=== PATIENT | male | born 1950 | race Caucasian/White ===

== ENCOUNTER 2024-10-03 10:52 | Outpatient (CLI) | payer MEDICARE, SELFPAY ==
[2024-10-03 12:24] LABS: D Dimer Quantitative* 2.74 ug/ml (0.00-0.50)
[2024-10-03 12:35] LABS: Troponin I* 0.03 ng/mL (0.01-0.04)
== END 2024-10-03 10:53 | disposition home or self-care (01) ==
PROVIDERS: Visit Provider Physician Assistant
DX: R06.02 Shortness of breath (principal); R53.83 Other fatigue; R05.9 Cough, unspecified
CPT/HCPCS: 84484; 85379

== ENCOUNTER 2024-10-03 11:47 | Emergency (ER) | payer MEDICARE, SELFPAY ==
--- OUTSIDE RECORDS SUMMARY | 2024-10-03 11:51 | XMS_ITS | Encounter Summary ---
Author Organization [facility] Address [address] [place] [address] Care Team Providers Care Web Site Designer Name Role Phone Dahlia Clif Epstein Primary Care Provider Unavailabl Michael Cid MD Unavailable [phone] Michael Ba APRN LOCOMOTIVE CRANE OPERATOR Unavailable [phone] Michael Negrete MD Unavailable [phone] Kailyn Wang DAIRY LABORATORY TECHNICIAN LOCOMOTIVE CRANE OPERATOR Unavailable Cristine Torres Finn MD Primary Care Provider + [phone] Nirav Cuba MD Unavailable Torres Mooney MD Primary Care Provider + [phone] Ayla Flores APRN LOCOMOTIVE CRANE OPERATOR Unavailable + [phone] Sophy Wong MD Unavailable [phone] Reason for Visit * Reason Onset Date Comments Symptoms 03/27/2022 AFIB Encounter Details Date Type Department Care Team (Late st Contact Info) Description 03/27/2022 Telephone [facility] [address] [facility] [place] [address] Michael Negrete MD [address] [facility] [address] [place] [address] Symptoms (AFIB) Social History Tobacco Use Types Packs/Day Years Used Date Smoking Tobacco: Never Smokeless Tobacco: Never Alcohol Use Standard Drinks/Week Comments No 0 (1 standard drink = 0.6 oz pur e alcohol) Sex and Gender Information Value Date Recorded Sex Assigned at Not on file 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 No / Unsure 03/29/2022 10:59 AM CDT documented as of this encounter Miscellaneous Notes * Telephone Encounter - Minnie Vickers - 03/27/2022 10:19 AM CDT [facility] Call Center Phone Message May a detailed message be left on voicemail: yes Reason for Call: Symptoms or Concerns If patient has red-flag symptoms, warm transfer to triage line Current symptom or concern: afib Symptoms have been present for: 1 week(s) Has patient previously been seen for this? Yes Patient is back in afib after dccv last week Action Taken: Other: routed to cardiology Travel Screening: Not Applicable documented in this encounter Plan of Treatment Not on file documented as of this encounter Visit Diagnoses Not on filedocumented in this encounter Care Teams Web Site Designer Relationship Specialty Start Date End Date Clif Villagomez PCP - General Family Medicine 09/20/20 03/13/23 Torres Mooney MD [address] [place] [address] PCP - General Family Medicine 03/14/23 11/12/23 Torres Mooney MD [address] [place] [address] PCP - General Family Medicine 11/13/23 Michael Negrete MD Cardiovascular Disease 11/08/21 Michael Ba, DAIRY LABORATORY TECHNICIAN LOCOMOTIVE CRANE OPERATOR [address] [place] [address] Assigned Sleep Provider 12/10/21 08/30/23 Michael Negrete MD [address] [facility] [address] [place] [address] Assigned Heart and Vascular Provider 12/31/21 04/20/22 Kailyn Wang APRN LOCOMOTIVE CRANE OPERATOR [address] [facility] [address] [place] [address] Assigned Heart and Vascular Provider 04/21/22 03/08/23 Nirav Cuba MD [address] [facility] [address] [place] [address] Assigned Heart and Vascular Provider 03/09/23 02/22/24 Ayla Flores APRN LOCOMOTIVE CRANE OPERATOR HEART & VASCULAR [address] [place] [address] Assigned Heart and Vascular Provider 02/23/24 08/23/24 Sophy Wong MD [address] [facility] [address] [place] [address] Assigned Heart and Vascular Provider 08/24/24 documented as of this encounter
--- OUTSIDE RECORDS SUMMARY | 2024-10-03 11:51 | XMS_ITS | Encounter Summary ---
Author Organization [place] Address [address] [place] [address] Care Team Providers Care Mail Truck Driver Name Role Phone Michael Negrete MD Unavailable [phone] Nirav Cuba MD Unavailable Torres Mooney MD Primary Care Provider + [phone] Ayla Flores APRN SIDEWALK INSPECTOR Unavailable + [phone] Sophy Wong MD Unavailable [phone] Encounter Details Date Type Department Care Team (Late st Contact Info) Description 11/26/2023 [facility] Medical Advice [facility] Heart [address] [place] [phone] Carol Ramos, JEM Social History Tobacco Use Types Packs/Day Years Used Date Smoking Tobacco: Never Smokeless Tobacco: Never Alcohol Use Standard Drinks/Week Comments Yes 0 (1 standard drink = 0.6 oz pur e alcohol) 2 drinks per month Adolescent Education Answer Date Record ed Getting School Help Needed Not on file 05/25 Sex and Gender Information Value Date Recorded Sex Assigned at Not on file 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 Gender Identity Not on file Sexual Orientation Not on file documented as of this encounter Plan of Treatment Not on file documented as of this encounter Visit Diagnoses Not on filedocumented in this encounter Care Teams Mail Truck Driver Relationship Specialty Start Date End Date Torres Mooney MD [address] [place] [address] PCP - General Family Medicine 11/13/23 Michael Negrete MD Cardiovascular Disease 11/08/21 Nirav Cuba MD [address] [facility] [address] [place], [place] [id number] Assigned Heart and Vascular Provider 03/09/23 02/22/24 Ayla Flores APRN [facility] [address] [place] [phone] Assigned Heart and Vascular Provider 02/23/24 08/23/24 Sophy Wong MD [address] [facility] [address] [place] [address] Assigned Heart and Vascular Provider 08/24/24 documented as of this encounter
--- OUTSIDE RECORDS SUMMARY | 2024-10-03 11:51 | XMS_ITS | Referral Summary ---
Author Organization [facility] [place] Address [address] [place] [address] Care Team Providers Care Animal Shelter Supervisor Name Role Phone Michael Negrete MD Unavailable [phone] Torres Mooney MD Primary Care Provider [phone] Nadine Wong MD Unavailable [phone] Encounters Date Type Department Care Team Description 09/01/2024 Travel 09/01/2024 3:20 PM EXCHANGE OPERATOR Office Visit [address] [place] [address] Nadine Wong MD Longstanding persistent atrial fibrillation (H) (Primary Dx); Atypical atrial flutter (H); Atrial tachycardia 08/27/2024 Travel 07/24/2024 Travel 07/24/2024 10:30 AM EXCHANGE OPERATOR - 07/24/2024 11:59 PM EXCHANGE OPERATOR Hospital Encounter [facility] [address] [place] [address] Nadine Wong MD Atypical atrial flutter (H); Longstanding persistent atrial fibrillation (H) Discharge Disposition: Home or Self Care 07/10/2024 Orders Only [facility] [address] [facility] [address] [place] [address] Carol Allen RN Atypical atrial flutter (H) (Primary Dx); Longstanding persistent atrial fibrillation (H) from Last 3 Months Allergies No known active allergies Medications apixaban ANTICOAGULANT (ELIQUIS ANTICOAGULANT) 5 MG tabletIndications: Persistent atrial fibrillation (H) TAKE 1 TABLET (5 MG) BY MOUTH EVERY 12 HOURS 180 tablet 3 4 Active Active Problems Problem Noted Date Diagnosed Date Atrial tachycardia 11/19/2023 Atypical atrial flutter 11/19/2023 Malignant neoplasm of skin 04/23/2023 Overview (05/20/2023): 04/19/23: left chest, BCC nodular and infiltrative: Needs excision 04/19/23: right forehead, nBCC: Needs Mohs AVRIL (obstructive sleep apnea) 04/16/2022 Overview (04/16/2022): January 2022 sleep study shows moderate AVRIL especially when supine or in rem sleep. CPAP advised. History of complications due to general anesthes ia-nausea 04/16/2022 Primary osteoarthritis of right knee 07/31/2021 Longstanding persistent atrial fibrillation 09/02 Overview (07/11/2023): [id number] score = 3 (age, CAD, CM) 2018 PVI with isolation of pulmonary veins 04/30/2022 redo wide area PVI + PWI + BRENTON + RA CTI line Repeat ablation 05/22/2023 four discrete EAT sites mapped, 3 ablated (1 deep and AMINA not ablated) Aftercare following surgery of the musculoskelet al system 07/11/2020 Diffuse myofascial pain syndrome 07/09/2018 Status post catheter ablation of atrial fibrilla tion 03/11/2018 Overview (04/30/2022): PVI Mar 10, 2018 (cryo-PVI + RA-CTI line + RA AT) Redo April 30, 2022 (RF- post LA wall isolation + BRENTON line + LA posteroseptal substrate mod). Cardiomyopathy of undetermined type 12/26/2017 GERD (gastroesophageal reflux disease) 4 Helicobacter pylori infection 11/21/2012 Overview (05/20/2023): EGD 10/2012 H. Pylori gastritis Sensorineural hearing loss, bilateral 10/04/2011 Immunizations Name Administration Dates Next Due COVID-19 MONOVALENT 12+ (Pfizer) 06/01/2021,10/03,09/22/2020 COVID-19 Monovalent 18+ (Moderna) 12/19/2021 TDAP (Adacel,Boostrix) 02/20/2010 Social History Tobacco Use Types Packs/Day Years Used Date Smoking Tobacco: Never Smokeless Tobacco: Never Tobacco Cessation:Counseling Given: Not Answered Alcohol Use Standard Drinks/Week Comments Yes 0 (1 standard drink = 0.6 oz pur e alcohol) 2 drinks per month Adolescent Education Answer Date Record ed Getting School Help Needed Not on file 05/25 Interpersonal Safety Answer Date Record ed Do you feel physically and e motionally safe where you currently live? No 04/24/2024 Within the past 12 months, h ave you been hit, slapped, kicked or otherwise physically hurt by someone? No 04/24/2024 Within the past 12 months, h ave you been humiliated or emotionally abused in other ways by your partner or ex-partner? No 04/24/2024 Sex and Gender Information Value Date Recorded Sex Assigned at Not on file Legal Sex Male 3:29 PM EXCHANGE OPERATOR Gender Identity Not on file Sexual Orientation Not on file Last Filed Vital Signs Vital Sign Reading Time Taken Comments Blood Pressure 102/70 09/01/2024 3:11 PM EXCHANGE OPERATOR Pulse 84 09/01/2024 3:11 PM EXCHANGE OPERATOR Temperature 36.7 C (98 F) 04/24/2024 7:15 PM CDT Respiratory Rate 16 09/01/2024 3:11 PM EXCHANGE OPERATOR Oxygen Saturation 99% 09/01/2024 3:11 PM EXCHANGE OPERATOR Inhaled Oxygen Concentration - - Weight 106.1 kg (234 lb) 09/01/2024 3:11 PM EXCHANGE OPERATOR shoes on Height 188 cm (6' 2) 09/01/2024 3:11 PM EXCHANGE OPERATOR per patient Body Mass Index 30.04 09/01/2024 3:11 PM EXCHANGE OPERATOR Plan of Treatment Not on file Procedures Procedure Name Priority Date/Time Associated Diagnosis Comments ECHO COMPLETE Routine 07/24/2024 11:20 AM EXCHANGE OPERATOR Atypical atrial flutter (H) Longstanding persistent atrial fibrillation (H) ZIO PATCH MAIL OUT Routine 07/03/2024 4: 04 PM CDT Longstanding persistent atrial fibrillation (H) Atrial tachycardia Atypical atrial flutter (H) BASIC METABOLIC PANEL STAT 04/24/2024 10:32 AM CDT LIPID PROFILE STAT 12/27/2017 12:42 PM CDT from Last 3 Months or Most Recently Relevant to Health Maintenance Results * ECHO COMPLETE (07/24/2024 11:20 AM EXCHANGE OPERATOR) LVEF 55-60% CARDIOLOGY RESULTS Anatomical Region Laterality Modality Ultrasound, Ultr asound 07/24/2024 10:4 5 AM EXCHANGE OPERATOR Narrative 07/24/2024 12:26 PM EXCHANGE OPERATOR [id number]^TRANG^NADINE^[place] [address] Name: JOSE PADRON : 1950 Study Date: 07/24/2024 10:45 AM Age: 73 yrs Gender: Male Patient Location: [facility] Reason For Study: Atypical atrial flutter (H), Longstanding persistent atrial fibr Ordering Physician: NADINE WONG Referring Physician: NADINE WONG Performed By: SALOMON BSA: 2.3 m2 Height: 74 in Weight: 235 lb Procedure Complete Echo Adult. Interpretation Summary Left ventricular function is normal.The ejection fraction is 55-60%. There is mild concentric left ventricular hypertrophy. There is borderline global hypokinesia of the left ventricle. Normal right ventricle size and systolic function. No hemodynamically significant valvular abnormalities on 2D or color flow imaging. Left Ventricle The left ventricle is normal in size. Left ventricular function is normal.The ejection fraction is 55-60%. There is mild concentric left ventricular hypertrophy. Diastolic function not assessed due to atrial fibrillation. There is borderline global hypokinesia of the left ventricle. Right Ventricle Normal right ventricle size and systolic function. TAPSE is normal, which is consistent with normal right ventricular systolic function. Atria The left atrium is moderate to severely dilated. The right atrium is moderately dilated. Mitral Valve Mitral valve leaflets appear normal. There is no evidence of mitral stenosis or clinically significant mitral regurgitation. There is trace to mild mitral regurgitation. Tricuspid Valve Tricuspid valve leaflets appear normal. There is no evidence of tricuspid stenosis or clinically significant tricuspid regurgitation. There is trace to mild tricuspid regurgitation. The right ventricular systolic pressure is approximated at 27.7 mmHg plus the right atrial pressure. Right ventricle systolic pressure estimate normal. Aortic Valve Aortic valve leaflets appear normal. There is no evidence of aortic stenosis or clinically significant aortic regurgitation. Pulmonic Valve The pulmonic valve is not well seen, but is grossly normal. Vessels The aorta root is normal. Normal size ascending aorta. IVC diameter <2.1 cm collapsing >50% with sniff suggests a normal RA pressure of 3 mmHg. Pericardium There is no pericardial effusion. Rhythm The rhythm was atrial fibrillation. MMode/2D Measurements & Calculations IVSd: 1.3 cm LVIDd: 5.4 cm LVIDs: 4.1 cm LVPWd: 1.4 cm FS: 25.1 % LV mass(C)d: 320.2 grams LV mass(C)dI: 137.6 grams/m2 Ao root diam: 3.2 cm LA dimension: 3.4 cm LA/Ao: 1.1 LVOT diam: 2.0 cm LVOT area: 3.1 cm2 Ao root diam index Ht(cm/m): 1.7 Ao root diam index BSA (cm/m2): 1.4 EF Biplane: 60.2 % LA Volume Indexed (AL/bp): 29.7 ml/m2 RV Base: 3.0 cm RWT: 0.53 TAPSE: 2.1 cm Time Measurements MM HR: 74.0 BPM Doppler Measurements & Calculations MV E max maris: 55.5 cm/sec MV dec slope: 139.0 cm/sec2 MV dec time: 0.40 sec LV V1 max P.6 mmHg LV V1 max: 63.1 cm/sec LV V1 VTI: 13.2 cm SV(LVOT): 41.5 ml SI(LVOT): 17.8 ml/m2 PA acc time: 0.12 sec PI end-d maris: 109.0 cm/sec TR max maris: 263.0 cm/sec TR max P.7 mmHg E/E' av.1 Lateral E/e': 6.1 Medial E/e': 8.1 Report approved by: Brandy Johnson 07/24/2024 12:26 PM Procedure Note Jeremías Weaver MD - 07/24/2024 [id number]^TRANG^NADINE^[place] [address] Name: JOSE PADRON : 1950 Study Date: 07/24/2024 10:45 AM Age: 73 yrs Gender: Male Patient Location: [facility] Reason For Study: Atypical atrial flutter (H), Longstanding persistentatrial fibr Ordering Physician: NADINE WONG Referring Physician: NADINE WONG Performed By: SALOMON BSA: 2.3 m2 Height: 74 in Weight: 235 lb Procedure Complete Echo Adult. Interpretation Summary Left ventricular function is normal.The ejection fraction is 55-60%. There is mild concentric left ventricular hypertrophy. There is borderline global hypokinesia of the left ventricle. Normal right ventricle size and systolic function. No hemodynamically significant valvular abnormalities on 2D or colorflow imaging. Left Ventricle The left ventricle is normal in size. Left ventricular function isnormal.The ejection fraction is 55-60%. There is mild concentric left ventricular hypertrophy. Diastolic function not assessed due to atrial fibrillation.There is borderline global hypokinesia of the left ventricle. Right Ventricle Normal right ventricle size and systolic function. TAPSE is normal, whichis consistent with normal right ventricular systolic function. Atria The left atrium is moderate to severely dilated. The right atrium is moderately dilated. Mitral Valve Mitral valve leaflets appear normal. There is no evidence of mitralstenosis or clinically significant mitral regurgitation. There is trace to mildmitral regurgitation. Tricuspid Valve Tricuspid valve leaflets appear normal. There is no evidence oftricuspid stenosis or clinically significant tricuspid regurgitation. There is traceto mild tricuspid regurgitation. The right ventricular systolic pressure is approximated at 27.7 mmHg plus the right atrial pressure. Rightventricle systolic pressure estimate normal. Aortic Valve Aortic valve leaflets appear normal. There is no evidence of aorticstenosis or clinically significant aortic regurgitation. Pulmonic Valve The pulmonic valve is not well seen, but is grossly normal. Vessels The aorta root is normal. Normal size ascending aorta. IVC diameter <2.1cm collapsing >50% with sniff suggests a normal RA pressure of 3 mmHg. Pericardium There is no pericardial effusion. Rhythm The rhythm was atrial fibrillation. MMode/2D Measurements & Calculations IVSd: 1.3 cm LVIDd: 5.4 cm LVIDs: 4.1 cm LVPWd: 1.4 cm FS: 25.1 % LV mass(C)d: 320.2 grams LV mass(C)dI: 137.6 grams/m2 Ao root diam: 3.2 cm LA dimension: 3.4 cm LA/Ao: 1.1 LVOT diam: 2.0 cm LVOT area: 3.1 cm2 Ao root diam index Ht(cm/m): 1.7 Ao root diam index BSA (cm/m2): 1.4 EF Biplane: 60.2 % LA Volume Indexed (AL/bp): 29.7 ml/m2 RV Base: 3.0 cm RWT: 0.53 TAPSE: 2.1 cm Time Measurements MM HR: 74.0 BPM Doppler Measurements & Calculations MV E max maris: 55.5 cm/sec MV dec slope: 139.0 cm/sec2 MV dec time: 0.40 sec LV V1 max P.6 mmHg LV V1 max: 63.1 cm/sec LV V1 VTI: 13.2 cm SV(LVOT): 41.5 ml SI(LVOT): 17.8 ml/m2 PA acc time: 0.12 sec PI end-d maris: 109.0 cm/sec TR max maris: 263.0 cm/sec TR max P.7 mmHg E/E' av.1 Lateral E/e': 6.1 Medial E/e': 8.1 Report approved by: Brandy Johnson 07/24/2024 12:26 PM us Nadine Wong MD CV ECHO ORDERABLES Edit ed Result - Final * ZIO PATCH MAIL OUT (07/03/2024 4:04 PM CDT) Anatomical Region Laterality Modality Other Narrative 07/03/2024 4:04 PM CDT Images from the original result were not included. [facility] Cardiac Electrophysiology Zio Patch Monitor Report Results: Indication for study: Longstanding persistent atrial fibrillation Time monitored: 13 days 18 hours. Predominant rhythm: Normal sinus rhythm. Conduction intervals are abnormal with first-degree AV block demonstrated through virtually all of the recordings. No high degree AV block and normal QRS duration.. Patient recordings: Diary: None. Triggered (no symptoms): 2, and recordings demonstrated normal sinus rhythm with heart rates in the 70s. First-degree AV block is observed. Auto triggered recordings: recordings demonstrated normal sinus rhythm with first-degree AV block manifest on virtually all recordings. Rare atrial and ventricular ectopy. Impression: Abnormal multiday cardiac patch monitor by virtue of the presence of conduction system disease manifest as first-degree AV block. There was no evidence of high degree AV block. QRS duration is normal. No evidence of atrial fibrillation or flutter. No sustained atrial or ventricular tachyarrhythmia. No profound bradycardia or significant/symptomatic pauses Nadine Wong MD CV CARDIAC SERVICES ORD ERABLES Final Result * (ABNORMAL) Basic metabolic panel (04/24/2024 10:32 AM CDT) Sodium 141 135 - 145 mmol/L 04/24/2024 10:58 AM CDT N LABORATORY Potassium 4.2 3.4 - 5.3 mmol/L 04/24/2024 10:58 AM CDT N LABORATORY Chloride 107 98 - 107 mmol/L 04/24/2024 10:58 AM [facility] Carbon Dioxide (CO2) 23 22 - 29 mmol/L 04/24/2024 10:58 AM [facility] Anion Gap 11 7 - 15 mmol/L 04/24/2024 10:58 AM [facility] Urea Nitrogen 16.6 8.0 - 23.0 mg/dL 04/24/2024 10:58 AM T [facility] Creatinine 1.23(H) 0.67 - 1.17 mg/dL 04/24/2024 10:58 AM [facility] GFR Estimate 63 >60 mL/min/1.7 3m2 04/24/2024 10:58 AM [facility] Comment:eGFR calculated usin 2020 CKD-EPI equation. Calcium 8.7(L) 8.8 - 10.4 mg/dL 04/24/2024 10:58 AM [facility] Comment:Reference intervals for this test were updated on 03/17/2024 to reflect our healthy population more accurately. There may be differences in the flagging of prior results with similar values performed with this method. Those prior results can be interpreted in the context of the updated reference intervals. Glucose 105(H) 70 - 99 mg/dL 04/24/2024 10:58 AM [facility] Blood BLOOD SPECIMEN / Unknown Venipuncture / Unknown 04/24/2024 10:32 AM CDT 04/24/2024 10:39 AM CDT Nadine Wong MD LAB - BLOOD ORDERABLES Final Result Performing Organization Address [facility] Co de Phone Number [facility] [address] [place] [address], [facility] * (ABNORMAL) Lipid Profile (12/27/2017 12:42 PM CDT) Triglycerides 160(H) <=149 mg/dL 12/27/2017 1:13 PM CDT [facility] Cholesterol 212(H) <=199 mg/dL 12/27/2017 1:13 PM CDT [facility] LDL Cholesterol Calculated 146(H) <=129 mg/dL 12/27/2017 1:13 PM CDT [facility] Direct Measure HDL 34(L) >=40 mg/dL 12/27/2017 1:13 PM CDT [facility] Patient Fasting > 8hrs? Yes 12/27/2017 1:13 PM CDT [facility] Blood specimen (specimen) STRUCTURE OF RIGHT UPPER LIMB / Unknown VAD(CVC, PICC) / Unknown 12/27/2017 12:42 PM CDT 12/27/2017 12:46 PM CDT Michael Negrete MD LAB - BLOOD ORDERABLES Final Result Performing Organization Address [facility] Co de Phone Number [facility] [address] [address], [facility] [address] [address] from Last 3 Months or Most Recently Relevant to Health Maintenance Insurance [employer] Advance Directives For more information, please contact: [phone] * Full Code (Latest Code Status on File) Date Activated Date Inactivated Comments 05/22/2023 7:02 PM 05/23/2023 1:10 AM All basic an d advanced life-sustaining interventions are performed as appropriate Question Answer Comments Code status determined by: Discussion with patie nt/ legal decision maker * Full Code Date Activated Date Inactivated Comments 11/26/2022 10:36 AM 11/26/2022 1:08 PM All basic a nd advanced life-sustaining interventions are performed as appropriate. Post-procedure. Question Answer Comments Code status determined by: Other (please antonio t) * Full Code Date Activated Date Inactivated Comments 06/20/2022 10:51 AM 06/20/2022 6:36 PM All basic and advanced life-sustaining interventions are performed as appropriate. Continue status Question Answer Comments Code status determined by: Other (please antonio t) * Full Code Date Activated Date Inactivated Comments 03/19/2022 10:08 AM 03/19/2022 1:20 PM All basic a nd advanced life-sustaining interventions are performed as appropriate. Post procedure. Question Answer Comments Code status determined by: Other (please antonio t) Care Teams Animal Shelter Supervisor Relationship Specialty Start Date End Date Torres Mooney [facility] [address] [facility] [address] PCP - General Family Medicine 11/13/23 Michael Negrete MD Cardiovascular Disease 11/08/21 Nadine Wong MD [address] [facility] [address] [place] [address] Assigned Heart and Vascular Provider 08/24/24
--- OUTSIDE RECORDS SUMMARY | 2024-10-03 11:51 | XMS_ITS | Clinical Summary ---
Author Organization [facility] Address [address] [facility] , [address] [place] [address] Phone Care Team Providers Care Proposal Consultant Name Role Phone [facility] Unavailable Unava ilable Conditions or Problems Problem Name Problem Code Onset Date Status Entry Date Provider Comment Standard Description Annotate Neck pain 42972192 (SNOMED CT) Active Adalid Chino MD Neck pain Left median neuropathy 084236676 (SNOMED CT) Active Adalid Chino MD Median neuropathy Left median neuropathy 316534752 (SNOMED CT) Inactive Amrita Joe Median neuropathy Median neuropathy, bilateral 508538330 (SNOMED CT) Active Amrita Diaz Lesion of median nerve Left ulnar neuropathy 511065177 (SNOMED CT) Active Adalid Chino MD Ulnar neuropathy Median neuropathy, right 304382315 (SNOMED CT) Inactive Adalid Chino MD Median neuropathy Left median neuropathy 028073053 (SNOMED CT) Removed Adalid Chino MD Median neuropathy Medications No information available. Medications Administered No information available. Allergies, Adverse Reactions, Alerts No information available. Results Date Name Value Unit Range Flag Description Internal Other: Authorizatio n - OBS AUTHBENEFIT Yes Authoriza tion: Assignment of Benefits and Payment Agreement [email or web address] Yes Authorizat ion: Authorization for [facility]I to leave messages, voicemail, send text messages, send emails AUTHRELHCARE Yes Authoriz ation: Release/Retrieval of Information to/from Healthcare Facilities, Pharmacy Benefit Payers and Providers ROIAUTHOTHER Yes Authoriz ation: Release of Information - Authorize Others/Insurance - Payment and Healthcare Operations [email or web address] Yes Authoriza tion: Release of Information - Authorize [facility]/MDC - Payment and Healthcare Operations AUTHPRIVPRAC Yes Authoriz ation: Notice of privacy practices HIECONSENT Yes Consent To Release information to the Health Information Exchange (HIE) Internal Other: Verbal Autho rization/Emergency Contact - OBS VERBAL_EMER Done Verbal au thorization and emergency contact Plan of Care No information available. Procedures Code Procedure Name Date Entry Date CPT-12174 Nerve Conduction 11-12 studies CPT-93950 EMG with NCS (5+ muscles) - 1 limb 10/21 CPT-81343 Nerve Conduction 13 or more studies 04/14 CPT-06095 EMG with NCS (5+ muscles) - 2 limbs 04/14 Vital Signs No information available. Immunizations No information available. Advance Directives No information available.
--- OUTSIDE RECORDS SUMMARY | 2024-10-03 11:51 | XMS_ITS | Encounter Summary ---
Author Organization [facility] Address [address] [place] [address] Care Team Providers Care Technician Support Engineer Name Role Phone DahliaClif Primary Care Provider Unavailabl Michael Cid MD Unavailable [phone] Michael Ba APRN TOLL LINE INSPECTOR Unavailable [phone] Kailyn Wang APRN TOLL LINE INSPECTOR Unavailable Cristine Torres Finn MD Primary Care Provider + [phone] Nirav Cuba MD Unavailable Torres Mooney MD Primary Care Provider + [phone] Ayla Flores APRN TOLL LINE INSPECTOR Unavailable + [phone] Sophy Wong MD Unavailable [phone] Reason for Visit * Reason Comments Medication Refill Encounter Details Date Type Department Care Team (Late st Contact Info) Description 07/07/2022 Refill [facility] [address] 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 No / Unsure 06/13/2022 1:11 PM CDT documented as of this encounter Plan of Treatment Not on file documented as of this encounter Visit Diagnoses Diagnosis Longstanding persistent atrial fibrillation (H) documented in this encounter Care Teams Technician Support Engineer Relationship Specialty Start Date End Date Clif Villagomez PCP - General [facility] Medicine 09/20/20 03/13/23 Torres Mooney MD [address] [place] [address] PCP - General [facility] Medicine 03/14/23 11/12/23 Torres Mooney MD [address] [place] [address] PCP - General [facility] Medicine 11/13/23 Michael Negrete MD Cardiovascular Disease 11/08/21 Michael Ba APRN TOLL LINE INSPECTOR [address] [place] [address] Assigned Sleep Provider 12/10/21 08/30/23 Kailyn Wang APRN TOLL LINE INSPECTOR [address] [place] [address] Assigned Heart and Vascular Provider 04/21/22 03/08/23 Nirav Cuba MD [address] [facility] [address] [place] [address] Assigned Heart and Vascular Provider 03/09/23 02/22/24 Ayla Flores APRN TOLL LINE INSPECTOR HEART & VASCULAR [address] [place] [address] Assigned Heart and Vascular Provider 02/23/24 08/23/24 Sophy Wong MD [address] [facility] [address] [place] [address] Assigned Heart and Vascular Provider 08/24/24 documented as of this encounter
--- OUTSIDE RECORDS SUMMARY | 2024-10-03 11:51 | XMS_ITS | Encounter Summary ---
Author Organization [facility] Address [address] [place] [address] Care Team Providers Care Vacuum Cleaner Repairer Name Role Phone Clif Villagomez Primary Care Provider Unavailabl e Kailyn Wang SANITATION INSPECTOR CABLE TOWER OPERATOR Unavailable Cristine vailable Michael Negrete MD Unavailable [phone] Michael Ba APRN CABLE TOWER OPERATOR Unavailable [phone] Michael Negrete MD Unavailable [phone] Kailyn Wang APRN CABLE TOWER OPERATOR Unavailable Cristine vailable Torres Mooney MD Primary Care Provider + [phone] Nirav Cuba MD Unavailable Torres Mooney MD Primary Care Provider + [phone] Ayla Flores SANITATION INSPECTOR CABLE TOWER OPERATOR Unavailable + [phone] Sophy Wong MD Unavailable [phone] Encounter Details Date Type Department Care Team (Late st Contact Info) Description 11/24/2021 MyC Medical Advice [facility] [address] [address] Auera Lucas, TIRE RECAPPER Social History Tobacco Use Types Packs/Day Years Used Date Smoking Tobacco: Never Smokeless Tobacco: Never Alcohol Use Standard Drinks/Week Comments No 0 (1 standard drink = 0.6 oz pur e alcohol) Sex and Gender Information Value Date Recorded Sex Assigned at Not on file 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 Unable to assess 11/08/2021 7:53 AM SUPERVISOR ELECTRON TUBE PROCESSING documented as of this encounter Plan of Treatment Not on file documented as of this encounter Visit Diagnoses Not on filedocumented in this encounter Care Teams Vacuum Cleaner Repairer Relationship Specialty Start Date End Date Clif Villagomez PCP - General Family Medicine 09/20/20 03/13/23 Torres Mooney MD [address] [place] [address] PCP - General Family Medicine 03/14/23 11/12/23 Torres Mooney MD [address] [place] [address] PCP - General Family Medicine 11/13/23 Kailyn Wang APRN CABLE TOWER OPERATOR Assigned Heart and Vascular Provider 03/17/21 12/30/21 Michael Negrete MD Cardiovascular Disease 11/08/21 Michael Ba APRN CABLE TOWER OPERATOR [address] [place] [address] Assigned Sleep Provider 12/10/21 08/30/23 Michael Negrete MD [address] [facility] [address] [place], [place] [id number] Assigned Heart and Vascular Provider 12/31/21 04/20/22 Kailyn Wang APRN CABLE TOWER OPERATOR [address] [facility] [address] [place] [address] Assigned Heart and Vascular Provider 04/21/22 03/08/23 Nirav Cuba MD [address] [facility] [address] [place] [address] Assigned Heart and Vascular Provider 03/09/23 02/22/24 Ayla Flores APRN [facility] HEART [facility]ULAR [address] [place] [phone] Assigned Heart and Vascular Provider 02/23/24 08/23/24 Sophy Wong MD [address] [facility] [address] [place], [place] [id number] Assigned Heart and Vascular Provider 08/24/24 documented as of this encounter
--- OUTSIDE RECORDS SUMMARY | 2024-10-03 11:51 | XMS_ITS | Encounter Summary ---
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 Gender Identity Not on file Sexual Orientation Not on file documented as of this encounter Plan of Treatment Not on file documented as of this encounter Visit Diagnoses Not on filedocumented in this encounter Care Teams Director Of Payroll Relationship Specialty Start Date End Date Torres Mooney MD [address] [facility] [place] [address] PCP - General Family Medicine 11/13/23 Michael Negrete MD Cardiovascular Disease 11/08/21 Sophy Wong MD [address] [facility] [address] [place] [address] Assigned Heart and Vascular Provider 08/24/24 documented as of this encounter
--- OUTSIDE RECORDS SUMMARY | 2024-10-03 11:51 | XMS_ITS ---
Author Organization [facility] Address [address] [facility] , [address] [place] [address] Phone Care Team Providers Care Flight Security Specialist Name Role Phone Adalid Chino MD Conditions or Problems Problem Name Problem Code Onset Date Status Entry Date Provider Comment Standard Description Annotate Neck pain 15402396 (SNOMED CT) Active Adalid Chino MD Neck pain Left median neuropathy 435212798 (SNOMED CT) Active Adalid Chino MD Median neuropathy Medications No information available. Medications Administered No information available. Allergies, Adverse Reactions, Alerts No information available. Results No information available. Plan of Care No information available. Procedures Code Procedure Name Date Entry Date CPT-47445 Nerve Conduction 11-12 studies CPT-59415 EMG with NCS (5+ muscles) - 1 limb 10/21 Vital Signs No information available. Immunizations No information available. Advance Directives No information available.
--- OUTSIDE RECORDS SUMMARY | 2024-10-03 11:51 | XMS_ITS | Encounter Summary ---
Author Organization [facility] Address [address] [place] [address] Care Team Providers Care Police Crime Scene Technician Name Role Phone Michael Negrete MD Unavailable [phone] Torres Mooney MD Primary Care Provider + [phone] Nirav Cuba MD Unavailable Torres Mooney MD Primary Care Provider + [phone] Ayla Flores APRN, CNP Unavailable + [phone] Sophy Wong MD Unavailable [phone] Encounter Details Date Type Department Care Team (Late st Contact Info) Description 10/14/2023 MyC Medical Advice [facility] [address] [facility] [address] [place] [address] Ayla Flores APRN BRANCH MANAGER HEART & VASCULAR [address] [place] [address] Social History Tobacco Use Types Packs/Day Years [...] on file Legal Sex Male 3:29 PM 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 Can we please coordinate outpatient DCCV if complaint with OAC? 2 days prior start sotalol 60mg BID, discontinue metoprolol. Please reschedule follow-up withMable Cuba. Thank you USION PRESS OPERATOR * Telephone Encounter - Tess Sosa RN - 10/21/2023 11:46 AM CST Attempted to contact pt to discuss, LM for return call. Tess USION PRESS OPERATOR documented in this encounter Plan of Treatment Not on file documented as of this encounter Visit Diagnoses Not on filedocumented in this encounter Care Teams Police Crime Scene Technician Relationship Specialty Start Date End Date Torres Mooney MD [address] [place] [address] PCP - General Family Medicine 03/14/23 11/12/23 Torres Mooney MD [address] [place] [address] PCP - General Family Medicine 11/13/23 Michael Negrete MD Cardiovascular Disease 11/08/21 Nirav Cuba MD [address] [facility] [address] [place], [place] [id number] Assigned Heart and Vascular Provider 03/09/23 02/22/24 Ayla Flores APRN BRANCH MANAGER HEART & VASCULAR [address] [place] [address] Assigned Heart and Vascular Provider 02/23/24 08/23/24 Sophy Wong MD [address] [facility] [address] [place] [address] Assigned Heart and Vascular Provider 08/24/24 documented as of this encounter
--- OUTSIDE RECORDS SUMMARY | 2024-10-03 11:51 | XMS_ITS | Clinical Summary ---
Author Organization [facility] Address [address] [place] [address] Care Team Providers Care Radio Equipment Installer Name Role Phone Michael Negrete MD Unavailable [phone] Torres Mooney MD Primary Care Provider [phone] Nadine Wong MD Unavailable [phone] Allergies No known active allergies Medications apixaban [...] Longstanding persistent atrial fibrillation 09/02 Overview (07/11/2023): [id number] score = 3 (age, CAD, CM) 2018 [...] Pylori gastritis Sensorineural hearing loss, bilateral 10/04/2011 Encounters Date Type Department Care Team Description 09/01/2024 3:20 PM HEALTH SAFETY AND ENVIRONMENT MANAGER Office Visit [address] [place] [address] Nadine Wong MD Longstanding persistent atrial fibrillation (H) (Primary Dx); Atypical atrial flutter (H); Atrial tachycardia 09/01/2024 Travel 08/27/2024 Travel 07/24/2024 10:30 AM HEALTH SAFETY AND ENVIRONMENT MANAGER - 07/24/2024 11:59 PM HEALTH SAFETY AND ENVIRONMENT MANAGER Hospital Encounter [facility] [address] [place] [phone] Nadine Wong MD Atypical atrial flutter (H); Longstanding persistent atrial fibrillation (H) Discharge Disposition: Home or Self Care 07/24/2024 Travel 07/10/2024 Orders Only [address] [place] [phone] Carol Allen, JEM Atypical atrial flutter (H) (Primary Dx); Longstanding persistent atrial fibrillation (H) from Last 3 Months Immunizations Name Administration Dates Next Due COVID-19 MONOVALENT 12+ (Pfizer) 06/01/2021,10/03,09/22/2020 COVID-19 Monovalent 18+ (Moderna) 12/19/2021 TDAP (Adacel,Boostrix) 02/20/2010 Family History Medical History Relation Comments Alcoholism Brother 1 Diabetes Brother 1 No Known Problems Brother 2 Throat cancer Father Arrhythmia Mother Atrial fibrillation Mother Coronary Artery Disease Mother Relation Status Comments Brother 1 Brother 2 Alive Father Mother Social History Tobacco Use Types Packs/Day Years [...] on file Legal Sex Male 3:29 PM HEALTH SAFETY AND ENVIRONMENT MANAGER Gender Identity Not on file Sexual Orientation Not on file Last Filed Vital Signs Vital Sign Reading Time Taken Comments Blood Pressure 102/70 09/01/2024 3:11 PM HEALTH SAFETY AND ENVIRONMENT MANAGER Pulse 84 09/01/2024 3:11 PM HEALTH SAFETY AND ENVIRONMENT MANAGER Temperature 36.7 C (98 F) 04/24/2024 7:15 PM CDT Respiratory Rate 16 09/01/2024 3:11 PM HEALTH SAFETY AND ENVIRONMENT MANAGER Oxygen Saturation 99% 09/01/2024 3:11 PM HEALTH SAFETY AND ENVIRONMENT MANAGER Inhaled Oxygen Concentration - - Weight 106.1 kg (234 lb) 09/01/2024 3:11 PM HEALTH SAFETY AND ENVIRONMENT MANAGER shoes on Height 188 cm (6' 2) 09/01/2024 3:11 PM HEALTH SAFETY AND ENVIRONMENT MANAGER per patient Body Mass Index 30.04 09/01/2024 3:11 PM HEALTH SAFETY AND ENVIRONMENT MANAGER Plan of Treatment Health Maintenance Due Date Last Done Comments ADVANCE CARE PLANNING 1950 ANNUAL REVIEW OF HM ORDERS 1950 CT COLONOGRAPHY 1950 FIT 1950 FLEX SIG 1950 COLONOSCOPY 1962 HEPATITIS C SCREENING 1970 Pneumococcal Vaccine: 50+ Years (1 of 2 - PCV) 1971 ZOSTER IMMUNIZATION (1 of 2) 1971 RSV VACCINE (1 - Risk 60-74 years 1-dose series) 2012 FALL RISK ASSESSMENT 2017 LIPID 12/27/2022 12/27/2017 INFLUENZA VACCINE (#1) 2024 PHQ-2 (once per calendar year) 2024 COVID-19 Vaccine (9 - Pfizer risk 2023- season) 2024 06/01/2024, 10/10/2023, 04/15/2023, Additional history exists MEDICARE ANNUAL WELLNESS VISIT 04/22/2025 04/22/2024, 03/15/2023 COLORECTAL CANCER SCREENING 03/25/2027 sDNA (Cologuard) 03/25/2027 03/25/2024, 03/25/2024 GLUCOSE 04/24/2027 04/24/2024, 04/02, 05/21/2023, Additional history exists DTAP/TDAP/TD IMMUNIZATION (3 - Td or Tdap) 04/15/2033 04/15/2023, 02/20/2010 HPV IMMUNIZATION Aged Out No longer e ligible based on patient's age to complete this topic MENINGITIS IMMUNIZATION Aged Out No l onger eligible based on patient's age to complete this topic RSV MONOCLONAL ANTIBODY Aged Out No l onger eligible based on patient's age to complete this topic Procedures Procedure Name Priority Date/Time Associated Diagnosis Comments ECHO COMPLETE Routine 07/24/2024 11:20 AM HEALTH SAFETY AND ENVIRONMENT MANAGER Atypical atrial flutter (H) Longstanding persistent atrial fibrillation (H) ZIO PATCH MAIL OUT Routine 07/03/2024 4: 04 PM CDT Longstanding persistent atrial fibrillation (H) Atrial tachycardia Atypical atrial flutter (H) BASIC METABOLIC PANEL STAT 04/24/2024 10:32 AM CDT LIPID PROFILE STAT 12/27/2017 12:42 PM CDT from Last 3 Months or Most Recently Relevant to Health Maintenance Results * ECHO COMPLETE (07/24/2024 11:20 AM HEALTH SAFETY AND ENVIRONMENT MANAGER) LVEF 55-60% CARDIOLOGY RESULTS Anatomical Region Laterality Modality Ultrasound, Ultr asound 07/24/2024 10:4 5 AM HEALTH SAFETY AND ENVIRONMENT MANAGER Narrative 07/24/2024 12:26 PM HEALTH SAFETY AND ENVIRONMENT MANAGER [id number]^TRANG^NADINE^[place] [address] Name: JOSE PADRON : 1950 Study Date: 07/24/2024 10:45 AM Age: 73 yrs Gender: Male Patient Location: [facility] Reason For Study: Atypical atrial flutter [...] Procedure Note Jeremías Weaver MD - 07/24/2024 [id number]^TRANG^NADINE^[place] [address] Name: JOSE PADRON : 1950 Study Date: 07/24/2024 10:45 AM Age: 73 yrs Gender: Male Patient Location: [facility] Reason For Study: Atypical atrial flutter [...] approved by: Brandy Johnson 07/24/2024 12:26 PM Nadine Wong MD ECHO ORDERABLES Edit ed Result - Final * ZIO PATCH MAIL OUT (07/03/2024 4:04 PM CDT) Anatomical Region Laterality Modality Other Narrative 07/03/2024 4:04 PM CDT Images from the original result were not included. [facility] Cardiac Electrophysiology Zio Patch Monitor Report Results: [...] bradycardia or significant/symptomatic pauses Nadine Wong MD CARDIAC SERVICES ORD ERABLES Final Result * (ABNORMAL) Basic metabolic panel (04/24/2024 10:32 AM CDT) Sodium 141 135 - 145 mmol/L 04/24/2024 10:58 AM CDT [facility] Potassium 4.2 3.4 - 5.3 mmol/L 04/24/2024 10:58 AM CDT [facility] Chloride 107 98 - 107 mmol/L 04/24/2024 10:58 AM CDT [facility] Carbon Dioxide (CO2) 23 22 - 29 mmol/L 04/24/2024 10:58 AM CDT [facility] Anion Gap 11 7 - 15 mmol/L 04/24/2024 10:58 AM CDT [facility] Urea Nitrogen 16.6 8.0 - 23.0 mg/dL 04/24/2024 10:58 AM CDT [facility] Creatinine 1.23(H) 0.67 - 1.17 mg/dL 04/24/2024 10:58 AM [facility] GFR Estimate 63 >60 mL/min/1.7 3m2 04/24/2024 10:58 AM [facility] Comment:eGFR calculated usin g 2020 CKD-EPI equation. Calcium 8.7(L) 8.8 - 10.4 mg/dL 04/24/2024 10:58 AM [facility] Comment:Reference intervals for this test were updated on 03/17/2024 to reflect our healthy population more accurately. There may be differences in the flagging of prior results with similar values performed with this method. Those prior results can be interpreted in the context of the updated reference intervals. Glucose 105(H) 70 - 99 mg/dL 04/24/2024 10:58 AM [facility] Blood BLOOD SPECIMEN / Unknown Venipuncture / Unknown 04/24/2024 10:32 AM CDT 04/24/2024 10:39 AM CDT us Nadine Wong MD LAB - BLOOD ORDERABLES Final Result [facility] [address] [place] [address], [facility] * (ABNORMAL) Lipid Profile (12/27/2017 12:42 PM CDT) Triglycerides 160(H) <=149 mg/dL 12/27/2017 1:13 PM CDT [facility] Cholesterol 212(H) <=199 mg/dL 12/27/2017 1:13 PM CDT [facility] LDL Cholesterol Calculated 146(H) <=129 mg/dL 12/27/2017 1:13 PM CDT [facility] Direct Measure HDL 34(L) >=40 mg/dL 12/27/2017 1:13 PM CDT [facility] Patient Fasting > 8hrs? Yes 12/27/2017 1:13 PM CDT [facility] Blood specimen (specimen) STRUCTURE OF RIGHT UPPER LIMB / Unknown VAD(CVC, PICC) / Unknown 12/27/2017 12:42 PM CDT 12/27/2017 12:46 PM CDT Michael Negrete MD LAB - BLOOD ORDERABLES Final Result [facility] [address] [place] [address], [facility] [address] [place] [address] from Last 3 Months or Most Recently Relevant to Health Maintenance Insurance [facility] MEDICARE ADVANTAGE [facility] MEDICARE ADVANTAGE Advance Directives For more information, please contact: [phone] * Full Code (Latest Code Status on [...] Comments Code status determined by: Other (please docjvn t) * Full Code Date Activated Date Inactivated Comments 03/19/2022 10:08 AM 03/19/2022 1:20 PM All basic a nd advanced life-sustaining interventions are performed as appropriate. Post procedure. Question Answer Comments Code status determined by: Other (please docnida t) Care Teams Radio Equipment Installer Relationship Specialty Start Date End Date Torres Mooney MD Gisella [place] [address] PCP - General Family Medicine 11/13/23 Michael Negrete MD Cardiovascular Disease 11/08/21 Nadine Wong MD [address] [facility] [address] [place] [address] Assigned Heart and Vascular Provider 08/24/24
--- OUTSIDE RECORDS SUMMARY | 2024-10-03 11:51 | XMS_ITS | Encounter Summary ---
Author Organization [place] Address [address] [place] [id number] Care Team Providers Care Hand Sign Writer Name Role Phone Michael Negrete MD Unavailable [phone] Torres Mooney MD Primary Care Provider + [phone] Nirav Cuba MD Unavailable Torres Mooney MD Primary Care Provider + [phone] Ayla Flores APRN, CNP Unavailable + [phone] Sophy Wong MD Unavailable +[phone] Encounter Details Date Type Department Care Team (Late st Contact Info) Description 11/06/2023 MyC Medical Advice [facility] [address] [place] [address] Ayla Flores APRN REQUIREMENTS ANALYST HEART & VASCULAR [facility] [address] [place] [address] Social History Tobacco Use Types [...] on file Legal Sex Male 3:29 PM [employer] Gender Identity Not on file Sexual Orientation Not on file documented as of this encounter Plan of Treatment Not on file documented as of this encounter Visit Diagnoses Not on filedocumented in this encounter Care Teams Hand Sign Writer Relationship Specialty Start Date End Date Torres Mooney MD [address] [facility] [address] PCP - General Family Medicine 03/14/23 11/12/23 Torres Mooney MD [address] [place] [address] PCP - General Family Medicine 11/13/23 Michael Negrete MD Cardiovascular Disease 11/08/21 Nirav Cuba MD [address] [facility] [address] [place] [address] Assigned Heart and Vascular Provider 03/09/23 02/22/24 yAla Flores APRN REQUIREMENTS ANALYST HE[facility] VASCULAR [facility] [address] [place] [id number] Assigned Heart and Vascular Provider 02/23/24 08/23/24 Sophy Wong MD [address] [facility] [address] [place], [place] [id number] Assigned Heart and Vascular Provider 08/24/24 documented as of this encounter
--- OUTSIDE RECORDS SUMMARY | 2024-10-03 11:51 | XMS_ITS | Clinical Summary ---
Author Organization [facility] Address [place], [place] [address] Care Team Providers Care Care Worker Name Role Phone Torres Mooney MD Primary Care Provider [phone] Allergies No known active allergies Medications predniSONE (DELTASONE) 20 mg tabletIndicatio ns:Influenza-li ke illness Take 2 Tablets (40 mg) by mouth once daily with a meal for 5 days. 10 Tablet 5 10/04/19 25 Active Eliquis 5 mg tablet TAKE ONE TABLET BY MOUTH 2 TIMES DAILY 2 09/29/19 25 Discontinu ed(*Med complete/R egimen complete/L evel of care change) Active Problems Problem Noted Date Diagnosed Date Skin cancer 04/23/2023 Overview (10/17/2023): 04/19/23: left chest, BCC nodular and infiltrative: excised 09/23/2023 04/19/23: right forehead, nBCC: Mohs done 07/23/[address] 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 CPAP advised. Primary osteoarthritis of right knee 07/31/2021 s/p left total knee arthroplasty 06/28/202019 Diffuse myofascial pain syndrome 07/09/2018 11/19/2022 Status post catheter ablation of atrial fibrilla tion 03/11/2018 11/19/2022 Overview (11/19/2022): PVI Mar 10, 2018 (cryo-PVI + RA-CTI line + RA AT) PVI Mar 10, 2018 (cryo-PVI + RA-CTI line + RA AT) Redo April 30, 2022 (RF- post LA wall isolation + BRENTON line + LA posteroseptal substrate mod). Cardiomyopathy of undetermined type 12/26/2017 11/19/2022 Longstanding persistent atrial fibrillation 11/01 Overview (11/19/2022): Dx 2018 (uncertain onset) [id number] score = 3 (age/ CAD/ CM) Rx apixaban Rx sotalol CV symptoms improved: Early reversion to AF PVI March 10, 2018 [id number] score = 1 (age) 2018 PVI with isolation of pulmonary veins 04/30/2022 repeat PVI with pulmonary veins noted to be isolated but abnormal voltage along posterior rogers along inferior pulmonary veins. Wide area pulmonary vein isolation with RF done. BRENTON and roofline done. Right CTI flutter ablation as well. GERD (gastroesophageal reflux disease) 4 Helicobacter pylori (H. pylori) 11/21/2012 Overview (11/21/2012): EGD 10/2012 H. Pylori gastritis Sensorineural hearing loss, bilateral 10/04/2011 Screen for colon cancer 07/06/2011 Overview (07/06/2011): Colonoscopy 07/2011 normal repeat in 10 years Resolved Problems Problem Noted Date Diagnosed Date Resolved Date Primary osteoarthritis of left knee 04/07/2020 07/11/2020 Encounters Date Type Department Care Team Description 09/29/2024 11:30 AM TEXTBOOK ASSOCIATE Ancillary Procedure [facility] [address] [place] [address] 09/29/2024 11:00 AM TEXTBOOK ASSOCIATE Office Visit [facility] [address] [place] [address] Janiya Fox MD Cough (Cough, fever, chest congestion, shortness of breath x 4 days ) 09/29/2024 Travel 09/26/2024 Nurse Triage [facility] [address] [place] [address] Torres Mooney MD Cough 09/03/2024 2:40 PM TEXTBOOK ASSOCIATE Office Visit [facility] [address] [place] [address] Colton Haider MD Consult (Cervical ) 09/03/2024 Travel 08/29/2024 Travel 08/24/2024 Orders Only [facility] at [facility] [address] [place] [address] Colton Haider MD 1 scan: (1-Ord) [facility] 08/21/2024 Orders Only [facility] Scanner 1 scan: (1-Ord) [facility], MRI CERVICAL SPINE WO CON, 08/21/2024 08/13/2024 Telephone [facility] at [facility] [address] [place] [address] Colton Haider MD 07/24/2024 9:15 AM TEXTBOOK ASSOCIATE Orders Only [facility] [address] [facility] [place] [address] Lab, [place] [facility] 07/24/2024 Travel 07/20/2024 Orders Only [facility] [address] [facility] [address] Torres Mooney MD Lab (ORder Update) 07/20/2024 Travel from Last 3 Months Immunizations Name Administration Dates Next Due Tdap 04/15/2023,02/20/2010 Family History Medical History Relation Name Comments Heart attack Brother 2 Deejay of a heart attack at 76 Hypertension Mother Che Cancer Paternal Uncle 2 Pat Uncles w Esophageal Ca Relation Name Status Comments Brother 1 Blade Brother 2 Deejay Father Jaquan Mother Che Paternal Uncle Social History Tobacco Use Types Packs/Day Years Used Date Smoking Tobacco: Former Cigarettes 0.5 15 0 04/02/1993 - 04/02/2008 Smokeless Tobacco: Never Tobacco Cessation:Counseling Given: Yes Comments:smoked weekends for 15yrs. only, didn't smoke everyday Alcohol Use Standard Drinks/Week Comments Yes 0 (1 standard drink = 0.6 oz pur e alcohol) every 2 weeks PHQ-2 Answer Date Recorded PHQ-2 TOTAL SCORE 0 04/22/2024 Social Connections Answer Date Recorded Do you often feel lonely or isolated from those around you? 0 02/17/2024 Alcohol Use Answer Date Recorded How often do you have a drink containing alcohol ? 2 06/17/2024 How many drinks containing a lcohol do you have on a typical day when you are drinking? 0 06/17/2024 How often do you have five or more drinks on one occasion? 0 06/17/2024 Financial Resource Strain Answer Date R ecorded Difficulty of Paying Living Expenses 3 02/17/2024 Difficulty of Paying Living Expenses Not on file 02/17/2024 Food Insecurity Answer Date Recorded Do you worry your food will run out before you are able to buy more? 1 02/17/2024 Transportation Needs Answer Date Record ed Does lack of transportation keep you from medica l appointments? 1 02/17/2024 Does lack of transportation keep you from work, meetings or getting things that you need? 1 02/17/2024 Housing Stability Answer Date Recorded What is your housing situation today? 1 02/17/2024 Utilities Answer Date Recorded Do you have trouble paying f or utilities (for example, heat, electricity, water, phone)? 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 Not on file Not on file Obstetrics History Last Filed Vital Signs Vital Sign Reading Time Taken Comments Blood Pressure 110/64 09/29/2024 11:00 AM TEXTBOOK ASSOCIATE Pulse 68 09/29/2024 11:00 AM TEXTBOOK ASSOCIATE Temperature 36.6 C (97.8 F) 09/29/2024 11:00 AM TEXTBOOK ASSOCIATE Respiratory Rate 16 06/29/2020 7:37 AM CDT Oxygen Saturation 96% 09/29/2024 11:00 AM TEXTBOOK ASSOCIATE Inhaled Oxygen Concentration - - Weight 97.8 kg (215 lb 8 oz) 09/29/2024 11:00 AM TEXTBOOK ASSOCIATE Height 188 cm (6' 2) 09/03/2024 3:14 PM TEXTBOOK ASSOCIATE Body Mass Index 27.67 09/03/2024 3:14 PM TEXTBOOK ASSOCIATE Plan of Treatment Upcoming Encounters Date Type Department Care Team (Late st Contact Info) Description 10/06/2024 3:10 PM TEXTBOOK ASSOCIATE Office Visit [facility] [address] [place] [address] Torres Mooney MD [address] [place] [address] Health Maintenance Due Date Last Done Comments Pneumococcal series for age 50+ (1 of 2 - PCV) 1971 Zoster (shingles) series for age 50+ (1 of 2) 2002 RSV vaccine for adults or (1 - Risk 60-74 years 1-dose series) 2012 Influenza for age 65+ 05/03/2024 Depression screening for age 12+ 04/22/2025 04/22/2024, 03/15/2023, 06/23/2020, Additional history exists Medicare Wellness for age 65+ 04/23/2025 04/22/2024, 03/15/2023 BMI (ht and wt on same day) for age 18+ 09/03/2025 09/03/2024, 06/17/2024, 04/22/2024, Additional history exists Fecal testing sDNA-FIT ([place]ie guard) for age 45-75 03/25/2027 03/25/2024 Lipids for age 45-75 04/20/2029 04/20/2024, 02/12/2024, 07/12/2023, Additional history exists Tetanus booster 04/15/2033 04/15/2023, 02/20/2010 Tdap Completed 04/15/2023, 02/20/2010 AAA screening age 65-74 Completed 03/17/2024 Hepatitis C screening for ag e 18-79 Completed 04/20/2024 COVID-19 vaccine series Completed 06/01/20, 10/10/2023, 04/15/2023, Additional history exists Medical Devices Implanted Type Area Recycler Device Identifier Shelf Expiration Date Model / Serial / Lot Patella Sz35 Grecia Ii Rnd Penon Pors - [id number] Implanted:Qty: 1 on 06/28/2020 by Torres Hernandez MD at [facility] Total Joint Left: Knee [employer] 03/30/2030 [id number] / / [id number] Baseplate Tib Lt Sz7 Grecia Ii Titnm Non Pors - [id number] Implanted:Qty: 1 on 06/28/2020 by Torres Hernandez MD at [facility] Total Joint Left: Knee [employer] 02/04/2028 [id number] / / [id number] Cmnt Bone 40gm Rally Hv - [id number] Implanted:Qty: 2 on 06/28/2020 by Torres Hernandez MD at [facility] Left: Knee [employer] 11/30/2024 [id number] / / [id number] Fem Lt Sz8 Legion Cruc Ret Oxin - [id number] Implanted:Qty: 1 on 06/28/2020 by Torres Hernandez MD at [facility] Left: Knee [employer] 04/07/2027 [id number] / / [id number] Insert Knee Sz7-9 13mm Legioncruc Ret High Flex Xlpe - [id number] Implanted:Qty: 1 on 06/28/2020 by Torres Hernandez MD at [facility] Left: Knee [employer] 03/23/2029 [id number] / / [id number] Explanted Type Area Recycler Device Identifier Shelf Expiration Date Model / Serial / Lot Vis Adpt Guide Lgnp Kit Lt Sz F8/T7 Explanted:Qty: 1 on 06/28/2020 by Torres Hernandez MD at [facility] Left: Knee [employer] 10/17/2020 [id number] / / [id number] Procedures Procedure Name Priority Date/Time Associated Diagnosis Comments XR CHEST 2 VIEWS PA AND LATERAL Routine 09/29/2024 11:38 AM TEXTBOOK ASSOCIATE Influenza-like illness COVID/FLU/RSV PANEL Routine 09/29/2024 1 1:16 AM TEXTBOOK ASSOCIATE Influenza-like illness SCAN-MRI INTERPRETATION 08/21/2024 12:00 AM TEXTBOOK ASSOCIATE EMG Routine 08/20/2024 12:00 AM TEXTBOOK ASSOCIATE Cervical radiculopathy PSA (TOTAL) ([facility]) Routine 07/24/2024 9 :18 AM TEXTBOOK ASSOCIATE Elevated PSA ANTI HCV Routine 04/20/2024 9:02 AM CDT Need for hepatitis C screening test LIPID PANEL W REFLEX MEASURED LDL Routine 04/20/2024 9:02 AM CDT Lipid screening SDNA-FIT EXTERNAL (COLOGUARD) Routine 03/25/2024 12:15 PM CDT Screening for colon cancer US ABD AORTA SCREENING Routine 7:35 AM CDT Screening for AAA (aortic abdominal aneurysm) from Last 3 Months or Most Recently Relevant to Health Maintenance Results * XR CHEST 2 VIEWS PA AND LATERAL (09/29/2024 11:38 AM TEXTBOOK ASSOCIATE) Anatomical Region Laterality Modality CHEST, THORAX, Lung, HEART Compu linda Radiography 09/29/2024 1:27 PM TEXTBOOK ASSOCIATE Impressions 09/29/2024 1:27 PM TEXTBOOK ASSOCIATE No acute findings. Dictated by Blade Chavez MD @ 09/29/2024 1:27:50 PM (Electronically Signed) Narrative 09/29/2024 1:27 PM TEXTBOOK ASSOCIATE For Patients: As a result of the Century Cures Act, medical imaging exams and procedure reports are released immediately into your electronic medical record. You may view this report before your referring provider. If you have questions, please contact your health care provider. INDICATION: Influenza-like illness TECHNIQUE: Chest 2 views COMPARISON: 02/12/2024 FINDINGS: Patchy areas of scarring noted. Cardiac silhouette is similar. Degenerative changes. Procedure Note Blade Chavez MD - 09/29/2024 For Patients: As a result of the Cures Act, medical imagingexams and procedure reports are released immediately into your electronicmedical record. You may view this report before your referring provider.If you have questions, please contact your health care provider. INDICATION: Influenza-like illness TECHNIQUE: Chest 2 views COMPARISON: 02/12/2024 FINDINGS: Patchy areas of scarring noted. Cardiac silhouette is similar.Degenerative changes. IMPRESSION: No acute findings. Dictated by Blade Chavez MD @ 09/29/2024 1:27:50 PM (Electronically Signed) us Janiya Fox MD GENERAL IMAGING Final R esult * (ABNORMAL) COVID/FLU/RSV PANEL (09/29/2024 11:16 AM TEXTBOOK ASSOCIATE) COVID 19 [facility] MOLECULAR Negative Negative 09/29/2024 7:28 PM TEXTBOOK ASSOCIATE [facility] INFLUENZA A PCR Positive(A) 09/29/19 25 7:28 PM TEXTBOOK ASSOCIATE [facility] INFLUENZA B PCR Negative 5 7:28 PM TEXTBOOK ASSOCIATE [facility] Respiratory Syncytial Virus Negative 09/29/2024 7:28 PM TEXTBOOK ASSOCIATE [facility] Swab (Nasal Swab) Non-Blood / Unknown 09/29/2024 11:16 AM TEXTBOOK ASSOCIATE 09/29/2024 11:16 AM TEXTBOOK ASSOCIATE us Janiya Fox MD MICROBIOLOGY Final R esult [facility] [address] [place] [address], [place] * SCAN-MRI INTERPRETATION (08/21/2024 12:00 AM TEXTBOOK ASSOCIATE) Anatomical Region Laterality Modality Other us Scanner OTHER Final Result * EMG (08/20/2024 12:00 AM TEXTBOOK ASSOCIATE) Colton Haider MD NEUROLOGY ORD Final Res ult * PSA (TOTAL) ([facility]) (07/24/2024 9:18 AM TEXTBOOK ASSOCIATE) PSA, TOTAL 3.29 < OR = 4.00 ng/mL [facility] Comment: The total PSA value from this assay system is standardized against the WHO standard. The test result will be approximately 20% lower when compared to the equimolar-standardized total PSA (Anita Redfield). Comparison of serial PSA results should be interpreted with this fact in mind. This test was performed using the Siemens chemiluminescent method. Values obtained from different assay methods cannot be used interchangeably. PSA levels, regardless of value, should not be interpreted as absolute evidence of the presence or absence of disease. Blood BLOOD SPECIMEN / Unknown 07/24/2024 9:18 AM TEXTBOOK ASSOCIATE 07/24/2024 9:19 AM TEXTBOOK ASSOCIATE Torres Mooney MD SEND OUTS Final Resu lt [facility] [address] [place] [address], [employer] [facility] [address] [place] [address] * (ABNORMAL) LIPID PANEL W REFLEX MEASURED LDL (04/20/2024 9:02 AM CDT) CHOLESTEROL,TOTAL 228(H) 100 - 199 mg/dL 04/20/2024 4:20 PM CDT [facility] Comment: Cholesterol, Total Reference Ranges Desirable <200 mg/dL Borderline 200-239 mg/dL High >=240 mg/dL TRIGLYCERIDES 164(H) <150 mg/dL 04/20/2024 4:20 PM CDT [facility] HDL CHOLESTEROL 42 >40 mg/dL 4:20 PM CDT [facility] NON-HDL CHOLESTEROL 186(H) <145 mg/dl 04/20/2024 4:20 PM CDT [facility] CHOL/HDL RATIO 5.43(H) <4.50 04/20/2024 4:20 PM CDT [facility] LDL CHOLESTEROL 153(H) <=130 mg/dL 04/20/2024 4:20 PM CDT [facility] VLDL CHOLESTEROL 33(H) <=30 mg/dL 04/20/2024 4:20 PM CDT [facility] PROVIDER ORDERED STATUS RANDOM 04/20/2024 4:20 PM CDT [facility] Blood BLOOD SPECIMEN / Unknown Venipuncture / Unknown 04/20/2024 9:02 AM CDT 04/20/2024 9:02 AM CDT Torres Mooney MD CHEMISTRY Final Resu lt Performing Organization Address [facility] Co de Phone Number [facility] [address] [place] [address], [place] * ANTI HCV (04/20/2024 9:02 AM CDT) HEPATITIS C ANTIBODY Non-Reacti ve Non-React liset 04/20/2024 4:58 PM CDT [facility] Comment:Please note, per www .CDC.gov: If a patient is known to be at high risk of HCV infection, or is symptomatic, and the physician's suspicion of HCV infection is high, HCV RNA testing is often employed and is of diagnostic value, even after an initial negative anti-HCV test result. Blood BLOOD SPECIMEN / Unknown Venipuncture / Unknown 04/20/2024 9:02 AM CDT 04/20/2024 9:02 AM CDT us Torres Mooney MD SEND OUTS Final Resu lt Performing Organization Address City/[facility]/ZIP Co de Phone Number [facility] [address] [place] [address], [place] * SDNA-FIT EXTERNAL (COLOGUARD) (03/25/2024 12:15 PM CDT) NONINV COLON CA DNA+OCC BLD SCRN STL-IMP Negative Negative 04/01/2024 7:42 PM CDT [facility] (CLIA #:[id number]) Comment: NEGATIVE TEST RESULT. A negative Cologuard result indicates a low likelihood that a colorectal cancer (CRC) or advanced adenoma (adenomatous polyps with more advanced pre-malignant features) is present. The chance that a person with a negative Cologuard test has a colorectal cancer is less than 1 in 1500 (negative predictive value >99.9%) or has an advanced adenoma is less than 5.3% (negative predictive value 94.7%). These data are based on a prospective cross-sectional study of 10,000 individuals at average risk for colorectal cancer who were screened with both Cologuard and colonoscopy. (Bailee Josue al, N Engl J Med 2014;370(14):1786-3211) The normal value (reference range) for this assay is negative. COLOGUARD RE-SCREENING RECOMMENDATION: Periodic colorectal cancer screening is an important part of preventive healthcare for asymptomatic individuals at average risk for colorectal cancer. Following a negative Cologuard result, the [place] Cancer Society and U.S. Multi-Society Task Force screening guidelines recommend a Cologuard re-screening interval of 3 years. References: [place] [employer] Society Guideline for Colorectal Cancer Screening: https://www.cancer.org/cancer/dsfte-yqgwsb-mhpxch/ccykoncps-cjgonjlbl-zfqynfb/ac s-rec ommendations.html.; Adrián DK, Kaushal CR, Corrie AbreuK, Colorectal Cancer Screening: Recommendations for Physicians and Patients from the U.S. Multi-Society Task Force on Colorectal Cancer Screening , Am J Gastroenterology 2017; 112:6246-6181. TEST DESCRIPTION: Composite algorithmic analysis of stool DNA-biomarkers with hemoglobin immunoassay. Quantitative values of individual biomarkers are not reportable and are not associated with individual biomarker result reference ranges. Cologuard is intended for colorectal cancer screening of adults of either sex, 45 years or older, who are at average-risk for colorectal cancer (CRC). Cologuard has been approved for use by the U.S. FDA. The performance of Cologuard was established in a cross sectional study of average-risk adults aged 50-84. Cologuard performance in patients ages 45 to 49 years was estimated by sub-group analysis of near-age groups. Colonoscopies performed for a positive result may find as the most clinically significant lesion: colorectal cancer [4.0%], advanced adenoma (including sessile serrated polyps greater than or equal to 1cm diameter) [20%] or non- advanced adenoma [31%]; or no colorectal neoplasia [45%]. These estimates are derived from a prospective cross-sectional screening study of 10,000 individuals at average risk for colorectal cancer who were screened with both Cologuard and colonoscopy. (Bailee Josue al, N Engl J Med 2014;370(14):6954-0021.) Cologuard may produce a false negative or false positive result (no colorectal cancer or precancerous polyp present at colonoscopy follow up). A negative Cologuard test result does not guarantee the absence of CRC or advanced adenoma (pre-cancer). The current Cologuard screening interval is every 3 years. ([place] Cancer Society and U.S. Multi-Society Task Force). Cologuard performance data in a 10,000 patient pivotal study using colonoscopy as the reference method can be accessed at the following location: www.[employer].Optimal Blue/results. Additional description of the Cologuard test process, warnings and precautions can be found at www.cologuard.com. Stool specimen (specimen) (Rectum) 03/25/2024 12:15 PM CDT 03/27/2024 10:00 AM CDT us Torres Mooney MD URINE Final Resu lt [facility] (CLIA #:[id number]) [place] [address], [place] [phone] * US ABD AORTA SCREENING [[id number]] (03/17/2024 7:35 AM CDT) Anatomical Region Laterality Modality Abdomen, AORTA Ultrasound Impressions 03/19/2024 11:42 AM CDT The proximal abdominal aortic ectasia measuring up to 2.8 cm. Toño Bueno M.D. Vascular and Interventional Radiology [email or web address] / Narrative 03/19/2024 11:42 AM CDT Table formatting from the original result was not included. For Patients: As a result of the Cures Act, medical imaging exams and procedure reports are released immediately into your electronic medical record. You may view this report before your referring provider. If you have questions, please contact your health care provider. ULTRASOUND ABDOMINAL AORTA SCREENING 03/17/2024 INDICATION: Abdominal aortic aneurysm screening. COMPARISON: None. TECHNIQUE: The abdominal aorta and iliac arteries were examined with willoughby-scale ultrasound, color flow and Doppler spectral analysis. Bypass grafts and stents may be evaluated per exam specific protocol. Vessel size, peak systolic velocity (PSV) and velocity ratios if applicable, were obtained and documented at sites per exam specific protocol. FINDINGS: The proximal abdominal aorta is mildly ectatic measuring up to 2.8 cm. Location AP (cm) Width (cm) Proximal aorta 2.7 2.8 Mid aorta 2.6 2.4 Distal aorta 2.7 2.7 Right iliac artery 1.5 1.6 Left iliac artery 1.6 1.3 us Torres Mooney MD Final Resu lt from Last 3 Months or Most Recently Relevant to Health Maintenance Additional Health Concerns Infection Onset Date Last Indicated Rule-Out COVID-19 09/29/2024 09/29/2024 INFLUENZA 09/29/2024 09/29/2024 Insurance BLUE CROSS MEDICARE ADVANTAGE MR Advance Directives Documents on File Type Date Recorded Patient Senior Technologist Expl anation Healthcare Directive 06/28/2020 6:39 AM * Full Code (Latest Code Status on File) Date Activated Date Inactivated Comments 06/28/2020 6:43 AM 06/29/2020 12:27 PM Question Answer Comments Code Status Discussion: Discussed Care Teams Care Worker Relationship Specialty Start Date End Date Torres Mooney MD [address] [place] [address] PCP - General Family Practice 02/15/23
--- OUTSIDE RECORDS SUMMARY | 2024-10-03 11:51 | XMS_ITS | Encounter Summary ---
Author Organization [facility] Address [address] [place] [address] Care Team Providers Care Magnet Valve Assembler Name Role Phone Michael Negrete MD Unavailable [phone] Torres Mooney MD Primary Care Provider [phone] Sophy Wong MD Unavailable [phone] Encounter Details Date Type Department Care Team (Latest Contact Info) Description 08/27/2024 Travel Social History Tobacco Use Types Packs/Day [...] on file Legal Sex Male 3:29 PM MANAGER LABORATORY Gender Identity Not on file Sexual Orientation Not on file documented as of this encounter Plan of Treatment Not on file documented as of this encounter Visit Diagnoses Not on filedocumented in this encounter Care Teams Magnet Valve Assembler Relationship Specialty Start Date End Date Torres Mooney MD [address] [facility] [place] [address] PCP - General Family Medicine 11/13/23 Michael Negrete MD Cardiovascular Disease 11/08/21 Sophy Wong MD [address] [facility] [address] [place] [address] Assigned Heart and Vascular Provider 08/24/24 documented as of this encounter
--- OUTSIDE RECORDS SUMMARY | 2024-10-03 11:51 | XMS_ITS | Encounter Summary ---
Author Organization [place] Address [address] [place] [address] Care Team Providers Care State Fire Marshal Name Role Phone Michael Negrete MD Unavailable [phone] Torres Mooney MD Primary Care Provider + [phone] Nirav Cuba MD Unavailable Torres Mooney MD Primary Care Provider + [phone] Ayla Flores APRN TIE LAYER Unavailable + [phone] Sophy Wong MD Unavailable [phone] Reason for Visit * Reason Comments Medication Refill Encounter Details Date Type Department Care Team (Late st Contact Info) Description 09/05/2023 Refill [place] [id number] [facility] [address] [place] [phone] Nirav Cuba MD [address] [facility] [address] [place], [place] [id number] Medication Refill Social History Tobacco Use Types [...] on file Legal Sex Male 3:29 PM BLUE LINE HANGER Gender Identity Not on file Sexual Orientation Not on file documented as of this encounter Plan of Treatment Not on file documented as of this encounter Visit Diagnoses Diagnosis Longstanding persistent atrial fibrillation (H) documented in this encounter Care Teams State Fire Marshal Relationship Specialty Start Date End Date Torres Mooney MD [address] [place] [address] PCP - General Family Medicine 03/14/23 11/12/23 Torres Mooney MD [address] [place] [address] PCP - General Family Medicine 11/13/23 Michael Negrete MD Cardiovascular Disease 11/08/21 Nirav Cuba MD [address] [facility] [address] [place] [address] Assigned Heart and Vascular Provider 03/09/23 02/22/24 Ayla Flores APRN [facility] [address] [place] [phone] Assigned Heart and Vascular Provider 02/23/24 08/23/24 Sophy Wong MD [address] [facility] [address] [place] [address] Assigned Heart and Vascular Provider 08/24/24 documented as of this encounter
--- OUTSIDE RECORDS SUMMARY | 2024-10-03 11:51 | XMS_ITS | Encounter Summary ---
Author Organization [place] Address [address] [place] [address] Care Team Providers Care Separator Operator Shellfish Meats Name Role Phone Michael Negrete MD Unavailable [phone] Torres Mooney MD Primary Care Provider [phone] Sophy Wong MD Unavailable [phone] Reason for Referral * Consultation (Routine) - Pending Review Specialty Diagnoses / Procedures Referred By Magdalena t Referred To Contact Cardiovascular Disease Diagnoses Longstanding persistent atrial fibrillation (H) Atypical atrial flutter (H) Sophy Wong MD [address] [place] [address] Phone: tel: fax: Referral ID Status Reason Start Date Expiration Date V isits Requested Visits Authorized [id number] Pending Review 09/01/2024 09/01/2025 1 1 Question Answer Follow-up with: Self - Dr. Michael Negrete, 1 year around 08/2025 Patient Scheduling Instructions: [facility] will call you to coordinate your care as prescribed by your provider. If you have concerns about scheduling, please call [phone]. Comments [facility] will call you to coordinate your care as prescribed by your provider. If you have concerns about scheduling, please call [phone]. LRY MOLD MAKER Reason for Visit * Reason Comments Follow Up * Consultation (Routine) - Pending Review Specialty Diagnoses / Procedures Referred By Contatiya t Referred To Contact Cardiovascular Disease Diagnoses Atypical atrial flutter (H) Longstanding persistent atrial fibrillation (H) Sophy Wong MD [address] [facility] [address] [place] [address] Phone: tel: fax: Referral ID Status Reason Start Date Expiration Date V isits Requested Visits Authorized [id number] Pending Review 07/10/2024 07/10/2025 1 1 Encounter Details Date Type Department Care Team (Late st Contact Info) Description 09/01/2024 3:20 PM JEWELRY MOLD MAKER Office Visit [facility] [place] [address] [facility] [address] [place] [address] Sophy Wogn MD [address] [facility] [address] [place] [address] Longstanding persistent atrial fibrillation (H) (Primary Dx); Atypical atrial flutter (H); Atrial tachycardia Social History Tobacco Use Types Packs/Day Years [...] on file Legal Sex Male 3:29 PM JEWELRY MOLD MAKER Gender Identity Not on file Sexual Orientation Not on file documented as of this encounter Last Filed Vital Signs Vital Sign Reading Time Taken Comments Blood Pressure 102/70 09/01/2024 3:11 PM JEWELRY MOLD MAKER Pulse 84 09/01/2024 3:11 PM JEWELRY MOLD MAKER Temperature - - Respiratory Rate 16 09/01/2024 3:11 PM JEWELRY MOLD MAKER Oxygen Saturation 99% 09/01/2024 3:11 PM JEWELRY MOLD MAKER Inhaled Oxygen Concentration - - Weight 106.1 kg (234 lb) 09/01/2024 3:11 PM JEWELRY MOLD MAKER shoes on Height 188 cm (6' 2) 09/01/2024 3:11 PM JEWELRY MOLD MAKER per patient Body Mass Index 30.04 09/01/2024 3:11 PM JEWELRY MOLD MAKER documented in this encounter Patient Instructions * Patient Instructions* Sophy Wong MD - 09/01/2024 3:20 PM JEWELRY MOLD MAKER Images from the original note were not included. [facility] Cardiac Electrophysiology [address] [facility] [address] [place] [address] Office: [phone] Thank you for seeing us in clinic today - it is a pleasure to be a part of your care team. Below maurizio summary of our plan from today's visit. You have atrial fibrillation, atrial flutters, and atrial tachycardias (AF/AFL/AT) and have undergone 3 prior ablations (03/10/2018, 04/30/2022, 05/22/2023, 04/24/2024). You have maintained normal rhythm since your last ablation, and have had normalization of your heart function. We will plan for the following: - continue apixaban 5mg twice daily - let us know if you decide to continue this assisted, or should you decide to discontinue - continue intermittent monitoring via Kardia - we discussed the option for implantable loop recorder (ILR) for longer term monitoring for recurrent atrial fibrillation and/or atrial flutter Please do not hesitate to be in touch with our office at [phone] with any questions that may arise. Thank you for trusting us with your care, Sophy Wong MD Clinical Cardiac Electrophysiology [facility] [address] [facility] [address] [place] [address] Office: [phone] LRY MOLD MAKER LRY MOLD MAKER LRY MOLD MAKER LRY MOLD MAKER LRY MOLD MAKER documented in this encounter Progress Notes * Sophy Wong MD - 09/01/2024 3:20 PM CST Images from the original note were not included. [facility] Cardiac Electrophysiology [address] [facility] [address] [place] [address] Office: [phone] Patient: Jose Padron : 1950 CHIEF COMPLAINT/REASON FOR VISIT Longstanding persistent atrial fibrillation with prior ablations Assessment/Recommendations Stage 3C/Longstanding persistent atrial fibrillation, atrial flutters, atrial tachycardias - symptomatic with exertional dyspnea. Associated with resolved tachycardia-mediated cardiomyopathy. [id number] 1 Prior ablations: 04/24/2024 - AMINA AT/AFL, lateral RA/CT AFL, SVC-RA AT/AFL, lateral mitral isthmus AT (myself) 05/22/2023 - EAT anterior LA-AMINA base AT, left anterior jarrett/ligament of Sawyer AT, superior anterior RA-SVC AT, 4th AT mapped deep AMINA (pace terminated, not ablated). Prior PVI, PWI, LSPV-MVA, CTI ablations intact (Dr. Nirav Cuba) 04/30/2022 - PWI, LSPV-anterior mitral isthmus, LA septal substrate modification (Dr. Nirav Cuba) 03/10/2018 - cryoablation PVI, ablation of superior anterior RA-SVC AT, CTI ablation (Dr. Nirav Cuba) - continue apixaban 5mg twice daily. 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 We also discussed the option for implantable loop recorder (ILR) for longer term monitoring for recurrent atrial fibrillation and/or atrial flutter - continue intermittent monitoring via [employer] Systolic heart failure - LVEF 55-60% by 07/24/2024 TTE, LVEF previously 40-45% by 02/21/2023 TTE. 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 Negrete in cardiology in 1 year. EP follow-up as needed for now. History of Present Illness Jose Padron is a 74 year old male with longstanding persistent atrial fibrillation, atrial flutters, atrial tachycardias with prior ablations (03/10/2018, 04/30/2022, 05/22/2023, 04/24/2024), resolved systolic heart failure (LVEF 55-60% by 07/24/2024 TTE, LVEF 40-45% by 02/21/2023 TTE), AVRIL, historyof Lyme disease presenting for consultation regarding atrial fibrillation, atrial flutter, atrial tachycardia. Mr. Padron's atrial fibrillation history is as summarized below: Symptoms: dyspnea Symptom onset date: 2016 Diagnosis date: possibly Prior medical therapies: amiodarone previously. Sotalol intermittently, restarted 10/2022-01/2024, amiodarone 01/2024-07/10/2024 Prior DCCVs: multiple Prior ablations: 05/22/2023 - EAT anterior LA-AMINA base AT, left anterior jarrett/ligament of Sawyer AT, superior anterior RA-SVC AT, 4th AT mapped deep AMINA (pace terminated, not ablated). Prior PVI, PWI, LSPV-MVA, CTI ablations intact (Dr. Nirav Cuba) 04/30/2022 - PWI, LSPV-anterior mitral isthmus, LA septal substrate modification (Dr. Nirav Cuba) 03/10/2018 - cryoablation PVI, ablation of superior anterior RA-SVC AT, CTI ablation (Dr. Nirav Cuba) 04/24/2024 - AMINA AT/AFL, lateral RA/CT AFL, SVC-RA AT/AFL, lateral mitral isthmus AT (myself) Percutaneous left atrial appendage occlusion: none He noted recurrent symptoms within a few weeks of ablation 05/2023. DCCV was planned 11/05/2022 - he presented in SR. He was back in atypical appearing AFL by ECG 11/18/2023. He underwent a 4th AT/AFL ablation 04/24/2024 as noted above - he notes feeling well. Zio monitoring 06/2024 without AT/AFL/AF - amiodarone was discontinued 07/10/2024. He denies chest pain, syncope. He has a history of Lyme disease. His mother had atrial fibrillation. He is seen today with his , who is a retired POND SAWYER. Physical Examination Review of Systems VITALS: BP 102/70 (BP Location: Right arm, Patient Position: Sitting, Cuff Size: Adult Large) Pulse 84 Resp 16 Ht 1.88 m (6' 2) Wt 106.1 kg (234 lb) SpO2 99% BMI 30.04 kg/m?? Wt Readings from Last 3 Encounters: 06/08/24 106.6 kg (235 lb) 04/24/24 107 kg (236 lb) 04/16/24 107 kg (236 lb) CONSTITUTIONAL: well nourished, comfortable, no distress EYES: Conjunctivae pink, sclerae clear. E/N/T: Oral mucosa pink RESPIRATORY: Respiratory effort is normal CARDIOVASCULAR: regular, normal S1 and S2 GASTROINTESTINAL: Abdomen without masses or tenderness EXTREMITIES: No clubbing or cyanosis. MUSCULOSKELETAL: Overall grossly normal muscle strength SKIN: Overall, skin warm and dry, no lesions. NEURO/PSYCH: Oriented x 3 with normal affect. Constitutional: No weight loss or loss of appetite Eyes: No difficulty with vision, no double vision, no dry eyes ENT: No sore throat, difficulty swallowing; changes in hearing or tinnitus Cardiovascular: As detailed above Respiratory: No cough Musculoskeletal No joint pain, muscle aches Neurologic: No syncope, lightheadedness, fainting spells Hematologic: No easy bruising, excessive bleeding tendency Gastrointestinal: No jaundice, abdominal pain or abdominal bloating Genitourinary: No changes in urinary habits, no trouble urinating Psychiatric: No anxiety or depression Medical History Surgical History Past Medical History: Diagnosis Date Persistent atrial fibrillation (H) 10/2017 Snoring 07/14/2020 Past Surgical History: Procedure Laterality Date ANKLE FRACTURE SURGERY Left ARTHROSCOPY SHOULDER ROTATOR CUFF REPAIR Right 09/02/2015 CARDIOVERSION 12/27/17, 02/13/18 EP ABLATION AFLUTTER 03/10/2018 Procedure: EP Ablation Atrial Flutter; Surgeon: Nirav Cuba MD; Location: [facility] It Web Development Consultant;Service: EP ABLATION ATRIAL FLUTTER N/A 04/30/2022 Procedure: Ablation Atrial Flutter; Surgeon: Nirav Cuba MD; Location: [facility] CV EP ABLATION FOCAL AFIB N/A 04/30/2022 Procedure: Ablation Atrial Fibrilation; Surgeon: Nirav Cuba MD; Location: [facility] CV EP ABLATION PULMONARY VEIN ISOLATION N/A 04/24/2024 Procedure: Ablation Atrial Fibrillation; Surgeon: Sophy Wong MD; Location: [facility] CV EP ABLATION PVI Left 03/10/2018 Procedure: EP Ablation PVI; Surgeon: Nirav Cuba MD; Location: [facility] It Web Development Consultant; Service: EP ABLATION SVT N/A 05/22/2023 Procedure: Ablation Supraventricular Tachycardia; Surgeon: Nirav Cuba MD; Location: [facility] CV KNEE SURGERY Left 09/02/1972 REPLACEMENT TOTAL KNEE Left SPINE SURGERY Family History Social History Family History Problem Relation Age of Onset Coronary Artery Disease Mother Atrial fibrillation Mother Arrhythmia Mother Throat cancer Father Diabetes Brother Alcoholism Brother No Known Problems Brother Social History Tobacco Use Smoking status: Never Smokeless tobacco: Never Vaping Use Vaping status: Never Used Substance Use Topics Alcohol use: Yes Comment: 2 drinks per month Drug use: No Lab Results Chemistry CBC Cardiac Enzymes/BNP/TSH/INR Recent Labs Lab Test 04/24/24 1032 NA 141 POTASSIUM 4.2 CHLORIDE 107 CO2 23 GLC 105* BUN 16.6 CR 1.23* GFRESTIMATED 63 YOUSIF 8.7* Recent Labs Lab Test 04/24/24 1032 04/16/24 0948 05/21/23 1242 CR 1.23* 1.11 1.17 Recent Labs Lab Test 04/24/24 1032 WBC 6.3 HGB 15.5 HCT 45.8 MCV 99 PLT 173 Recent Labs Lab Test 04/24/24 1032 04/16/24 0948 05/21/23 1242 HGB 15.5 15.9 16.3 No results for input(s): TROPONINI in the last 14946 hours. No results for input(s): BNP, NTBNPI, NTBNP in the last 61512 hours. Recent Labs Lab Test 12/20/22 1614 TSH 6.15* No results for input(s): INR in the last 69852 hours. Data Review ECGs (tracings independently reviewed) 06/08/2024 - SR 78bpm, MO 300ms, QT/QTC 432/492ms 11/18/2023 - atypical appearing AFL, ventricular rate 93bpm 11/06/2023 - SR 64bpm, QTC 499ms Zio monitoring from 06/12/2024 to 06/26/2024 (duration 13d 18h) Predominant rhythm was sinus rhythm, 61 to 113bpm, average 80bpm. No nonsustained or sustained tachyarrhythmias. No atrial fibrillation. There were no pauses of greater than 3 seconds. Rare supraventricular ectopic beats (isolated <1%). Rare premature ventricular contractions (isolated <1%). Symptom triggers and diary entries (2) correlated to sinus rhythm 77-85bpm. Zio monitoring from 12/30/2023 to 01/10/2024 (duration 10d 9h). Continuous atrial flutter (vs atrial tachycardia, cannot exclude intervals of atrial fibrillation),ventricular rates 67 to 145bpm, average 105bpm. It appears that organized atrial arrhythmias (AT vs AFL) at two discrete cycle lengths exist (eg. 12/31/2023 0342, 440ms vs 01/04/2024 0207, 260ms). There were no pauses of greater than 3 seconds. Rare premature ventricular contractions (isolated <1%). Symptom triggers (2) correlated to atrial flutter, ventricular rates 91-141bpm. 09/11/2023 24hr Holter monitoring (independently reviewed) Continuous AFL vs AF, ventricular rates 72-134bpm, average 96bpm. No pauses of over 3.0s. 4% PVCs. 02/21/2023 TTE The left ventricle is normal in size. There is normal left ventricular wall thickness. The visual ejection fraction is 40-45%. There is mild global hypokinesia of the left ventricle. The right ventricle is normal size. Mildly decreased right ventricular systolic function The left atrium is mildly dilated. The right atrium is mildly dilated. There is mild (1+) mitral regurgitation. When compared to previous study on 02-26-2022, there is no significant interval change. Cc: Nirav Wong MD 09/01/2024 3:38 PM LRY MOLD MAKER documented in this encounter Plan of Treatment Scheduled Referrals Name Type Priority Associated Diagnoses Orde r Schedule Follow-Up with Cardiology Referral Routine: Next available opening Longstanding persistent atrial fibrillation (H) Atypical atrial flutter (H) Expected: 09/01/2025 (Approximate), Expires: 09/01/2025 documented as of this encounter Visit Diagnoses Diagnosis Longstanding persistent atrial fibrillation (H)- Primary Atypical atrial flutter (H) Atrial flutter Atrial tachycardia Other specified cardiac dysrhythmias documented in this encounter Care Teams Separator Operator Shellfish Meats Relationship Specialty Start Date End Date Torres Mooney MD [address] [place] [address] PCP - General Family Medicine 11/13/23 Michael Negrete MD Cardiovascular Disease 11/08/21 Sophy Wong MD [address] [facility] [address] [place] [address] Assigned Heart and Vascular Provider 08/24/24 documented as of this encounter
--- OUTSIDE RECORDS SUMMARY | 2024-10-03 11:51 | XMS_ITS | Encounter Summary ---
Author Organization [place] Address [address] [place] [address] Care Team Providers Care Refinery Operator Crude Unit Name Role Phone Clif Villagomez Primary Care Provider Unavailabl e Kailyn Wang EXECUTIVE CASINO HOST CONDUIT CLEANER Unavailable Cristine vailable Michael Negrete MD Unavailable [phone] Michael Ba EXECUTIVE CASINO HOST CONDUIT CLEANER Unavailable [phone] Michael Negrete MD Unavailable [phone] Kailyn Wang EXECUTIVE CASINO HOST CONDUIT CLEANER Unavailable Cristine vailable Torres Mooney MD Primary Care Provider + [phone] Nirav Cuba MD Unavailable Torres Mooney MD Primary Care Provider + [phone] Ayla Flores EXECUTIVE CASINO HOST CONDUIT CLEANER Unavailable [phone] Spohy Wong MD Unavailable [phone] Encounter Details Date Type Department Care Team (Late st Contact Info) Description 03/10/2018 Records - [facility] HE CONVERSION Scan, Non-Provider Social History Tobacco Use Types Packs/Day Years Used Date Smoking Tobacco: Never Assessed Sex and Gender Information Value Date Recorded Sex Assigned at Not on file Legal Sex Male 3:29 PM WASHCOAT WIPER Gender Identity Not on file Sexual Orientation Not on file documented as of this encounter Plan of Treatment Not on file documented as of this encounter Visit Diagnoses Not on filedocumented in this encounter Care Teams Refinery Operator Crude Unit Relationship Specialty Start Date End Date Clif Villagomez PCP - General Family Medicine 09/20/20 03/13/23 Torres Mooney MD [address] [place] [address] PCP - General Family Medicine 03/14/23 11/12/23 Torres Mooney MD [address] [place] [address] PCP - General Family Medicine 11/13/23 Kailyn Wang APRN CONDUIT CLEANER Assigned Heart and Vascular Provider 03/17/21 12/30/21 Michael Negrete MD Cardiovascular Disease 11/08/21 Michael Ba APRN CONDUIT CLEANER [address] [place] [address] Assigned Sleep Provider 12/10/21 08/30/23 Michael Negrete MD [address] [facility] [address] [place] [address] Assigned Heart and Vascular Provider 12/31/21 04/20/22 Kailyn Wang APRN CONDUIT CLEANER [address] [facility] [address] [place] [address] Assigned Heart and Vascular Provider 04/21/22 03/08/23 Nirav Cuba MD [address] [facility] [address] [place], [place] [id number] Assigned Heart and Vascular Provider 03/09/23 02/22/24 Ayla Flores APRN CONDUIT CLEANER HEART [facility] VASCULAR [address] [place] [address] Assigned Heart and Vascular Provider 02/23/24 08/23/24 Sophy Wong MD [address] [facility] [address] [place] [address] Assigned Heart and Vascular Provider 08/24/24 documented as of this encounter
--- OUTSIDE RECORDS SUMMARY | 2024-10-03 11:51 | XMS_ITS | Encounter Summary ---
Author Organization [place] Address [address] [place] [address] Care Team Providers Care Box Gluer Name Role Phone DahliaClif Primary Care Provider Unavailabl Michael Cid MD Unavailable [phone] Michael Ba DIVORCE ATTORNEY STILL OPERATOR BRANDY Unavailable [phone] Kailyn Wang DIVORCE ATTORNEY STILL OPERATOR BRANDY Unavailable Cristine Torres Finn MD Primary Care Provider + [phone] Nirav Cuba MD Unavailable Torres Mooney MD Primary Care Provider + [phone] Ayla Flores DIVORCE ATTORNEY STILL OPERATOR BRANDY Unavailable [phone] Sophy Wong MD Unavailable [phone] Encounter Details Date Type Department Care Team (Late st Contact Info) Description 05/08/2022 [facility] [address] [address] Jake Zhang Social History Tobacco Use Types Packs/Day Years Used Date Smoking Tobacco: Never Smokeless Tobacco: Never Alcohol Use Standard Drinks/Week Comments Yes 0 (1 standard drink = 0.6 oz pur e alcohol) 2 drinks per month Sex and Gender Information Value Date Recorded Sex Assigned at Not on file Legal Sex Male 3:29 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 No / Unsure 05/01/2022 9:51 AM CDT documented as of this encounter Plan of Treatment Not on file documented as of this encounter Visit Diagnoses Not on filedocumented in this encounter Care Teams Box Gluer Relationship Specialty Start Date End Date Clif Villagomez PCP - General Family Medicine 09/20/20 03/13/23 Torres Mooney MD [address] [place] [address] PCP - General Family Medicine 03/14/23 11/12/23 Torres Mooney MD [address] [place] [address] PCP - General Family Medicine 11/13/23 Michael Negrete MD Cardiovascular Disease 11/08/21 Michael Ba APRN STILL OPERATOR BRANDY [address], [place] [address] Assigned Sleep Provider 12/10/21 08/30/23 Kailyn Wang APRN STILL OPERATOR BRANDY [address] [place] [address] Assigned Heart and Vascular Provider 04/21/22 03/08/23 Nirav Cuba MD [address] [facility] [address] [place] [address] Assigned Heart and Vascular Provider 03/09/23 02/22/24 Ayla Flores APRN STILL OPERATOR BRANDY [facility] [address] [place] [address] Assigned Heart and Vascular Provider 02/23/24 08/23/24 Sophy Wong MD [address] [facility] [address] [place] [address] Assigned Heart and Vascular Provider 08/24/24 documented as of this encounter
--- OUTSIDE RECORDS SUMMARY | 2024-10-03 11:51 | XMS_ITS | Encounter Summary ---
Author Organization [facility] Address [address] [place] [address] Care Team Providers Care Aerodynamics Teacher Name Role Phone DahliaClif Primary Care Provider Unavailabl Michael Cid MD Unavailable [phone] Michael Ba APRN VENEER SLICING MACHINE OPERATOR Unavailable [phone] Kailyn Wang APRN VENEER SLICING MACHINE OPERATOR Unavailable Cristine Torres Finn MD Primary Care Provider + [phone] Nirav Cuba MD Unavailable Torres Mooney MD Primary Care Provider + [phone] Ayla Flores APRN VENEER SLICING MACHINE OPERATOR Unavailable + [phone] Sophy Wong MD Unavailable [phone] Encounter Details Date Type Department Care Team (Late st Contact Info) Description 01/31/2023 [facility] [address] [facility] [address] [place] [phone] Kailyn Wang APRN VENEER SLICING MACHINE OPERATOR Social History Tobacco Use Types Packs/Day Years Used Date Smoking Tobacco: Never Smokeless Tobacco: Never Alcohol Use Standard Drinks/Week Comments Yes 0 (1 standard drink = 0.6 oz pur e alcohol) 2 drinks per month Sex and Gender Information Value Date Recorded Sex Assigned at Not on file Legal Sex Male 3:29 PM MEDICAL FRONT 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 COORDINATOR Gender Identity Not on file Sexual Orientation Not on file documented as of this encounter Plan of Treatment Not on file documented as of this encounter Visit Diagnoses Not on filedocumented in this encounter Care Teams Aerodynamics Teacher Relationship Specialty Start Date End Date Clif Villagomez PCP - General Family Medicine 09/20/20 03/13/23 Torres Mooney MD [address] [place] [address] PCP - General Family Medicine 03/14/23 11/12/23 Torres Mooney MD [address] [place] [address] PCP - General Family Medicine 11/13/23 Michael Negrete MD Cardiovascular Disease 11/08/21 Michael Ba APRN VENEER SLICING MACHINE OPERATOR [address] [place], [place] [address] Assigned Sleep Provider 12/10/21 08/30/23 Kailyn Wang APRN VENEER SLICING MACHINE OPERATOR [address] [place] [address] Assigned Heart and Vascular Provider 04/21/22 03/08/23 Nirav Cuba MD [address] [facility] [address] [place], [place] [id number] Assigned Heart and Vascular Provider 03/09/23 02/22/24 Ayla Flores APRN VENEER SLICING MACHINE OPERATOR HEART & VASCULAR [address] [place] [phone] Assigned Heart and Vascular Provider 02/23/24 08/23/24 Sophy Wong MD [address] [facility] [address] [place], [place] [address] Assigned Heart and Vascular Provider 08/24/24 documented as of this encounter
--- OUTSIDE RECORDS SUMMARY | 2024-10-03 11:51 | XMS_ITS | Encounter Summary ---
Author Organization [facility] Address [address] [place] [address] Care Team Providers Care Cellophaner Name Role Phone DahliaClif Primary Care Provider Unavailabl Michael Cid MD Unavailable [phone] Michael Ba APRN PREMIX OPERATOR CONCENTRATE Unavailable [phone] Kailyn Wang STEREO EQUIPMENT INSTALLER PREMIX OPERATOR CONCENTRATE Unavailable Cristine Torres Finn MD Primary Care Provider + [phone] Nirav Cuba MD Unavailable Torres Mooney MD Primary Care Provider + [phone] Ayla Flores APRN PREMIX OPERATOR CONCENTRATE Unavailable + [phone] Sophy Wong MD Unavailable [phone] Reason for Visit * Reason Onset Date Comments CPAP Follow Up 05/04/2022 Encounter Details Date Type Department Care Team (Late st Contact Info) Description 05/04/2022 Telephone [facility] [address] [address] Michael Ba APRN PREMIX OPERATOR CONCENTRATE [address] [place] [address] CPAP Follow Up Social History Tobacco Use Types Packs/Day Years Used Date Smoking Tobacco: Never Smokeless Tobacco: Never Alcohol Use Standard Drinks/Week Comments Yes 0 (1 standard drink = 0.6 oz pur e alcohol) 2 drinks per month Sex and Gender Information Value Date Recorded Sex Assigned at Not on file 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 No / Unsure 05/01/2022 9:51 AM CDT documented as of this encounter Miscellaneous Notes * Telephone Encounter - Jake Zhang - 05/04/2022 10:28 AM CDT Called pt due to appt notes for 05/10 he wants to start cpap. Told him cpap set up isnt with providerand provider can put in orders but [facility] would contact him once orders are place. Jake Zhang, Visit certified master safe technician documented in this encounter Plan of Treatment Not on file documented as of this encounter Visit Diagnoses Not on filedocumented in this encounter Care Teams Cellophaner Relationship Specialty Start Date End Date Clif Villagomez PCP - General Family Medicine 09/20/20 03/13/23 Torres Mooney MD [address] [place] [address] PCP - General Family Medicine 03/14/23 11/12/23 Torres Mooney MD [address] [place] [address] PCP - General Family Medicine 11/13/23 Michael Negrete MD Cardiovascular Disease 11/08/21 Michael Ba APRN PREMIX OPERATOR CONCENTRATE [address] [address] Assigned Sleep Provider 12/10/21 08/30/23 Kailyn Wang APRN PREMIX OPERATOR CONCENTRATE [address] [place] [address] Assigned Heart and Vascular Provider 04/21/22 03/08/23 Nirav Cuba MD [address] [facility] [address] [place] [address] Assigned Heart and Vascular Provider 03/09/23 02/22/24 Ayla Flores APRN PREMIX OPERATOR CONCENTRATE HEART & VASCULAR [address] [place] [address] Assigned Heart and Vascular Provider 02/23/24 08/23/24 Sophy Wong MD [address] [facility] [address] [place], [place] [address] Assigned Heart and Vascular Provider 08/24/24 documented as of this encounter
[2024-10-03 12:02] VITALS: BP 132/82; PULSE 77; RESP 20; TEMP 36.3; O2SAT 92; BMI 27.2
--- OUTSIDE RECORDS SUMMARY | 2024-10-03 12:42 | XMS_ITS | Encounter Summary ---
Author Organization [facility] Address [address] [place] [address] Care Team Providers Care Budget Accountant Name Role Phone DahliaClif Primary Care Provider Unavailabl Michael Cid MD Unavailable [phone] Michael Ba APRN HOLISTIC PULSER Unavailable [phone] Kailyn Wang APRN HOLISTIC PULSER Unavailable Cristine Torres Finn MD Primary Care Provider + [phone] Nirav Cuba MD Unavailable Torres Mooney MD Primary Care Provider + [phone] Ayla Flores APRN HOLISTIC PULSER Unavailable + [phone] Sophy Wong MD Unavailable [phone] Encounter Details Date Type Department Care Team (Late st Contact Info) Description 01/31/2023 [facility] [address] [facility] [address] [place] [phone] Kailyn Wang APRN HOLISTIC PULSER Social History Tobacco Use Types Packs/Day Years Used Date Smoking Tobacco: Never Smokeless Tobacco: Never Alcohol Use Standard Drinks/Week Comments Yes 0 (1 standard drink = 0.6 oz pur e alcohol) 2 drinks per month Sex and Gender Information Value Date Recorded Sex Assigned at Not on file 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 Gender Identity Not on file Sexual Orientation Not on file documented as of this encounter Plan of Treatment Not on file documented as of this encounter Visit Diagnoses Not on filedocumented in this encounter Care Teams Budget Accountant Relationship Specialty Start Date End Date Clif Villagomez PCP - General Family Medicine 09/20/20 03/13/23 Torres Mooney MD 1400 [place] [address] PCP - General Family Medicine 03/14/23 11/12/23 Torres Mooney MD [address] [place] [address] PCP - General Family Medicine 11/13/23 Michael Negrete MD Cardiovascular Disease 11/08/21 Michael Ba APRN HOLISTIC PULSER [address] [place], [place] [address] Assigned Sleep Provider 12/10/21 08/30/23 Kailyn Wang APRN HOLISTIC PULSER [address] [place] [address] Assigned Heart and Vascular Provider 04/21/22 03/08/23 Nirav Cuba MD [address] [facility] [address] [place], [place] [address] Assigned Heart and Vascular Provider 03/09/23 02/22/24 Ayla Flores APRN HOLISTIC PULSER HEART [facility] VASCULAR [address] [place] [phone] Assigned Heart and Vascular Provider 02/23/24 08/23/24 Sophy Wong MD [address] [facility] [address] [place], [place] [address] Assigned Heart and Vascular Provider 08/24/24 documented as of this encounter
--- OUTSIDE RECORDS SUMMARY | 2024-10-03 12:42 | XMS_ITS | Encounter Summary ---
Author Organization [facility] Address [address] [place] [address] Care Team Providers Care Leg Assembler Name Role Phone Michael Negrete MD Unavailable [phone] Torres Mooney MD Primary Care Provider + [phone] Nirav Cuba MD Unavailable Torres Mooeny MD Primary Care Provider + [phone] Ayla Flores APRN, CNP Unavailable + [phone] Sophy Wong MD Unavailable [phone] Encounter Details Date Type Department Care Team (Late st Contact Info) Description 10/14/2023 [facility] Medical Advice [facility] [address] [facility] [address] [place] [address] Ayla Flores APRN INSTRUMENT STERILIZER HEART & VASCULAR [address] [place] [address] Social History Tobacco Use Types [...] on file 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 Can we please coordinate outpatient DCCV if complaint with OAC? 2 days prior start sotalol 60mg BID, discontinue metoprolol. Please reschedule follow-up withMable Cuba. Thank you MACHINE OPERATOR * Telephone Encounter - Tess Sosa RN - 10/21/2023 11:46 AM CST Attempted to contact pt to discuss, LM for return call. Tess MACHINE OPERATOR documented in this encounter Plan of Treatment Not on file documented as of this encounter Visit Diagnoses Not on filedocumented in this encounter Care Teams Leg Assembler Relationship Specialty Start Date End Date Torres Mooney MD [address] [place] [address] PCP - General Family Medicine 03/14/23 11/12/23 Torres Mooney MD [address] [place] [address] PCP - General Family Medicine 11/13/23 Michael Negrete MD Cardiovascular Disease 11/08/21 Nirav Cuba MD [address] [facility] [address] [place], [place] [address] Assigned Heart and Vascular Provider 03/09/23 02/22/24 Ayla Flores APRN INSTRUMENT STERILIZER HEART & VASCULAR [address] [place] [address] Assigned Heart and Vascular Provider 02/23/24 08/23/24 Sophy Wong MD [address] [facility] [address] [place] [address] Assigned Heart and Vascular Provider 08/24/24 documented as of this encounter
--- OUTSIDE RECORDS SUMMARY | 2024-10-03 12:42 | XMS_ITS | Clinical Summary ---
Author Organization [facility] Address [address] [facility] , [address] [place] [address] Phone Care Team Providers Care Lapel Padder Name Role Phone [facility] Unavailable Unava ilable Conditions or Problems Problem Name Problem Code Onset Date Status Entry Date Provider Comment Standard Description Annotate Neck pain 61917118 (SNOMED CT) Active Adalid Chino MD Neck pain Left median neuropathy 287572159 (SNOMED CT) Active Adalid Chino MD Median neuropathy Left median neuropathy 967196189 (SNOMED CT) Inactive Amrita Joe Median neuropathy Median neuropathy, bilateral 492028395 (SNOMED CT) Active Amrita Diaz Lesion of median nerve Left ulnar neuropathy 317689466 (SNOMED CT) Active Adalid Chino MD Ulnar neuropathy Median neuropathy, right 251449739 (SNOMED CT) Inactive Adalid Chino MD Median neuropathy Left median neuropathy 020170595 (SNOMED CT) Removed Adalid Chino MD Median [...] Procedures Code Procedure Name Date Entry Date CPT-96823 Nerve Conduction 11-12 studies CPT-69304 EMG with NCS (5+ muscles) - 1 limb 10/21 CPT-88336 Nerve Conduction 13 or more studies 04/14 CPT-07682 EMG with NCS (5+ muscles) - 2 limbs 04/14 Vital Signs No information available. Immunizations No information available. Advance Directives No information available.
--- OUTSIDE RECORDS SUMMARY | 2024-10-03 12:42 | XMS_ITS | Encounter Summary ---
Author Organization [facility] Address [address] [place] [address] Care Team Providers Care Manager Pacu Name Role Phone DahliaClif Primary Care Provider Unavailabl Michael Cid MD Unavailable [phone] Michael Ba APRN MOCK UP ASSEMBLER Unavailable [phone] Kailyn Wang ENGINEERING SCIENTIST MOCK UP ASSEMBLER Unavailable Cristine Torres Finn MD Primary Care Provider + [phone] Nirav Cuba MD Unavailable Torres Mooney MD Primary Care Provider + [phone] Ayla Flores APRN MOCK UP ASSEMBLER Unavailable + [phone] Sophy Wong MD Unavailable [phone] Reason for Visit * Reason Onset Date Comments CPAP Follow Up 05/04/2022 Encounter Details Date Type Department Care Team (Late st Contact Info) Description 05/04/2022 Telephone [facility] [address] [address] Michael Ba APRN MOCK UP ASSEMBLER [address] [place] [address] CPAP Follow Up Social History Tobacco Use Types Packs/Day Years Used Date Smoking Tobacco: Never Smokeless Tobacco: Never Alcohol Use Standard Drinks/Week Comments Yes 0 (1 standard drink = 0.6 oz pur e alcohol) 2 drinks per month Sex and Gender Information Value Date Recorded Sex Assigned at Not on file 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 Jake Zhang, Visit learning technologies specialist documented in this encounter Plan of Treatment Not on file documented as of this encounter Visit Diagnoses Not on filedocumented in this encounter Care Teams Manager Pacu Relationship Specialty Start Date End Date Clif Villagomez PCP - General Family Medicine 09/20/20 03/13/23 Torres Mooney MD [address] [place] [address] PCP - General Family Medicine 03/14/23 11/12/23 Torres Mooney MD [address] [place] [address] PCP - General Family Medicine 11/13/23 Michael Negrete MD Cardiovascular Disease 11/08/21 Michael Ba APRN MOCK UP ASSEMBLER [address] [address] Assigned Sleep Provider 12/10/21 08/30/23 Kailyn Wang APRN MOCK UP ASSEMBLER [address] [place] [address] Assigned Heart and Vascular Provider 04/21/22 03/08/23 Nirav Cuba MD [address] [facility] [address] [place] [address] Assigned Heart and Vascular Provider 03/09/23 02/22/24 Ayla Flores APRN MOCK UP ASSEMBLER HEART & VASCULAR [address] [place] [address] Assigned Heart and Vascular Provider 02/23/24 08/23/24 Sophy Wong MD [address] [facility] [address] [place], [place] [address] Assigned Heart and Vascular Provider 08/24/24 documented as of this encounter
--- OUTSIDE RECORDS SUMMARY | 2024-10-03 12:42 | XMS_ITS | Encounter Summary ---
Author Organization [facility] Address [address] [place] [address] Care Team Providers Care Agility Instructor Name Role Phone DahliaClif Primary Care Provider Unavailabl Michael Cid MD Unavailable [phone] Michael Ba REAL ESTATE CLOSER DEGREE CLERK Unavailable [phone] Kailyn Wang REAL ESTATE CLOSER DEGREE CLERK Unavailable Cristine Torres Finn MD Primary Care Provider + [phone] Nirav Cuba MD Unavailable Torres Mooney MD Primary Care Provider + [phone] Ayla Flores REAL ESTATE CLOSER DEGREE CLERK Unavailable + [phone] Sophy Wong MD Unavailable [phone] Encounter Details Date Type Department Care Team (Late st Contact Info) Description 05/08/2022 [facility] [address] [address] Jake Zhang Social History Tobacco Use Types Packs/Day Years Used Date Smoking Tobacco: Never Smokeless Tobacco: Never Alcohol Use Standard Drinks/Week Comments Yes 0 (1 standard drink = 0.6 oz pur e alcohol) 2 drinks per month Sex and Gender Information Value Date Recorded Sex Assigned at Not on file 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 Gender Identity Not on file Sexual Orientation [...] on filedocumented in this encounter Care Teams Agility Instructor Relationship Specialty Start Date End Date Clif Villagomez PCP - General Family Medicine 09/20/20 03/13/23 Torres Mooney MD [address] [place] [address] PCP - General Family Medicine 03/14/23 11/12/23 Torres Mooney MD 1400 [place] [address] PCP - General Family Medicine 11/13/23 Michael Negrete MD Cardiovascular Disease 11/08/21 Michael Ba APRN DEGREE CLERK [address] [place], [place] [address] Assigned Sleep Provider 12/10/21 08/30/23 Kailyn Wang APRN DEGREE CLERK [address] [place] [address] Assigned Heart and Vascular Provider 04/21/22 03/08/23 Nirav Cuba MD [address] [facility] [address] [place] [address] Assigned Heart and Vascular Provider 03/09/23 02/22/24 Ayla Flores APRN DEGREE CLERK HEART & VASCULAR [address] [place] [address] Assigned Heart and Vascular Provider 02/23/24 08/23/24 Sophy Wong MD [address] [facility] [address] [place] [address] Assigned Heart and Vascular Provider 08/24/24 documented as of this encounter
--- OUTSIDE RECORDS SUMMARY | 2024-10-03 12:42 | XMS_ITS | Clinical Summary ---
Author Organization [facility] Address [address] [place] [address] Care Team Providers Care Security Lead Name Role Phone Michael Negrete MD Unavailable [phone] Torres Mooney MD Primary Care Provider [phone] Nadine Wong MD Unavailable [phone] Allergies No known active allergies Medications apixaban [...] Longstanding persistent atrial fibrillation 09/02 Overview (07/11/2023): [id number] score = 3 (age, CAD, CM) 2018 [...] Department Care Team Description 09/01/2024 3:20 PM PROCUREMENT SERVICES MANAGER Office Visit [address] [place] [address] Nadine Wong MD Longstanding persistent atrial fibrillation (H) (Primary Dx); Atypical atrial flutter (H); Atrial tachycardia 09/01/2024 Travel 08/27/2024 Travel 07/24/2024 10:30 AM PROCUREMENT SERVICES MANAGER - 07/24/2024 11:59 PM PROCUREMENT SERVICES MANAGER Hospital Encounter [facility] [address] [place] [phone] Nadine Wong MD Atypical atrial flutter (H); Longstanding persistent atrial fibrillation (H) Discharge Disposition: Home or Self Care 07/24/2024 Travel 07/10/2024 Orders Only [address] [place] [address] Carol Allen, JEM Atypical atrial flutter (H) [...] on file Legal Sex Male 3:29 PM PROCUREMENT SERVICES MANAGER Gender Identity Not on file Sexual Orientation Not on file Last Filed Vital Signs Vital Sign Reading Time Taken Comments Blood Pressure 102/70 09/01/2024 3:11 PM PROCUREMENT SERVICES MANAGER Pulse 84 09/01/2024 3:11 PM PROCUREMENT SERVICES MANAGER Temperature 36.7 C (98 F) 04/24/2024 7:15 PM CDT Respiratory Rate 16 09/01/2024 3:11 PM PROCUREMENT SERVICES MANAGER Oxygen Saturation 99% 09/01/2024 3:11 PM PROCUREMENT SERVICES MANAGER Inhaled Oxygen Concentration - - Weight 106.1 kg (234 lb) 09/01/2024 3:11 PM PROCUREMENT SERVICES MANAGER shoes on Height 188 cm (6' 2) 09/01/2024 3:11 PM PROCUREMENT SERVICES MANAGER per patient Body Mass Index 30.04 09/01/2024 3:11 PM PROCUREMENT SERVICES MANAGER Plan of Treatment Health Maintenance Due Date Last Done Comments ADVANCE CARE PLANNING 1950 ANNUAL REVIEW OF HM ORDERS 1950 CT COLONOGRAPHY 1950 FIT 1950 FLEX SIG 1950 COLONOSCOPY 1962 HEPATITIS C SCREENING 1970 Pneumococcal Vaccine: 50+ Years (1 of 2 - PCV) 1971 ZOSTER IMMUNIZATION (1 of 2) 2002 RSV VACCINE (1 - Risk 60-74 years 1-dose series) 2012 FALL RISK ASSESSMENT 2017 LIPID 12/27/2022 12/27/2017 INFLUENZA VACCINE (#1) 2024 PHQ-2 (once per calendar year) 2024 COVID-19 Vaccine ( season) 2024 06/01/2024, 10/10/2023, 04/15/2023, Additional history [...] Comments ECHO COMPLETE Routine 07/24/2024 11:20 AM PROCUREMENT SERVICES MANAGER Atypical atrial flutter (H) Longstanding persistent [...] Results * ECHO COMPLETE (07/24/2024 11:20 AM PROCUREMENT SERVICES MANAGER) LVEF 55-60% CARDIOLOGY RESULTS Anatomical Region Laterality Modality Ultrasound, Ultr asound 07/24/2024 10:4 5 AM PROCUREMENT SERVICES MANAGER Narrative 07/24/2024 12:26 PM PROCUREMENT SERVICES MANAGER [id number]^TRANG^NADINE^[place] [address] Name: JOSE PADRON : 1950 Study Date: 07/24/2024 10:45 AM Age: 73 yrs Gender: Male Patient Location: [facility] Reason For Study: Atypical atrial [...] Procedure Note Jeremías Weaver MD - 07/24/2024 [id number]^TRANG^NADINE^[place] [address] Name: JOSE PADRON : 1950 Study Date: 07/24/2024 10:45 AM Age: 73 yrs Gender: Male Patient Location: [facility] Reason For Study: Atypical atrial [...] from the original result were not included. [facility] Cardiac Electrophysiology Zio Patch Monitor Report Results: [...] - 23.0 mg/dL 04/24/2024 10:58 AM [facility] Creatinine 1.23(H) 0.67 - 1.17 mg/dL 04/24/2024 10:58 AM [facility] GFR Estimate 63 >60 mL/min/1.7 3m2 04/24/2024 10:58 AM [facility] Comment:eGFR calculated usin g 2020 CKD-EPI equation. Calcium 8.7(L) 8.8 - 10.4 mg/dL 04/24/2024 10:58 AM [facility] Comment:Reference intervals for this test were updated on 03/17/2024 to reflect our healthy population more accurately. There may be differences in the flagging of prior results with similar values performed with this method. Those prior results can be interpreted in the context of the updated reference intervals. Glucose 105(H) 70 - 99 mg/dL 04/24/2024 10:58 AM [facility] Blood BLOOD SPECIMEN / Unknown Venipuncture / Unknown 04/24/2024 10:32 AM CDT 04/24/2024 10:39 AM CDT us Nadine Wong MD LAB - BLOOD ORDERABLES Final Result [facility] [address] [place] [address], [facility] * (ABNORMAL) Lipid Profile (12/27/2017 12:42 PM CDT) Triglycerides 160(H) <=149 mg/dL 12/27/2017 1:13 PM CDT [facility] Cholesterol 212(H) <=199 mg/dL 12/27/2017 1:13 PM CDT [facility] LDL Cholesterol Calculated 146(H) <=129 mg/dL 12/27/2017 1:13 PM CDT [facility] Direct Measure HDL 34(L) >=40 mg/dL 12/27/2017 1:13 PM CDT [facility] Patient Fasting > 8hrs? Yes 12/27/2017 1:13 PM CDT [facility] Blood specimen (specimen) STRUCTURE OF RIGHT UPPER LIMB / Unknown VAD(CVC, PICC) / Unknown 12/27/2017 12:42 PM CDT 12/27/2017 12:46 PM CDT Michael Negrete MD LAB - BLOOD ORDERABLES Final Result [facility] [address] [place] [address], [facility] [address] [place] [address] from Last 3 Months or Most Recently Relevant to Health Maintenance Insurance [facility] MEDICARE ADVANTAGE [facility] MEDICARE ADVANTAGE Advance Directives For more information, please contact: [phone] * Full Code (Latest Code Status on [...] by: Other (please docnida t) Care Teams Security Lead Relationship Specialty Start Date End Date Torres Mooney MD [address] [facility] [place] [address] PCP - General Family Medicine 11/13/23 Michael Negrete MD Cardiovascular Disease 11/08/21 Nadine Wong MD [address] [facility] [address] [place] [address] Assigned Heart and Vascular Provider 08/24/24
--- OUTSIDE RECORDS SUMMARY | 2024-10-03 12:42 | XMS_ITS | Encounter Summary ---
Author Organization [facility] Address [address] [place] [address] Care Team Providers Care Buccaro Name Role Phone Michael Negrete MD Unavailable [phone] Torres Mooney MD Primary Care Provider [phone] Sophy Wong MD Unavailable Reason for Referral * Consultation (Routine) - Pending Review Specialty Diagnoses / Procedures Referred By Magdalena t Referred To Contact Cardiovascular Disease Diagnoses Longstanding persistent atrial fibrillation (H) Atypical atrial flutter (H) Sophy Wong MD [address] [place] [address] Phone: tel: fax: Referral ID Status Reason Start Date Expiration Date V isits Requested Visits Authorized [id number] Pending Review 09/01/2024 09/01/2025 1 1 Question Answer Follow-up with: Self - Dr. Michael Negrete, 1 year around 08/2025 Patient Scheduling Instructions: [facility] will call you to coordinate your care as prescribed by your provider. If you have concerns about scheduling, please call [phone]. Comments [facility] will call you to coordinate your care as prescribed by your provider. If you have concerns about scheduling, please call [phone]. KING MECHANIC Reason for Visit * Reason Comments Follow Up * Consultation (Routine) - Pending Review Specialty Diagnoses / Procedures Referred By Contatiya t Referred To Contact Cardiovascular Disease Diagnoses Atypical atrial flutter (H) Longstanding persistent atrial fibrillation (H) Sophy Wong MD [address] [facility] [address] [place] [address] Phone: tel: fax: Referral ID Status Reason Start Date Expiration Date V isits Requested Visits Authorized [id number] Pending Review 07/10/2024 07/10/2025 1 1 Encounter Details Date Type Department Care Team (Late st Contact Info) Description 09/01/2024 3:20 PM WRECKING MECHANIC Office Visit [facility] [place] [address] [facility] [address] [place] [address] Sophy Wong MD [address] [facility] [address] [place] [address] Longstanding persistent atrial fibrillation (H) [...] on file Legal Sex Male 3:29 PM WRECKING MECHANIC Gender Identity Not on file Sexual Orientation Not on file documented as of this encounter Last Filed Vital Signs Vital Sign Reading Time Taken Comments Blood Pressure 102/70 09/01/2024 3:11 PM WRECKING MECHANIC Pulse 84 09/01/2024 3:11 PM WRECKING MECHANIC Temperature - - Respiratory Rate 16 09/01/2024 3:11 PM WRECKING MECHANIC Oxygen Saturation 99% 09/01/2024 3:11 PM WRECKING MECHANIC Inhaled Oxygen Concentration - - Weight 106.1 kg (234 lb) 09/01/2024 3:11 PM WRECKING MECHANIC shoes on Height 188 cm (6' 2) 09/01/2024 3:11 PM WRECKING MECHANIC per patient Body Mass Index 30.04 09/01/2024 3:11 PM WRECKING MECHANIC documented in this encounter Patient Instructions * Patient Instructions* Sophy Wong MD - 09/01/2024 3:20 PM WRECKING MECHANIC Images from the original note were not included. [facility] Cardiac Electrophysiology [address] [facility] [address] [place] [address] Office: [phone] Thank you for seeing us in clinic [...] know if you decide to continue this mcfp, or should you decide to discontinue - continue intermittent monitoring via Kardia - we discussed the option for implantable loop recorder (ILR) for longer term monitoring for recurrent atrial fibrillation and/or atrial flutter Please do not hesitate to be in touch with our office at [phone] with any questions that may arise. Thank you for trusting us with your care, Sophy Wong MD Clinical Cardiac Electrophysiology [facility] [address] [facility] [address] [place] [address] Office: [phone] KING MECHANIC KING MECHANIC KING MECHANIC KING MECHANIC KING MECHANIC documented in this encounter Progress Notes * Sophy Wong MD - 09/01/2024 3:20 PM CST Images from the original note were not included. [facility] Cardiac Electrophysiology [address] [facility] [address] [place] [address] Office: [phone] Patient: Jose Padron : 1950 CHIEF COMPLAINT/REASON FOR VISIT Longstanding persistent atrial fibrillation with prior ablations Assessment/Recommendations Stage 3C/Longstanding persistent atrial fibrillation, atrial flutters, atrial tachycardias - symptomatic with exertional dyspnea. Associated with resolved tachycardia-mediated cardiomyopathy. [id number] 1 Prior ablations: 04/24/2024 - AMINA AT/AFL, [...] continue apixaban 5mg twice daily. 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 We also discussed the option for implantable loop recorder (ILR) for longer term monitoring for recurrent atrial fibrillation and/or atrial flutter - continue intermittent monitoring via [facility] [employer] Systolic heart failure - LVEF 55-60% by [...] isthmus, LA septal substrate modification (Dr. 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 Physical Examination Review of Systems VITALS: BP [...] Atrial Flutter; Surgeon: Nirav Cuba MD; Location: [facility];Service: EP ABLATION ATRIAL FLUTTER N/A 04/30/2022 Procedure: Ablation Atrial Flutter; Surgeon: Nirav Cuba MD; Location: [facility] CV EP ABLATION FOCAL AFIB N/A 04/30/2022 Procedure: Ablation Atrial Fibrilation; Surgeon: Nirav Cuba MD; Location: [facility] CV EP ABLATION PULMONARY VEIN ISOLATION N/A 04/24/2024 Procedure: Ablation Atrial Fibrillation; Surgeon: Sophy Wong MD; Location: [facility] CV EP ABLATION PVI Left 03/10/2018 Procedure: EP Ablation PVI; Surgeon: Nirav Cuba MD; Location: [facility]; Service: EP ABLATION SVT N/A 05/22/2023 Procedure: Ablation Supraventricular Tachycardia; Surgeon: Nirav Cuba MD; Location: [facility] CV KNEE SURGERY Left 09/02/1972 REPLACEMENT TOTAL [...] results for input(s): TROPONINI in the last 75306 hours. No results for input(s): BNP, NTBNPI, NTBNP in the last 12442 hours. Recent Labs Lab Test 12/20/22 1614 TSH 6.15* No results for input(s): INR in the last 88808 hours. Data Review ECGs (tracings independently reviewed) 06/08/2024 - SR 78bpm, UT 300ms, QT/QTC 432/492ms 11/18/2023 - atypical appearing [...] Cc: Nirav Wong MD 09/01/2024 3:38 PM KING MECHANIC documented in this encounter Plan of Treatment [...] dysrhythmias documented in this encounter Care Teams Buccaro Relationship Specialty Start Date End Date Torres Mooney MD [address] [place] [address] PCP - General Family Medicine 11/13/23 Michael Negrete MD Cardiovascular Disease 11/08/21 Sophy Wong MD [address] [facility] [address] [place] [address] Assigned Heart and Vascular Provider 08/24/24 documented as of this encounter
--- OUTSIDE RECORDS SUMMARY | 2024-10-03 12:42 | XMS_ITS | Encounter Summary ---
Author Organization [facility] Address [address] [place] [address] Care Team Providers Care Record Filing Clerk Name Role Phone Michael Negrete MD Unavailable [phone] Nirav Cuba MD Unavailable Torres Mooney MD Primary Care Provider + [phone] Ayla Flores APRN STRING LASTER Unavailable + [phone] Sophy Wong MD Unavailable [phone] Encounter Details Date Type Department Care Team (Late st Contact Info) Description 11/26/2023 [facility] Medical Advice [facility] Heart [address] [place] [phone] Carol Ramos, JEM Social History Tobacco Use [...] on file 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 Gender Identity Not on file Sexual Orientation Not on file documented as of this encounter Plan of Treatment Not on file documented as of this encounter Visit Diagnoses Not on filedocumented in this encounter Care Teams Record Filing Clerk Relationship Specialty Start Date End Date Torres Mooney MD [address] [place] [address] PCP - General Family Medicine 11/13/23 Michael Negrete MD Cardiovascular Disease 11/08/21 Nirav Cuba MD [address] [facility] [address] [place], [place] [address] Assigned Heart and Vascular Provider 03/09/23 02/22/24 Ayla Flores APRN [facility] HEART & VASCULAR [address] [place] [phone] Assigned Heart and Vascular Provider 02/23/24 08/23/24 Sophy Wong MD [address] [facility] [address] [place] [address] Assigned Heart and Vascular Provider 08/24/24 documented as of this encounter
--- OUTSIDE RECORDS SUMMARY | 2024-10-03 12:42 | XMS_ITS | Encounter Summary ---
Author Organization [facility] Address [address] [place] [address] Care Team Providers Care Night Custodian Name Role Phone Michael Negrete MD Unavailable [phone] Torres Mooney MD Primary Care Provider [phone] Sophy Wong MD Unavailable [phone] Encounter Details Date Type Department Care Team [...] on file Legal Sex Male 3:29 PM LEARNING AND DEVELOPMENT CONSULTANT Gender Identity Not on file Sexual Orientation Not on file documented as of this encounter Plan of Treatment Not on file documented as of this encounter Visit Diagnoses Not on filedocumented in this encounter Care Teams Night Custodian Relationship Specialty Start Date End Date Torres Mooney MD [address] [place] [address] PCP - General Family Medicine 11/13/23 Michael Negrete MD Cardiovascular Disease 11/08/21 Sophy Wong MD [address] [facility] [address] [place] [address] Assigned Heart and Vascular Provider 08/24/24 documented as of this encounter
--- OUTSIDE RECORDS SUMMARY | 2024-10-03 12:42 | XMS_ITS | Referral Summary ---
Author Organization [facility] Address [address] [place] [address] Care Team Providers Care Coil Winding Machines Set Up Mechanic Name Role Phone Michael Negrete MD Unavailable [phone] Torres Mooney MD Primary Care Provider [phone] Nadine Wong MD Unavailable [phone] Encounters Date Type Department Care Team Description 09/01/2024 Travel 09/01/2024 3:20 PM HYPERION ADMINISTRATOR Office Visit [address] [place] [address] Nadine Wong MD Longstanding persistent atrial fibrillation (H) (Primary Dx); Atypical atrial flutter (H); Atrial tachycardia 08/27/2024 Travel 07/24/2024 Travel 07/24/2024 10:30 AM HYPERION ADMINISTRATOR - 07/24/2024 11:59 PM HYPERION ADMINISTRATOR Hospital Encounter [facility] Heart Care [address] [place] [address] Nadine Wong MD Atypical atrial flutter (H); Longstanding persistent atrial fibrillation (H) Discharge Disposition: Home or Self Care 07/10/[address] [facility] [address] [facility] [address] [place] [address] Carol Allen RN Atypical atrial [...] Longstanding persistent atrial fibrillation 09/02 Overview (07/11/2023): [id number] score = 3 (age, CAD, CM) 2018 [...] on file Legal Sex Male 3:29 PM HYPERION ADMINISTRATOR Gender Identity Not on file Sexual Orientation Not on file Last Filed Vital Signs Vital Sign Reading Time Taken Comments Blood Pressure 102/70 09/01/2024 3:11 PM HYPERION ADMINISTRATOR Pulse 84 09/01/2024 3:11 PM HYPERION ADMINISTRATOR Temperature 36.7 C (98 F) 04/24/2024 7:15 PM CDT Respiratory Rate 16 09/01/2024 3:11 PM HYPERION ADMINISTRATOR Oxygen Saturation 99% 09/01/2024 3:11 PM HYPERION ADMINISTRATOR Inhaled Oxygen Concentration - - Weight 106.1 kg (234 lb) 09/01/2024 3:11 PM HYPERION ADMINISTRATOR shoes on Height 188 cm (6' 2) 09/01/2024 3:11 PM HYPERION ADMINISTRATOR per patient Body Mass Index 30.04 09/01/2024 3:11 PM HYPERION ADMINISTRATOR Plan of Treatment Not on file Procedures Procedure Name Priority Date/Time Associated Diagnosis Comments ECHO COMPLETE Routine 07/24/2024 11:20 AM HYPERION ADMINISTRATOR Atypical atrial flutter (H) Longstanding persistent atrial fibrillation (H) ZIO PATCH MAIL OUT Routine 07/03/2024 4: 04 PM CDT Longstanding persistent atrial fibrillation (H) Atrial tachycardia Atypical atrial flutter (H) BASIC METABOLIC PANEL STAT 04/24/2024 10:32 AM CDT LIPID PROFILE STAT 12/27/2017 12:42 PM CDT from Last 3 Months or Most Recently Relevant to Health Maintenance Results * ECHO COMPLETE (07/24/2024 11:20 AM HYPERION ADMINISTRATOR) LVEF 55-60% CARDIOLOGY RESULTS Anatomical Region Laterality Modality Ultrasound, Ultr asound 07/24/2024 10:4 5 AM HYPERION ADMINISTRATOR Narrative 07/24/2024 12:26 PM HYPERION ADMINISTRATOR [id number]^TRANG^NADINE^[place] [address] Name: JOSE PADRON : 1950 Study Date: 07/24/2024 10:45 AM Age: 73 yrs Gender: Male Patient Location: [facility] Reason For Study: Atypical atrial flutter (H), [...] Procedure Note Jeremías Weaver MD - 07/24/2024 [id number]^TRANG^NADINE^[place] [address] Name: JOSE PADRON : 1950 Study Date: 07/24/2024 10:45 AM Age: 73 yrs Gender: Male Patient Location: [facility] Reason For Study: Atypical atrial flutter (H), [...] from the original result were not included. [facility] Cardiac Electrophysiology Zio Patch Monitor [...] 98 - 107 mmol/L 04/24/2024 10:58 AM [facility] Carbon Dioxide (CO2) 23 22 - 29 mmol/L 04/24/2024 10:58 AM [facility] Anion Gap 11 7 - 15 mmol/L 04/24/2024 10:58 AM T [facility] Urea Nitrogen 16.6 8.0 - 23.0 mg/dL 04/24/2024 10:58 AM T [facility] Creatinine 1.23(H) 0.67 - 1.17 mg/dL 04/24/2024 10:58 AM [facility] GFR Estimate 63 >60 mL/min/1.7 3m2 04/24/2024 10:58 AM [facility] Comment:eGFR calculated usin 2020 CKD-EPI equation. Calcium 8.7(L) 8.8 - 10.4 mg/dL 04/24/2024 10:58 AM [facility] Comment:Reference intervals for this test were updated on 03/17/2024 to reflect our healthy population more accurately. There may be differences in the flagging of prior results with similar values performed with this method. Those prior results can be interpreted in the context of the updated reference intervals. Glucose 105(H) 70 - 99 mg/dL 04/24/2024 10:58 AM [facility] Blood BLOOD SPECIMEN / Unknown Venipuncture / Unknown 04/24/2024 10:32 AM CDT 04/24/2024 10:39 AM CDT Nadine Wong MD LAB - BLOOD ORDERABLES Final Result Performing Organization Address [facility] Co de Phone Number [facility] [address] [place] [address], [facility] * (ABNORMAL) Lipid Profile (12/27/2017 12:42 PM CDT) Triglycerides 160(H) <=149 mg/dL 12/27/2017 1:13 PM CDT [facility] Cholesterol 212(H) <=199 mg/dL 12/27/2017 1:13 PM CDT [facility] LDL Cholesterol Calculated 146(H) <=129 mg/dL 12/27/2017 1:13 PM CDT [facility] Direct Measure HDL 34(L) >=40 mg/dL 12/27/2017 1:13 PM CDT [facility] Patient Fasting > 8hrs? Yes 12/27/2017 1:13 PM CDT [facility] Blood specimen (specimen) STRUCTURE OF RIGHT UPPER LIMB / Unknown VAD(CVC, PICC) / Unknown 12/27/2017 12:42 PM CDT 12/27/2017 12:46 PM CDT Michael Negrete MD LAB - BLOOD ORDERABLES Final Result Performing Organization Address [facility] Co de Phone Number [facility] [address] [address], [facility] [address] [address] from Last 3 Months or Most Recently Relevant to Health Maintenance Insurance [facility] MEDICARE ADVANTAGE [facility] MEDICARE ADVANTAGE Advance Directives For more information, please contact: [phone] * Full Code (Latest Code Status on [...] by: Other (please antonio t) Care Teams Coil Winding Machines Set Up Mechanic Relationship Specialty Start Date End Date Torres Mooney MD [address] [facility] [address] PCP - General Family Medicine 11/13/23 Michael Negrete MD Cardiovascular Disease 11/08/21 Nadine Wong MD [address] [facility] [address] [place] [address] Assigned Heart and Vascular Provider 08/24/24
--- OUTSIDE RECORDS SUMMARY | 2024-10-03 12:42 | XMS_ITS | Encounter Summary ---
Author Organization [facility] Address [address] [place] [address] Care Team Providers Care Hard Candy Batch Mixer Name Role Phone DahliaClif Primary Care Provider Unavailabl Michael Cid MD Unavailable [phone] Michael Ba APRN DIAL EQUIPMENT ENGINEER Unavailable [phone] Kailyn Wang APRN DIAL EQUIPMENT ENGINEER Unavailable Cristine Torres Finn MD Primary Care Provider + [phone] Nirav Cuba MD Unavailable Torres Mooney MD Primary Care Provider + [phone] Ayla Flores APRN DIAL EQUIPMENT ENGINEER Unavailable + [phone] Sophy Wong MD Unavailable [phone] Reason for Visit * Reason Comments Medication Refill Encounter Details Date Type Department Care Team (Late st Contact Info) Description 07/07/2022 Refill [facility] [address] 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 Gender Identity Not on file Sexual Orientation [...] (H) documented in this encounter Care Teams Hard Candy Batch Mixer Relationship Specialty Start Date End Date Clif Villagomez PCP - General [facility] Medicine 09/20/20 03/13/23 Torres Mooney MD [address] [place] [address] PCP - General [facility] Medicine 03/14/23 11/12/23 Torres Mooney MD [address] [place] [address] PCP - General [facility] Medicine 11/13/23 Michael Negrete MD Cardiovascular Disease 11/08/21 Michael Ba APRN DIAL EQUIPMENT ENGINEER [address] [place] [address] Assigned Sleep Provider 12/10/21 08/30/23 Kailyn Wang APRN DIAL EQUIPMENT ENGINEER [address] [place] [address] Assigned Heart and Vascular Provider 04/21/22 03/08/23 Nirav Cuba MD [address] [facility] [address] [place] [address] Assigned Heart and Vascular Provider 03/09/23 02/22/24 Ayla Flores APRN DIAL EQUIPMENT ENGINEER HEART & VASCULAR [address] [place] [address] Assigned Heart and Vascular Provider 02/23/24 08/23/24 Sophy Wong MD [address] [facility] [address] [place] [address] Assigned Heart and Vascular Provider 08/24/24 documented as of this encounter
--- OUTSIDE RECORDS SUMMARY | 2024-10-03 12:42 | XMS_ITS | Encounter Summary ---
Author Organization [facility] [place] [facility] Address [address] [place] [address] Care Team Providers Care Automobile Accessories Salesperson Name Role Phone Michael Negrete MD Unavailable [phone] Torres Mooney MD Primary Care Provider + [phone] Nirav Cuba MD Unavailable Torres Mooney MD Primary Care Provider + [phone] Ayla Flores APRN, CNP Unavailable + [phone] Sophy Wong MD Unavailable [phone] Encounter Details Date Type Department Care Team (Late st Contact Info) Description 11/06/2023 [facility] Medical Advice [facility] [address] [facility] [address] [place] [address] Ayla Flores APRN MONUMENT INSTALLER HEART & VASCULAR [address] [place] [address] Social History Tobacco Use Types [...] on file 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 Gender Identity Not on file Sexual Orientation Not on file documented as of this encounter Plan of Treatment Not on file documented as of this encounter Visit Diagnoses Not on filedocumented in this encounter Care Teams Automobile Accessories Salesperson Relationship Specialty Start Date End Date Torres Mooney MD [address] [place] [address] PCP - General Family Medicine 03/14/23 11/12/23 Torres Mooney MD [address] [place] [address] PCP - General Family Medicine 11/13/23 Michael Negrete MD Cardiovascular Disease 11/08/21 Nirav Cuba MD [address] [facility] [address] [place] [address] Assigned Heart and Vascular Provider 03/09/23 02/22/24 Ayla Flores APRN MONUMENT INSTALLER HEART & VASCULAR [address] [place] [address] Assigned Heart and Vascular Provider 02/23/24 08/23/24 Sophy Wong MD [address] [facility] [address] [place], [place] [address] Assigned Heart and Vascular Provider 08/24/24 documented as of this encounter
--- OUTSIDE RECORDS SUMMARY | 2024-10-03 12:43 | XMS_ITS ---
Author Organization [facility] Address [address] [facility] , [address] [place] [address] Phone Care Team Providers Care Atomic Spectroscopist Name Role Phone Adalid Chino MD Conditions or Problems Problem Name Problem Code Onset Date Status Entry Date Provider Comment Standard Description Annotate Neck pain 10270316 (SNOMED CT) Active Adalid Chino MD Neck pain Left median neuropathy 440761329 (SNOMED CT) Active Adalid Chino MD Median neuropathy Medications No information available. Medications Administered No information available. Allergies, Adverse Reactions, Alerts No information available. Results No information available. Plan of Care No information available. Procedures Code Procedure Name Date Entry Date CPT-49956 Nerve Conduction 11-12 studies CPT-30838 EMG with NCS (5+ muscles) - 1 limb 10/21 Vital Signs No information available. Immunizations No information available. Advance Directives No information available.
--- OUTSIDE RECORDS SUMMARY | 2024-10-03 12:43 | XMS_ITS | Encounter Summary ---
Author Organization [facility] Address [address] [place] [address] Care Team Providers Care Prize Fighter Name Role Phone Clif Villagomez Primary Care Provider Unavailabl e Kailyn Wang RN BARIATRIC HEALTH AND SAFETY INSPECTOR Unavailable Cristine vailable Michael Negrete MD Unavailable [phone] Michael Ba RN BARIATRIC HEALTH AND SAFETY INSPECTOR Unavailable [phone] Michael Negrete MD Unavailable +[phone] Kailyn Wang RN BARIATRIC HEALTH AND SAFETY INSPECTOR Unavailable Cristine vailable Torres Mooney MD Primary Care Provider + [phone] Nirav Cuba MD Unavailable Torres Mooney MD Primary Care Provider + [phone] Ayla Florse RN BARIATRIC HEALTH AND SAFETY INSPECTOR Unavailable + [phone] Sophy Wong MD Unavailable +[phone] Encounter Details Date Type Department Care Team (Late st Contact Info) Description 03/10/2018 Records - [facility] CONVERSION Scan, Non-Provider Social History Tobacco Use Types Packs/Day Years Used Date Smoking Tobacco: Never Assessed Sex and Gender Information Value Date Recorded Sex Assigned at Not on file Legal Sex Male 3:29 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 SPECIALIST Gender Identity Not on file Sexual Orientation Not on file documented as of this encounter Plan of Treatment Not on file documented as of this encounter Visit Diagnoses Not on filedocumented in this encounter Care Teams Prize Fighter Relationship Specialty Start Date End Date Clif Villagomez PCP - General Family Medicine 09/20/20 03/13/23 Torres Mooney MD [address] [place] [address] PCP - General Family Medicine 03/14/23 11/12/23 Torres Mooney MD [address] [place] [id number] PCP - General Family Medicine 11/13/23 Kailyn Wang APRN HEALTH AND SAFETY INSPECTOR Assigned Heart and Vascular Provider 03/17/21 12/30/21 Michael Negrete MD Cardiovascular Disease 11/08/21 Michael Ba APRN HEALTH AND SAFETY INSPECTOR [address] [place] [address] Assigned Sleep Provider 12/10/21 08/30/23 Michael Negrete MD [address] [facility] [address] [place] [address] Assigned Heart and Vascular Provider 12/31/21 04/20/22 Kailyn Wang APRN HEALTH AND SAFETY INSPECTOR [address] [facility] [address] [place] [address] Assigned Heart and Vascular Provider 04/21/22 03/08/23 Nirav Cuba MD [address] [facility] [address] [place], [place] [id number] Assigned Heart and Vascular Provider 03/09/23 02/22/24 Ayla Flores APRN HEALTH AND SAFETY INSPECTOR HEART & VASCULAR [address] [place] [address] Assigned Heart and Vascular Provider 02/23/24 08/23/24 Sophy Wong MD [address] [facility] [address] [place] [address] Assigned Heart and Vascular Provider 08/24/24 documented as of this encounter
--- OUTSIDE RECORDS SUMMARY | 2024-10-03 12:43 | XMS_ITS | Encounter Summary ---
Author Organization [facility] Address [address] [place] [address] Care Team Providers Care Guest Experience Specialist Name Role Phone Michael Negrete MD Unavailable [phone] Torres Mooney MD Primary Care Provider + [phone] Nirav Cuba MD Unavailable Torres Mooney MD Primary Care Provider + [phone] Ayla Flores APRN CERTIFIED PHYSICIAN ASSISTANT Unavailable + [phone] Sophy Wong MD Unavailable [phone] Reason for Visit * Reason Comments Medication Refill Encounter Details Date Type Department Care Team (Late st Contact Info) Description 09/05/2023 Refill [place] [id number] [facility] [address] [place] [phone] Nirav Cuba MD [address] 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 [address] [place] [address] Assigned Heart and Vascular Provider 03/09/23 02/22/24 Ayla Flores APRN [facility] HEART & VASCULAR [address] [place] [phone] Assigned Heart and Vascular Provider 02/23/24 08/23/24 Sophy Wong MD [address] [facility] [address] [place] [address] Assigned Heart and Vascular Provider 08/24/24 documented as of this encounter
--- OUTSIDE RECORDS SUMMARY | 2024-10-03 12:43 | XMS_ITS | Clinical Summary ---
Author Organization [facility] Address [place], [place] [address] Care Team Providers Care Aids Social Worker Name Role Phone Torres Mooney MD Primary Care Provider [phone] Allergies No known active allergies Medications predniSONE [...] 11/01 Overview (11/19/2022): Dx 2018 (uncertain onset) [id number] score = 3 (age/ CAD/ CM) Rx apixaban Rx sotalol CV symptoms improved: Early reversion to AF PVI March 10, 2018 [id number]-[id number] score = 1 (age) 2018 PVI with [...] Department Care Team Description 09/29/2024 11:30 AM HAMMERSMITH HELPER Ancillary Procedure [facility] [address] [place] [address] 09/29/2024 11:00 AM HAMMERSMITH HELPER [place] [facility] [address] [place] [address] Janiya Fox MD Cough (Cough, fever, chest congestion, shortness of breath x 4 days ) 09/29/2024 Travel 09/26/2024 Nurse Triage [facility] [address] [place] [address] Torrse Mooney MD Cough 09/03/2024 2:40 PM HAMMERSMITH HELPER Office Visit [facility] [address] [place] [address] Colton Haider MD Consult (Cervical ) 09/03/2024 Travel 08/29/2024 Travel 08/24/2024 Orders Only [facility] at [facility] [address] [place] [address] Colton Haider MD 1 scan: (1-Ord) [facility] 08/21/2024 Orders Only [facility] Scanner 1 scan: (1-Ord) [facility], MRI CERVICAL SPINE WO CON, 08/21/2024 08/13/2024 Telephone [facility] at [facility] [address] [place] [address] Colton Haider MD 07/24/2024 9:15 AM HAMMERSMITH HELPER Orders Only [facility] [address] [place] [facility] [address] Lab, [place] Lab 07/24/2024 Travel 07/20/2024 Orders Only [facility] [address] [place] [place] [address] Torres Mooney MD Lab (ORder Update) 07/20/2024 [...] on file Legal Sex Male 5:25 AM HAMMERSMITH HELPER Gender Identity Not on file Sexual Orientation Not on file 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 Not on file Not on file Obstetrics History Last Filed Vital Signs Vital Sign Reading Time Taken Comments Blood Pressure 110/64 09/29/2024 11:00 AM HAMMERSMITH HELPER Pulse 68 09/29/2024 11:00 AM HAMMERSMITH HELPER Temperature 36.6 C (97.8 F) 09/29/2024 11:00 AM HAMMERSMITH HELPER Respiratory Rate 16 06/29/2020 7:37 AM CDT Oxygen Saturation 96% 09/29/2024 11:00 AM HAMMERSMITH HELPER Inhaled Oxygen Concentration - - Weight 97.8 kg (215 lb 8 oz) 09/29/2024 11:00 AM HAMMERSMITH HELPER Height 188 cm (6' 2) 09/03/2024 3:14 PM HAMMERSMITH HELPER Body Mass Index 27.67 09/03/2024 3:14 PM HAMMERSMITH HELPER Plan of Treatment Upcoming Encounters Date Type Department Care Team (Late st Contact Info) Description 10/06/2024 3:10 PM HAMMERSMITH HELPER Office Visit [facility] [address] [place] [address] Torres Mooney MD [address] [place] [address] Health Maintenance Due Date Last Done Comments [...] 04/22/2024, Additional history exists Fecal testing sDNA-FIT (Jackson guard) for age 45-75 03/25/2027 03/25/2024 Lipids for age 45-75 04/20/2029 04/20/2024, 02/12/2024, 07/12/2023, Additional history exists Tetanus booster 04/15/2033 04/15/2023, 02/20/2010 Tdap Completed 04/15/2023, 02/20/2010 AAA screening age 65-74 Completed 03/17/2024 Hepatitis C screening for ag e 18-79 Completed 04/20/2024 COVID-19 vaccine series Completed 06/01/20, 10/10/2023, 04/15/2023, Additional history exists Medical Devices Implanted Type Area Overhead Crane Inspector Device Identifier Shelf Expiration Date Model / Serial / Lot Patella Sz35 Grecia Ii Rnd Penon Pors - [id number] Implanted:Qty: 1 on 06/28/2020 by Torres Hernandez MD at [facility] Ortho Total Joint Left: Knee [employer] 03/30/2030 [id number] / / [id number] Baseplate Tib Lt Sz7 Grecia Ii Titnm Non Pors - [id number] Implanted:Qty: 1 on 06/28/2020 by Torres Hernandez MD at [facility] Ortho Total Joint Left: Knee [employer] 02/04/2028 [id number] / / [id number] Cmnt Bone 40gm Rally Hv - [id number] Implanted:Qty: 2 on 06/28/2020 by Torres Hernandez MD at [facility] Left: Knee [employer] 11/30/2024 [id number]# / / [id number] Fem Lt Sz8 Legion Cruc Ret Oxin - [id number] Implanted:Qty: 1 on 06/28/2020 by Torres Hernandez MD at [facility] Left: Knee [employer] 04/07/2027 [id number] / / [id number] Insert Knee Sz7-9 13mm Legioncruc Ret High Flex Xlpe - [id number] Implanted:Qty: 1 on 06/28/2020 by Torres Hernandez MD at [facility] Left: Knee [employer] 03/23/2029 [id number]# / / [id number] Explanted Type Area Overhead Crane Inspector Device Identifier Shelf Expiration Date Model / Serial / Lot Vis Adpt Guide Lgnp Kit Lt Sz F8/[id number] Explanted:Qty: 1 on 06/28/2020 by Torres Hernandez MD at [facility] Left: Knee [employer] 10/17/2020 [id number] / / [id number] Procedures Procedure Name Priority Date/Time Associated Diagnosis Comments XR CHEST 2 VIEWS PA AND LATERAL Routine 09/29/2024 11:38 AM HAMMERSMITH HELPER Influenza-like illness COVID/FLU/RSV PANEL Routine 09/29/2024 1 1:16 AM HAMMERSMITH HELPER Influenza-like illness SCAN-MRI INTERPRETATION 08/21/2024 12:00 AM HAMMERSMITH HELPER EMG Routine 08/20/2024 12:00 AM HAMMERSMITH HELPER Cervical radiculopathy PSA (TOTAL) ([facility]) Routine 07/24/2024 9 :18 AM HAMMERSMITH HELPER Elevated PSA ANTI HCV Routine 04/20/2024 9:02 [...] VIEWS PA AND LATERAL (09/29/2024 11:38 AM HAMMERSMITH HELPER) Anatomical Region Laterality Modality CHEST, THORAX, Lung, HEART Compu linda Radiography 09/29/2024 1:27 PM HAMMERSMITH HELPER Impressions 09/29/2024 1:27 PM HAMMERSMITH HELPER No acute findings. Dictated by Blade Chavez MD @ 09/29/2024 1:27:50 PM (Electronically Signed) Narrative 09/29/2024 1:27 PM HAMMERSMITH HELPER For Patients: As a result of the [...] * (ABNORMAL) COVID/FLU/RSV PANEL (09/29/2024 11:16 AM HAMMERSMITH HELPER) COVID 19 [facility] Negative Negative 09/29/2024 7:28 PM HAMMERSMITH HELPER [facility] INFLUENZA A PCR Positive(A) 09/29/19 25 7:28 PM HAMMERSMITH HELPER [facility] INFLUENZA B PCR Negative 5 7:28 PM HAMMERSMITH HELPER [facility] Respiratory Syncytial Virus Negative 09/29/2024 7:28 PM HAMMERSMITH HELPER [facility] Swab (Nasal Swab) Non-Blood / Unknown 09/29/2024 11:16 AM HAMMERSMITH HELPER 09/29/2024 11:16 AM HAMMERSMITH HELPER us Janiya Fox MD MICROBIOLOGY Final R esult [facility] [address] [place] [address], [place] * SCAN-MRI INTERPRETATION (08/21/2024 12:00 AM HAMMERSMITH HELPER) Anatomical Region Laterality Modality Other us Scanner OTHER Final Result * EMG (08/20/2024 12:00 AM HAMMERSMITH HELPER) Colton Haider MD NEUROLOGY ORD Final Res ult * PSA (TOTAL) ([facility]) (07/24/2024 9:18 AM HAMMERSMITH HELPER) PSA, TOTAL 3.29 < OR = 4.00 ng/mL [facility] Comment: The total PSA value from this assay system is standardized against the WHO standard. The test result will be approximately 20% lower when compared to the equimolar-standardized total PSA ([place]). Comparison of serial PSA results should be interpreted with this fact in mind. This test was performed using the Siemens chemiluminescent method. Values obtained from different assay methods cannot be used interchangeably. PSA levels, regardless of value, should not be interpreted as absolute evidence of the presence or absence of disease. Blood BLOOD SPECIMEN / Unknown 07/24/2024 9:18 AM HAMMERSMITH HELPER 07/24/2024 9:19 AM HAMMERSMITH HELPER Torres Mooney MD SEND OUTS Final Resu lt [facility] [address] [place] [address], [employer] [facility] [address] [place] [address] * (ABNORMAL) LIPID PANEL W REFLEX MEASURED LDL (04/20/2024 9:02 AM CDT) CHOLESTEROL,TOTAL 228(H) 100 - 199 mg/dL 04/20/2024 4:20 PM CDT [facility] Comment: Cholesterol, Total Reference Ranges Desirable <200 mg/dL Borderline 200-239 mg/dL High >=240 mg/dL TRIGLYCERIDES 164(H) <150 mg/dL 04/20/2024 4:20 PM CDT [facility] HDL CHOLESTEROL 42 >40 mg/dL 4:20 PM CDT [facility] NON-HDL CHOLESTEROL 186(H) <145 mg/dl 04/20/2024 4:20 PM CDT [facility] CHOL/HDL RATIO 5.43(H) <4.50 04/20/2024 4:20 PM CDT [facility] LDL CHOLESTEROL 153(H) <=130 mg/dL 04/20/2024 4:20 PM CDT [facility] VLDL CHOLESTEROL 33(H) <=30 mg/dL 04/20/2024 4:20 PM CDT [facility] PROVIDER ORDERED STATUS RANDOM 04/20/2024 4:20 PM CDT [facility] TRA [facility] Blood BLOOD SPECIMEN / Unknown Venipuncture / Unknown 04/20/2024 9:02 AM CDT 04/20/2024 9:02 AM CDT Torres Mooney MD CHEMISTRY Final Resu lt Performing Organization Address [facility] Co de Phone Number [facility] [address] [place] [address], [place] * ANTI HCV (04/20/2024 9:02 AM CDT) HEPATITIS C ANTIBODY Non-Reacti ve Non-React liset 04/20/2024 4:58 PM CDT [facility] Comment:Please note, per www .CDC.gov: [...] OUTS Final Resu lt Performing Organization Address City/[facility]/ZIP Co de Phone Number [facility] [address] [place] [address], [place] * SDNA-FIT EXTERNAL (COLOGUARD) (03/25/2024 12:15 PM CDT) NONINV COLON CA DNA+OCC BLD SCRN STL-IMP Negative Negative 04/01/2024 7:42 PM CDT [facility] (CLIA #:[id number]) Comment: NEGATIVE TEST RESULT. A negative Cologuard [...] (Bailee Josue al, N Engl J Med 2014;370(14):1179-4803) The normal value (reference range) for this assay is negative. COLOGUARD RE-SCREENING RECOMMENDATION: Periodic colorectal cancer screening is an important part of preventive healthcare for asymptomatic individuals at average risk for colorectal cancer. Following a negative Cologuard result, the [place] [employer] Society and U.S. Multi-Society Task Force screening guidelines recommend a Cologuard re-screening interval of 3 years. References: [place] [employer] Guideline for Colorectal Cancer Screening: https://www.cancer.org/cancer/opwso-zdvfnw-xquroh/kckktxqcc-hkgwtirht-vdzimyt/ac s-rec ommendations.html.; Adrián DK, Kaushal CR, Corrie AbreuK, Colorectal Cancer Screening: Recommendations for Physicians and Patients from the U.S. Multi-Society Task Force on Colorectal Cancer Screening , Am J Gastroenterology 2017; 112:6786-0847. TEST DESCRIPTION: Composite algorithmic analysis of stool [...] (Bailee Josue al, N Engl J Med 2014;370(14):1695-3475.) Cologuard may produce a false negative or false positive result (no colorectal cancer or precancerous polyp present at colonoscopy follow up). A negative Cologuard test result does not guarantee the absence of CRC or advanced adenoma (pre-cancer). The current Cologuard screening interval is every 3 years. ([place] [employer] Society and U.S. Multi-Society Task Force). Cologuard performance data in a 10,000 patient pivotal study using colonoscopy as the reference method can be accessed at the following location: www.Agilyx.GenOil/results. Additional description of the Cologuard test process, warnings and precautions can be found at www.cologuard.com. Stool specimen (specimen) (Rectum) 03/25/2024 12:15 PM CDT 03/27/2024 10:00 AM CDT us Torres Mooney MD URINE Final Resu lt [facility] (CLIA #:[id number]) [place] [address], [place] [phone] * [place] ABD AORTA SCREENING [[id number]] (03/17/2024 7:35 AM CDT) Anatomical Region Laterality [...] Documents on File Type Date Recorded Patient Cooker Chip Expl anation Healthcare Directive 06/28/2020 6:39 AM * Full Code (Latest Code Status on File) Date Activated Date Inactivated Comments 06/28/2020 6:43 AM 06/29/2020 12:27 PM Question Answer Comments Code Status Discussion: Discussed Care Teams Aids Social Worker Relationship Specialty Start Date End Date Torres Mooney MD [address] [place] [address] PCP - General Family Practice 02/15/23
--- OUTSIDE RECORDS SUMMARY | 2024-10-03 12:43 | XMS_ITS | Encounter Summary ---
Author Organization [facility] Address [address] [place] [address] Care Team Providers Care Brush Painter Name Role Phone Dahlia Clif Epstein Primary Care Provider Unavailabl Michael Cid MD Unavailable [phone] Michael Ba APRN CARGO WORKER Unavailable [phone] Michael Negrete MD Unavailable [phone] Kailyn Wang CONFIDENTIAL INVESTIGATOR CARGO WORKER Unavailable Cristine Torres Finn MD Primary Care Provider + [phone] Nirav Cuba MD Unavailable Torres Mooney MD Primary Care Provider + [phone] Ayla Flores APRN CARGO WORKER Unavailable + [phone] Sophy Wong MD Unavailable [phone] Reason for Visit * Reason Onset Date Comments Symptoms 03/27/2022 AFIB Encounter Details Date Type Department Care Team (Late st Contact Info) Description 03/27/2022 Telephone [facility] [address] [facility] [place] [address] Michael Negrete MD [address] [facility] [address] [place] [address] Symptoms (AFIB) Social History Tobacco Use Types Packs/Day Years Used Date Smoking Tobacco: Never Smokeless Tobacco: Never Alcohol Use Standard Drinks/Week Comments No 0 (1 standard drink = 0.6 oz pur e alcohol) Sex and Gender Information Value Date Recorded Sex Assigned at Not on file 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 No / Unsure 03/29/2022 10:59 AM CDT documented as of this encounter Miscellaneous Notes * Telephone Encounter - Minnie Vickers - 03/27/2022 10:19 AM CDT [facility] Call Center Phone Message May a detailed [...] on filedocumented in this encounter Care Teams Brush Painter Relationship Specialty Start Date End Date Clif Villagomez PCP - General Family Medicine 09/20/20 03/13/23 Torres Mooney MD [address] [place] [address] PCP - General Family Medicine 03/14/23 11/12/23 Torres Mooney MD [address] [place] [address] PCP - General Family Medicine 11/13/23 Michael Negrete MD Cardiovascular Disease 11/08/21 Michael Ba, CONFIDENTIAL INVESTIGATOR CARGO WORKER [address] [place] [address] Assigned Sleep Provider 12/10/21 08/30/23 Michael Negrete MD [address] [facility] [address] [place] [address] Assigned Heart and Vascular Provider 12/31/21 04/20/22 Kailyn Wang APRN CARGO WORKER [address] [facility] [address] [place] [address] Assigned Heart and Vascular Provider 04/21/22 03/08/23 Nirav Cuba MD [address] [facility] [address] [place] [address] Assigned Heart and Vascular Provider 03/09/23 02/22/24 Ayla Flores APRN CARGO WORKER HEART & VASCULAR [address] [place] [address] Assigned Heart and Vascular Provider 02/23/24 08/23/24 Sophy Wong MD [address] [facility] [address] [place] [address] Assigned Heart and Vascular Provider 08/24/24 documented as of this encounter
--- OUTSIDE RECORDS SUMMARY | 2024-10-03 12:43 | XMS_ITS | Encounter Summary ---
Author Organization [facility] Address [address] [place] [address] Care Team Providers Care Stock Grader Name Role Phone Clif Villagomez Primary Care Provider Unavailabl e Kailyn Wang PRODUCT DESIGN ENGINEER RECORDS MANAGER Unavailable Cristine vailable Michael Negrete MD Unavailable [phone] Michael Ba APRN RECORDS MANAGER Unavailable [phone] Michael Negrete MD Unavailable [phone] Kailyn Wang APRN RECORDS MANAGER Unavailable Cristine vailable Torres Mooney MD Primary Care Provider + [phone] Nirav Cuba MD Unavailable Torres Mooney MD Primary Care Provider + [phone] Ayla Flores PRODUCT DESIGN ENGINEER RECORDS MANAGER Unavailable + [phone] Sophy Wong MD Unavailable [phone] Encounter Details Date Type Department Care Team (Late st Contact Info) Description 11/24/2021 MyC Medical Advice [facility] [address] [address] Aurea Lucas, NEW GRAD RN Social History Tobacco Use Types Packs/Day Years Used Date Smoking Tobacco: Never Smokeless Tobacco: Never Alcohol Use Standard Drinks/Week Comments No 0 (1 standard drink = 0.6 oz pur e alcohol) Sex and Gender Information Value Date Recorded Sex Assigned at Not on file Legal Sex Male 3:29 PM ENLISTED ADVISOR Gender Identity Not on file Sexual Orientation Not on file COVID-19 Exposure Response Date Recorded In the last month, have you been in contact with someone who was confirmed or suspected to have Coronavirus / COVID-19? Unable to assess 11/08/2021 7:53 AM ENLISTED ADVISOR documented as of this encounter Plan of Treatment Not on file documented as of this encounter Visit Diagnoses Not on filedocumented in this encounter Care Teams Stock Grader Relationship Specialty Start Date End Date Clif Villagomez PCP - General Family Medicine 09/20/20 03/13/23 Torres Mooney MD [address] [place] [address] PCP - General Family Medicine 03/14/23 11/12/23 Torres Mooney MD [address] [place] [address] PCP - General Family Medicine 11/13/23 Kailyn Wang APRN RECORDS MANAGER Assigned Heart and Vascular Provider 03/17/21 12/30/21 Michael Negrete MD Cardiovascular Disease 11/08/21 Michael Ba APRN RECORDS MANAGER [address] [place] [address] Assigned Sleep Provider 12/10/21 08/30/23 Michael Negrete MD [address] [facility] [address] [place], [place] [id number] Assigned Heart and Vascular Provider 12/31/21 04/20/22 Kailyn Wang APRN RECORDS MANAGER [address] [facility] [address] [place] [address] Assigned Heart and Vascular Provider 04/21/22 03/08/23 Nirav Cuba MD [address] [facility] [address] [place] [address] Assigned Heart and Vascular Provider 03/09/23 02/22/24 Ayla Flores APRN [facility] HEART & VASCULAR [address] [place] [phone] Assigned Heart and Vascular Provider 02/23/24 08/23/24 Sophy Wong MD [address] [facility] [address] [place], [place] [address] Assigned Heart and Vascular Provider 08/24/24 documented as of this encounter
--- OUTSIDE RECORDS SUMMARY | 2024-10-03 12:43 | XMS_ITS | Encounter Summary ---
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
--- NOTE | 2024-10-03 12:47 | CRLHL7_ITS ---
For Patients: As a result of the Century Cures Act, medical imaging exams and procedure reports are released immediately into your electronic medical record. You may view this report before your referring provider. If you have questions, please contact your health care provider. INDICATION: Elevated D-dimer shortness of breath TECHNIQUE: CT chest with 95 mL Isovue 370 contrast. COMPARISON: None. FINDINGS: Lungs and pleura: Bilateral patchy ground-glass opacities there is basilar bronchial wall thickening and bronchiectasis. No effusion is seen. Heart and vasculature: Heart size is normal. Thoracic aorta and pulmonary artery are normal in caliber. No pulmonary emboli. Lymph nodes/mediastinum: No mediastinal, hilar, or axillary adenopathy. Chest wall: No masses. Upper abdomen: Nonobstructing left renal calculus Bones: Unremarkable for age. IMPRESSION: 1. No pulmonary emboli. Bilateral patchy ground-glass opacities likely infectious/inflammatory bronchial wall thickening in the lower lobes and bronchiectasis. Please note that all CT scans at this facility use dose modulation, iterative reconstruction, and/or weight-based dosing when appropriate to reduce radiation dose to as low as reasonably achievable. Dictated by Jessica Sheehan MD @ 10/03/2024 1:55:02 PM (Electronically Signed)
--- NOTE | 2024-10-03 12:59 | ED_ITS ---
HPI - General Adult General Chief complaint: Shortness of Breath/Dyspnea Stated complaint: SHORTNESS OF BREATH, FLU LAST WEEK, S[place] [facility] [place] Time Seen by Provider: 10/03/24 11:50 Source: patient Mode of arrival: ambulatory Limitations: no limitations History of Present Illness HPI narrative: 74-year-old male presenting to the ER today with shortness of breath. Patient was diagnosed with influenza a approximately 10 days ago. His was diagnosed at the same time - and while she has been improving he has been getting worse. He endorses increasing shortness of breath, cough. He is fatigued. He gets winded easily with minimal physical activity. Decreased appetite. Has been sleeping more than usual. He was recently seen given prednisone, he is on day 3 of that and has not felt any relief. Patient was seen in the urgent care and sent over to the ER for further management. Related Data Previous Rx's ?Medication ?Instructions ?Recorded azithromycin 250 mg tablet 500 mg PO DIRECTED #6 tabs 10/03/24 Allergies Allergy/AdvReac Type Severity Reaction Status Date / Time No Known Drug Allergies Allergy Verified 10/03/24 12:01 Review of Systems Status of ROS: Reports: 10 or more systems reviewed and unremarkable except as noted in History and below [facility] Social History Smoking Status: Never smoker Do you use any of these nicotine containing products: None Second hand tobacco smoke exposure: No How often do you have a drink containing alcohol: 2-4 times a month How many standard drinks containing alcohol do you have on a typical day: 3 or 4 How often do you have six or more drinks on one occasion: Never AUDIT-C Alcohol total score: 3 Non-prescribed substance use: denies use service: No Exam Narrative: Exam Narrative: Well-nourished well-developed patient in no acute distress. Alert and oriented. Answers questions appropriately. Mood and affect are appropriate. Thoughts are goal oriented and rational. No tangential or magical thinking noted. Patient speaks in full sentences without needing to catch his breath. HEENT: Normocephalic atraumatic. Pupils are equally round reactive to light. Extraocular muscles are intact. Conjunctivae are moist without any icterus noted. Moist mucous membranes. Posterior pharynx is normal. Neck is soft without any lymphadenopathy or thyromegaly. No masses are appreciated. Cardiovascular: Heart is regular rate and rhythm S1 and S2 are present without any murmurs. Lungs: Clear to auscultation on the right, rales and crackles on the left. Coughs with deep inspiration. Abdomen: Soft and nontender nondistended with normal bowel sounds. Extremities: Bilateral lower extremities are without edema. Skin: Well perfused without any obvious rashes. Const: Vital Signs, click to edit/add: Vital Signs - 24 hr 10/03/24 12:02 Temperature 97.4 F L Pulse Rate [Pulse Oximeter] 77 Respiratory Rate 20 Blood Pressure [Ri ght Upper Arm] 132/82 Pulse Oximetry 92 Oxygen Delivery Me thod Room Air Course Course ED Course: Looking through was done in the urgent care: CBC shows a white cell count of 11.4, 92.1% neutrophils. D-dimer elevated at 2.74. Troponin is normal at 0.03. Chemistries were unremarkable. Chest x-ray was unremarkable. Oxygen saturation fluctuated between 90-93% on room air. Did not worsen with ambulation. Will proceed with a triple swab to see if the patient has developed COVID or RSV contributing to his symptoms. Will also proceed with a chest CT PE protocol. This did not show any evidence of PE. Bilateral ground-glass opacities are present. Vital Signs Vital signs: Initial Vital Signs Temperature 97.4 F L 10/03/24 12:02 Temperature Source Temporal Artery Scan 10/03/24 12:02 Pulse Rate 77 10/03/24 12:02 Pulse Rhythm Regular 10/03/24 12:02 Respiratory Rate 20 10/03/24 12:02 Blood Pressure 132/82 10/03/24 12:02 Blood Pressure Mean 98 10/03/24 12:02 Blood Pressure Position Semi-Fowlers 10/03/24 12:02 Pulse Oximetry 92 10/03/24 12:02 Oxygen Delivery Method Room Air 10/03/24 12:02 Vital Signs Temperature 97.4 F L 10/03/24 12:02 Pulse Rate 77 10/03/24 12:02 Respiratory Rate 20 10/03/24 12:02 Blood Pressure 132/82 10/03/24 12:02 Pulse Oximetry 92 10/03/24 12:02 Oxygen Delivery Method Room Air 10/03/24 12:02 Temperature 97.4 F L 10/03/24 12:02 Pulse Rate 77 10/03/24 12:02 Respiratory Rate 20 10/03/24 12:02 Blood Pressure 132/82 10/03/24 12:02 Pulse Oximetry 92 10/03/24 12:02 Oxygen Delivery Method Room Air 10/03/24 12:02 Medical Decision Making MDM Narrative Medical decision making narrative: 74-year-old male with continued cough, shortness of breath after influenza diagnosis. Because patient's symptoms have been slowly getting worse instead of better despite, I do not think that it would be unreasonable to treat him with azithromycin at this time. Lab Data Lab results reviewed: Yes I reviewed the patient's lab results Labs: Lab Results 10/03/24 Range/Units 12:32 SARS-CoV-2 (PCR) Negative SARS-CoV-2 (Negative) Influenza Type A (PCR) POSITIVE PCR FLU A A (Negative) Influenza Type B (PCR) Negative PCR FLU B (Negative) RSV (PCR) Negative PCR RSV (Negative) Imaging Data CT scan - chest: Attestation: I have reviewed the pertinent imaging results. Radiologist's impression: TECHNIQUE: CT chest with 95 mL Isovue 370 contrast. COMPARISON: None. FINDINGS: Lungs and pleura: Bilateral patchy ground-glass opacities there is basilar bronchial wall thickening and bronchiectasis. No effusion is seen. Heart and vasculature: Heart size is normal. Thoracic aorta and pulmonary artery are normal in caliber. No pulmonary emboli. Lymph nodes/mediastinum: No mediastinal, hilar, or axillary adenopathy. Chest wall: No masses. Upper abdomen: Nonobstructing left renal calculus Bones: Unremarkable for age. IMPRESSION: 1. No pulmonary emboli. Bilateral patchy ground-glass opacities likely infectious/inflammatory bronchial wall thickening in the lower lobes and bronchiectasis. Discharge Plan Discharge Clinical Impression: Influenza A, Increasing shortness of breath Patient Disposition: Home, Self-Care Condition: Stable Instructions: Influenza (DC) Additional Instructions: Take all antibiotics as prescribed. Follow-up with primary care provider if you are not improving over the next week. Return to the emergency department if you feel like you are getting worse. Prescriptions: New azithromycin 250 mg tablet 500 mg PO DIRECTED Qty: 6 0RF Taper: Z-EDITA 500 mg Q24H for 1 Day and 0 Hour 250 mg Q24H for 4 Days and 0 Hour Rx Instructions: For 250 mg dose pack: take 500 mg today (day 1), then 250 mg for 4 days (days 2-5) Follow Up/Referrals: Torres Mooney MD [Primary Care Provider] - Stand Alone Forms: [employer] Info Instructions
[2024-10-03 13:16] LABS: PCR FLU A POSITIVE PCR FLU A (Negative); PCR FLU B Negative PCR FLU B (Negative); PCR RSV Negative PCR RSV (Negative); SARS PCR* Negative SARS-CoV-2 (Negative)
== END 2024-10-03 14:12 | disposition home or self-care (01) ==
PROVIDERS: Emergency Provider Family Medicine; PCP Family Medicine
DX: J10.1 Influenza due to other identified influenza virus with other respiratory manifestations (principal); J96.10 Chronic respiratory failure, unspecified whether with hypoxia or hypercapnia
CPT/HCPCS: 71275; 82565; 87637; 99284; Q9967

== ENCOUNTER 2024-10-06 16:15 | Outpatient (CLI) | payer MEDICARE, SELFPAY | END 2024-10-06 16:16 | disposition home or self-care (01) | LOC: AMB 10-13 08:29 | PROVIDERS: PCP Family Medicine; Visit Provider Family Medicine | DX: R06.03 Acute respiratory distress (principal) | CPT/HCPCS: A0425; A0427 ==

== ENCOUNTER 2024-10-06 16:42 | Inpatient (IN) | payer MEDICARE, SELFPAY ==
[2024-10-06] VITALS (10 sets, daily range): BP systolic 104–136; BP diastolic 67–91; PULSE 74–83; RESP 20–24; TEMP 36.2–37.1; O2SAT 90–92; BMI 26.8; BMI 27.1
--- OUTSIDE RECORDS SUMMARY | 2024-10-06 16:43 | XMS_ITS | Encounter Summary ---
Author Organization [facility] Address [address] [place] [address] Care Team Providers Care Product Design Specialist Name Role Phone Michael Negrete MD Unavailable [phone] Nirav Cuba MD Unavailable Torres Mooney MD Primary Care Provider + [phone] Ayla Flores APRN ECONOMETRICS PROFESSOR Unavailable + [phone] Sophy Wong MD Unavailable [phone] Encounter Details Date Type Department Care Team (Late st Contact Info) Description 11/26/2023 [facility] [place] Medical Advice [facility] [address] [place] [phone] Carol Ramos, JEM Social History Tobacco Use [...] on file 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 [address] [place], [place] [address] Assigned Heart and Vascular Provider 03/09/23 02/22/24 Ayla Flores APRN [facility] HEART & VASCULAR [address] [place] [phone] Assigned Heart and Vascular Provider 02/23/24 08/23/24 Sophy Wong MD [address] [facility] [address] [place] [address] Assigned Heart and Vascular Provider 08/24/24 documented as of this encounter
--- OUTSIDE RECORDS SUMMARY | 2024-10-06 16:43 | XMS_ITS | Encounter Summary ---
Author Organization [facility] Address [address] [place] [address] Care Team Providers Care Medical Appliance Maker Name Role Phone Michael Negrete MD Unavailable [phone] Torres Mooney MD Primary Care Provider + [phone] Nirav Cuba MD Unavailable Torres Mooney MD Primary Care Provider + [phone] Ayla Flores APRN, CNP Unavailable + [phone] Sophy Wong MD Unavailable [phone] Encounter Details Date Type Department Care Team (Late st Contact Info) Description 10/14/2023 MyC Medical Advice [facility] [address] [place] [address] Ayla Flores APRN [employer] HEART & VASCULAR [address] [place] [address] Social History Tobacco Use Types [...] on file 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 Can we please coordinate outpatient DCCV if complaint with OAC? 2 days prior start sotalol 60mg BID, discontinue metoprolol. Please reschedule follow-up withMable Cuba. Thank you MER * Telephone Encounter - Tess Sosa RN - 10/21/2023 11:46 AM CST Attempted to contact pt to discuss, LM for return call. Tess MER documented in this encounter Plan of Treatment Not on file documented as of this encounter Visit Diagnoses Not on filedocumented in this encounter Care Teams Medical Appliance Maker Relationship Specialty Start Date End Date Torres Mooney MD [address] [place] [address] PCP - General Family Medicine 03/14/23 11/12/23 Torres Mooney MD [address] [place] [address] PCP - General Family Medicine 11/13/23 Michael Negrete MD Cardiovascular Disease 11/08/21 Nirav Cuba MD [address] [facility] [address] [place], [place] [address] Assigned Heart and Vascular Provider 03/09/23 02/22/24 Ayla Flores APRN [facility] [address] [place] [address] Assigned Heart and Vascular Provider 02/23/24 08/23/24 Sophy Wong MD [address] [facility] [address] [place] [address] Assigned Heart and Vascular Provider 08/24/24 documented as of this encounter
--- OUTSIDE RECORDS SUMMARY | 2024-10-06 16:43 | XMS_ITS | Encounter Summary ---
Author Organization [facility] Address [address] [place] [address] Care Team Providers Care Electric Track Switch Maintainer Name Role Phone DahliaClif Primary Care Provider Unavailabl Michael Cid MD Unavailable [phone] Michael Ba FOOD CHEMIST RUG REPAIRER Unavailable [phone] Kailyn Wang FOOD CHEMIST RUG REPAIRER Unavailable Cristine Torres Finn MD Primary Care Provider + [phone] Nirav Cuba MD Unavailable Torres Mooney MD Primary Care Provider + [phone] Ayla Flores FOOD CHEMIST RUG REPAIRER Unavailable + [phone] Sophy Wong MD Unavailable [phone] Encounter Details Date Type Department Care Team (Late st Contact Info) Description 05/08/2022 [facility] [address] [address] Jake Zhang Social History Tobacco Use Types Packs/Day Years Used Date Smoking Tobacco: Never Smokeless Tobacco: Never Alcohol Use Standard Drinks/Week Comments Yes 0 (1 standard drink = 0.6 oz pur e alcohol) 2 drinks per month Sex and Gender Information Value Date Recorded Sex Assigned at Not on file 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 Gender Identity Not on file Sexual Orientation [...] on filedocumented in this encounter Care Teams Electric Track Switch Maintainer Relationship Specialty Start Date End Date Clif Villagomez PCP - General Family Medicine 09/20/20 03/13/23 Torres Mooney MD [address] [place] [address] PCP - General Family Medicine 03/14/23 11/12/23 Torres Mooney MD [address] [place] [address] PCP - General Family Medicine 11/13/23 Michael Negrete MD Cardiovascular Disease 11/08/21 Michael Ba APRN RUG REPAIRER [address] [place], [place] [address] Assigned Sleep Provider 12/10/21 08/30/23 Kailyn Wang APRN RUG REPAIRER [address] [place] [address] Assigned Heart and Vascular Provider 04/21/22 03/08/23 Nirav Cuba MD [address] [facility] [address] [place] [address] Assigned Heart and Vascular Provider 03/09/23 02/22/24 Ayla Flores APRN RUG REPAIRER HEART & VASCULAR [address] [place] [address] Assigned Heart and Vascular Provider 02/23/24 08/23/24 Sophy Wong MD [address] [facility] [address] [place] [address] Assigned Heart and Vascular Provider 08/24/24 documented as of this encounter
--- OUTSIDE RECORDS SUMMARY | 2024-10-06 16:43 | XMS_ITS | Encounter Summary ---
Author Organization [facility] Address [address] [place] [address] Care Team Providers Care Ups Driver Name Role Phone DahliaClif Primary Care Provider Unavailabl Michael Cid MD Unavailable [phone] Michael Ba APRN SIGNAL APPRENTICE Unavailable [phone] Kailyn Wang CANDY MAKER SIGNAL APPRENTICE Unavailable Cristine Torres Finn MD Primary Care Provider + [phone] Nirav Cuba MD Unavailable Torres Mooney MD Primary Care Provider + [phone] Ayla Flores APRN SIGNAL APPRENTICE Unavailable + [phone] Sophy Wong MD Unavailable [phone] Reason for Visit * Reason Onset Date Comments CPAP Follow Up 05/04/2022 Encounter Details Date Type Department Care Team (Late st Contact Info) Description 05/04/2022 Telephone [facility] [address] [address] Michael Ba APRN SIGNAL APPRENTICE [address] [place] [address] CPAP Follow Up Social History Tobacco Use Types Packs/Day Years Used Date Smoking Tobacco: Never Smokeless Tobacco: Never Alcohol Use Standard Drinks/Week Comments Yes 0 (1 standard drink = 0.6 oz pur e alcohol) 2 drinks per month Sex and Gender Information Value Date Recorded Sex Assigned at Not on file 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 Jake Zhang, Visit trade facilitator documented in this encounter Plan of Treatment Not on file documented as of this encounter Visit Diagnoses Not on filedocumented in this encounter Care Teams Ups Driver Relationship Specialty Start Date End Date Clif Villagomez PCP - General Family Medicine 09/20/20 03/13/23 Torres Mooeny MD [address] [place] [address] PCP - General Family Medicine 03/14/23 11/12/23 Torres Mooney MD [address] [place] [address] PCP - General Family Medicine 11/13/23 Michael Negrete MD Cardiovascular Disease 11/08/21 Michael Ba APRN SIGNAL APPRENTICE [address] [address] Assigned Sleep Provider 12/10/21 08/30/23 Kailyn Wang APRN SIGNAL APPRENTICE [address] [place] [address] Assigned Heart and Vascular Provider 04/21/22 03/08/23 Nirav Cuba MD [address] [facility] [address] [place] [address] Assigned Heart and Vascular Provider 03/09/23 02/22/24 Ayla Flores APRN SIGNAL APPRENTICE HEART & VASCULAR [address] [place] [address] Assigned Heart and Vascular Provider 02/23/24 08/23/24 Sophy Wong MD [address] [facility] [address] [place], [place] [address] Assigned Heart and Vascular Provider 08/24/24 documented as of this encounter
--- OUTSIDE RECORDS SUMMARY | 2024-10-06 16:43 | XMS_ITS | Clinical Summary ---
Author Organization [facility] Address [address] [facility] , [address] [place] [address] Phone Care Team Providers Care Assistant Manager Pt Name Role Phone [facility] Unavailable Unava ilable Conditions or Problems Problem Name Problem Code Onset Date Status Entry Date Provider Comment Standard Description Annotate Neck pain 75022566 (SNOMED CT) Active Adalid Chino MD Neck pain Left median neuropathy 473177283 (SNOMED CT) Active Adalid Chino MD Median neuropathy Left median neuropathy 486134467 (SNOMED CT) Inactive Amrita Joe Median neuropathy Median neuropathy, bilateral 810376826 (SNOMED CT) Active Amrita Diaz Lesion of median nerve Left ulnar neuropathy 782992333 (SNOMED CT) Active Adalid Chino MD Ulnar neuropathy Median neuropathy, right 917925627 (SNOMED CT) Inactive Adalid Chino MD Median neuropathy Left median neuropathy 025847306 (SNOMED CT) Removed Adalid Chino MD Median [...] Procedures Code Procedure Name Date Entry Date CPT-82623 Nerve Conduction 11-12 studies CPT-02617 EMG with NCS (5+ muscles) - 1 limb 10/21 CPT-02244 Nerve Conduction 13 or more studies 04/14 CPT-27953 EMG with NCS (5+ muscles) - 2 limbs 04/14 Vital Signs No information available. Immunizations No information available. Advance Directives No information available.
--- OUTSIDE RECORDS SUMMARY | 2024-10-06 16:44 | XMS_ITS | Encounter Summary ---
Author Organization [place] Address [address] [place] [address] Care Team Providers Care Manager Account Management Name Role Phone DahliaClif Primary Care Provider Unavailabl Michael Cid MD Unavailable [phone] Michael Ba APRN ICE HOUSE SUPERVISOR Unavailable [phone] Kailyn Wang APRN ICE HOUSE SUPERVISOR Unavailable Cristine Torres Finn MD Primary Care Provider + [phone] Nirav Cuba MD Unavailable Torres Mooney MD Primary Care Provider + [phone] Ayla Flores APRN ICE HOUSE SUPERVISOR Unavailable + [phone] Sophy Wong MD Unavailable [phone] Encounter Details Date Type Department Care Team (Late st Contact Info) Description 01/31/2023 [facility] [address] [facility] [address] [place] [id number] Kailyn Wang APRN ICE HOUSE SUPERVISOR Social History Tobacco Use Types Packs/Day Years Used Date Smoking Tobacco: Never Smokeless Tobacco: Never Alcohol Use Standard Drinks/Week Comments Yes 0 (1 standard drink = 0.6 oz pur e alcohol) 2 drinks per month Sex and Gender Information Value Date Recorded Sex Assigned at Not on file 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 Gender Identity Not on file Sexual Orientation Not on file documented as of this encounter Plan of Treatment Not on file documented as of this encounter Visit Diagnoses Not on filedocumented in this encounter Care Teams Manager Account Management Relationship Specialty Start Date End Date Clif Villagomez PCP - General Family Medicine 09/20/20 03/13/23 Torres Mooney MD [address] [place] [address] PCP - General Family Medicine 03/14/23 11/12/23 Torres Mooney MD [address] [place] [address] PCP - General Family Medicine 11/13/23 Michael Negrete MD Cardiovascular Disease 11/08/21 Michael Ba APRN ICE HOUSE SUPERVISOR [address] [place], [place] [address] Assigned Sleep Provider 12/10/21 08/30/23 Kailyn Wang APRN ICE HOUSE SUPERVISOR [address] [place] [address] Assigned Heart and Vascular Provider 04/21/22 03/08/23 Nirav Cuba MD [address] [facility] [address] [place], [place] [id number] Assigned Heart and Vascular Provider 03/09/23 02/22/24 Ayla Flores APRN ICE HOUSE SUPERVISOR HEART & VASCULAR [address] [place] [phone] Assigned Heart and Vascular Provider 02/23/24 08/23/24 Sophy Wong MD [address] [facility] [address] [place], [place] [id number] Assigned Heart and Vascular Provider 08/24/24 documented as of this encounter
--- OUTSIDE RECORDS SUMMARY | 2024-10-06 16:44 | XMS_ITS | Encounter Summary ---
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
--- OUTSIDE RECORDS SUMMARY | 2024-10-06 16:44 | XMS_ITS | Encounter Summary ---
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 [address] [place] [address] Assigned Heart and Vascular Provider 08/24/24 documented as of this encounter
--- OUTSIDE RECORDS SUMMARY | 2024-10-06 16:44 | XMS_ITS | Encounter Summary ---
Author Organization [place] Address [address] [place] [address] Care Team Providers Care Principal Software Architect Name Role Phone Michael Negrete MD Unavailable [phone] Torres Mooney MD Primary Care Provider + [phone] Nirav Cuba MD Unavailable Torres Mooney MD Primary Care Provider + [phone] Ayla Flores APRN, CNP Unavailable + [phone] Sophy Wong MD Unavailable [phone] Encounter Details Date Type Department Care Team (Late st Contact Info) Description 11/06/2023 [facility] Medical Advice [facility] [address] [facility] [address] [place] [address] Ayla Flores APRN [employer] HEART & VASCULAR [address] [place] [address] Social History Tobacco Use Types [...] on file 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 Gender Identity Not on file Sexual Orientation Not on file documented as of this encounter Plan of Treatment Not on file documented as of this encounter Visit Diagnoses Not on filedocumented in this encounter Care Teams Principal Software Architect Relationship Specialty Start Date End Date Torres Mooney MD [address] [facility] [place] [address] PCP - General Family Medicine 03/14/23 11/12/23 Torres Mooney MD [address] [place] [address] PCP - General Family Medicine 11/13/23 Michael Negrete MD Cardiovascular Disease 11/08/21 Nirav Cuba MD [address] [facility] [address] [place] [address] Assigned Heart and Vascular Provider 03/09/23 02/22/24 Ayla Flores APRN [employer] [facility]ART [facility]ULAR [address] [place] [phone] Assigned Heart and Vascular Provider 02/23/24 08/23/24 Sophy Wong MD [address] [facility] [address] [place], [place] [address] Assigned Heart and Vascular Provider 08/24/24 documented as of this encounter
--- OUTSIDE RECORDS SUMMARY | 2024-10-06 16:44 | XMS_ITS | Referral Summary ---
Author Organization [place] Address [address] [place] [address] Care Team Providers Care Communications Marketing Intern Name Role Phone Michael Negrete MD Unavailable [phone] Torres Mooney MD Primary Care Provider [phone] Nadine Wong MD Unavailable [phone] Encounters Date Type Department Care Team Description 09/01/2024 Travel 09/01/2024 3:20 PM INTAKE MANAGER Office Visit [address] [place] [address] Nadine Wong MD Longstanding persistent atrial fibrillation (H) (Primary Dx); Atypical atrial flutter (H); Atrial tachycardia 08/27/2024 Travel 07/24/2024 Travel 07/24/2024 10:30 AM INTAKE MANAGER - 07/24/2024 11:59 PM INTAKE MANAGER Hospital Encounter [facility] [address] [place] [address] Nadine Wong MD Atypical atrial flutter (H); Longstanding persistent atrial fibrillation (H) Discharge Disposition: Home or Self Care 07/10/2024 Orders Only [facility] [address] [facility] [address] [place] [address] Carol Allen RN Atypical atrial [...] Longstanding persistent atrial fibrillation 09/02 Overview (07/11/2023): [id number] score = 3 (age, CAD, CM) 2018 [...] on file Legal Sex Male 3:29 PM INTAKE MANAGER Gender Identity Not on file Sexual Orientation Not on file Last Filed Vital Signs Vital Sign Reading Time Taken Comments Blood Pressure 102/70 09/01/2024 3:11 PM INTAKE MANAGER Pulse 84 09/01/2024 3:11 PM INTAKE MANAGER Temperature 36.7 C (98 F) 04/24/2024 7:15 PM CDT Respiratory Rate 16 09/01/2024 3:11 PM INTAKE MANAGER Oxygen Saturation 99% 09/01/2024 3:11 PM INTAKE MANAGER Inhaled Oxygen Concentration - - Weight 106.1 kg (234 lb) 09/01/2024 3:11 PM INTAKE MANAGER shoes on Height 188 cm (6' 2) 09/01/2024 3:11 PM INTAKE MANAGER per patient Body Mass Index 30.04 09/01/2024 3:11 PM INTAKE MANAGER Plan of Treatment Not on file Procedures Procedure Name Priority Date/Time Associated Diagnosis Comments ECHO COMPLETE Routine 07/24/2024 11:20 AM INTAKE MANAGER Atypical atrial flutter (H) Longstanding persistent atrial fibrillation (H) BASIC METABOLIC PANEL STAT 04/24/2024 10:32 AM CDT LIPID PROFILE STAT 12/27/2017 12:42 PM CDT from Last 3 Months or Most Recently Relevant to Health Maintenance Results * ECHO COMPLETE (07/24/2024 11:20 AM INTAKE MANAGER) LVEF 55-60% CARDIOLOGY RESULTS Anatomical Region Laterality Modality Ultrasound, Ultr asound 07/24/2024 10:4 5 AM INTAKE MANAGER Narrative 07/24/2024 12:26 PM INTAKE MANAGER [id number]^TRANG^NADINE^[place] [address] Name: JOSE PADRON : 1950 Study Date: [...] Procedure Note Jeremías Weaver MD - 07/24/2024 [id number]^TRANG^NADINE^[facility] [place] [address] Name: JOSE PADRON : 1950 Study Date: [...] Johnson 07/24/2024 12:26 PM Nadine Wong MD CV ECHO ORDERABLES Edit ed Result - Final * (ABNORMAL) Basic metabolic panel (04/24/2024 10:32 AM [facility]) Pathologist [facility] Sodium 141 135 - 145 mmol/L 04/24/2024 10:58 AM [facility] Potassium 4.2 3.4 - 5.3 mmol/L 04/24/2024 10:58 AM [facility] Chloride 107 98 - 107 mmol/L 04/24/2024 10:58 AM [facility] Carbon Dioxide (CO2) 23 22 - 29 mmol/L 04/24/2024 10:58 AM [facility] Anion Gap 11 7 - 15 mmol/L 04/24/2024 10:58 AM [facility] Urea Nitrogen 16.6 8.0 - 23.0 mg/dL 04/24/2024 10:58 AM [facility] Creatinine 1.23(H) 0.67 - 1.17 mg/dL 04/24/2024 10:58 AM [facility] GFR Estimate 63 >60 mL/min/1.7 3m2 04/24/2024 10:58 AM [facility] Comment:eGFR calculated us2020 CKD-EPI equation. Calcium 8.7(L) 8.8 - 10.4 mg/dL 04/24/2024 10:58 AM CDT [facility] Comment:Reference intervals for this test were updated on 03/17/2024 to reflect our healthy population more accurately. There may be differences in the flagging of prior results with similar values performed with this method. Those prior results can be interpreted in the context of the updated reference intervals. Glucose 105(H) 70 - 99 mg/dL 04/24/2024 10:58 AM CDT [facility] Blood BLOOD SPECIMEN / Unknown Venipuncture / Unknown 04/24/2024 10:32 AM CDT 04/24/2024 10:39 AM CDT us Nadine Wong MD LAB - BLOOD ORDERABLES Final Result Performing Organization Address City/[facility]/ZIP Co de Phone Number [facility] [address] * (ABNORMAL) Lipid Profile (12/27/2017 12:42 PM CDT) Triglycerides 160(H) <=149 mg/dL 12/27/2017 1:[address] [facility] Cholesterol 212(H) <=199 mg/dL 12/27/2017 1:[address] [facility] LDL Cholesterol Calculated 146(H) <=129 mg/dL 12/27/2017 1:[address] [facility] Direct Measure HDL 34(L) >=40 mg/dL 12/27/2017 1:[address] [facility] Patient Fasting > 8hrs? Yes 12/27/2017 1:[address] [facility] Blood specimen (specimen) STRUCTURE OF RIGHT UPPER LIMB / Unknown VAD(CVC, PICC) / Unknown 12/27/2017 12:42 PM CDT 12/27/2017 12:46 PM CDT us Michael Negrete MD LAB - BLOOD ORDERABLES Final Result O [facility] [address] [place] [address], [facility] [address] [address] from Last 3 Months or Most Recently Relevant to Health Maintenance [place] [address] [place] [address] MEDICARE ADVANTAGE BCBS MEDICARE ADVANTAGE Advance Directives For more information, please contact: [phone] * Full Code (Latest Code Status on [...] Comments Code status determined by: Other (please documen t) * Full Code Date Activated Date Inactivated Comments 06/20/2022 10:51 AM 06/20/2022 6:36 PM All basic and advanced life-sustaining interventions are performed as appropriate. Continue status Question Answer Comments Code status determined by: Other (please documen t) * Full Code Date Activated Date Inactivated Comments 03/19/2022 10:08 AM 03/19/2022 1:20 PM All basic a nd advanced life-sustaining interventions are performed as appropriate. Post procedure. Question Answer Comments Code status determined by: Other (please documen t) Care Teams Communications Marketing Intern Relationship Specialty Start Date End Date Torres Mooney MD 1400 [place] [address] PCP - General Family Medicine 11/13/23 Michael Negrete MD Cardiovascular Disease 11/08/21 Nadine Wong MD [address] [facility] [address] [place] [address] Assigned Heart and Vascular Provider 08/24/24
--- OUTSIDE RECORDS SUMMARY | 2024-10-06 16:44 | XMS_ITS | Encounter Summary ---
Author Organization [place] Address [address] [place] [address] Care Team Providers Care Cabbage Salter Name Role Phone Michael Negrete MD Unavailable [phone] Torres Mooney MD Primary Care Provider [phone] Sophy Wong MD Unavailable [phone] Reason for Referral * Consultation (Routine) - Pending Review Specialty Diagnoses / Procedures Referred By Magdalena t Referred To Contact Cardiovascular Disease Diagnoses Longstanding persistent atrial fibrillation (H) Atypical atrial flutter (H) Sophy Wong MD [address] [place] [address] Phone: tel: fax: Referral ID Status Reason Start Date Expiration Date V isits Requested Visits Authorized [id number] Pending Review 09/01/2024 09/01/2025 1 1 Question Answer Follow-up with: Self - Dr. Michael Negrete, 1 year around 08/2025 Patient Scheduling Instructions: [facility] will call you to coordinate your care as prescribed by your provider. If you have concerns about scheduling, please call [phone]. Comments [facility] will call you to coordinate your care as prescribed by your provider. If you have concerns about scheduling, please call [phone]. DE [employer]B SALES Reason for Visit * Reason Comments Follow Up * Consultation (Routine) - Pending Review Specialty Diagnoses / Procedures Referred By Contatiya t Referred To Contact Cardiovascular Disease Diagnoses Atypical atrial flutter (H) Longstanding persistent atrial fibrillation (H) Sophy Wong MD [address] [facility] [address] [place] [address] Phone: tel: fax: Referral ID Status Reason Start Date Expiration Date V isits Requested Visits Authorized [id number] Pending Review 07/10/2024 07/10/2025 1 1 Encounter Details Date Type Department Care Team (Late st Contact Info) Description 09/01/2024 3:20 PM INSIDE B2B SALES Office Visit [facility] [place] [address] [facility] [address] [place] [address] Sophy Wong MD [address] [facility] [address] [place] [address] Longstanding persistent atrial fibrillation (H) [...] on file Legal Sex Male 3:29 PM INSIDE B2B SALES Gender Identity Not on file Sexual Orientation Not on file documented as of this encounter Last Filed Vital Signs Vital Sign Reading Time Taken Comments Blood Pressure 102/70 09/01/2024 3:11 PM INSIDE B2B SALES Pulse 84 09/01/2024 3:11 PM INSIDE B2B SALES Temperature - - Respiratory Rate 16 09/01/2024 3:11 PM INSIDE B2B SALES Oxygen Saturation 99% 09/01/2024 3:11 PM INSIDE B2B SALES Inhaled Oxygen Concentration - - Weight 106.1 kg (234 lb) 09/01/2024 3:11 PM INSIDE B2B SALES shoes on Height 188 cm (6' 2) 09/01/2024 3:11 PM INSIDE B2B SALES per patient Body Mass Index 30.04 09/01/2024 3:11 PM INSIDE B2B SALES documented in this encounter Patient Instructions * Patient Instructions* Sophy Wong MD - 09/01/2024 3:20 PM INSIDE B2B SALES Images from the original note were not included. [facility] Cardiac Electrophysiology [address] [facility] [address] [place] [address] Office: [phone] Thank you for seeing us in clinic [...] know if you decide to continue this halfway, or should you decide to discontinue - continue intermittent monitoring via Kardia - we discussed the option for implantable loop recorder (ILR) for longer term monitoring for recurrent atrial fibrillation and/or atrial flutter Please do not hesitate to be in touch with our office at [phone] with any questions that may arise. Thank you for trusting us with your care, Sophy Wong MD Clinical Cardiac Electrophysiology [facility] [address] [facility] [address] [place] [address] Office: [phone] DE B2B SALES DE B2B SALES DE B2B SALES DE B2B SALES DE B2B SALES documented in this encounter Progress Notes * Sophy Wong MD - 09/01/2024 3:20 PM CST Images from the original note were not included. [facility] Cardiac Electrophysiology [address] [facility] [address] [place] [address] Office: [phone] Patient: Jose Padron : 1950 CHIEF COMPLAINT/REASON FOR VISIT Longstanding persistent atrial fibrillation with prior ablations Assessment/Recommendations Stage 3C/Longstanding persistent atrial fibrillation, atrial flutters, atrial tachycardias - symptomatic with exertional dyspnea. Associated with resolved tachycardia-mediated cardiomyopathy. [id number] 1 Prior ablations: 04/24/2024 - AMINA AT/AFL, [...] continue apixaban 5mg twice daily. Given his [id number] 1, the long term care phlebotomist risk-benefit balance oftherapeutic anticoagulation is indeterminate - he will consider whether or not he will continue or stop apixaban. 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 Physical Examination Review of Systems VITALS: BP [...] Atrial Flutter; Surgeon: Nirav Cuba MD; Location: [facility] Physician Intensivist;Service: EP ABLATION ATRIAL FLUTTER N/A 04/30/2022 Procedure: Ablation Atrial Flutter; Surgeon: Nirav Cuba MD; Location: [facility] CV EP ABLATION FOCAL AFIB N/A 04/30/2022 Procedure: Ablation Atrial Fibrilation; Surgeon: Nirav Cuba MD; Location: [facility] CV EP ABLATION PULMONARY VEIN ISOLATION N/A 04/24/2024 Procedure: Ablation Atrial Fibrillation; Surgeon: Sophy Wong MD; Location: [facility] CV EP ABLATION PVI Left 03/10/2018 Procedure: EP Ablation PVI; Surgeon: Nirav Cuba MD; Location: [facility] Physician Intensivist; Service: EP ABLATION SVT N/A 05/22/2023 Procedure: Ablation Supraventricular Tachycardia; Surgeon: Nirav Cuba MD; Location: [facility] CV KNEE SURGERY Left 09/02/1972 REPLACEMENT [...] results for input(s): TROPONINI in the last 15971 hours. No results for input(s): BNP, NTBNPI, NTBNP in the last 31656 hours. Recent Labs Lab Test 12/20/22 1614 TSH 6.15* No results for input(s): INR in the last 24121 hours. Data Review ECGs (tracings independently reviewed) 06/08/2024 - SR 78bpm, KS 300ms, QT/QTC 432/492ms 11/18/2023 - atypical appearing [...] Cc: Nirav Wong MD 09/01/2024 3:38 PM DE [employer]2B SALES documented in this encounter Plan of Treatment [...] dysrhythmias documented in this encounter Care Teams Cabbage Salter Relationship Specialty Start Date End Date Torres Mooney MD [address] [place] [address] PCP - General Family Medicine 11/13/23 Michael Negrete MD Cardiovascular Disease 11/08/21 Sophy Wong MD 1600 [facility] 200 [place] [address] Assigned Heart and Vascular Provider 08/24/24 documented as of this encounter
--- OUTSIDE RECORDS SUMMARY | 2024-10-06 16:44 | XMS_ITS | Clinical Summary ---
Author Organization [place] Address [address] [place] [address] Care Team Providers Care Content Strategist Name Role Phone Michael Negrete MD Unavailable [phone] Torres Mooney MD Primary Care Provider [phone] Nadine Wong MD Unavailable [phone] Allergies No known active allergies Medications apixaban ANTICOAGULANT (ELIQUIS ANTICOAGULANT) 5 MG tabletIndications: Persistent atrial fibrillation (H) TAKE 1 TABLET (5 MG) BY MOUTH EVERY 12 HOURS 180 tablet 3 Active Active Problems Problem Noted Date Diagnosed [...] Longstanding persistent atrial fibrillation 09/02 Overview (07/11/2023): [id number] score = 3 (age, CAD, CM) 2018 [...] Department Care Team Description 09/01/2024 3:20 PM CITRIX ARCHITECT Office Visit [address] [place] [address] Nadine Wong MD Longstanding persistent atrial fibrillation (H) (Primary Dx); Atypical atrial flutter (H); Atrial tachycardia 09/01/2024 Travel 08/27/2024 Travel 07/24/2024 10:30 AM CITRIX ARCHITECT - 07/24/2024 11:59 PM CITRIX ARCHITECT Hospital Encounter [facility] [address] [place] [phone] Nadine Wong MD Atypical atrial flutter (H); Longstanding persistent atrial fibrillation (H) Discharge Disposition: Home or Self Care 07/24/2024 Travel 07/10/2024 Orders Only [address] [place] [phone] Carol Allen, JEM Atypical atrial flutter (H) [...] on file Legal Sex Male 3:29 PM CITRIX ARCHITECT Gender Identity Not on file Sexual Orientation Not on file Last Filed Vital Signs Vital Sign Reading Time Taken Comments Blood Pressure 102/70 09/01/2024 3:11 PM CITRIX ARCHITECT Pulse 84 09/01/2024 3:11 PM CITRIX ARCHITECT Temperature 36.7 C (98 F) 04/24/2024 7:15 PM CDT Respiratory Rate 16 09/01/2024 3:11 PM CITRIX ARCHITECT Oxygen Saturation 99% 09/01/2024 3:11 PM CITRIX ARCHITECT Inhaled Oxygen Concentration - - Weight 106.1 kg (234 lb) 09/01/2024 3:11 PM CITRIX ARCHITECT shoes on Height 188 cm (6' 2) 09/01/2024 3:11 PM CITRIX ARCHITECT per patient Body Mass Index 30.04 09/01/2024 3:11 PM CITRIX ARCHITECT Plan of Treatment Health Maintenance Due Date [...] Comments ECHO COMPLETE Routine 07/24/2024 11:20 AM CITRIX ARCHITECT Atypical atrial flutter (H) Longstanding persistent atrial fibrillation (H) BASIC METABOLIC PANEL STAT 04/24/2024 10:32 AM CDT LIPID PROFILE STAT 12/27/2017 12:42 PM CDT from Last 3 Months or Most Recently Relevant to Health Maintenance Results * ECHO COMPLETE (07/24/2024 11:20 AM CITRIX ARCHITECT) LVEF 55-60% CARDIOLOGY RESULTS Anatomical Region Laterality Modality Ultrasound, Ultr asound 07/24/2024 10:4 5 AM CITRIX ARCHITECT Narrative 07/24/2024 12:26 PM CITRIX ARCHITECT [id number]^TRANG^NADINE^[place] [address] Name: JOSE PADRON : 1950 Study Date: 07/24/2024 10:45 AM Age: 73 yrs Gender: Male Patient Location: [facility] Reason For Study: Atypical atrial flutter (H), [...] Procedure Note Jeremías Weaver MD - 07/24/2024 [id number]^TRANG^NADINE^[facility]HELGUADALU[facility] [place] [address] Name: JOSE PADRON : 1950 Study Date: 07/24/2024 10:45 AM Age: 73 yrs Gender: Male Patient Location: [facility] Reason For Study: Atypical atrial flutter (H), [...] 135 - 145 mmol/L [facility] Potassium 4.2 3.4 - 5.3 mmol/L 04/24/2024 10:58 AM [facility] Chloride 107 98 - 107 mmol/L 04/24/2024 10:58 AM [facility] Carbon Dioxide (CO2) 23 22 - 29 mmol/L 04/24/2024 10:58 AM [facility] Anion Gap 11 7 - 15 mmol/L 04/24/2024 10:58 AM [facility] Urea Nitrogen 16.6 8.0 - 23.0 mg/dL 04/24/2024 10:58 AM [facility] Creatinine 1.23(H) 0.67 - 1.17 mg/dL 04/24/2024 10:58 AM [facility] GFR Estimate 63 >60 mL/min/1.7 3m2 04/24/2024 10:58 AM [facility] Comment:eGFR calculated usin 2020 CKD-EPI equation. Calcium 8.7(L) 8.8 - 10.4 mg/dL 04/24/2024 10:58 AM [facility] Comment:Reference intervals for this test were updated on 03/17/2024 to reflect our healthy population more accurately. There may be differences in the flagging of prior results with similar values performed with this method. Those prior results can be interpreted in the context of the updated reference intervals. Glucose 105(H) 70 - 99 mg/dL 04/24/2024 10:58 AM CDT [facility] Blood BLOOD SPECIMEN / Unknown Venipuncture / Unknown 04/24/2024 10:32 AM CDT 04/24/2024 10:39 AM CDT us Nadine Wong MD LAB - BLOOD ORDERABLES Final Result N [facility] [address] [place] [address], [facility] * (ABNORMAL) Lipid Profile (12/27/2017 12:42 PM CDT) Triglycerides 160(H) <=149 mg/dL 12/27/2017 1:13 PM CDT [facility] Cholesterol 212(H) <=199 mg/dL 12/27/2017 1:13 PM CDT [facility] LDL Cholesterol Calculated 146(H) <=129 mg/dL 12/27/2017 1:13 PM CDT [facility] Direct Measure HDL 34(L) >=40 mg/dL 12/27/2017 1:13 PM CDT [facility] Patient Fasting > 8hrs? Yes 12/27/2017 1:13 PM CDT [facility] Blood specimen (specimen) STRUCTURE OF RIGHT UPPER LIMB / Unknown VAD(CVC, PICC) / Unknown 12/27/2017 12:42 PM CDT 12/27/2017 12:46 PM CDT us Michael Negrete MD LAB - BLOOD ORDERABLES Final Result [facility] [address] [place] [address], [facility] [address] [place] [address] from Last 3 Months or Most Recently Relevant to Health Maintenance Insurance [facility] MEDICARE ADVANTAGE BCBS MEDICARE ADVANTAGE Advance Directives For more information, please contact: [phone] * Full Code (Latest Code Status on [...] Code status determined by: Other (please antonio mills) * Full Code Date Activated Date Inactivated Comments 03/19/2022 10:08 AM 03/19/2022 1:20 PM All basic a nd advanced life-sustaining interventions are performed as appropriate. Post procedure. Question Answer Comments Code status determined by: Other (please docnida t) Care Teams Content Strategist Relationship Specialty Start Date End Date Torres Mooney MD [address] [place] [address] PCP - General Family Medicine 11/13/23 Michael Negrete MD Cardiovascular Disease 11/08/21 Nadine Wong MD [address] [facility] [address] [place] [address] Assigned Heart and Vascular Provider 08/24/24
--- OUTSIDE RECORDS SUMMARY | 2024-10-06 16:44 | XMS_ITS | Encounter Summary ---
Author Organization [facility] Address [address] [place] [address] Care Team Providers Care Wastewater Manager Name Role Phone Dahlia Clif Epstein Primary Care Provider Unavailabl Michael Cid MD Unavailable [phone] Michael Ba APRN CROP SUPERVISOR Unavailable [phone] Michael Negrete MD Unavailable [phone] Kailyn Wang HELPDESK TECHNICIAN CROP SUPERVISOR Unavailable Cristine Torres Finn MD Primary Care Provider + [phone] Nirav Cuba MD Unavailable Torres Mooney MD Primary Care Provider + [phone] Ayla Flores APRN CROP SUPERVISOR Unavailable + [phone] Sophy Wong MD Unavailable [phone] Reason for Visit * Reason Onset Date Comments Symptoms 03/27/2022 AFIB Encounter Details Date Type Department Care Team (Late st Contact Info) Description 03/27/2022 Telephone [facility] [address] [facility] [place] [address] Michael Negrete MD [address] [facility] [address] [place] [address] Symptoms (AFIB) Social History Tobacco Use Types Packs/Day Years Used Date Smoking Tobacco: Never Smokeless Tobacco: Never Alcohol Use Standard Drinks/Week Comments No 0 (1 standard drink = 0.6 oz pur e alcohol) Sex and Gender Information Value Date Recorded Sex Assigned at Not on file Legal Sex Male 3:29 PM 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 No / Unsure 03/29/2022 10:59 AM CDT documented as of this encounter Miscellaneous Notes * Telephone Encounter - Minnei Vickers - 03/27/2022 10:19 AM CDT [facility] Phone Message May a [...] on filedocumented in this encounter Care Teams Wastewater Manager Relationship Specialty Start Date End Date Clif Villagomez PCP - General Family Medicine 09/20/20 03/13/23 Torres Mooney MD [address] [place] [address] PCP - General Family Medicine 03/14/23 11/12/23 Torres Mooney MD [address] [place] [address] PCP - General Family Medicine 11/13/23 Michael Negrete MD Cardiovascular Disease 11/08/21 Michael Ba, HELPDESK TECHNICIAN CROP SUPERVISOR [address] [place] [address] Assigned Sleep Provider 12/10/21 08/30/23 Michael Negrete MD [address] [facility] [address] [place] [address] Assigned Heart and Vascular Provider 12/31/21 04/20/22 Kailyn Wang APRN CROP SUPERVISOR [address] [facility] [address] [place] [address] Assigned Heart and Vascular Provider 04/21/22 03/08/23 Nirav Cuba MD [address] [facility] [address] [place] [address] Assigned Heart and Vascular Provider 03/09/23 02/22/24 Ayla Flores APRN CROP SUPERVISOR [facility] [address] [place] [address] Assigned Heart and Vascular Provider 02/23/24 08/23/24 Sophy Wong MD [address] [facility] [address] [place] [address] Assigned Heart and Vascular Provider 08/24/24 documented as of this encounter
--- OUTSIDE RECORDS SUMMARY | 2024-10-06 16:44 | XMS_ITS | Encounter Summary ---
Author Organization [place] Address [address] [place] [address] Care Team Providers Care S Iron Worker Name Role Phone Clif Villagomez Primary Care Provider Unavailabl e Kailyn Wang MILLINERY SALESPERSON BRIM ROUNDER Unavailable Cristine vailable Michael Negrete MD Unavailable [phone] Michael Ba MILLINERY SALESPERSON BRIM ROUNDER Unavailable [phone] Michael Negrete MD Unavailable [phone] Kailyn Wang MILLINERY SALESPERSON BRIM ROUNDER Unavailable Cristine vailable Torres Mooney MD Primary Care Provider + [phone] Nirav Cuba MD Unavailable Torres Mooney MD Primary Care Provider + [phone] Ayla Flores MILLINERY SALESPERSON BRIM ROUNDER Unavailable + [phone] Sophy Wong MD Unavailable [phone] Encounter Details Date Type Department Care Team (Late st Contact Info) Description 03/10/2018 Records - [facility] CONVERSION Scan, Non-Provider Social History Tobacco Use Types Packs/Day Years Used Date Smoking Tobacco: Never Assessed Sex and Gender Information Value Date Recorded Sex Assigned at Not on file Legal Sex Male 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 Gender Identity Not on file Sexual Orientation Not on file documented as of this encounter Plan of Treatment Not on file documented as of this encounter Visit Diagnoses Not on filedocumented in this encounter Care Teams S Iron Worker Relationship Specialty Start Date End Date Clif Villagomez PCP - General Family Medicine 09/20/20 03/13/23 Torres Mooney MD [address] [place] [address] PCP - General Family Medicine 03/14/23 11/12/23 Torres Mooney MD [address] [place] [address] PCP - General Family Medicine 11/13/23 Kailyn Wang APRN BRIM ROUNDER Assigned Heart and Vascular Provider 03/17/21 12/30/21 Michael Negrete MD Cardiovascular Disease 11/08/21 Michael Ba APRN BRIM ROUNDER [address] [place] [address] Assigned Sleep Provider 12/10/21 08/30/23 Michael Negrete MD [address] [facility] [address] [place] [address] Assigned Heart and Vascular Provider 12/31/21 04/20/22 Kailyn Wang APRN BRIM ROUNDER [address] [facility] [address] [place] [address] Assigned Heart and Vascular Provider 04/21/22 03/08/23 Nirav Cuba MD [address] [facility] [address] [place], [place] [address] Assigned Heart and Vascular Provider 03/09/23 02/22/24 Ayla Flores APRN BRIM ROUNDER [facility] [address] [place] [address] Assigned Heart and Vascular Provider 02/23/24 08/23/24 Sophy Wong MD [address] [facility] [address] [place] [address] Assigned Heart and Vascular Provider 08/24/24 documented as of this encounter
--- OUTSIDE RECORDS SUMMARY | 2024-10-06 16:44 | XMS_ITS | Encounter Summary ---
Author Organization [place] Address [address] [place] [address] Care Team Providers Care Metal Flooring Installer Name Role Phone DahliaClif Primary Care Provider Unavailabl Michael Cid MD Unavailable [phone] Michael Ba APRN [employer] LAYUP LINE BACK FEEDER Unavailable [phone] Kailyn Wang APRN [employer] LAYUP LINE BACK FEEDER Unavailable Cristine Torres Finn MD Primary Care Provider + [phone] Nirav Cuba MD Unavailable Torres Mooney MD Primary Care Provider + [phone] Ayla Flores APRN [employer] LAYUP LINE BACK FEEDER Unavailable + [phone] Sophy Wong MD Unavailable [phone] Reason for Visit * Reason Comments Medication Refill Encounter Details Date Type Department Care Team (Late st Contact Info) Description 07/07/2022 Refill [facility] [address] [facility] [address] [place] [phone] Kailyn Wang APRN CNP Medication Refill Social History Tobacco Use Types Packs/Day Years Used Date Smoking Tobacco: Never Smokeless Tobacco: Never Alcohol Use Standard Drinks/Week Comments Yes 0 (1 standard drink = 0.6 oz pur e alcohol) 2 drinks per month Sex and Gender Information Value Date Recorded Sex Assigned at Not on file 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 Gender Identity Not on file Sexual Orientation [...] (H) documented in this encounter Care Teams Metal Flooring Installer Relationship Specialty Start Date End Date Clif Villagomez PCP - General [facility] Medicine 09/20/20 03/13/23 Torres Mooney MD [address] [place] [address] PCP - General [facility] Medicine 03/14/23 11/12/23 Torres Mooney MD [address] [place] [address] PCP - General [facility] Medicine 11/13/23 Michael Negrete MD Cardiovascular Disease 11/08/21 Michael Ba APRN [employer] LAYUP LINE BACK FEEDER [address] [place] [address] Assigned Sleep Provider 12/10/21 08/30/23 Kailyn Wang APRN [employer] LAYUP LINE BACK FEEDER [address] [place] [address] Assigned Heart and Vascular Provider 04/21/22 03/08/23 Nirav Cuba MD [address] [facility] [address] [place] [address] Assigned Heart and Vascular Provider 03/09/23 02/22/24 Ayla Flores APRN [employer] LAYUP LINE BACK FEEDER [facility] [address] [place] [address] Assigned Heart and Vascular Provider 02/23/24 08/23/24 Sophy Wong MD [address] [facility] [address] [place] [address] Assigned Heart and Vascular Provider 08/24/24 documented as of this encounter
--- OUTSIDE RECORDS SUMMARY | 2024-10-06 16:44 | XMS_ITS | Encounter Summary ---
Author Organization [place] Address [address] [place] [address] Care Team Providers Care Automotive Services Manager Name Role Phone Michael Negrete MD Unavailable [phone] Torres Mooney MD Primary Care Provider + [phone] Nirav Cuba MD Unavailable Torres Mooney MD Primary Care Provider + [phone] Ayla Flores APRN LAYOUT WORKER Unavailable + [phone] Sophy Wong MD Unavailable [phone] Reason for Visit * Reason Comments Medication Refill Encounter Details Date Type Department Care Team (Late st Contact Info) Description 09/05/2023 Refill [place] [address] [facility] [address] [place] [phone] Nirav Cuba MD [address] [facility] [address] [place], [place] [address] Medication Refill Social History Tobacco Use Types [...] on file 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 Gender Identity Not on file Sexual Orientation Not on file documented as of this encounter Plan of Treatment Not on file documented as of this encounter Visit Diagnoses Diagnosis Longstanding persistent atrial fibrillation (H) documented in this encounter Care Teams Automotive Services Manager Relationship Specialty Start Date End Date Torres Mooney MD [address] [place] [address] PCP - General Family Medicine 03/14/23 11/12/23 Torres Mooney MD [address] [place] [address] PCP - General Family Medicine 11/13/23 Michael Negrete MD Cardiovascular Disease 11/08/21 Nirav Cuba MD [address] [facility] [address] [place] [address] Assigned Heart and Vascular Provider 03/09/23 02/22/24 Ayla Flores APRN [facility] [address] [place] [address] Assigned Heart and Vascular Provider 02/23/24 08/23/24 Sophy Wong MD [address] [facility] [address] [place] [address] Assigned Heart and Vascular Provider 08/24/24 documented as of this encounter
--- OUTSIDE RECORDS SUMMARY | 2024-10-06 16:44 | XMS_ITS | Encounter Summary ---
Author Organization [place] Address [address] [place] [address] Care Team Providers Care Bakery And Deli Sales Manager Name Role Phone Clif Villagomez Primary Care Provider Unavailabl e Kailyn Wang SENIOR INTERNAL AUDITOR ORDER ENTRY REPRESENTATIVE Unavailable Cristine vailable Michael Negrete MD Unavailable [phone] Michael Ba APRN ORDER ENTRY REPRESENTATIVE Unavailable [phone] Michael Negrete MD Unavailable [phone] Kailyn Wang APRN ORDER ENTRY REPRESENTATIVE Unavailable Cristine vailable Torres Mooney MD Primary Care Provider + [phone] Nirav Cuba MD Unavailable Torres Mooney MD Primary Care Provider + [phone] Ayla Flores SENIOR INTERNAL AUDITOR ORDER ENTRY REPRESENTATIVE Unavailable + [phone] Sophy Wong MD Unavailable [phone] Encounter Details Date Type Department Care Team (Late st Contact Info) Description 11/24/2021 My[facility] Medical Advice [facility] [address] [address] Aurea Lucas, SAP BPC ARCHITECT Social History Tobacco Use Types Packs/Day Years Used Date Smoking Tobacco: Never Smokeless Tobacco: Never Alcohol Use Standard Drinks/Week Comments No 0 (1 standard drink = 0.6 oz pur e alcohol) Sex and Gender Information Value Date Recorded Sex Assigned at Not on file 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 Unable to assess 11/08/2021 7:53 AM CHANGE CONTROL ANALYST documented as of this encounter Plan of Treatment Not on file documented as of this encounter Visit Diagnoses Not on filedocumented in this encounter Care Teams Bakery And Deli Sales Manager Relationship Specialty Start Date End Date Clif Villagomez PCP - General Family Medicine 09/20/20 03/13/23 Torres Mooeny MD [address] [place] [address] PCP - General Family Medicine 03/14/23 11/12/23 Torres Mooney MD [address] [place] [address] PCP - General Family Medicine 11/13/23 Kailyn Wang APRN ORDER ENTRY REPRESENTATIVE Assigned Heart and Vascular Provider 03/17/21 12/30/21 Michael Negrete MD Cardiovascular Disease 11/08/21 Michael Ba APRN ORDER ENTRY REPRESENTATIVE [address] [place] [address] Assigned Sleep Provider 12/10/21 08/30/23 Michael Negrete MD [address] [facility] [address] [place], [place] [address] Assigned Heart and Vascular Provider 12/31/21 04/20/22 Kailyn Wang APRN ORDER ENTRY REPRESENTATIVE [address] [facility] [address] [place] [address] Assigned Heart and Vascular Provider 04/21/22 03/08/23 Nirav Cuba MD [address] [facility] [address] [place] [address] Assigned Heart and Vascular Provider 03/09/23 02/22/24 Ayla Flores APRN [facility] [address] [place] [phone] Assigned Heart and Vascular Provider 02/23/24 08/23/24 Sophy Wong MD [address] [facility] [address] [place], [place] [address] Assigned Heart and Vascular Provider 08/24/24 documented as of this encounter
--- OUTSIDE RECORDS SUMMARY | 2024-10-06 16:44 | XMS_ITS | Clinical Summary ---
Author Organization [facility] [employer] [facility] Address [place], [place] [address] Care Team Providers Care Peg Driver Name Role Phone Torres Mooney MD Primary Care Provider [phone] Allergies No known active allergies Medications azithromycin (Zithromax) 250 mg tablet Take 250 mg by mouth every 24 hours. Take 500 mg (2 tabs) by mouth on day 1, then 250 mg (1 tab) daily for days 2-5. 5 10/07/19 25 Active Eliquis 5 mg tablet TAKE ONE TABLET BY MOUTH 2 TIMES DAILY 2 09/29/19 25 Discontinue d(*Med complete/Re gimen complete/Le maris of care change) predniSONE (DELTASONE) 20 mg tabletIndicatio ns:Influenza-li ke illness Take 2 Tablets (40 mg) by mouth once daily with a meal for 5 days. 10 Tablet 5 10/04/19 25 Active Problems Problem Noted Date Diagnosed Date [...] 11/01 Overview (11/19/2022): Dx 2018 (uncertain onset) [id number] score = 3 (age/ CAD/ CM) Rx apixaban Rx sotalol CV symptoms improved: Early reversion to AF PVI March 10, 2018 [id number] score = 1 (age) 2018 PVI with [...] Encounters Date Type Department Care Team Description 10/06/2024 3:10 PM WARDSPERSON Office Visit [facility] [address] [place] [address] Torres Mooney MD Cough; Shortness Of Breath 10/05/2024 Telephone [facility] [address] [place] [address] Torres Mooney MD Appointment 10/05/2024 Travel 10/03/2024 Orders Only [facility] Scanner 1 scan: (1-Ord) [facility], CT ANGIO CHEST , 10/03/2024 09/29/2024 11:30 AM WARDSPERSON Ancillary Procedure [facility] [address] [place] [address] 09/29/2024 11:00 AM WARDSPERSON Office Visit [facility] [address] [place] [address] Janiya Fox MD Cough (Cough, fever, chest congestion, shortness of breath x 4 days ) 09/29/2024 Travel 09/26/2024 Nurse Triage [facility] [address] [place] [address] Torres Mooney MD Cough 09/03/2024 2:40 PM WARDSPERSON Office Visit [facility] [address] [place] [phone] oClton Haider MD Consult (Cervical ) 09/03/2024 Travel 08/29/2024 Travel 08/24/2024 Orders Only [facility] [address] [place] [address] Colton Haider MD 1 scan: (1-Ord) [facility] 08/21/2024 Orders Only [facility] Scanner 1 scan: (1-Ord) [facility], MRI CERVICAL SPINE WO CON, 08/21/2024 08/13/2024 Telephone [facility] [address] [place] [address] Colton Haider MD 07/24/2024 9:15 AM WARDSPERSON Orders Only [facility] [address] [place] [address] Lab, [facility] 07/24/2024 Travel 07/20/2024 Orders Only [facility] [address] [place] [address] Torres Mooney MD Lab (ORder Update) 07/20/2024 [...] on file Legal Sex Male 5:25 AM WARDSPERSON Gender Identity Not on file Sexual Orientation Not on file 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 Not on file Not on file Obstetrics History Last Filed Vital Signs Vital Sign Reading Time Taken Comments Blood Pressure 107/73 10/06/2024 3:24 PM WARDSPERSON Pulse 85 10/06/2024 3:03 PM WARDSPERSON Temperature 36.4 C (97.5 F) 10/06/2024 3:03 PM WARDSPERSON Respiratory Rate 16 06/29/2020 7:37 AM CDT Oxygen Saturation 89% 10/06/2024 3:03 PM WARDSPERSON Inhaled Oxygen Concentration - - Weight 96.4 kg (212 lb 9.6 oz) 10/06/2024 3:03 P M WARDSPERSON Height 188 cm (6' 2) 09/03/2024 3:14 PM WARDSPERSON Body Mass Index 27.3 09/03/2024 3:14 PM WARDSPERSON Plan of Treatment Health Maintenance Due Date [...] 04/22/2024, Additional history exists Fecal testing sDNA-FIT ([place] guard) for age 45-75 03/25/2027 03/25/2024 Lipids for age 45-75 04/20/2029 04/20/2024, 02/12/2024, 07/12/2023, Additional history exists Tetanus booster 04/15/2033 04/15/2023, 02/20/2010 Tdap Completed 04/15/2023, 02/20/2010 AAA screening age 65-74 Completed 03/17/2024 Hepatitis C screening for ag e 18-79 Completed 04/20/2024 COVID-19 vaccine series Completed 06/01/20, 10/10/2023, 04/15/2023, Additional history exists Medical Devices Implanted Type Area Roll Hand Device Identifier Shelf Expiration Date Model / Serial / Lot Patella Sz35 Grecia Ii Rnd Penon Pors - [id number] Implanted:Qty: 1 on 06/28/2020 by Torres Hernandez MD at [facility] Total Joint Left: Knee [employer] 03/30/2030# / / [id number] Baseplate Tib Lt Sz7 Grecia Ii Titnm Non Pors - [id number] Implanted:Qty: 1 on 06/28/2020 by Torres Hernandez MD at [facility] Total Joint Left: Knee [employer] 02/04/2028 [id number] / / [id number] Cmnt Bone 40gm Rally Hv - [id number] Implanted:Qty: 2 on 06/28/2020 by Torres Hernandez MD at [facility] Left: Knee [employer] 11/30/2024 [id number]# / / [id number] Fem Lt Sz8 Legion Cruc Ret Oxin - [id number] Implanted:Qty: 1 on 06/28/2020 by Torres Hernandez MD at [facility] Left: Knee [employer] 04/07/2027 [id number]# / / [id number] Insert Knee Sz7-9 13mm Legioncruc Ret High Flex Xlpe - [id number] Implanted:Qty: 1 on 06/28/2020 by Torres Hernandez MD at [facility] Left: Knee [employer] 03/23/2029 [id number]# / / [id number] Explanted Type Area Roll Hand Device Identifier Shelf Expiration Date Model / Serial / Lot Vis Adpt Guide Lgnp Kit Lt Sz F8/T7 Explanted:Qty: 1 on 06/28/2020 by Torres Hernandez MD at [facility] Left: Knee [employer] 10/17/2020 [id number] / / [id number] Procedures Procedure Name Priority Date/Time Associated Diagnosis Comments SCAN-CT INTERPRETATION 12:00 AM WARDSPERSON XR CHEST 2 VIEWS PA AND LATERAL Routine 09/29/2024 11:38 AM WARDSPERSON Influenza-like illness COVID/FLU/RSV PANEL Routine 09/29/2024 1 1:16 AM WARDSPERSON Influenza-like illness SCAN-MRI INTERPRETATION 08/21/2024 12:00 AM WARDSPERSON EMG Routine 08/20/2024 12:00 AM WARDSPERSON Cervical radiculopathy PSA (TOTAL) ([facility]) Routine 07/24/2024 9 :18 AM WARDSPERSON Elevated PSA ANTI HCV Routine 04/20/2024 9:02 [...] Recently Relevant to Health Maintenance Results * SCAN-CT INTERPRETATION (10/03/2024 12:00 AM WARDSPERSON) Anatomical Region Laterality Modality Other us Scanner OTHER Final Result * XR CHEST 2 VIEWS PA AND LATERAL (09/29/2024 11:38 AM WARDSPERSON) Anatomical Region Laterality Modality CHEST, THORAX, Lung, HEART Compu linda Radiography 09/29/2024 1:27 PM WARDSPERSON Impressions 09/29/2024 1:27 PM WARDSPERSON No acute findings. Dictated by Blade Chavez MD @ 09/29/2024 1:27:50 PM (Electronically Signed) Narrative 09/29/2024 1:27 PM WARDSPERSON For Patients: As a result of the [...] MD @ 09/29/2024 1:27:50 PM (Electronically Signed) Janiya Fox MD GENERAL IMAGING Final R esult * (ABNORMAL) COVID/FLU/RSV PANEL (09/29/2024 11:16 AM WARDSPERSON) COVID 19 [facility] Negative Negative 09/29/2024 7:28 PM WARDSPERSON [facility] INFLUENZA A PCR Positive(A) 09/29/19 25 7:28 PM WARDSPERSON [facility] INFLUENZA B PCR Negative 7:28 PM WARDSPERSON [facility] Respiratory Syncytial Virus Negative 09/29/2024 7:28 PM WARDSPERSON [facility] Swab (Nasal Swab) Non-Blood / Unknown 09/29/2024 11:16 AM WARDSPERSON 09/29/2024 11:16 AM WARDSPERSON us Janiya Fox MD MICROBIOLOGY Final R esult Performing Organization Address City/[facility]/ZIP Co de Phone Number [facility] [address] [place] [address], [place] * SCAN-MRI INTERPRETATION (08/21/2024 12:00 AM WARDSPERSON) Anatomical Region Laterality Modality Other Scanner OTHER Final Result * EMG (08/20/2024 12:00 AM WARDSPERSON) us Colton Haider MD NEUROLOGY ORD Final Res ult * PSA (TOTAL) ([facility]) (07/24/2024 9:18 AM WARDSPERSON) PSA, TOTAL 3.29 < OR = 4.00 ng/mL [facility] Comment: The total PSA value from this assay system is standardized against the WHO standard. The test result will be approximately 20% lower when compared to the equimolar-standardized total PSA ([place]). Comparison of serial PSA results should be interpreted with this fact in mind. This test was performed using the Siemens chemiluminescent method. Values obtained from different assay methods cannot be used interchangeably. PSA levels, regardless of value, should not be interpreted as absolute evidence of the presence or absence of disease. Blood BLOOD SPECIMEN / Unknown 07/24/2024 9:18 AM WARDSPERSON 07/24/2024 9:19 AM WARDSPERSON us Torres Mooney MD SEND OUTS Final Resu lt Performing Organization Address City/[facility]/ZIP Co de Phone Number [facility] [address] [place] [address], [place] [phone] [facility] [address] [place] [address] * (ABNORMAL) LIPID PANEL W REFLEX MEASURED LDL (04/20/2024 9:02 AM CDT) CHOLESTEROL,TOTAL 228(H) 100 - 199 mg/dL 04/20/2024 4:20 PM CDT [facility] Comment: Cholesterol, Total Reference Ranges Desirable <200 mg/dL Borderline 200-239 mg/dL High >=240 mg/dL TRIGLYCERIDES 164(H) <150 mg/dL 04/20/2024 4:20 PM CDT [facility] HDL CHOLESTEROL 42 >40 mg/dL 4:20 PM CDT [facility] NON-HDL CHOLESTEROL 186(H) <145 mg/dl 04/20/2024 4:20 PM CDT [facility] CHOL/HDL RATIO 5.43(H) <4.50 04/20/2024 4:20 PM CDT [facility] LDL CHOLESTEROL 153(H) <=130 mg/dL 04/20/2024 4:20 PM CDT [facility] VLDL CHOLESTEROL 33(H) <=30 mg/dL 04/20/2024 4:20 PM CDT [facility] [place] [facility] PROVIDER ORDERED STATUS RANDOM 04/20/2024 4:20 PM CDT [facility] [place] [facility] Blood BLOOD SPECIMEN / Unknown Venipuncture / Unknown 04/20/2024 9:02 AM CDT 04/20/2024 9:02 AM CDT us Torres Mooney MD CHEMISTRY Final Resu lt [facility] [address] [place] [address], [place] * ANTI HCV (04/20/2024 9:02 AM CDT) HEPATITIS C ANTIBODY Non-Reacti ve Non-React liset 04/20/2024 4:58 PM CDT [facility] Comment:Please note, per www .CDC.gov: [...] Mooney MD SEND OUTS Final Resu lt [facility] [address] [place] [address], [place] * SDNA-FIT EXTERNAL (COLOGUARD) (03/25/2024 12:15 PM CDT) NONINV COLON CA DNA+OCC BLD SCRN STL-IMP Negative Negative 04/01/2024 7:42 PM CDT [facility] (CLIA #:[id number]) Comment: NEGATIVE TEST RESULT. A negative Cologuard [...] screened with both Cologuard and colonoscopy. (Bailee Adair et al, N Engl J Med 2014;370(14):5608-4624) The normal value (reference range) for this assay is negative. COLOGUARD RE-SCREENING RECOMMENDATION: Periodic colorectal cancer screening is an important part of preventive healthcare for asymptomatic individuals at average risk for colorectal cancer. Following a negative Cologuard result, the [place] Cancer Society and U.S. Multi-Society Task Force screening guidelines recommend a Cologuard re-screening interval of 3 years. References: [place] Cancer Society Guideline for Colorectal Cancer Screening: https://www.cancer.org/cancer/haakg-izzsge-iqzppo/tmccfpurw-cvmnodwdd-lecnmhe/ac s-rec ommendations.html.; Adrián DK, Kaushal CR, Corrie AbreuK, Colorectal Cancer Screening: Recommendations for Physicians and Patients from the U.S. Multi-Society Task Force on Colorectal Cancer Screening , Am J Gastroenterology 2017; 112:9901-0279. TEST DESCRIPTION: Composite algorithmic analysis of stool [...] (Bailee Josue al, N Engl J Med 2014;370(14):1767-7385.) Cologuard may produce a false negative or false positive result (no colorectal cancer or precancerous polyp present at colonoscopy follow up). A negative Cologuard test result does not guarantee the absence of CRC or advanced adenoma (pre-cancer). The current Cologuard screening interval is every 3 years. ([place] Cancer Society and U.S. Multi-Society Task Force). Cologuard performance data in a 10,000 patient pivotal study using colonoscopy as the reference method can be accessed at the following location: www.[employer]BookitNow!/results. Additional description of the Cologuard test process, warnings and precautions can be found at www.[employer].BookitNow!. Stool specimen (specimen) ([place]) 03/25/2024 12:15 PM CDT 03/27/2024 10:00 AM CDT Torres Mooney MD URINE Final Resu lt [facility] (CLIA #:[id number]) [place] [address], [place] [phone] * US ABD AORTA SCREENING [[id number]] (03/17/2024 7:35 AM CDT) Anatomical Region Laterality [...] artery 1.6 1.3 us Torres Mooney MD [place] Final Resu lt from Last 3 Months or Most Recently Relevant to Health Maintenance Additional Health Concerns Infection Onset Date Last Indicated Rule-Out COVID-19 09/29/2024 09/29/2024 INFLUENZA 09/29/2024 09/29/2024 Insurance BLUE [employer]OSS MEDICARE ADVANTAGE MR Advance Directives Documents on File Type Date Recorded Patient Therapy Administrative Assistant Expl anation Healthcare Directive 06/28/2020 6:39 AM * Full Code (Latest Code Status on File) Date Activated Date Inactivated Comments 06/28/2020 6:43 AM 06/29/2020 12:27 PM Question Answer Comments Code Status Discussion: Discussed Care Teams Peg Driver Relationship Specialty Start Date End Date Torres Mooney MD [address] [place] [address] PCP - General Family Practice 02/15/23
--- NOTE | 2024-10-06 17:25 | ED_ITS ---
HPI - General Adult General Chief complaint: Shortness of Breath/Dyspnea Stated complaint: SOB Time Seen by Provider: 10/06/24 17:25 History of Present Illness HPI narrative: patient was in ED on Saturday and today went to [facility] was noted to be in the low 80% and applied 2 liters of O2 to increase 92% via NC. any movement patient is coughing and productive was green and know white. was +for Influenza A ( dx on 09/29/24) and given Zpack and steroids. BS 157 by EMS. hx of A fib with 3 ablat ions. 74-year-old man presenting to the emergency department with concern of shortness of breath. After being diagnosed with influenza A the week prior, now approximately 13 days ago, was seen in urgent care on the 03 of October with increasing difficulty breathing. Had already been given prednisone for 5 days at that point. Symptoms were unchanged. History of atrial fibrillation and on cardiology's recommendation had discontinued Eliquis following ablation about 2 months ago. On 10/03 Was with elevated D-dimer and sent to the emergency department where CT imaging was done. There was no pulmonary embolus however bilateral ground-glass opacities were evident. Was initiated on azithromycin on the . Continues to have significant shortness of breath. Spouse a nurse practitioner has been monitoring his saturations. She is concerned about ARDS or similar. Notes that regularly desatting to the upper 80s at rest. Has no exertional reserve for minor movements with plummeting O2 sat. Very afraid that he might decompensate rapidly. Related Data Previous Rx's ?Medication ?Instructions ?Recorded azithromycin 250 mg tablet 500 mg PO DIRECTED #6 tabs 10/03/24 Allergies Allergy/AdvReac Type Severity Reaction Status Date / Time No Known Drug Allergies Allergy Verified 10/06/24 17:05 Review of Systems Status of ROS: Reports: 6 or more systems reviewed and unremarkable except as noted in History and below [facility] PFS Social History Smoking Status: Never smoker Do you use any of these nicotine containing products: None Second hand tobacco smoke exposure: No How often do you have a drink containing alcohol: 2-4 times a month How many standard drinks containing alcohol do you have on a typical day: 3 or 4 How often do you have six or more drinks on one occasion: Never AUDIT-C Alcohol total score: 3 Non-prescribed substance use: denies use service: No Exam Narrative: Exam Narrative: Pleasant. NAD. Conversing easily but is on oxygen nasal cannula at the moment. Lungs with trace crepitus generally. Coughs with deep inspiratory effort. Heart in regular rate and rhythm. Extremities are well perfused. He is without edema. Moving all extremities without difficulty. Abdomen is soft nontender. Const: Vital Signs, click to edit/add: Vital Signs - 24 hr 10/06/24 16:58 10/06/24 17:16 10/06/24 17:30 Temperature 97.1 F L 97.1 F L Pulse Rate [Pulse Oximeter] 83 83 Respiratory Rate 21 24 24 Blood Pressure [Ri ght Upper Arm] 117/91 H 117/91 H Pulse Oximetry 90 90 90 Oxygen Delivery Me thod Room Air Room Air Room Air Oxygen Flow Rate 10/06/24 17:30 10/06/24 18:04 10/06/24 18:05 Temperature Pulse Rate [Pulse Oximeter] Respiratory Rate 22 Blood Pressure [Ri ght Upper Arm] Pulse Oximetry 90 90 90 Oxygen Delivery Me thod Nasal Cannula Oxygen Flow Rate 2 10/06/24 18:09 10/06/24 19:00 10/06/24 20:54 Temperature Pulse Rate [Pulse Oximeter] 76 74 76 Respiratory Rate 22 24 22 Blood Pressure [Ri ght Upper Arm] 106/79 110/67 104/76 Pulse Oximetry 91 90 92 Oxygen Delivery Me thod Nasal Cannula Nasal Cannula Nasal Cannula Oxygen Flow Rate 2 2 2 Documenting provider has reviewed patient's vital signs: yes Course Vital Signs Vital signs: Initial Vital Signs Temperature 97.1 F L 10/06/24 16:58 Temperature Source Temporal Artery Scan 10/06/24 16:58 Pulse Rate 83 10/06/24 16:58 Respiratory Rate 21 10/06/24 16:58 Blood Pressure 117/91 H 10/06/24 16:58 Blood Pressure Mean 99 10/06/24 16:58 Blood Pressure Position Sitting 10/06/24 16:58 Pulse Oximetry 90 10/06/24 16:58 Oxygen Delivery Method Room Air 10/06/24 16:58 Vital Signs Temperature 97.1 F L 10/06/24 16:58 Pulse Rate 83 10/06/24 16:58 Respiratory Rate 21 10/06/24 16:58 Blood Pressure 117/91 H 10/06/24 16:58 Pulse Oximetry 90 10/06/24 16:58 Oxygen Delivery Method Room Air 10/06/24 16:58 Temperature 97.1 F L 10/06/24 17:16 Pulse Rate 76 10/06/24 20:54 Respiratory Rate 22 10/06/24 20:54 Blood Pressure 104/76 10/06/24 20:54 Pulse Oximetry 92 10/06/24 20:54 Oxygen Delivery Method Nasal Cannula 10/06/24 20:54 Oxygen Flow Rate 2 10/06/24 20:54 Medical Decision Making MDM Narrative Medical decision making narrative: Will screen for further evolution of pneumonia, pleural effusion, pulmonary edema, cardiovascular compromise/heart failure, ischemic cardiovascular event. Is not having wheeze to suggest benefit of beta agonist/albuterol nebulization or this might be tried. Labs are overall reassuring though with CRP of 3.5. ProBNP of 480. White count is mildly elevated at 12,000 thousand. Chest x-ray independently reviewed by me with some perihilar fullness otherwise I do not appreciate infiltrative process. No effusion. Radiology over-read below INDICATION: Cough and hypoxia, influenza a. TECHNIQUE: Chest 2 views. COMPARISON: October 03, 2024. FINDINGS: Cardiovascular and mediastinum: Cardiomediastinal silhouette is within normal limits. Lungs and pleural spaces: Mild subtle perihilar interstitial opacities. No sign of pleural effusion. No pneumothorax. Bones and soft tissues: No significant findings. IMPRESSION: Mild subtle perihilar interstitial opacities may be related to viral infection, or other airways disease. During time in emergency department maintained easily on 2 L nasal cannula at 95 for %. Turning oxygen off drops very quickly to 85% with clear increase in shortness of breath and congestion. Appears to be experiencing clear respiratory failure. Will need to be admitted for further respiratory therapies and oxygen support Discussed with hospitalist his thankfully accepting admission. Medical Records Medical records reviewed: Yes I reviewed the patient's medical records Lab Data Lab results reviewed: Yes I reviewed the patient's lab results Labs: Lab Results 10/06/24 10/06/24 Range/Units Unknown Unknown WBC 12.00 H (4.50-11.00) K/uL RBC 4.98 (4.30-5.90) m/uL Hgb 16.0 (13.5-17.5) gm/dL Hct 48.6 (37.0-53.0) % MCV 98 (80-100) fL MCH 32 (26-34) pg MCHC 33 (32-36) gm/dL RDW Coeff of Wilber 12.8 (11.5-15.5) % Plt Count 181 (140-440) K/uL Neut % (Auto) 79.9 H (42.0-72.0) % Lymph % (Auto) 13.3 L (20-44) % [place] % (Auto) 6.2 (0.0-11.0) % Eos % (Auto) 0.2 (0.0-7.0) % Baso % (Auto) 0.0 (0.0-3.0) % Neut # (Auto) 9.60 H (1.7-7.0) K/uL Lymph # (Auto) 1.60 (0.90-2.90) K/uL [place] # (Auto) 0.70 (0.00-0.90) K/UL Eos # (Auto) 0.00 (0.00-0.50) K/uL Baso # (Auto) 0.00 (0.00-0.30) K/uL Abs Immat Gran (auto) 0.00 (0.00-0.30) K/uL Imm/Tot Granulo (auto) 0.4 % Sodium 138 (135-149) mmol/L Potassium 4.0 (3.6-5.1) mmol/L Chloride 103 (96-114) mmol/L Carbon Dioxide 28 (20-32) mmol/L Anion Gap 7 (7-15) mEq/L BUN 22 (7-30) mg/dL Creatinine 0.8 (0.5-1.5) mg/dL Estimated Creat Clear 77.63 Estimated GFR 94 ml/min Glucose 106 (60-115) mg/dL Calcium 9.0 (8.4-10.6) mg/dL C-Reactive Protein 3.5 H (0.5-1.0) mg/dL NT-Pro-B Natriuret Pep 480 Cancelled pg/mL ECG Data Attestation: I personally reviewed and interpreted this ECG as follows: (Sinus rhythm. PVC. Rate of 82) Discharge Plan Discharge Clinical Impression: Respiratory failure, Influenza A Patient Disposition: Admitted As Observation Condition: Stable
--- NOTE | 2024-10-06 17:42 | CRLHL7_ITS ---
For Patients: As a result of the Cures Act, medical imaging exams and procedure reports are released immediately into your electronic medical record. You may view this report before your referring provider. If you have questions, please contact your health care provider. INDICATION: Cough and hypoxia, influenza a. TECHNIQUE: Chest 2 views. COMPARISON: October 03, 2024. FINDINGS: Cardiovascular and mediastinum: Cardiomediastinal silhouette is within normal limits. Lungs and pleural spaces: Mild subtle perihilar interstitial opacities. No sign of pleural effusion. No pneumothorax. Bones and soft tissues: No significant findings. IMPRESSION: Mild subtle perihilar interstitial opacities may be related to viral infection, or other airways disease. Dictated by Melissa Bueno MD @ 10/06/2024 6:58:39 PM (Electronically Signed)
--- OUTSIDE RECORDS SUMMARY | 2024-10-06 17:51 | XMS_ITS | Encounter Summary ---
Author Organization [place] Address [address] [place] [address] Care Team Providers Care Ironer Machine Name Role Phone DahliaClif Primary Care Provider Unavailabl Michael Cid MD Unavailable [phone] Michael Ba APRN CLIENT SERVICES VICE PRESIDENT Unavailable [phone] Kailyn Wang CULINARY ARTS INSTRUCTOR CLIENT SERVICES VICE PRESIDENT Unavailable Cristine Torres Finn MD Primary Care Provider + [phone] Nirav Cuba MD Unavailable Torres Mooney MD Primary Care Provider + [phone] Ayla Flores APRN CLIENT SERVICES VICE PRESIDENT Unavailable + [phone] Sophy Wong MD Unavailable [phone] Reason for Visit * Reason Onset Date Comments CPAP Follow Up 05/04/2022 Encounter Details Date Type Department Care Team (Late st Contact Info) Description 05/04/2022 Telephone [facility] [address] [address] Michael Ba APRN CLIENT SERVICES VICE PRESIDENT [address] [place] [address] CPAP Follow Up Social History Tobacco Use Types Packs/Day Years Used Date Smoking Tobacco: Never Smokeless Tobacco: Never Alcohol Use Standard Drinks/Week Comments Yes 0 (1 standard drink = 0.6 oz pur e alcohol) 2 drinks per month Sex and Gender Information Value Date Recorded Sex Assigned at Not on file 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 Jake Zhang, Visit parking analyst documented in this encounter Plan of Treatment Not on file documented as of this encounter Visit Diagnoses Not on filedocumented in this encounter Care Teams Ironer Machine Relationship Specialty Start Date End Date Clif Villagomez PCP - General Family Medicine 09/20/20 03/13/23 Torres Mooney MD [address] [place] [address] PCP - General Family Medicine 03/14/23 11/12/23 Torres Mooney MD [address] [place] [address] PCP - General Family Medicine 11/13/23 Michael Negrete MD Cardiovascular Disease 11/08/21 Michael Ba APRN CLIENT SERVICES VICE PRESIDENT [address] [address] Assigned Sleep Provider 12/10/21 08/30/23 Kailyn Wang APRN CLIENT SERVICES VICE PRESIDENT [address] [place] [address] Assigned Heart and Vascular Provider 04/21/22 03/08/23 Nirav Cuba MD [address] [facility] [address] [place] [address] Assigned Heart and Vascular Provider 03/09/23 02/22/24 Ayla Flores APRN CLIENT SERVICES VICE PRESIDENT HEART & VASCULAR [address] [place] [address] Assigned Heart and Vascular Provider 02/23/24 08/23/24 Sophy Wong MD [address] [facility] [address] [place], [place] [address] Assigned Heart and Vascular Provider 08/24/24 documented as of this encounter
--- OUTSIDE RECORDS SUMMARY | 2024-10-06 17:51 | XMS_ITS | Encounter Summary ---
Author Organization [place] Address [address] [place] [address] Care Team Providers Care Video Editor Name Role Phone Michael Negrete MD Unavailable Torres Mooney MD Primary Care Provider [phone] Sophy Wong MD Unavailable [phone] Reason for Referral * Consultation (Routine) - Pending Review Specialty Diagnoses / Procedures Referred By Magdalena t Referred To Contact Cardiovascular Disease Diagnoses Longstanding persistent atrial fibrillation (H) Atypical atrial flutter (H) Sophy Wong MD [address] [place] [address] Phone: tel: fax: Referral ID Status Reason Start Date Expiration Date V isits Requested Visits Authorized [id number] Pending Review 09/01/2024 09/01/2025 1 1 Question Answer Follow-up with: Self - Dr. Michael Negrete, 1 year around 08/2025 Patient Scheduling Instructions: [facility] will call you to coordinate your care as prescribed by your provider. If you have concerns about scheduling, please call [phone]. Comments [facility] will call you to coordinate your care as prescribed by your provider. If you have concerns about scheduling, please call [phone]. E STAFF INDUSTRIAL Reason for Visit * Reason Comments Follow Up * Consultation (Routine) - Pending Review Specialty Diagnoses / Procedures Referred By Contatiya t Referred To Contact Cardiovascular Disease Diagnoses Atypical atrial flutter (H) Longstanding persistent atrial fibrillation (H) Sophy Wong MD [address] [facility] [address] [place] [address] Phone: tel: fax: Referral ID Status Reason Start Date Expiration Date V isits Requested Visits Authorized [id number] Pending Review 07/10/2024 07/10/2025 1 1 Encounter Details Date Type Department Care Team (Late st Contact Info) Description 09/01/2024 3:20 PM NURSE STAFF INDUSTRIAL Office Visit [facility] [place] [address] [facility] [address] [place] [address] Sophy Wong MD [address] [facility] [address] [place] [address] Longstanding persistent atrial fibrillation (H) [...] on file Legal Sex Male 3:29 PM NURSE STAFF INDUSTRIAL Gender Identity Not on file Sexual Orientation Not on file documented as of this encounter Last Filed Vital Signs Vital Sign Reading Time Taken Comments Blood Pressure 102/70 09/01/2024 3:11 PM NURSE STAFF INDUSTRIAL Pulse 84 09/01/2024 3:11 PM NURSE STAFF INDUSTRIAL Temperature - - Respiratory Rate 16 09/01/2024 3:11 PM NURSE STAFF INDUSTRIAL Oxygen Saturation 99% 09/01/2024 3:11 PM NURSE STAFF INDUSTRIAL Inhaled Oxygen Concentration - - Weight 106.1 kg (234 lb) 09/01/2024 3:11 PM NURSE STAFF INDUSTRIAL shoes on Height 188 cm (6' 2) 09/01/2024 3:11 PM NURSE STAFF INDUSTRIAL per patient Body Mass Index 30.04 09/01/2024 3:11 PM NURSE STAFF INDUSTRIAL documented in this encounter Patient Instructions * Patient Instructions* Sophy Wong MD - 09/01/2024 3:20 PM NURSE STAFF INDUSTRIAL Images from the original note were not included. [facility] Cardiac Electrophysiology [address] [facility] [address] [place] [address] Office: [phone] Thank you for seeing us in clinic [...] know if you decide to continue this retirement, or should you decide to discontinue - continue intermittent monitoring via [employer] - we discussed the option for implantable loop recorder (ILR) for longer term monitoring for recurrent atrial fibrillation and/or atrial flutter Please do not hesitate to be in touch with our office at [phone] with any questions that may arise. Thank you for trusting us with your care, Sophy Wong MD Clinical Cardiac Electrophysiology [facility] [address] [facility] [address] [place] [address] Office: [phone] E STAFF INDUSTRIAL E STAFF INDUSTRIAL E STAFF INDUSTRIAL E STAFF INDUSTRIAL E STAFF INDUSTRIAL documented in this encounter Progress Notes * Sophy Wong MD - 09/01/2024 3:20 PM CST Images from the original note were not included. [facility] Cardiac Electrophysiology [address] [facility] [address] [place] [address] Office: [phone] Patient: Jose Padron : 1950 CHIEF COMPLAINT/REASON FOR VISIT Longstanding persistent atrial fibrillation with prior ablations Assessment/Recommendations Stage 3C/Longstanding persistent atrial fibrillation, atrial flutters, atrial tachycardias - symptomatic with exertional dyspnea. Associated with resolved tachycardia-mediated cardiomyopathy. [id number] 1 Prior ablations: 04/24/2024 - AMINA AT/AFL, [...] continue apixaban 5mg twice daily. 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 Physical Examination Review of Systems VITALS: BP [...] Atrial Flutter; Surgeon: Nirav Cuba MD; Location: [facility] Commercial Driver;Service: EP ABLATION ATRIAL FLUTTER N/A 04/30/2022 Procedure: Ablation Atrial Flutter; Surgeon: Nirav Cuba MD; Location: [facility] CV EP ABLATION FOCAL AFIB N/A 04/30/2022 Procedure: Ablation Atrial Fibrilation; Surgeon: Nirav Cuba MD; Location: [facility] CV EP ABLATION PULMONARY VEIN ISOLATION N/A 04/24/2024 Procedure: Ablation Atrial Fibrillation; Surgeon: Sophy Wong MD; Location: [facility] CV EP ABLATION PVI Left 03/10/2018 Procedure: EP Ablation PVI; Surgeon: Nirav Cuba MD; Location: [facility] Commercial Driver; Service: EP ABLATION SVT N/A 05/22/2023 Procedure: Ablation Supraventricular Tachycardia; Surgeon: Nirav Cuba MD; Location: [facility] CV KNEE SURGERY Left 09/02/1972 REPLACEMENT [...] results for input(s): TROPONINI in the last 14063 hours. No results for input(s): BNP, NTBNPI, NTBNP in the last 21330 hours. Recent Labs Lab Test 12/20/22 1614 TSH 6.15* No results for input(s): INR in the last 18626 hours. Data Review ECGs (tracings independently reviewed) 06/08/2024 - SR 78bpm, ID 300ms, QT/QTC 432/492ms 11/18/2023 - atypical appearing [...] Cc: Nirav Wong MD 09/01/2024 3:38 PM E STAFF INDUSTRIAL documented in this encounter Plan of Treatment [...] dysrhythmias documented in this encounter Care Teams Video Editor Relationship Specialty Start Date End Date Torres Mooney MD [address] [place] [address] PCP - General Family Medicine 11/13/23 Michael Negrete MD Cardiovascular Disease 11/08/21 Sophy Wong MD 1600 [facility] [address] [place] [address] Assigned Heart and Vascular Provider 08/24/24 documented as of this encounter
--- OUTSIDE RECORDS SUMMARY | 2024-10-06 17:51 | XMS_ITS | Encounter Summary ---
Author Organization [place] Address [address] [place] [address] Care Team Providers Care Neuropsychiatrist Name Role Phone DahliaClif Primary Care Provider Unavailabl Michael Cid MD Unavailable [phone] Michael Ba CUSTOMER SERVICE ENGINEER PSYCHIATRIC SPECIALIST Unavailable [phone] Kailyn Wang CUSTOMER SERVICE ENGINEER PSYCHIATRIC SPECIALIST Unavailable Cristine Torres Finn MD Primary Care Provider + [phone] Nirav Cuba MD Unavailable Torres Mooney MD Primary Care Provider + [phone] Ayla Flores CUSTOMER SERVICE ENGINEER PSYCHIATRIC SPECIALIST Unavailable + [phone] Sophy Wong MD Unavailable [phone] Encounter Details Date Type Department Care Team (Late st Contact Info) Description 05/08/2022 [facility] [address] [address] Jake Zhang Social History Tobacco Use Types Packs/Day Years Used Date Smoking Tobacco: Never Smokeless Tobacco: Never Alcohol Use Standard Drinks/Week Comments Yes 0 (1 standard drink = 0.6 oz pur e alcohol) 2 drinks per month Sex and Gender Information Value Date Recorded Sex Assigned at Not on file 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 Gender Identity Not on file Sexual Orientation [...] on filedocumented in this encounter Care Teams Neuropsychiatrist Relationship Specialty Start Date End Date Clif Villagomez PCP - General Family Medicine 09/20/20 03/13/23 Torres Mooney MD [address] [place] [address] PCP - General Family Medicine 03/14/23 11/12/23 Torres Mooney MD [address] [place] [address] PCP - General Family Medicine 11/13/23 Michael Negrete MD Cardiovascular Disease 11/08/21 Michael Ba APRN PSYCHIATRIC SPECIALIST [address] [place], [place] [address] Assigned Sleep Provider 12/10/21 08/30/23 Kailyn Wang APRN PSYCHIATRIC SPECIALIST [address] [place] [address] Assigned Heart and Vascular Provider 04/21/22 03/08/23 Nirav Cuba MD [address] [facility] [address] [place] [address] Assigned Heart and Vascular Provider 03/09/23 02/22/24 Ayla Flores APRN PSYCHIATRIC SPECIALIST HEART & VASCULAR [address] [place] [address] Assigned Heart and Vascular Provider 02/23/24 08/23/24 Sophy Wong MD [address] [facility] [address] [place] [address] Assigned Heart and Vascular Provider 08/24/24 documented as of this encounter
--- OUTSIDE RECORDS SUMMARY | 2024-10-06 17:51 | XMS_ITS | Encounter Summary ---
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
--- OUTSIDE RECORDS SUMMARY | 2024-10-06 17:51 | XMS_ITS | Clinical Summary ---
Author Organization [place] Address [address] [place] [address] Care Team Providers Care Repeat Photocomposing Machine Operator Name Role Phone Michael Negrete MD Unavailable [phone] Torres Mooney MD Primary Care Provider [phone] Nadine Wong MD Unavailable [phone] Allergies No known active allergies Medications apixaban [...] Longstanding persistent atrial fibrillation 09/02 Overview (07/11/2023): [id number] score = 3 (age, CAD, CM) 2018 [...] Department Care Team Description 09/01/2024 3:20 PM HAZARDOUS MATERIALS WASTE TECHNICIAN Office Visit [address] [place] [address] Nadine Wong MD Longstanding persistent atrial fibrillation (H) (Primary Dx); Atypical atrial flutter (H); Atrial tachycardia 09/01/2024 Travel 08/27/2024 Travel 07/24/2024 10:30 AM HAZARDOUS MATERIALS WASTE TECHNICIAN - 07/24/2024 11:59 PM HAZARDOUS MATERIALS WASTE TECHNICIAN Hospital Encounter [facility] [address] [place] [phone] Nadine Wong MD Atypical atrial flutter (H); Longstanding persistent atrial fibrillation (H) Discharge Disposition: Home or Self Care 07/24/2024 Travel 07/10/2024 Orders Only [address] [place] [address] Carol Allen, JEM Atypical atrial flutter (H) [...] on file Legal Sex Male 3:29 PM HAZARDOUS MATERIALS WASTE TECHNICIAN Gender Identity Not on file Sexual Orientation Not on file Last Filed Vital Signs Vital Sign Reading Time Taken Comments Blood Pressure 102/70 09/01/2024 3:11 PM HAZARDOUS MATERIALS WASTE TECHNICIAN Pulse 84 09/01/2024 3:11 PM HAZARDOUS MATERIALS WASTE TECHNICIAN Temperature 36.7 C (98 F) 04/24/2024 7:15 PM CDT Respiratory Rate 16 09/01/2024 3:11 PM HAZARDOUS MATERIALS WASTE TECHNICIAN Oxygen Saturation 99% 09/01/2024 3:11 PM HAZARDOUS MATERIALS WASTE TECHNICIAN Inhaled Oxygen Concentration - - Weight 106.1 kg (234 lb) 09/01/2024 3:11 PM HAZARDOUS MATERIALS WASTE TECHNICIAN shoes on Height 188 cm (6' 2) 09/01/2024 3:11 PM HAZARDOUS MATERIALS WASTE TECHNICIAN per patient Body Mass Index 30.04 09/01/2024 3:11 PM HAZARDOUS MATERIALS WASTE TECHNICIAN Plan of Treatment Health Maintenance Due Date [...] Comments ECHO COMPLETE Routine 07/24/2024 11:20 AM HAZARDOUS MATERIALS WASTE TECHNICIAN Atypical atrial flutter (H) Longstanding persistent atrial fibrillation (H) BASIC METABOLIC PANEL STAT 04/24/2024 10:32 AM CDT LIPID PROFILE STAT 12/27/2017 12:42 PM CDT from Last 3 Months or Most Recently Relevant to Health Maintenance Results * ECHO COMPLETE (07/24/2024 11:20 AM HAZARDOUS MATERIALS WASTE TECHNICIAN) LVEF 55-60% CARDIOLOGY RESULTS Anatomical Region Laterality Modality Ultrasound, Ultr asound 07/24/2024 10:4 5 AM HAZARDOUS MATERIALS WASTE TECHNICIAN Narrative 07/24/2024 12:26 PM HAZARDOUS MATERIALS WASTE TECHNICIAN [id number]^TRANG^NADINE^[place] [address] Name: JOSE PADRON : 1950 Study Date: 07/24/2024 10:45 AM Age: 73 yrs Gender: Male Patient Location: [facility] Reason For Study: Atypical atrial flutter (H), [...] Procedure Note Jeremías Weaver MD - 07/24/2024 [id number]^TRANG^NADINE^[facility]GERAL[facility] [place] [address] Name: JOSE PADRON : 1950 Study Date: 07/24/2024 10:45 AM Age: 73 yrs Gender: Male Patient Location: [facility] Reason For Study: Atypical atrial flutter (H), [...] 135 - 145 mmol/L 04/24/2024 10:58 [facility] Potassium 4.2 3.4 - 5.3 mmol/L 04/24/2024 10:[address] [facility] Chloride 107 98 - 107 mmol/L 04/24/2024 10:[address] [facility] Carbon Dioxide (CO2) 23 22 - 29 mmol/L 04/24/2024 10:[address] [facility] Anion Gap 11 7 - 15 mmol/L 04/24/2024 10:[address] [facility] Urea Nitrogen 16.6 8.0 - 23.0 mg/dL 04/24/2024 10:[address] [facility] Creatinine 1.23(H) 0.67 - 1.17 mg/dL 04/24/2024 10:[address] [facility] GFR Estimate 63 >60 mL/min/1.7 3m2 04/24/2024 10:[address] [facility] Comment:eGFR calculated usin 2020 CKD-EPI equation. Calcium 8.7(L) 8.8 - 10.4 mg/dL 04/24/2024 10:[address] [facility] Comment:Reference intervals for this test were updated on 03/17/2024 to reflect our healthy population more accurately. There may be differences in the flagging of prior results with similar values performed with this method. Those prior results can be interpreted in the context of the updated reference intervals. Glucose 105(H) 70 - 99 mg/dL 04/24/2024 10:58 AM CDT [facility] Blood BLOOD SPECIMEN / Unknown Venipuncture / Unknown 04/24/2024 10:32 AM CDT 04/24/2024 10:39 AM CDT us Nadine Wong MD LAB - BLOOD ORDERABLES Final Result N LABORATORY [facility] [address] [place] [address], [facility] * (ABNORMAL) Lipid Profile (12/27/2017 12:42 PM CDT) Triglycerides 160(H) <=149 mg/dL 12/27/2017 1:13 PM CDT [facility] Cholesterol 212(H) <=199 mg/dL 12/27/2017 1:13 PM CDT [facility] LDL Cholesterol Calculated 146(H) <=129 mg/dL 12/27/2017 1:13 PM CDT [facility] Direct Measure HDL 34(L) >=40 mg/dL 12/27/2017 1:13 PM CDT [facility] Patient Fasting > 8hrs? Yes 12/27/2017 1:13 PM CDT [facility] Blood specimen (specimen) STRUCTURE OF RIGHT UPPER LIMB / Unknown VAD(CVC, PICC) / Unknown 12/27/2017 12:42 PM CDT 12/27/2017 12:46 PM CDT us Michael Negrete MD LAB - BLOOD ORDERABLES Final Result O LAB [address] [place] [address], [facility] [address] [place] [address] from Last 3 Months or Most Recently Relevant to Health Maintenance Insurance [facility] MEDICARE ADVANTAGE BCBS MEDICARE ADVANTAGE Advance Directives For more information, please contact: [phone] * Full Code (Latest Code Status on [...] by: Other (please docnida t) Care Teams Repeat Photocomposing Machine Operator Relationship Specialty Start Date End Date Torres Mooney MD [address] [place] [address] PCP - General Family Medicine 11/13/23 Michael Negrete MD Cardiovascular Disease 11/08/21 Nadine Wong MD [address] [facility] [address] [place] [address] Assigned Heart and Vascular Provider 08/24/24
--- OUTSIDE RECORDS SUMMARY | 2024-10-06 17:51 | XMS_ITS | Encounter Summary ---
Author Organization [place] Address [address] [place] [address] Care Team Providers Care Exchange Underwriting Consultant Name Role Phone DahliaClif Primary Care Provider Unavailabl Michael Cid MD Unavailable [phone] Michael Ba APRN FOOD SERVICE SPECIALIST Unavailable [phone] Kailyn Wang APRN FOOD SERVICE SPECIALIST Unavailable Cristine Torres Finn MD Primary Care Provider + [phone] Nirav Cuba MD Unavailable Torres Mooney MD Primary Care Provider + [phone] Ayla Flores APRN FOOD SERVICE SPECIALIST Unavailable [phone] Sophy Wong MD Unavailable [phone] Reason for Visit * Reason Comments Medication Refill Encounter Details Date Type Department Care Team (Late st Contact Info) Description 07/07/2022 Refill [facility] [address] [facility] [address] [place] [phone] Kailyn Wang APRN CNP Medication Refill Social History Tobacco Use Types Packs/Day Years Used Date Smoking Tobacco: Never Smokeless Tobacco: Never Alcohol Use Standard Drinks/Week Comments Yes 0 (1 standard drink = 0.6 oz pur e alcohol) 2 drinks per month Sex and Gender Information Value Date Recorded Sex Assigned at Not on file Legal Sex Male 3:29 PM CAN MARKER Gender Identity Not on file Sexual Orientation [...] (H) documented in this encounter Care Teams Exchange Underwriting Consultant Relationship Specialty Start Date End Date Clif Villagomez PCP - General [facility] Medicine 09/20/20 03/13/23 Torres Mooney MD [address] [place] [address] PCP - General [facility] Medicine 03/14/23 11/12/23 Torres Mooney MD [address] [place] [address] PCP - General [facility] Medicine 11/13/23 Michael Negrete MD Cardiovascular Disease 11/08/21 Michael Ba APRN FOOD SERVICE SPECIALIST [address] [place] [address] Assigned Sleep Provider 12/10/21 08/30/23 Kailyn Wang APRN FOOD SERVICE SPECIALIST [address] [place] [address] Assigned Heart and Vascular Provider 04/21/22 03/08/23 Nirav Cuba MD [address] [facility] [address] [place] [address] Assigned Heart and Vascular Provider 03/09/23 02/22/24 Ayla Flores APRN FOOD SERVICE SPECIALIST HEART & VASCULAR [address] [place] [address] Assigned Heart and Vascular Provider 02/23/24 08/23/24 Sophy Wong MD [address] [facility] [address] [place] [address] Assigned Heart and Vascular Provider 08/24/24 documented as of this encounter
--- OUTSIDE RECORDS SUMMARY | 2024-10-06 17:51 | XMS_ITS | Encounter Summary ---
Author Organization [place] Address [address] [place] [address] Care Team Providers Care Paper Plate Machine Tender Name Role Phone Michael Negrete MD Unavailable [phone] Torres Mooney MD Primary Care Provider + [phone] Nirav Cuba MD Unavailable Torres Mooney MD Primary Care Provider + [phone] Ayla Flores APRN, CNP Unavailable + [phone] Sophy Wong MD Unavailable [phone] Encounter Details Date Type Department Care Team (Late st Contact Info) Description 11/06/2023 MyC Medical Advice [facility] [address] [facility] [address] [place] [address] Ayla Flores APRN EM PHYSICIAN HEART & VASCULAR [address] [place] [address] Social History Tobacco Use Types [...] on file Legal Sex Male 3:29 PM MACHINE TANK OPERATOR Gender Identity Not on file Sexual Orientation Not on file documented as of this encounter Plan of Treatment Not on file documented as of this encounter Visit Diagnoses Not on filedocumented in this encounter Care Teams Paper Plate Machine Tender Relationship Specialty Start Date End Date Torres Mooney MD [address] [place] [address] PCP - General Family Medicine 03/14/23 11/12/23 Torres Mooney MD [address] [place] [address] PCP - General Family Medicine 11/13/23 Michael Negrtee MD Cardiovascular Disease 11/08/21 Nirav Cuba MD [address] [facility] [address] [place] [address] Assigned Heart and Vascular Provider 03/09/23 02/22/24 Ayla Flores APRN EM PHYSICIAN HEART & VASCULAR [address] [place] [address] Assigned Heart and Vascular Provider 02/23/24 08/23/24 Sophy Wong MD [address] [facility] [address] [place], [place] [address] Assigned Heart and Vascular Provider 08/24/24 documented as of this encounter
--- OUTSIDE RECORDS SUMMARY | 2024-10-06 17:51 | XMS_ITS | Encounter Summary ---
Author Organization [facility] Address [address] [place] [address] Care Team Providers Care Final Assembly Inspector Name Role Phone Dahlia Clif Epstein Primary Care Provider Unavailabl Michael Cid MD Unavailable [phone] Michael Ba APRN SUPERVISOR SHED WORKERS Unavailable [phone] Michael Negrete MD Unavailable [phone] Kailyn Wang CONCRETE BLOCK PLANT SUPERVISOR SUPERVISOR SHED WORKERS Unavailable Cristine Torres Finn MD Primary Care Provider + [phone] Nirav Cuba MD Unavailable Torres Mooney MD Primary Care Provider + [phone] Ayla Flores APRN SUPERVISOR SHED WORKERS Unavailable + [phone] Sophy Wong MD Unavailable [phone] Reason for Visit * Reason Onset Date Comments Symptoms 03/27/2022 AFIB Encounter Details Date Type Department Care Team (Late st Contact Info) Description 03/27/2022 Telephone [facility] [address] [facility] [place] [address] Michael Negrete MD [address] [employer] [address] [place] [address] Symptoms (AFIB) Social History Tobacco Use Types Packs/Day Years Used Date Smoking Tobacco: Never Smokeless Tobacco: Never Alcohol Use Standard Drinks/Week Comments No 0 (1 standard drink = 0.6 oz pur e alcohol) Sex and Gender Information Value Date Recorded Sex Assigned at Not on file Legal Sex Male 3:29 PM STRUCTURAL STEEL SHOP SUPERVISOR Gender Identity Not on file Sexual Orientation Not on file COVID-19 Exposure Response Date Recorded In the last 10 days, have yo u been in contact with someone who was confirmed or suspected to have Coronavirus/COVID-19? No / Unsure 03/29/2022 10:59 AM CDT documented as of this encounter Miscellaneous Notes * Telephone Encounter - Minnie Vickers - 03/27/2022 10:19 AM CDT [facility] Call Center Phone Message May a detailed [...] on filedocumented in this encounter Care Teams Final Assembly Inspector Relationship Specialty Start Date End Date Clif Villagomez PCP - General Family Medicine 09/20/20 03/13/23 Torres Mooney MD [address] [place] [address] PCP - General Family Medicine 03/14/23 11/12/23 Torres Mooney MD [address] [place] [address] PCP - General Family Medicine 11/13/23 Michael Negrete MD Cardiovascular Disease 11/08/21 Michael Ba, CONCRETE BLOCK PLANT SUPERVISOR SUPERVISOR SHED WORKERS [address] [place] [address] Assigned Sleep Provider 12/10/21 08/30/23 Michael Negrete MD [address] [place] [address] Assigned Heart and Vascular Provider 12/31/21 04/20/22 Kailyn Wang APRN SUPERVISOR SHED WORKERS [address] [place] [address] Assigned Heart and Vascular Provider 04/21/22 03/08/23 Nirav Cuba MD [address] [place] [address] Assigned Heart and Vascular Provider 03/09/23 02/22/24 Ayla Flores APRN SUPERVISOR SHED [employer]ERS [facility] [address] [place] [address] Assigned Heart and Vascular Provider 02/23/24 08/23/24 Sophy Wong MD [address] [place] [address] Assigned Heart and Vascular Provider 08/24/24 documented as of this encounter
--- OUTSIDE RECORDS SUMMARY | 2024-10-06 17:51 | XMS_ITS | Encounter Summary ---
Author Organization [facility] Address [address] [place] [address] Care Team Providers Care Stock Letterer Name Role Phone Clif Villagomez Primary Care Provider Unavailabl e Kailyn Wang PARTNER ALLIANCE MANAGER ADDICTIONS RECOVERY SPECIALIST Unavailable Cristine vailable Michael Negrete MD Unavailable [phone] Michael Ba APRN ADDICTIONS RECOVERY SPECIALIST Unavailable [phone] Michael Negrete MD Unavailable [phone] Kailyn Wang APRN ADDICTIONS RECOVERY SPECIALIST Unavailable Cristine vailable Torres Mooney MD Primary Care Provider + [phone] Nirav Cuba MD Unavailable Torres Mooney MD Primary Care Provider + [phone] Ayla Flores PARTNER ALLIANCE MANAGER ADDICTIONS RECOVERY SPECIALIST Unavailable + [phone] Sophy Wong MD Unavailable [phone] Encounter Details Date Type Department Care Team (Late st Contact Info) Description 11/24/2021 MyC Medical Advice [facility] [address] [address] Aurea Lucas, FRAMING MILL OPERATOR HELPER Social History Tobacco Use Types Packs/Day Years Used Date Smoking Tobacco: Never Smokeless Tobacco: Never Alcohol Use Standard Drinks/Week Comments No 0 (1 standard drink = 0.6 oz pur e alcohol) Sex and Gender Information Value Date Recorded Sex Assigned at Not on file Legal Sex Male 3:29 PM SOLID WASTE DIVISION SUPERVISOR Gender Identity Not on file Sexual Orientation Not on file COVID-19 Exposure Response Date Recorded In the last month, have you been in contact with someone who was confirmed or suspected to have Coronavirus / COVID-19? Unable to assess 11/08/2021 7:53 AM SOLID WASTE DIVISION SUPERVISOR documented as of this encounter Plan of Treatment Not on file documented as of this encounter Visit Diagnoses Not on filedocumented in this encounter Care Teams Stock Letterer Relationship Specialty Start Date End Date Clif Villagomez PCP - General Family Medicine 09/20/20 03/13/23 Torres Mooney MD [address] [place] [address] PCP - General Family Medicine 03/14/23 11/12/23 Torres Mooney MD [address] [place] [address] PCP - General Family Medicine 11/13/23 Kailyn Wang APRN ADDICTIONS RECOVERY SPECIALIST Assigned Heart and Vascular Provider 03/17/21 12/30/21 Michael Negrete MD Cardiovascular Disease 11/08/21 Michael Ba APRN ADDICTIONS RECOVERY SPECIALIST [address] [place] [address] Assigned Sleep Provider 12/10/21 08/30/23 Michael Negrete MD [address] [facility] [address] [place], [place] [id number] Assigned Heart and Vascular Provider 12/31/21 04/20/22 Kailyn Wang APRN ADDICTIONS RECOVERY SPECIALIST [address] [facility] [address] [place] [address] Assigned Heart and Vascular Provider 04/21/22 03/08/23 Nirav Cuba MD [address] [facility] [address] [place] [address] Assigned Heart and Vascular Provider 03/09/23 02/22/24 Ayla Flores APRN [facility] [address] [place] [phone] Assigned Heart and Vascular Provider 02/23/24 08/23/24 Sophy Wong MD [address] [facility] [address] [place], [place] [id number] Assigned Heart and Vascular Provider 08/24/24 documented as of this encounter
--- OUTSIDE RECORDS SUMMARY | 2024-10-06 17:51 | XMS_ITS | Encounter Summary ---
Author Organization [facility] Address [address] [place] [address] Care Team Providers Care Automatic Toe Laster Name Role Phone Clif Villagomez Primary Care Provider Unavailabl e Kailyn Wang DEVELOPMENTAL EDUCATION INSTRUCTOR SMALL PRODUCTS II ASSEMBLER Unavailable Cristine vailable Michael Negrete MD Unavailable [phone] Michael Ba DEVELOPMENTAL EDUCATION INSTRUCTOR SMALL PRODUCTS II ASSEMBLER Unavailable [phone] Michael Negrete MD Unavailable [phone] Kailyn Wang DEVELOPMENTAL EDUCATION INSTRUCTOR SMALL PRODUCTS II ASSEMBLER Unavailable Cristine vailable Torres Mooney MD Primary Care Provider + [phone] Nirav Cuba MD Unavailable Torres Mooney MD Primary Care Provider + [phone] Ayla Flores DEVELOPMENTAL EDUCATION INSTRUCTOR SMALL PRODUCTS II ASSEMBLER Unavailable + [phone] Sophy Wong MD Unavailable [phone] Encounter Details Date Type Department Care Team (Late st Contact Info) Description 03/10/2018 Records - [facility] HE CONVERSION Scan, Non-Provider Social History Tobacco Use Types Packs/Day Years Used Date Smoking Tobacco: Never Assessed Sex and Gender Information Value Date Recorded Sex Assigned at Not on file Legal Sex Male 3:29 PM STRIPPER PRELIMINARY Gender Identity Not on file Sexual Orientation Not on file documented as of this encounter Plan of Treatment Not on file documented as of this encounter Visit Diagnoses Not on filedocumented in this encounter Care Teams Automatic Toe Laster Relationship Specialty Start Date End Date Clif Villagomez PCP - General Family Medicine 09/20/20 03/13/23 Torres Mooney MD [address] [place] [address] PCP - General Family Medicine 03/14/23 11/12/23 Torres Mooney MD [address] [place] [address] PCP - General Family Medicine 11/13/23 Kailyn Wang APRN SMALL PRODUCTS II ASSEMBLER Assigned Heart and Vascular Provider 03/17/21 12/30/21 Michael Negrete MD Cardiovascular Disease 11/08/21 Michael Ba APRN SMALL PRODUCTS II ASSEMBLER [address] [place] [address] Assigned Sleep Provider 12/10/21 08/30/23 Michael Negrete MD [address] [facility] [address] [place] [address] Assigned Heart and Vascular Provider 12/31/21 04/20/22 Kailyn Wang APRN SMALL PRODUCTS II ASSEMBLER [address] [facility] [address] [place] [address] Assigned Heart and Vascular Provider 04/21/22 03/08/23 Nirav Cuba MD [address] [facility] [address] [place], [place] [address] Assigned Heart and Vascular Provider 03/09/23 02/22/24 Ayla Flores APRN SMALL PRODUCTS II ASSEMBLER [facility] [address] [place] [address] Assigned Heart and Vascular Provider 02/23/24 08/23/24 Sophy Wong MD [address] [facility] [address] [place] [address] Assigned Heart and Vascular Provider 08/24/24 documented as of this encounter
--- OUTSIDE RECORDS SUMMARY | 2024-10-06 17:51 | XMS_ITS | Encounter Summary ---
Author Organization [facility] Address [address] [place] [address] Care Team Providers Care Liquid Floor And Wall Applier Name Role Phone Michael Negrete MD Unavailable [phone] Torres Mooney MD Primary Care Provider + [phone] Nirav Cuba MD Unavailable Torres Mooney MD Primary Care Provider + [phone] Ayla Flores APRN EMERGENCY ROOM RN Unavailable + [phone] Sophy Wong MD Unavailable [phone] Reason for Visit * Reason Comments Medication Refill Encounter Details Date Type Department Care Team (Late st Contact Info) Description 09/05/2023 Refill [place] [id number] [facility] [address] [place] [phone] Nirav Cuba MD [address] [facility] [address] [place], [place] [id number] Medication Refill Social History Tobacco Use Types [...] on file Legal Sex Male 3:29 PM FUR 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 Gender Identity Not on file Sexual Orientation Not on file documented as of this encounter Plan of Treatment Not on file documented as of this encounter Visit Diagnoses Diagnosis Longstanding persistent atrial fibrillation (H) documented in this encounter Care Teams Liquid Floor And Wall Applier Relationship Specialty Start Date End Date Torres Mooney MD [address] [place] [address] PCP - General Family Medicine 03/14/23 11/12/23 Torres Mooney MD [address] [place] [address] PCP - General Family Medicine 11/13/23 Michael Negrete MD Cardiovascular Disease 11/08/21 Nirav Cuba MD [address] [facility] [address] [place] [address] Assigned Heart and Vascular Provider 03/09/23 02/22/24 Ayla Flores APRN [facility] [address] [place] [phone] Assigned Heart and Vascular Provider 02/23/24 08/23/24 Sophy Wong MD [address] [facility] [address] [place] [address] Assigned Heart and Vascular Provider 08/24/24 documented as of this encounter
--- OUTSIDE RECORDS SUMMARY | 2024-10-06 17:51 | XMS_ITS | Encounter Summary ---
Author Organization [facility] Address [address] [place] [address] Care Team Providers Care Biology Teacher Name Role Phone DahliaClif Primary Care Provider Unavailabl Michael Cid MD Unavailable [phone] Michael Ba APRN FRY COOK Unavailable [phone] Kailyn Wang APRN FRY COOK Unavailable Cristine Torres Finn MD Primary Care Provider + [phone] Nirav Cuba MD Unavailable Torres Mooney MD Primary Care Provider + [phone] Ayla Flores APRN FRY COOK Unavailable + [phone] Sophy Wong MD Unavailable [phone] Encounter Details Date Type Department Care Team (Late st Contact Info) Description 01/31/2023 [facility] Heart [facility] [address] [facility] [address] [place] [phone] Kailyn Wang APRN FRY COOK Social History Tobacco Use Types Packs/Day Years Used Date Smoking Tobacco: Never Smokeless Tobacco: Never Alcohol Use Standard Drinks/Week Comments Yes 0 (1 standard drink = 0.6 oz pur e alcohol) 2 drinks per month Sex and Gender Information Value Date Recorded Sex Assigned at Not on file Legal Sex Male 3:29 PM DESIGN ENGINEER Gender Identity Not on file Sexual Orientation Not on file documented as of this encounter Plan of Treatment Not on file documented as of this encounter Visit Diagnoses Not on filedocumented in this encounter Care Teams Biology Teacher Relationship Specialty Start Date End Date Clif Villagomez PCP - General Family Medicine 09/20/20 03/13/23 Torres Mooney MD [address] [place] [address] PCP - General Family Medicine 03/14/23 11/12/23 Torres Mooney MD [address] [place] [address] PCP - General Family Medicine 11/13/23 Michael Negrete MD Cardiovascular Disease 11/08/21 Michael Ba APRN [facility]OOK [address] [place], [place] [address] Assigned Sleep Provider 12/10/21 08/30/23 Kailyn Wang APRN [employer]OOK [address] [place] [address] Assigned Heart and Vascular Provider 04/21/22 03/08/23 Nirav Cuba MD [address] [facility] [address] [place], [place] [id number] Assigned Heart and Vascular Provider 03/09/23 02/22/24 Ayla Flores APRN [facility] [address] [place] [phone] Assigned Heart and Vascular Provider 02/23/24 08/23/24 Sophy Wong MD [address] [facility] [address] [place], [place] [id number] Assigned Heart and Vascular Provider 08/24/24 documented as of this encounter
--- OUTSIDE RECORDS SUMMARY | 2024-10-06 17:51 | XMS_ITS | Clinical Summary ---
Author Organization [facility] Address [place], [place] [address] Care Team Providers Care Truck Leasing Manager Name Role Phone Torres Mooney MD Primary Care Provider [phone] Allergies No known active allergies Medications azithromycin [...] 11/01 Overview (11/19/2022): Dx 2018 (uncertain onset) [id number] score = 3 (age/ CAD/ CM) Rx apixaban Rx sotalol CV symptoms improved: Early reversion to AF PVI March 10, 2018 [id number] score = 1 (age) 2018 PVI with [...] Department Care Team Description 10/06/2024 3:10 PM BULLDOGGER Office Visit [facility] [address] [place] [address] Torres Mooney MD Cough; Shortness Of Breath 10/05/2024 Telephone [facility] [address] [place] [address] Torres Mooney MD Appointment 10/05/2024 Travel 10/03/2024 Orders Only [facility] Scanner 1 scan: (1-Ord) [facility], CT ANGIO CHEST , 10/03/2024 09/29/2024 11:30 AM BULLDOGGER Ancillary Procedure [facility] [address] [place] [address] 09/29/2024 11:00 AM BULLDOGGER Office Visit [facility] [address] [place] [address] Janiya Fox MD Cough (Cough, fever, chest congestion, shortness of breath x 4 days ) 09/29/2024 Travel 09/26/2024 Nurse Triage [facility] [address] [place] [address] Torres Mooney MD Cough 09/03/2024 2:40 PM BULLDOGGER Office Visit [facility] [address] [place] [phone] Colton Haider MD Consult (Cervical ) 09/03/2024 Travel 08/29/2024 Travel 08/24/2024 Orders Only [facility] at [facility] [address] [place] [address] Colton Haider MD 1 scan: (1-Ord) [facility] 08/21/2024 Orders Only [facility] Scanner 1 scan: (1-Ord) [facility], MRI CERVICAL SPINE WO CON, 08/21/2024 08/13/2024 Telephone [facility] [address] [place] [address] Colton Haider MD 07/24/2024 9:15 AM BULLDOGGER Orders Only [facility] [address] [place] [address] Lab, [facility] 07/24/2024 Travel 07/20/2024 Orders Only [facility] [address] [place] [address] Torres Mooney MD Lab (ORder Update) 07/20/2024 [...] on file Legal Sex Male 5:25 AM BULLDOGGER Gender Identity Not on file Sexual Orientation Not on file 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 Not on file Not on file Obstetrics History Last Filed Vital Signs Vital Sign Reading Time Taken Comments Blood Pressure 107/73 10/06/2024 3:24 PM BULLDOGGER Pulse 85 10/06/2024 3:03 PM BULLDOGGER Temperature 36.4 C (97.5 F) 10/06/2024 3:03 PM BULLDOGGER Respiratory Rate 16 06/29/2020 7:37 AM CDT Oxygen Saturation 89% 10/06/2024 3:03 PM BULLDOGGER Inhaled Oxygen Concentration - - Weight 96.4 kg (212 lb 9.6 oz) 10/06/2024 3:03 P M BULLDOGGER Height 188 cm (6' 2) 09/03/2024 3:14 PM BULLDOGGER Body Mass Index 27.3 09/03/2024 3:14 PM BULLDOGGER Plan of Treatment Health Maintenance Due Date [...] 04/22/2024, Additional history exists Fecal testing sDNA-FIT ([place] guard) for age 45-75 03/25/2027 03/25/2024 Lipids for age 45-75 04/20/2029 04/20/2024, 02/12/2024, 07/12/2023, Additional history exists Tetanus booster 04/15/2033 04/15/2023, 02/20/2010 Tdap Completed 04/15/2023, 02/20/2010 AAA screening age 65-74 Completed 03/17/2024 Hepatitis C screening for ag e 18-79 Completed 04/20/2024 COVID-19 vaccine series Completed 06/01/20, 10/10/2023, 04/15/2023, Additional history exists Medical Devices Implanted Type Area Gas Station Cashier Device Identifier Shelf Expiration Date Model / Serial / Lot Patella Sz35 Grecia Ii Rnd Penon Pors - [id number] Implanted:Qty: 1 on 06/28/2020 by Torres Hernandez MD at [facility] Total Joint Left: Knee [employer] 03/30/2030# / / [id number] Baseplate Tib Lt Sz7 Grecia Ii Titnm Non Pors - [id number] Implanted:Qty: 1 on 06/28/2020 by Torres Hernandez MD at [facility] Total Joint Left: Knee [employer] 02/04/2028 [id number]# / / [id number] Cmnt Bone 40gm Rally Hv - [id number] Implanted:Qty: 2 on 06/28/2020 by Torres eHrnandez MD at [facility] Left: Knee [employer] 11/30/2024 [id number]# / / [id number] Fem Lt Sz8 Legion Cruc Ret Oxin - [id number] Implanted:Qty: 1 on 06/28/2020 by Torres Hernandez MD at [facility] Left: Knee [employer] 04/07/2027 [id number]# / / [id number] Insert Knee Sz7-9 13mm Legioncruc Ret High Flex Xlpe - [id number] Implanted:Qty: 1 on 06/28/2020 by Torres Hernandez MD at [facility] Left: Knee [employer] 03/23/2029 [id number]# / / [id number] Explanted Type Area Gas Station Cashier Device Identifier Shelf Expiration Date Model / Serial / Lot Vis Adpt Guide Lgnp Kit Lt Sz F8/T7 Explanted:Qty: 1 on 06/28/2020 by Torres Hernandez MD at [facility] Left: Knee [employer] 10/17/2020 [id number] / / [id number] Procedures Procedure Name Priority Date/Time Associated Diagnosis Comments SCAN-CT INTERPRETATION 12:00 AM BULLDOGGER XR CHEST 2 VIEWS PA AND LATERAL Routine 09/29/2024 11:38 AM BULLDOGGER Influenza-like illness COVID/FLU/RSV PANEL Routine 09/29/2024 1 1:16 AM BULLDOGGER Influenza-like illness SCAN-MRI INTERPRETATION 08/21/2024 12:00 AM BULLDOGGER EMG Routine 08/20/2024 12:00 AM BULLDOGGER Cervical radiculopathy PSA (TOTAL) ([facility]) Routine 07/24/2024 9 :18 AM BULLDOGGER Elevated PSA ANTI HCV Routine 04/20/2024 9:02 [...] Results * SCAN-CT INTERPRETATION (10/03/2024 12:00 AM BULLDOGGER) Anatomical Region Laterality Modality Other us Scanner OTHER Final Result * XR CHEST 2 VIEWS PA AND LATERAL (09/29/2024 11:38 AM BULLDOGGER) Anatomical Region Laterality Modality CHEST, THORAX, Lung, HEART Compu linda Radiography 09/29/2024 1:27 PM BULLDOGGER Impressions 09/29/2024 1:27 PM BULLDOGGER No acute findings. Dictated by Blade Chavez MD @ 09/29/2024 1:27:50 PM (Electronically Signed) Narrative 09/29/2024 1:27 PM BULLDOGGER For Patients: As a result of the [...] * (ABNORMAL) COVID/FLU/RSV PANEL (09/29/2024 11:16 AM BULLDOGGER) COVID 19 [facility] Negative Negative 09/29/2024 7:28 PM BULLDOGGER [facility] INFLUENZA A PCR Positive(A) 09/29/19 25 7:28 PM BULLDOGGER [facility] INFLUENZA B PCR Negative 7:28 PM BULLDOGGER [facility] Respiratory Syncytial Virus Negative 09/29/2024 7:28 PM BULLDOGGER [facility] Swab (Nasal Swab) Non-Blood / Unknown 09/29/2024 11:16 AM BULLDOGGER 09/29/2024 11:16 AM BULLDOGGER us Janiya Fox MD MICROBIOLOGY Final R esult Performing Organization Address City/[facility]/ZIP Co de Phone Number [facility] [address] [place] [address], [place] * SCAN-MRI INTERPRETATION (08/21/2024 12:00 AM BULLDOGGER) Anatomical Region Laterality Modality Other Scanner OTHER Final Result * EMG (08/20/2024 12:00 AM BULLDOGGER) us Colton Haider MD NEUROLOGY ORD Final Res ult * PSA (TOTAL) ([facility]) (07/24/2024 9:18 AM BULLDOGGER) PSA, TOTAL 3.29 < OR = 4.00 ng/mL [facility] Comment: The total PSA value from this assay system is standardized against the WHO standard. The test result will be approximately 20% lower when compared to the equimolar-standardized total PSA (Anita Elizabeth). Comparison of serial PSA results should be interpreted with this fact in mind. This test was performed using the Siemens chemiluminescent method. Values obtained from different assay methods cannot be used interchangeably. PSA levels, regardless of value, should not be interpreted as absolute evidence of the presence or absence of disease. Blood BLOOD SPECIMEN / Unknown 07/24/2024 9:18 AM BULLDOGGER 07/24/2024 9:19 AM BULLDOGGER us Torres Mooney MD SEND OUTS Final Resu lt Performing Organization Address City/[facility]/ZIP Co de Phone Number [facility] [address] [place] [address], [place] [phone] [facility] [address] [place] [address] * (ABNORMAL) LIPID PANEL W REFLEX MEASURED LDL (04/20/2024 9:02 AM CDT) CHOLESTEROL,TOTAL 228(H) 100 - 199 mg/dL 04/20/2024 4:20 PM CDT [facility] Comment: Cholesterol, Total Reference Ranges Desirable <200 mg/dL Borderline 200-239 mg/dL High >=240 mg/dL TRIGLYCERIDES 164(H) <150 mg/dL 04/20/2024 4:20 PM CDT [facility] HDL CHOLESTEROL 42 >40 mg/dL 4:20 PM CDT [facility] NON-HDL CHOLESTEROL 186(H) <145 mg/dl 04/20/2024 4:20 PM CDT [facility] CHOL/HDL RATIO 5.43(H) <4.50 04/20/2024 4:20 PM CDT [facility] LDL CHOLESTEROL 153(H) <=130 mg/dL 04/20/2024 4:20 PM CDT [facility] VLDL CHOLESTEROL 33(H) <=30 mg/dL 04/20/2024 4:20 PM CDT [facility] PROVIDER ORDERED STATUS RANDOM 04/20/2024 4:20 PM CDT [facility] Blood BLOOD SPECIMEN / Unknown Venipuncture / Unknown 04/20/2024 9:02 AM CDT 04/20/2024 9:02 AM CDT us Torres Mooney MD CHEMISTRY Final Resu lt [facility] [address] [place] [address], [place] * ANTI HCV (04/20/2024 9:02 AM CDT) HEPATITIS C ANTIBODY Non-Reacti ve Non-React liset 04/20/2024 4:58 PM CDT [facility] Comment:Please note, per www [...] Mooney MD SEND OUTS Final Resu lt [facility] [address] [place] [address], [place] * SDNA-FIT EXTERNAL (COLOGUARD) (03/25/2024 12:15 PM CDT) NONINV COLON CA DNA+OCC BLD SCRN STL-IMP Negative Negative 04/01/2024 7:42 PM CDT [facility] (CLIA #:[id number]) Comment: NEGATIVE TEST RESULT. A negative Cologuard [...] Adair et al, N Engl J Med 2014;370(14):9950-4228) The normal value (reference range) for this assay is negative. COLOGUARD RE-SCREENING RECOMMENDATION: Periodic colorectal cancer screening is an important part of preventive healthcare for asymptomatic individuals at average risk for colorectal cancer. Following a negative Cologuard result, the [place] [employer] and U.S. Multi-Society Task Force screening guidelines recommend a Cologuard re-screening interval of 3 years. References: [employer] [place] [employer] Guideline for Colorectal Cancer Screening: https://www.cancer.org/cancer/sjdpj-omwslb-tbwlgf/beodzcvnv-nlhcpotue-fpytofz/ac s-rec ommendations.html.; Adrián DK, Kaushal CR, Corrie AbreuK, Colorectal Cancer Screening: Recommendations for Physicians and Patients from the U.S. Multi-Society Task Force on Colorectal Cancer Screening , Am J Gastroenterology 2017; 112:4564-6375. TEST DESCRIPTION: Composite algorithmic analysis of stool [...] (Bailee Josue al, N Engl J Med 2014;370(14):9696-3216.) Cologuard may produce a false negative or false positive result (no colorectal cancer or precancerous polyp present at colonoscopy follow up). A negative Cologuard test result does not guarantee the absence of CRC or advanced adenoma (pre-cancer). The current Cologuard screening interval is every 3 years. ([employer] [place] [employer] and U.S. Multi-Society Task Force). Cologuard performance data in a 10,000 patient pivotal study using colonoscopy as the reference method can be accessed at the following location: www.[employer]/results. Additional description of the Cologuard test process, warnings and precautions can be found at www.[employer]. Stool specimen (specimen) (Rectum) 03/25/2024 12:15 PM CDT 03/27/2024 10:00 AM CDT Torres Mooney MD URINE Final Resu lt [facility] (CLIA #:[id number]) [place] [address], [place] [phone] * [place] ABD AORTA SCREENING [[id number]] (03/17/2024 7:35 AM CDT) Anatomical Region Laterality [...] Documents on File Type Date Recorded Patient Car Cooper Expl anation Healthcare Directive 06/28/2020 6:39 AM * Full Code (Latest Code Status on File) Date Activated Date Inactivated Comments 06/28/2020 6:43 AM 06/29/2020 12:27 PM Question Answer Comments Code Status Discussion: Discussed Care Teams Truck Leasing Manager Relationship Specialty Start Date End Date Torres Mooney MD [address] [place] [address] PCP - General Family Practice 02/15/23
--- OUTSIDE RECORDS SUMMARY | 2024-10-06 17:51 | XMS_ITS | Encounter Summary ---
Author Organization [facility] Address [address] [place] [address] Care Team Providers Care Tripe Washer Name Role Phone Michael Negrete MD Unavailable [phone] Torres Mooney MD Primary Care Provider + [phone] Nirav Cuba MD Unavailable Torres Mooney MD Primary Care Provider + [phone] Ayla Flores APRN, CNP Unavailable + [phone] Sophy Wong MD Unavailable [phone] Encounter Details Date Type Department Care Team (Late st Contact Info) Description 10/14/2023 [facility] Medical Advice [facility] [address] [place] [address] Ayla Flores APRN AIRFIELD OPERATIONS SPECIALIST HEART & VASCULAR [facility] [address] [place] [address] Social History Tobacco Use Types [...] on file Legal Sex Male 3:29 PM PERSONAL SERVICE REPRESENTATIVE Gender Identity Not on file Sexual Orientation Not on file documented as of this encounter Miscellaneous Notes * Telephone Encounter - Carol Ramos RN - 10/21/2023 12:33 PM PERSONAL SERVICE REPRESENTATIVE Holter shows continuous AF on metoprolol. Can we please coordinate outpatient DCCV if complaint with OAC? 2 days prior start sotalol 60mg BID, discontinue metoprolol. Please reschedule follow-up withMable Cuba. Thank you ONAL SERVICE REPRESENTATIVE * Telephone Encounter - Tess Sosa RN - 10/21/2023 11:46 AM CST Attempted to contact pt to discuss, LM for return call. Tess ONAL SERVICE REPRESENTATIVE documented in this encounter Plan of Treatment Not on file documented as of this encounter Visit Diagnoses Not on filedocumented in this encounter Care Teams Tripe Washer Relationship Specialty Start Date End Date Torres Mooney MD [address] [place] [address] PCP - General Family Medicine 03/14/23 11/12/23 Torres Mooney MD [address] [place] [address] PCP - General Family Medicine 11/13/23 Michael Negrete MD Cardiovascular Disease 11/08/21 Nirav Cuba MD [address] [facility] [address] [place], [place] [address] Assigned Heart and Vascular Provider 03/09/23 02/22/24 Ayla Flores APRN [employer]PER[employer] SPECIALIST [facility] [address] [place] [address] Assigned Heart and Vascular Provider 02/23/24 08/23/24 Sophy Wong MD [address] [facility] [address] [place] [address] Assigned Heart and Vascular Provider 08/24/24 documented as of this encounter
--- OUTSIDE RECORDS SUMMARY | 2024-10-06 17:51 | XMS_ITS | Encounter Summary ---
Author Organization [facility] Address [address] [place] [address] Care Team Providers Care Director Learning Services Name Role Phone Michael Negrete MD Unavailable [phone] Nirav Cuba MD Unavailable Torres Mooney MD Primary Care Provider + [phone] Ayla Flores APRN MEMBERSHIP COORDINATOR Unavailable + [phone] Sophy Wong MD Unavailable [phone] Encounter Details Date Type Department Care Team (Late st Contact Info) Description 11/26/2023 [facility] Medical Advice [facility] Heart [address] [place] [phone] Carol Ramos, JEM Social History Tobacco Use [...] on file 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 Sex Male 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 [address] [place] [phone] Assigned Heart and Vascular Provider 02/23/24 08/23/24 Sophy Wong MD [address] [facility] [address] [place] [address] Assigned Heart and Vascular Provider 08/24/24 documented as of this encounter
--- OUTSIDE RECORDS SUMMARY | 2024-10-06 17:51 | XMS_ITS | Encounter Summary ---
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 Gender Identity Not on file Sexual Orientation Not on file documented as of this encounter Plan of Treatment Not on file documented as of this encounter Visit Diagnoses Not on filedocumented in this encounter Care Teams Manager Information Relationship Specialty Start Date End Date Torres Mooney MD [address] [facility] [place] [address] PCP - General Family Medicine 11/13/23 Michael Negrete MD Cardiovascular Disease 11/08/21 Sophy Wong MD [address] [facility] [address] [place] [address] Assigned Heart and Vascular Provider 08/24/24 documented as of this encounter
--- OUTSIDE RECORDS SUMMARY | 2024-10-06 17:51 | XMS_ITS | Referral Summary ---
Author Organization [facility] Address [address] [place] [address] Care Team Providers Care Credit Collections Specialist Name Role Phone Michael Negrete MD Unavailable [phone] Torres Mooney MD Primary Care Provider [phone]- [phone] Nadine Wong MD Unavailable [phone] Encounters Date Type Department Care Team Description 09/01/2024 Travel 09/01/2024 3:20 PM BOOTH USHER Office Visit [address] [place] [address] Nadine Wong MD Longstanding persistent atrial fibrillation (H) (Primary Dx); Atypical atrial flutter (H); Atrial tachycardia 08/27/2024 Travel 07/24/2024 Travel 07/24/2024 10:30 AM BOOTH USHER - 07/24/2024 11:59 PM BOOTH USHER Hospital Encounter [facility] [address] [place] [address] Nadine Wong MD Atypical atrial flutter (H); Longstanding persistent atrial fibrillation (H) Discharge Disposition: Home or Self Care 07/10/2024 Orders Only [facility] [address] [facility] [address] [place] [address] Carol Allen RN Atypical atrial [...] Longstanding persistent atrial fibrillation 09/02 Overview (07/11/2023): [id number] score = 3 (age, CAD, CM) 2018 [...] on file Legal Sex Male 3:29 PM BOOTH USHER Gender Identity Not on file Sexual Orientation Not on file Last Filed Vital Signs Vital Sign Reading Time Taken Comments Blood Pressure 102/70 09/01/2024 3:11 PM BOOTH USHER Pulse 84 09/01/2024 3:11 PM BOOTH USHER Temperature 36.7 C (98 F) 04/24/2024 7:15 PM CDT Respiratory Rate 16 09/01/2024 3:11 PM BOOTH USHER Oxygen Saturation 99% 09/01/2024 3:11 PM BOOTH USHER Inhaled Oxygen Concentration - - Weight 106.1 kg (234 lb) 09/01/2024 3:11 PM BOOTH USHER shoes on Height 188 cm (6' 2) 09/01/2024 3:11 PM BOOTH USHER per patient Body Mass Index 30.04 09/01/2024 3:11 PM BOOTH USHER Plan of Treatment Not on file Procedures Procedure Name Priority Date/Time Associated Diagnosis Comments ECHO COMPLETE Routine 07/24/2024 11:20 AM BOOTH USHER Atypical atrial flutter (H) Longstanding persistent atrial fibrillation (H) BASIC METABOLIC PANEL STAT 04/24/2024 10:32 AM CDT LIPID PROFILE STAT 12/27/2017 12:42 PM CDT from Last 3 Months or Most Recently Relevant to Health Maintenance Results * ECHO COMPLETE (07/24/2024 11:20 AM BOOTH USHER) LVEF 55-60% CARDIOLOGY RESULTS Anatomical Region Laterality Modality Ultrasound, Ultr asound 07/24/2024 10:4 5 AM BOOTH USHER Narrative 07/24/2024 12:26 PM BOOTH USHER [id number]^TRANG^NADINE^[place] [address] Name: JOSE PADRON : 1950 Study Date: 07/24/2024 10:45 AM Age: 73 yrs Gender: Male Patient Location: [facility] Reason For Study: Atypical atrial flutter (H), [...] Procedure Note Jeremías Weaver MD - 07/24/2024 [id number]^TRANG^NADINE^[facility] [place] [address] Name: JOSE PADRON : 1950 Study Date: 07/24/2024 10:45 AM Age: 73 yrs Gender: Male Patient Location: [facility] Reason For Study: Atypical atrial flutter (H), [...] (ABNORMAL) Basic metabolic panel (04/24/2024 10:32 AM [facility]) Pathologist [facility] Sodium 141 135 - 145 mmol/L 04/24/2024 10:58 AM [facility] Potassium 4.2 3.4 - 5.3 mmol/L 04/24/2024 10:58 AM [facility] Chloride 107 98 - 107 mmol/L 04/24/2024 10:58 AM [facility] Carbon Dioxide (CO2) 23 22 - 29 mmol/L 04/24/2024 10:58 AM [facility] Anion Gap 11 7 - 15 mmol/L 04/24/2024 10:58 AM [facility] Urea Nitrogen 16.6 8.0 - 23.0 mg/dL 04/24/2024 10:58 AM [facility] Creatinine 1.23(H) 0.67 - 1.17 mg/dL 04/24/2024 10:58 AM [facility] GFR Estimate 63 >60 mL/min/1.7 3m2 04/24/2024 10:58 AM [facility] Comment:eGFR calculated us2020 CKD-EPI equation. Calcium 8.7(L) 8.8 - 10.4 mg/dL 04/24/2024 10:58 AM CDT [facility] Comment:Reference intervals for this test were updated on 03/17/2024 to reflect our healthy population more accurately. There may be differences in the flagging of prior results with similar values performed with this method. Those prior results can be interpreted in the context of the updated reference intervals. Glucose 105(H) 70 - 99 mg/dL 04/24/2024 10:58 AM CDT [facility] Blood BLOOD SPECIMEN / Unknown Venipuncture / Unknown 04/24/2024 10:32 AM CDT 04/24/2024 10:39 AM CDT us aNdine Wong MD LAB - BLOOD ORDERABLES Final Result Performing Organization Address City/[facility]/ZIP Co de Phone Number [facility] [address] * (ABNORMAL) Lipid Profile (12/27/2017 12:42 PM CDT) Triglycerides 160(H) <=149 mg/dL 12/27/2017 1:13 PM CDT [facility] Cholesterol 212(H) <=199 mg/dL 12/27/2017 1:13 PM CDT [facility] LDL Cholesterol Calculated 146(H) <=129 mg/dL 12/27/2017 1:13 PM CDT [facility] Direct Measure HDL 34(L) >=40 mg/dL 12/27/2017 1:13 PM CDT [facility] Patient Fasting > 8hrs? Yes 12/27/2017 1:13 PM CDT [facility] Blood specimen (specimen) STRUCTURE OF RIGHT UPPER LIMB / Unknown VAD(CVC, PICC) / Unknown 12/27/2017 12:42 PM CDT 12/27/2017 12:46 PM CDT us Michael Negrete MD LAB - BLOOD ORDERABLES Final Result [facility] [address] [place] [id number], [facility] [address] [address] from Last 3 Months or Most Recently Relevant to Health Maintenance [place] [place] [address] MEDICARE ADVANTAGE BCBS MEDICARE ADVANTAGE Advance Directives For more information, please contact: [phone] * Full Code (Latest Code Status on [...] by: Other (please documen t) Care Teams Credit Collections Specialist Relationship Specialty Start Date End Date Torres Mooney MD [address] [place] [address] PCP - General Family Medicine 11/13/23 Michael Negrete MD Cardiovascular Disease 11/08/21 Nadine Wong MD [address] [facility] [address] [place] [address] Assigned Heart and Vascular Provider 08/24/24
[2024-10-06 18:01] LABS: Eosinophils Percent Auto 0.2 % (0.0-7.0); Hematocrit 48.6 % (37.0-53.0); Immature Granulocytes Pct Auto 0.4 %; Lymphocytes Percent Auto 13.3 % (20-44); Mean Corpuscular HGB Conc 33 gm/dL (32-36); Mean Corpuscular Hemoglobin 32 pg (26-34); Mean Corpuscular Volume 98 fL (80-100); Monocytes Percent Auto 6.2 % (0.0-11.0); Neutrophils Percent Auto 79.9 % (42.0-72.0); Platelet Count* 181 K/uL (140-440); RDW Coefficient of Variation % 12.8 % (11.5-15.5); Red Blood Count 4.98 m/uL (4.30-5.90)
[2024-10-06 18:02] LABS: Slide Review Reflex No
[2024-10-06 19:07] LABS: Chloride* 103 mmol/L (96-114); Sodium* 138 mmol/L (135-149)
[2024-10-06 19:10] LABS: Creatinine* 0.8 mg/dL (0.5-1.5); Est. Creatinine Clearance* 77.63; Estimated Glomerular Filt Rate 94 ml/min
[2024-10-06 19:11] LABS: Anion Gap 7 mEq/L (7-15); Blood Urea Nitrogen* 22 mg/dL (7-30); Carbon Dioxide* 28 mmol/L (20-32); Glucose* 106 mg/dL (60-115)
[2024-10-06 19:14] LABS: C Reactive Protein* 3.5 mg/dL (0.5-1.0)
[2024-10-06 19:49] LABS: NT Pro B Type NatriureticPept* 480 pg/mL
--- NOTE | 2024-10-06 23:13 | PM.IMHP1 ---
Hospitalist- H&P: HPI History of Present Illness Time Seen by Provider: 22:40 Date Seen: 10/06/24 Chief complaint: SOB Narrative: Jose Padron is a 74 year old male with h/o cardiac ablation for afib, cardiomyopathy, AVRIL who was diagnosed with influenza on September 21 at which time he had fevers, cough, headache, and fatigue. While the fevers have resolved, he continues to feel unwell. Was seen near the end of September and started on prednisone. That was not helpful for him and he went to urgent care on 10/03/2024 and was sent over to the emergency department to get a CTA of his chest. That was unremarkable and it was noted that his O2 sats were slightly low at 89% on room air. He was discharged home on azithromycin. He took that but again noticed no improvement. He continues to have fatigue, cough, dyspnea on exertion, and complains of a weight loss of about 15-20 lb over the past 2 weeks. He is eating and able to keep down fluid. He notes that he is urinating although it is a bit dark. He denies any rashes, nausea, vomiting or diarrhea. He and his expressed concern and frustration that there is not more to be done to get him better faster. 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 I do note that he has tried an antibiotic, azithromycin, without improvement. Review of Systems Status of ROS: Reports: 10 or more systems reviewed and unremarkable except as noted in History and below [facility] Medical History (Updated 10/06/24 @ 23:43 by Karyn Jackson MD) History of cardioversion ?Z92.89 - Personal history of other medical treatment (ICD-10) Skin cancer ?C44.90 - Unspecified malignant neoplasm of skin, unspecified (ICD-10) Afib ?I48.91 - Unspecified atrial fibrillation (ICD-10) AVRIL (obstructive sleep apnea) ?G47.33 - Obstructive sleep apnea (adult) (pediatric) (ICD-10) Diffuse myofascial pain syndrome ?M79.18 - Myalgia, other site (ICD-10) Cardiomyopathy ?I42.9 - Cardiomyopathy, unspecified (ICD-10) GERD (gastroesophageal reflux disease) ?K21.9 - Gastro-esophageal reflux disease without esophagitis (ICD-10) Helicobacter pylori (H. pylori) ?A04.8 - Other specified bacterial intestinal infections (ICD-10) Sensorineural hearing loss, bilateral ?H90.3 - Sensorineural hearing loss, bilateral (ICD-10) Surgical History (Updated 10/06/24 @ 22:41 by Karyn Jackson MD) History of carpal tunnel release ?Z98.890 - Other specified postprocedural states (ICD-10) Previous back surgery ?Z98.890 - Other specified postprocedural states (ICD-10) Hx of appendectomy ?Z90.49 - Acquired absence of other specified parts of digestive tract (ICD-10) History of ankle surgery ?Z98.890 - Other specified postprocedural states (ICD-10) Status post catheter ablation of atrial fibrillation ?Z98.890 - Other specified postprocedural states (ICD-10) History of total left knee replacement ?Z96.652 - Presence of left artificial knee joint (ICD-10) History of esophagogastroduodenoscopy (EGD) ?Z98.890 - Other specified postprocedural states (ICD-10) H/O colonoscopy ?Z98.890 - Other specified postprocedural states (ICD-10) Family History (Updated 10/06/24 @ 22:41 by Karyn Jackson MD) Brother Myocardial infarction, Onset Age: 76 Social History (Updated 10/06/24 @ 23:40 by Karyn Jackson MD) 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 Denies tobacco, EtOH, recreational drugs. What is your current living situation?: I presently have a place to live Problems where you live: no known problems Problems where you live details: n/a In the past 12 months, utilities in danger of being shut off: no In past 12 months, lack of transportation kept you from medical appts, meetings, work, or getting things needed for daily living: no In the past 12 mos, have been you worried that your food would run out before you had money to buy more?: never true In the past 12 mos, the food you bought just didn't last and you didn't have money to buy more?: never true Smoking Status: Never smoker Do you use any of these nicotine containing products: None Second hand tobacco smoke exposure: No How often do you have a drink containing alcohol: 2-4 times a month How many standard drinks containing alcohol do you have on a typical day: 1 or 2 How often do you have six or more drinks on one occasion: Never AUDIT-C Alcohol total score: 2 Non-prescribed substance use: denies use Caffeine: Yes (coffee) How often does anyone, including family, friends and others, physically hurt you: never How often does anyone, including family, friends and others, insult or talk down to you: never How often does anyone, including family, friends and others, threaten you with harm: never How often does anyone, including family, friends and others, scream or curse at you: never service: No Meds Home Medications and Allergies Home Medication Comments: none Allergies Allergy/AdvReac Type Severity Reaction Status Date / Time No Known Drug Allergies Allergy Verified 10/06/24 17:05 Exam Narrative: Exam Narrative: General: No acute distress. Awake alert oriented x3. HEENT: Normocephalic atraumatic, pupils equally round and reactive to light and accommodation. Oropharynx clear. Mucous membranes are moist. No cervical lymphadenopathy, thyromegaly or carotid bruits. No JVD. Cardiovascular: Regular rate and rhythm. No murmurs, gallops, or rubs. Chest: No increased work of breathing. Clear to auscultation bilaterally. No crackles or wheezes. Abdomen: Bowel sounds present. Soft, nondistended, nontender. No hepatosplenomegaly or masses. Extremities: No edema, no cyanosis or clubbing. Skin: No jaundice, no pallor, no rashes on visible skin Const: Vital Signs, click to edit/add: Vital Signs - 24 hr 10/06/24 16:58 10/06/24 17:16 10/06/24 17:30 Temperature 97.1 F L 97.1 F L Pulse Rate [Pulse Oximeter] 83 83 Respiratory Rate 21 24 24 Blood Pressure [Le ft Arm] Blood Pressure [Ri ght Upper Arm] 117/91 H 117/91 H Pulse Oximetry 90 90 90 Oxygen Delivery Me thod Room Air Room Air Room Air Oxygen Flow Rate 10/06/24 17:30 10/06/24 18:04 10/06/24 18:05 Temperature Pulse Rate [Pulse Oximeter] Respiratory Rate 22 Blood Pressure [Le ft Arm] Blood Pressure [Ri ght Upper Arm] Pulse Oximetry 90 90 90 Oxygen Delivery Me thod Nasal Cannula Oxygen Flow Rate 2 10/06/24 18:09 10/06/24 19:00 10/06/24 20:54 Temperature Pulse Rate [Pulse Oximeter] 76 74 76 Respiratory Rate 22 24 22 Blood Pressure [Le ft Arm] Blood Pressure [Ri ght Upper Arm] 106/79 110/67 104/76 Pulse Oximetry 91 90 92 Oxygen Delivery Me thod Nasal Cannula Nasal Cannula Nasal Cannula Oxygen Flow Rate 2 2 2 10/06/24 20:59 Temperature 98.3 F Pulse Rate [Pulse Oximeter] 81 Respiratory Rate 20 Blood Pressure [Le ft Arm] 136/81 Blood Pressure [Ri ght Upper Arm] Pulse Oximetry 91 Oxygen Delivery Me thod Nasal Cannula Oxygen Flow Rate 3 Hospitalist - H&P: Result Labs Labs: Short CBC 10/06/24 Range/Units Unknown WBC 12.00 H (4.50-11.00) K/uL Hgb 16.0 (13.5-17.5) gm/dL Hct 48.6 (37.0-53.0) % Plt Count 181 (140-440) K/uL BMP 10/06/24 Unknown Sodium 138 Potassium 4.0 Chloride 103 Carbon Dioxide 28 BUN 22 Creatinine 0.8 Glucose 106 Calcium 9.0 10/06/2024 EKG: Sinus rhythm with first-degree AV block with premature supraventricular complexes and with occasional premature ventricular complexes, 82 beats per minute. Ordering Physician: Blade Gupta M.D. Date of Service: 10/06/24 Procedure(s): XR chest 2V Accession Number(s): [id number] cc: Torres Mooney M.D.; Blade Gupta M.D.~ For Patients: As a result of the Century Cures Act, medical imaging exams and procedure reports are released immediately into your electronic medical record. You may view this report before your referring provider. If you have questions, please contact your health care provider. INDICATION: Cough and hypoxia, influenza a. TECHNIQUE: Chest 2 views. COMPARISON: October 03, 2024. FINDINGS: Cardiovascular and mediastinum: Cardiomediastinal silhouette is within normal limits. Lungs and pleural spaces: Mild subtle perihilar interstitial opacities. No sign of pleural effusion. No pneumothorax. Bones and soft tissues: No significant findings. IMPRESSION: Mild subtle perihilar interstitial opacities may be related to viral infection, or other airways disease. Dictated by Melissa Bueno MD @ 10/06/2024 6:58:39 PM (Electronically Signed) Assessment and Plan Assessment and plan (1) Acute hypoxemic respiratory failure: Status: Acute (2) Influenza A: Status: Acute (3) Dyspnea: Status: Acute Plan 74-year-old male with prolonged influenza illness, worsening dyspnea likely secondary to viral pneumonia. Does have a mildly elevated white blood count, no fevers, CRP mildly elevated. Has a cardiac history of atrial fibrillation status post ablation for which he is no longer on anticoagulation and cardiomyopathy. EKG, recent chest CTA, chest x-ray are reviewed. I do not think another antibiotic would be helpful at this point. We will try a neb, however he is not tight or wheezy and so I do not think this will be helpful either. Obtain echocardiogram to look for worsening cardiomyopathy or viral endocarditis. Admit for observation, supplemental oxygen.
--- NOTE | 2024-10-06 23:22 | PM.IMHP1 ---
Hospitalist- H&P: HPI History of Present Illness Date Seen: 10/06/24 Chief complaint: SOB Narrative: Jose Padron is a 74 [address] [facility] Medical History (Updated 10/06/24 @ 22:41 by Karyn Jackson MD) History of cardioversion ?Z92.89 - Personal history of other medical treatment (ICD-10) Skin cancer ?C44.90 - Unspecified malignant neoplasm of skin, unspecified (ICD-10) Afib ?I48.91 - Unspecified atrial fibrillation (ICD-10) AVRIL (obstructive sleep apnea) ?G47.33 - Obstructive sleep apnea (adult) (pediatric) (ICD-10) Diffuse myofascial pain syndrome ?M79.18 - Myalgia, other site (ICD-10) Cardiomyopathy ?I42.9 - Cardiomyopathy, unspecified (ICD-10) GERD (gastroesophageal reflux disease) ?K21.9 - Gastro-esophageal reflux disease without esophagitis (ICD-10) Helicobacter pylori (H. pylori) ?A04.8 - Other specified bacterial intestinal infections (ICD-10) Sensorineural hearing loss, bilateral ?H90.3 - Sensorineural hearing loss, bilateral (ICD-10) Surgical History (Updated 10/06/24 @ 22:41 by Karyn Jackson MD) History of carpal tunnel release ?Z98.890 - Other specified postprocedural states (ICD-10) Previous back surgery ?Z98.890 - Other specified postprocedural states (ICD-10) Hx of appendectomy ?Z90.49 - Acquired absence of other specified parts of digestive tract (ICD-10) History of ankle surgery ?Z98.890 - Other specified postprocedural states (ICD-10) Status post catheter ablation of atrial fibrillation ?Z98.890 - Other specified postprocedural states (ICD-10) History of total left knee replacement ?Z96.652 - Presence of left artificial knee joint (ICD-10) History of esophagogastroduodenoscopy (EGD) ?Z98.890 - Other specified postprocedural states (ICD-10) H/O colonoscopy ?Z98.890 - Other specified postprocedural states (ICD-10) Family History (Updated 10/06/24 @ 22:41 by Karyn Jackson MD) Brother Myocardial infarction, Onset Age: 76 Social History What is your current living situation?: I presently have a place to live Problems where you live: no known problems Problems where you live details: n/a In the past 12 months, utilities in danger of being shut off: no In past 12 months, lack of transportation kept you from medical appts, meetings, work, or getting things needed for daily living: no In the past 12 mos, have been you worried that your food would run out before you had money to buy more?: never true In the past 12 mos, the food you bought just didn't last and you didn't have money to buy more?: never true Smoking Status: Never smoker Do you use any of these nicotine containing products: None Second hand tobacco smoke exposure: No How often do you have a drink containing alcohol: 2-4 times a month How many standard drinks containing alcohol do you have on a typical day: 1 or 2 How often do you have six or more drinks on one occasion: Never AUDIT-C Alcohol total score: 2 Non-prescribed substance use: denies use Caffeine: Yes (coffee) How often does anyone, including family, friends and others, physically hurt you: never How often does anyone, including family, friends and others, insult or talk down to you: never How often does anyone, including family, friends and others, threaten you with harm: never How often does anyone, including family, friends and others, scream or curse at you: never service: No Meds Home Medications and Allergies Allergies Allergy/AdvReac Type Severity Reaction Status Date / Time No Known Drug Allergies Allergy Verified 10/06/24 17:05 Exam Const: Vital Signs, click to edit/add: Vital Signs - 24 hr 10/06/24 16:58 10/06/24 17:16 10/06/24 17:30 Temperature 97.1 F L 97.1 F L Pulse Rate [Pulse Oximeter] 83 83 Respiratory Rate 21 24 24 Blood Pressure [Le ft Arm] Blood Pressure [Ri ght Upper Arm] 117/91 H 117/91 H Pulse Oximetry 90 90 90 Oxygen Delivery Me thod Room Air Room Air Room Air Oxygen Flow Rate 10/06/24 17:30 10/06/24 18:04 10/06/24 18:05 Temperature Pulse Rate [Pulse Oximeter] Respiratory Rate 22 Blood Pressure [Le ft Arm] Blood Pressure [Ri ght Upper Arm] Pulse Oximetry 90 90 90 Oxygen Delivery Me thod Nasal Cannula Oxygen Flow Rate 2 10/06/24 18:09 10/06/24 19:00 10/06/24 20:54 Temperature Pulse Rate [Pulse Oximeter] 76 74 76 Respiratory Rate 22 24 22 Blood Pressure [Le ft Arm] Blood Pressure [Ri ght Upper Arm] 106/79 110/67 104/76 Pulse Oximetry 91 90 92 Oxygen Delivery Me thod Nasal Cannula Nasal Cannula Nasal Cannula Oxygen Flow Rate 2 2 2 10/06/24 20:59 Temperature 98.3 F Pulse Rate [Pulse Oximeter] 81 Respiratory Rate 20 Blood Pressure [Le ft Arm] 136/81 Blood Pressure [Ri ght Upper Arm] Pulse Oximetry 91 Oxygen Delivery Me thod Nasal Cannula Oxygen Flow Rate 3 Hospitalist - H&P: Result Labs Labs: Short CBC 10/06/24 Range/Units Unknown WBC 12.00 H (4.50-11.00) K/uL Hgb 16.0 (13.5-17.5) gm/dL Hct 48.6 (37.0-53.0) % Plt Count 181 (140-440) K/uL BMP 10/06/24 Unknown Sodium 138 Potassium 4.0 Chloride 103 Carbon Dioxide 28 BUN 22 Creatinine 0.8 Glucose 106 Calcium 9.0
[2024-10-06] MEDS: ACETAMINOPHEN 325 MG TABLET 975 MG PO (23:32)
[2024-10-06] MEDS: ALBUTEROL SULFATE 2.5 MG/3 ML VIAL.NEB NEB (23:33)
[2024-10-07] VITALS (10 sets, daily range): BP systolic 91–118; BP diastolic 67–99; PULSE 74–87; RESP 18–23; TEMP 36.6–36.8; O2SAT 90–93
--- NOTE | 2024-10-07 07:05 | PC.NURSE ---
Shift note ([id number]): Patient admitted at 2100 from ED. Pleasant, alert and oriented. On droplet precautions for Influenza A. O2 sats 91-92% on 3 LPM via NC. Given PRN Tylenol for c/o headache rated 3/10. here at bedside.?
[2024-10-07] MEDS: SODIUM CHLORIDE 0.9 % (FLUSH) 10 ML SYRINGE 5 ML IVF ×2 (08:35→20:29)
[2024-10-07 09:24] LABS: PCR FLU A Negative PCR FLU A (Negative); PCR FLU B Negative PCR FLU B (Negative); PCR RSV Negative PCR RSV (Negative); SARS PCR* Negative SARS-CoV-2 (Negative)
--- NOTE | 2024-10-07 10:40 | PM.IMPN1 ---
Progress Note: A&P Assessment and plan (1) Acute hypoxemic respiratory failure: Problem details: likely related to viral process; will check echo to confirm no virus mediated cardiomyopathy continue NC oxygen with nebs/vib peep, appreciate RT support no abx, steroids, or antivirals ordered follow clinical progress, fever curve, etc to determine if abx are indicated Status: Acute (2) Influenza A: Problem details: resolved by PCR still hypoxic, see above Status: Acute (3) History of atrial fibrillation: Problem details: -now in sinus -s/p multiple ablations and cardioversion. final ablation in 04/25 in the appendage seems to have finally worked for permanent sinus. now off OAC, rate control, rhythm control medications. -Stage 3C/Longstanding persistent atrial fibrillation, atrial flutters, atrial tachycardias - symptomatic with exertional dyspnea. Associated with resolved tachycardia-mediated cardiomyopathy. Status: Acute (4) AVRIL (obstructive sleep apnea): Problem details: January 2022 sleep study shows moderate AVRIL especially when supine or in rem sleep. CPAP advised. Status: Acute Subjective Date Seen: 10/07/24 Interval history: Daily Progress Note - Hospital Medicine Day #: 2 CC: acute hypoxic resp failure 24 HOUR UPDATE: comfortable at rest; still hypoxic on 3L and desats with activity. Notable Labs, Micro, Rads, Interventions: Afebrile. Blood pressure 102/77, 118/77. Pulse in the 70s. Respiratory rate 18 to 22. Satting 90-93% on 3 L. Weight 95 kilos. CBC shows about the same elevated white blood cell count. Hemoglobin is stable. Platelets are stable. I reviewed the D-dimer that was elevated on 10/03 and resultant CTA. Electrolytes are all normal as is renal function. CRP 3.5. BNP 480. Patient is now negative PCR for flu A. Was positive on 10/03. Negative for COVID. Chest x-ray on admission showed mild subtle perihilar interstitial opacities. Likely viral infection or other airway disease. Patient has been in sinus rhythm since arrival Objective: He looks well. He is resting comfortably. He can visit without getting short of breath. Vitals: see above Lungs: Rhonchi in the bases. Cardiac: S1S2. Regular Disposition/Potential discharge - Likely home in 1-2 days. Today I spent 50minutes seeing the patient, reviewing [facility] and [facility] notes/diagnostics, discussing the care plan with our care time that includes social work, PT/OT, pharmacy, RT, care home and documenting my impressions and plan in the medical record. Pt is s/p PVI from 04/[address] Marvin [email or web address] 1 Prior ablations: 04/24/2024 - AMINA AT/AFL, lateral RA/CT AFL, SVC-RA AT/AFL, lateral mitral isthmus AT (myself) 05/22/2023 - EAT anterior LA-AMINA base AT, left anterior jarrett/ligament of [place] AT, superior anterior RA-SVC AT, 4th AT mapped deep AMINA (pace terminated, not ablated). Prior PVI, PWI, LSPV-MVA, CTI ablations intact (Dr. Nirav uCba) 04/30/2022 - PWI, LSPV-anterior mitral isthmus, LA septal substrate modification (Dr. Nirav [place]) 03/10/2018 - cryoablation PVI, ablation of superior anterior RA-SVC AT, CTI ablation (Dr. Nirav [place]) - continue apixaban 5mg twice daily. Given his [id number] 1, the assisted risk-benefit balance of therapeutic anticoagulation is indeterminate - he will consider whether or not he will continue or stop apixaban. We also discussed the option for implantable loop recorder (ILR) for longer term monitoring for recurrent atrial fibrillation and/or atrial flutter - continue intermittent monitoring via Kardia - rhythm control as above Follow up: follow-up with Dr. Negrete in cardiology in 1 year. EP follow-up as needed for now. Exam Const: Vital Signs, click to edit/add: Vital Signs - 24 hr 10/06/24 16:58 10/06/24 17:16 10/06/24 17:30 Temperature 97.1 F L 97.1 F L Pulse Rate Pulse Rate [Pulse Oximeter] 83 83 Respiratory Rate 21 24 24 Blood Pressure [Le ft Arm] Blood Pressure [Ri ght Upper Arm] 117/91 H 117/91 H Pulse Oximetry 90 90 90 Oxygen Delivery Me thod Room Air Room Air Room Air Oxygen Flow Rate 10/06/24 17:30 10/06/24 18:04 10/06/24 18:05 Temperature Pulse Rate Pulse Rate [Pulse Oximeter] Respiratory Rate 22 Blood Pressure [Le ft Arm] Blood Pressure [Ri ght Upper Arm] Pulse Oximetry 90 90 90 Oxygen Delivery Me thod Nasal Cannula Oxygen Flow Rate 2 10/06/24 18:09 10/06/24 19:00 10/06/24 20:54 Temperature Pulse Rate Pulse Rate [Pulse Oximeter] 76 74 76 Respiratory Rate 22 24 22 Blood Pressure [Le ft Arm] Blood Pressure [Ri ght Upper Arm] 106/79 110/67 104/76 Pulse Oximetry 91 90 92 Oxygen Delivery Me thod Nasal Cannula Nasal Cannula Nasal Cannula Oxygen Flow Rate 2 2 2 10/06/24 20:59 10/06/24 20:59 10/06/24 23:00 Temperature 98.3 F 98.7 F Pulse Rate Pulse Rate [Pulse Oximeter] 81 83 Respiratory Rate 20 20 Blood Pressure [Le ft Arm] 136/81 116/89 Blood Pressure [Ri ght Upper Arm] Pulse Oximetry 91 91 Oxygen Delivery Me thod Nasal Cannula Nasal Cannula Nasal Cannula Oxygen Flow Rate 3 3 3 10/07/24 03:00 10/07/24 04:10 10/07/24 07:00 Temperature 97.8 F Pulse Rate 74 75 Pulse Rate [Pulse Oximeter] 78 Respiratory Rate 23 Blood Pressure [Le ft Arm] 107/88 Blood Pressure [Ri ght Upper Arm] Pulse Oximetry 92 Oxygen Delivery Me thod Nasal Cannula Oxygen Flow Rate 3 10/07/24 08:00 10/07/24 08:00 10/07/24 08:25 Temperature 97.9 F Pulse Rate Pulse Rate [Pulse Oximeter] 87 87 Respiratory Rate 18 18 18 Blood Pressure [Le ft Arm] 118/77 Blood Pressure [Ri ght Upper Arm] Pulse Oximetry 90 90 Oxygen Delivery Me thod Nasal Cannula Nasal Cannula Oxygen Flow Rate 3 3 Labs Labs: Laboratory Results - last 24 hr 10/06/24 10/06/24 10/06/24 22:53 Unknown Unknown WBC 12.00 H RBC 4.98 Hgb 16.0 Hct 48.6 MCV 98 MCH 32 MCHC 33 RDW Coeff of Wilber 12.8 Plt Count 181 Neut % (Auto) 79.9 H Lymph % (Auto) 13.3 L [place] % (Auto) 6.2 Eos % (Auto) 0.2 Baso % (Auto) 0.0 Neut # (Auto) 9.60 H Lymph # (Auto) 1.60 [place] # (Auto) 0.70 Eos # (Auto) 0.00 Baso # (Auto) 0.00 Abs Immat Gran (auto) 0.00 Imm/Tot Granulo (auto) 0.4 Sodium 138 Potassium 4.0 Chloride 103 Carbon Dioxide 28 Anion Gap 7 BUN 22 Creatinine 0.8 Estimated Creat Clear 77.63 Estimated GFR 94 Glucose 106 Calcium 9.0 C-Reactive Protein 3.5 H NT-Pro-B Natriuret Pep 480 Cancelled SARS-CoV-2 (PCR) Negative SARS-CoV-2 Influenza Type A (PCR) Negative PCR FLU A Influenza Type B (PCR) Negative PCR FLU B RSV (PCR) Negative PCR RSV
[2024-10-07] MEDS: ACETAMINOPHEN 325 MG TABLET 975 MG PO ×2 (10:44→18:21)
--- NOTE | 2024-10-07 11:30 | RESP.RT ---
BBS lungs diminished all daniel with end expiratory grunt noted. Patient stated with IS and PEP therapy. PEP with good effort and good chest shake, IS with good effort 2500 with flow bounceing in center. Both promoted spontaneous productive cough with creme colored secretions.
[2024-10-07 12:59] LABS: Creatine Kinase* 95 U/L (54-186)
[2024-10-07 13:12] LABS: Troponin I* 0.04 ng/mL (0.01-0.04)
[2024-10-07] MEDS: IBUPROFEN 400 MG TABLET PO (13:45)
[2024-10-07] MEDS: IPRAT-ALBUT 0.5-2.5 MG/3 ML NEB 1 NEB IH ×2 (17:06→22:20)
--- NOTE | 2024-10-07 18:46 | PC.NURSE ---
End of Shift ([id number]): Patient pleasant and cooperative, A&O. VSS, afebrile. SpO2 maintained above 90% on 3L via nasal cannula. Patient has reported a headache throughout the shift, managed with PRN medication, see MAR. Tolerating regular diet. SBA.?
[2024-10-07 18:57] LABS: Magnesium* 2.5 mg/dL (1.5-2.6)
[2024-10-08] VITALS (11 sets, daily range): BP systolic 99–116; BP diastolic 56–76; PULSE 79–93; RESP 18; TEMP 36.4–37.3; O2SAT 89–93
[2024-10-08] MEDS: IPRAT-ALBUT 0.5-2.5 MG/3 ML NEB 1 NEB IH ×4 (04:25→22:29)
[2024-10-08 06:58] LABS: Basophils Absolute Auto 0.01 K/uL (0.00-0.30); Basophils Percent Auto 0.1 % (0.0-3.0); Eosinophils Absolute Auto 0.12 K/uL (0.00-0.50); Eosinophils Percent Auto 1.6 % (0.0-7.0); Hematocrit 43.6 % (37.0-53.0); Hemoglobin* 14.6 gm/dL (13.5-17.5); Immature Granulocytes Pct Auto 1.4 %; Mean Corpuscular HGB Conc 34 gm/dL (32-36); Mean Corpuscular Hemoglobin 32 pg (26-34); Mean Corpuscular Volume 97 fL (80-100); Monocytes Percent Auto 7.3 % (0.0-11.0); Neutrophils Percent Auto 76.6 % (42.0-72.0); Platelet Count* 194 K/uL (140-440); RDW Coefficient of Variation % 12.7 % (11.5-15.5); Red Blood Count 4.51 m/uL (4.30-5.90); White Blood Count* 7.38 K/uL (4.50-11.00)
--- NOTE | 2024-10-08 07:00 | PC.NURSE ---
: pleasant and cooperative. Indep in rm, at bedside. Pt remains on 3L NC, sats low 90s. LS wheezy. Occasionally productive cough, working on Aerobika & IS. VSS. Pt denied pain, declined offer for Tylenol and/or ibuprofen, stated he was feeling ?fine?
[2024-10-08 07:01] LABS: HCO3 VBG 29 mmol/L (21-28); PCO2 VBG 44 mmHG (40-50); pH VBG 7.422 (7.32-7.43)
[2024-10-08 07:08] LABS: Slide Review Reflex No
[2024-10-08 07:22] LABS: Chloride* 102 mmol/L (96-114); Potassium* 4.4 mmol/L (3.6-5.1); Sodium* 136 mmol/L (135-149)
[2024-10-08 07:25] LABS: Anion Gap 8 mEq/L (7-15); Carbon Dioxide* 26 mmol/L (20-32); Cholesterol* 150 mg/dL (90-199); Creatinine* 0.7 mg/dL (0.5-1.5); Est. Creatinine Clearance* 77.63; Estimated Glomerular Filt Rate 98 ml/min
[2024-10-08 07:26] LABS: Blood Urea Nitrogen* 14 mg/dL (7-30); Calcium* 8.3 mg/dL (8.4-10.6); Glucose* 102 mg/dL (60-115); HDL Cholesterol* 31 mg/dL (>=40); LDL Cholesterol Calculated 99 mg/dL (<100); Triglycerides* 100 mg/dL (40-149)
[2024-10-08] MEDS: IBUPROFEN 400 MG TABLET PO ×2 (07:40→20:22)
[2024-10-08] MEDS: SODIUM CHLORIDE 0.9 % (FLUSH) 10 ML SYRINGE 5 ML IVF ×2 (09:29→20:22)
--- NOTE | 2024-10-08 10:27 | PM.IMPN1 ---
Progress Note: A&P Assessment and plan (1) Acute hypoxemic respiratory failure: Problem details: -likely related to viral process -reassuring TTE, CTA, CXR -RT following, utilizing nebs, IS, Aerobika -slowly improving, continues to require supplemental oxygen at rest Status: Acute (2) Influenza A: Problem details: -resolved by PCR 10/06/24 Status: Acute (3) History of atrial fibrillation: Problem details: -in SR during stay -s/p multiple ablations and cardioversion, ablation 04/25 in the appendage seems to have finally worked for permanent sinus, off OAC and rate/rhythm control meds -Stage 3C/Longstanding persistent atrial fibrillation, atrial flutters, atrial tachycardias, associated with resolved tachycardia-mediated cardiomyopathy. Status: Acute (4) AVRIL (obstructive sleep apnea): Problem details: -January 2022 sleep study shows moderate AVRIL especially when supine or in REM sleep, CPAP advised -outpatient f/u with PCP Status: Acute Plan - continue to wean off of supplemental oxygen as tolerated - home when stable on RA at rest with PCP f/u for the above mentioned comorbidities Subjective Date Seen: 10/08/24 Interval history: Jose was admitted to the hospital on 10/06/2024 for acute hypoxic respiratory failure in the setting of recent influenza A infection. Workup has included CTA, chest x-ray, and echocardiogram; all without acute abnormalities and all consistent with viral source of hypoxia. Labs are also reassuring. He continues to feel a little better each day; continues to require supplemental oxygen at rest and has fairly significant dyspnea with exertion (even just walking to the bathroom). Remains in Sinus Rhythm. Exam Narrative: Exam Narrative: GEN: Alert and oriented, speaking in full sentences without dyspnea. HEENT: EOMIs bilaterally, no scleral icterus CV: RRR, No concerning murmurs R: Bibasilar rhonchi, clear apices, no wheezing Ext: wwp, no concerning edema Skin: No concerning skin lesions or rashes on exposed skin Neuro: Nonfocal Psych: Appropriate Const: Vital Signs, click to edit/add: Vital Signs - 24 hr 10/07/24 11:27 10/07/24 11:50 10/07/24 15:00 Temperature 98.1 F Pulse Rate 78 Pulse Rate [Pulse Oximeter] 78 Respiratory Rate 22 18 Blood Pressure [Le ft Arm] 102/77 Pulse Oximetry 93 92 Oxygen Delivery Me thod Nasal Cannula Nasal Cannula Oxygen Flow Rate 3 3 10/07/24 15:00 10/07/24 15:00 10/07/24 15:00 Temperature 98.2 F Pulse Rate Pulse Rate [Pulse Oximeter] 74 74 Respiratory Rate 18 18 18 Blood Pressure [Le ft Arm] 105/80 Pulse Oximetry 91 91 Oxygen Delivery Me thod Nasal Cannula Nasal Cannula Oxygen Flow Rate 3 3 10/07/24 19:30 10/07/24 23:00 10/07/24 23:00 Temperature 97.9 F Pulse Rate Pulse Rate [Pulse Oximeter] 84 75 Respiratory Rate 18 20 20 Blood Pressure [Le ft Arm] 110/99 H 91/67 Pulse Oximetry 92 91 91 Oxygen Delivery Me thod Nasal Cannula Nasal Cannula Nasal Cannula Oxygen Flow Rate 3 3 3 10/07/24 23:00 10/08/24 04:15 10/08/24 07:30 Temperature 98 F 98.0 F Pulse Rate Pulse Rate [Pulse Oximeter] 79 83 Respiratory Rate 20 18 18 Blood Pressure [Le ft Arm] 112/56 L 116/73 Pulse Oximetry 92 92 Oxygen Delivery Me thod Nasal Cannula Nasal Cannula Oxygen Flow Rate 3 3 10/08/24 07:30 10/08/24 07:52 Temperature Pulse Rate Pulse Rate [Pulse Oximeter] 83 Respiratory Rate 18 18 Blood Pressure [Le ft Arm] Pulse Oximetry 92 Oxygen Delivery Me thod Nasal Cannula Oxygen Flow Rate 3 Labs Labs: Laboratory Results - last 24 hr 10/06/19 10/06/24 10/07/24 17:44 Unknown 12:24 WBC RBC Hgb Hct MCV MCH MCHC RDW Coeff of Wilber Plt Count Neut % (Auto) Lymph % (Auto) [place] % (Auto) Eos % (Auto) Baso % (Auto) Neut # (Auto) Lymph # (Auto) [place] # (Auto) Eos # (Auto) Baso # (Auto) Abs Immat Gran (auto) Imm/Tot Granulo (auto) VBG pH VBG pCO2 VBG pO2 VBG HCO3 Sodium Potassium Chloride Carbon Dioxide Anion Gap BUN Creatinine Estimated Creat Clear Estimated GFR Glucose Calcium Magnesium 2.5 Total Creatine Kinase 95 Troponin I 0.04 Triglycerides Cholesterol LDL Cholesterol, Calc HDL Cholesterol TSH 2.100 Lab Acknowledgement Test Added 10/07/24 10/08/24 16:51 06:21 WBC 7.38 RBC 4.51 Hgb 14.6 Hct 43.6 MCV 97 MCH 32 MCHC 34 RDW Coeff of Wilber 12.7 Plt Count 194 Neut % (Auto) 76.6 H Lymph % (Auto) 13.0 L [place] % (Auto) 7.3 Eos % (Auto) 1.6 Baso % (Auto) 0.1 Neut # (Auto) 5.70 Lymph # (Auto) 1.00 [place] # (Auto) 0.50 Eos # (Auto) 0.12 Baso # (Auto) 0.01 Abs Immat Gran (auto) 0.10 Imm/Tot Granulo (auto) 1.4 VBG pH 7.422 VBG pCO2 44 VBG pO2 37.0 VBG HCO3 29 H Sodium 136 Potassium 4.4 Chloride 102 Carbon Dioxide 26 Anion Gap 8 BUN 14 Creatinine 0.7 Estimated Creat Clear 77.63 Estimated GFR 98 Glucose 102 Calcium 8.3 L Magnesium Total Creatine Kinase Troponin I Triglycerides 100 Cholesterol 150 LDL Cholesterol, Calc 99 HDL Cholesterol 31 L TSH Lab Acknowledgement Test Added
[2024-10-08] MEDS: ACETAMINOPHEN 325 MG TABLET 975 MG PO ×2 (17:34→22:29)
--- NOTE | 2024-10-08 19:01 | PC.NURSE ---
End of Shift: Patient pleasant and cooperative, A&O. VSS, afebrile. Initiated hi-flow O2 this shift due to patient reporting SOB at rest. Patient reported pain in his back this shift, managed by PRN medication, see MAR. Independent in room. ?
[2024-10-08] MEDS: guaiFENesin 600 MG TAB.ER.12H PO (20:22)
[2024-10-09] VITALS (16 sets, daily range): BP systolic 100–116; BP diastolic 65–79; PULSE 72–93; RESP 16–20; TEMP 36.4–37; O2SAT 84–96
[2024-10-09] MEDS: ACETAMINOPHEN 325 MG TABLET 975 MG PO ×3 (04:08→22:33)
[2024-10-09] MEDS: IPRAT-ALBUT 0.5-2.5 MG/3 ML NEB 1 NEB IH ×4 (04:08→22:34)
[2024-10-09] MEDS: IBUPROFEN 400 MG TABLET PO ×4 (04:09→22:34)
[2024-10-09 06:16] LABS: Basophils Percent Auto 0.1 % (0.0-3.0); Eosinophils Percent Auto 0.8 % (0.0-7.0); HCO3 VBG 29 mmol/L (21-28); Hematocrit 42.2 % (37.0-53.0); Hemoglobin* 14.1 gm/dL (13.5-17.5); Immature Granulocytes Pct Auto 0.7 %; Lymphocytes Percent Auto 10.1 % (20-44); Mean Corpuscular HGB Conc 33 gm/dL (32-36); Mean Corpuscular Hemoglobin 32 pg (26-34); Mean Corpuscular Volume 96 fL (80-100); Monocytes Percent Auto 7.7 % (0.0-11.0); Neutrophils Percent Auto 80.6 % (42.0-72.0); PCO2 VBG 45 mmHG (40-50); PO2 VBG 42.5 mmHG (25-47); Platelet Count* 201 K/uL (140-440); RDW Coefficient of Variation % 12.9 % (11.5-15.5); Red Blood Count 4.38 m/uL (4.30-5.90); White Blood Count* 11.17 K/uL (4.50-11.00); pH VBG 7.407 (7.32-7.43)
[2024-10-09 06:32] LABS: Slide Review Reflex No
--- NOTE | 2024-10-09 06:46 | PC.NURSE ---
19-: pleasant and cooperative. Indep in room, calls appropriately if he needs assistance with tubing. Pt on HFNC 35/45, O2 sats in the low 90s. Pt walked the halls x 1, tolerated well, O2 was monitored during ambulation, sats >89% on 3L NC & HR 90s. Tylenol & Ibuprofen given for back pain.
[2024-10-09 06:54] LABS: Chloride* 102 mmol/L (96-114)
[2024-10-09 06:55] LABS: Potassium* 4.1 mmol/L (3.6-5.1); Sodium* 136 mmol/L (135-149)
[2024-10-09 06:57] LABS: Creatinine* 0.7 mg/dL (0.5-1.5); Est. Creatinine Clearance* 77.63; Estimated Glomerular Filt Rate 98 ml/min
[2024-10-09 06:58] LABS: Anion Gap 6 mEq/L (7-15); Blood Urea Nitrogen* 14 mg/dL (7-30); Calcium* 8.3 mg/dL (8.4-10.6); Carbon Dioxide* 28 mmol/L (20-32); Glucose* 114 mg/dL (60-115)
[2024-10-09] MEDS: guaiFENesin 600 MG TAB.ER.12H PO ×2 (08:52→20:36)
[2024-10-09] MEDS: SODIUM CHLORIDE 0.9 % (FLUSH) 10 ML SYRINGE 5 ML IVF ×2 (08:53→20:36)
--- NOTE | 2024-10-09 10:34 | P.IMPN_ITS ---
Progress Note: A&P Assessment and plan (1) Acute hypoxemic respiratory failure: Problem details: -likely related to viral process, recent influenza A (negative PCR as of 10/06) -reassuring TTE, CTA, CXR -RT following, utilizing nebs, IS, Aerobika, high-flow for humidification/muco pulmonary -slowly improving, plan to discharge home when on room air Status: Acute (2) Influenza A: Problem details: -resolved by PCR 10/06/24 Status: Acute (3) History of atrial fibrillation: Problem details: -in NSR during stay -s/p multiple ablations and cardioversion, ablation 04/25 in the appendage seems to have finally worked for permanent sinus, off OAC and rate/rhythm control meds -Stage 3C/Longstanding persistent atrial fibrillation, atrial flutters, atrial tachycardias, associated with resolved tachycardia-mediated cardiomyopathy. Status: Acute (4) AVRIL (obstructive sleep apnea): Problem details: -January 2022 sleep study shows moderate AVRIL especially when supine or in REM sleep, CPAP advised -outpatient f/u with PCP Status: Acute Time Spent With Patient Total time spent: Today I spent 45 minutes seeing the patient, discussing the patient with ER staff, reviewing Expanse and Epic notes/diagnostics, discussing the care plan with our team that includes social work, PT/OT, pharmacy, RT, retirement a nd documenting my impressions and plan in the medical record. Subjective Date Seen: 10/09/24 Interval history: Patient is seen sitting in bed this morning. Change from nasal cannula to high- flow to improve humidification and clearance. Using aerobika, mucinex. Reports improved breathing, bring up more sputum. Remains afebrile. Tolerating orals without nausea vomiting. Hoping to continue to wean from oxygen needs and discharge home this weekend Exam Narrative: Exam Narrative: PHYSICAL EXAM General: Pleasant, conversant, NAD HEENT: Normocephalic, atraumatic, sclera white, EOMI, oral mucosa moist Cardiovascular: RRR, S1S2. No pitting edema Pulmonary: Coarse throughout, mild expiratory wheezes, no dyspnea on high-flow Neurological: Alert, answering questions appropriately, cranial nerves intact, no focal findings Extremities: No gross joint deformity or swelling. AROMI. Neurovascularly intact Skin: Warm, dry. Const: Vital Signs, click to edit/add: Vital Signs - 24 hr 10/08/24 11:48 10/08/24 15:27 10/08/24 15:31 Temperature 98.1 F 98.4 F Pulse Rate [Pulse Oximeter] 89 83 Respiratory Rate 18 18 18 Blood Pressure [Le ft Arm] 116/72 114/67 Pulse Oximetry 90 90 90 Oxygen Delivery Me thod Nasal Cannula Nasal Cannula Nasal Cannula Oxygen Flow Rate 3 2.5 2.5 Fraction of Inspir ed Oxygen 10/08/24 15:31 10/08/24 17:25 10/08/24 20:00 Temperature 99.2 F Pulse Rate [Pulse Oximeter] 83 91 Respiratory Rate 18 18 Blood Pressure [Le ft Arm] 99/76 Pulse Oximetry 92 Oxygen Delivery Me thod High Flow Nasal Ca nnula Oxygen Flow Rate 30 30 Fraction of Inspir ed Oxygen 0.40 40 10/08/24 20:54 10/08/24 22:51 10/08/24 22:52 Temperature 97.5 F L Pulse Rate [Pulse Oximeter] 93 Respiratory Rate 18 18 Blood Pressure [Le ft Arm] 116/75 Pulse Oximetry 93 93 Oxygen Delivery Me thod High Flow Nasal Ca nnula High Flow Nasal Ca nnula Oxygen Flow Rate 30 30 Fraction of Inspir ed Oxygen 40 40 40 10/08/24 23:00 10/08/24 23:00 10/09/24 00:35 Temperature Pulse Rate [Pulse Oximeter] Respiratory Rate 18 Blood Pressure [Le ft Arm] Pulse Oximetry Oxygen Delivery Me thod Oxygen Flow Rate Fraction of Inspir ed Oxygen 40 40 10/09/24 03:00 10/09/24 04:15 10/09/24 05:00 Temperature Pulse Rate [Pulse Oximeter] 76 Respiratory Rate 18 Blood Pressure [Le ft Arm] 103/74 Pulse Oximetry 91 Oxygen Delivery Me thod High Flow Nasal Ca nnula Oxygen Flow Rate 35 Fraction of Inspir ed Oxygen 45 45 45 10/09/24 08:54 10/09/24 08:56 10/09/24 08:56 Temperature 97.6 F Pulse Rate [Pulse Oximeter] 86 86 Respiratory Rate 16 16 Blood Pressure [Le ft Arm] 107/73 Pulse Oximetry 94 Oxygen Delivery Me thod High Flow Nasal Ca nnula Oxygen Flow Rate Fraction of Inspir ed Oxygen 45 10/09/24 08:56 10/09/24 10:06 Temperature Pulse Rate [Pulse Oximeter] Respiratory Rate 16 Blood Pressure [Le ft Arm] Pulse Oximetry 94 Oxygen Delivery Me thod High Flow Nasal Ca nnula Oxygen Flow Rate 35 Fraction of Inspir ed Oxygen 45 40 Labs Labs: Laboratory Results - last 24 hr 10/09/24 05:39 WBC 11.17 H RBC 4.38 Hgb 14.1 Hct 42.2 MCV 96 MCH 32 MCHC 33 RDW Coeff of Wilber 12.9 Plt Count 201 Neut % (Auto) 80.6 H Lymph % (Auto) 10.1 L [place] % (Auto) 7.7 Eos % (Auto) 0.8 Baso % (Auto) 0.1 Neut # (Auto) 9.00 H Lymph # (Auto) 1.10 [place] # (Auto) 0.90 Eos # (Auto) 0.10 Baso # (Auto) 0.00 Abs Immat Gran (auto) 0.10 Imm/Tot Granulo (auto) 0.7 VBG pH 7.407 VBG pCO2 45 VBG pO2 42.5 VBG HCO3 29 H Sodium 136 Potassium 4.1 Chloride 102 Carbon Dioxide 28 Anion Gap 6 L BUN 14 Creatinine 0.7 Estimated Creat Clear 77.63 Estimated GFR 98 Glucose 114 Calcium 8.3 L
--- NOTE | 2024-10-09 18:51 | PC.NURSE ---
Addendum entered by Esmer Peres RN 10/09/24 19:04: Patient with course/moist cough that is productive at times. Original Note: End of Shift: Patient pleasant and cooperative. Patient vitally stable, lungs diminished this afternoon, BS WNL, IV intact and SL. Patient on HiFlow 35 L 40 FIO2 with sats in the low to mid 60s. Patient does cough up mucus at times. Patient independent in room and reported back pain 3/10 once, tylenol and ibuprofen given. Patient tolerating regular diet, urinating well, No BM this shift. Patient showered at walked the halls using 4 L NC.
[2024-10-09] MEDS: DOCUSATE SODIUM 100 MG CAPSULE PO (22:34)
[2024-10-10] VITALS (11 sets, daily range): BP systolic 96–114; BP diastolic 73–79; PULSE 83–93; RESP 16–20; TEMP 36.6; O2SAT 91–94
[2024-10-10] MEDS: IPRAT-ALBUT 0.5-2.5 MG/3 ML NEB 1 NEB IH ×2 (04:49→10:38)
--- NOTE | 2024-10-10 06:43 | PC.NURSE ---
Pt is alert and oriented x3. Afebrile. Pt reports 3/10 pain in lower back and ribs, managed with PRN medication. Pt continues to have intermittent productive cough with moderately thick, cream-colored sputum. Pt lung sounds have fine crackles at the bases. Pt is on high flow at 35L, 40 FI02 at 36 F, tolerating well.?Pt is up SBA, voiding, and tolerating a regular diet. Pt reports some constipation, PRN senna given. at bedside.?
[2024-10-10 07:00] LABS: Hematocrit 42.5 % (37.0-53.0); Hemoglobin* 14.1 gm/dL (13.5-17.5); Mean Corpuscular HGB Conc 33 gm/dL (32-36); Mean Corpuscular Hemoglobin 32 pg (26-34); Mean Corpuscular Volume 98 fL (80-100); Platelet Count* 211 K/uL (140-440); Red Blood Count 4.36 m/uL (4.30-5.90); White Blood Count* 7.46 K/uL (4.50-11.00)
[2024-10-10 07:09] LABS: Slide Review Reflex No
[2024-10-10 07:22] LABS: Chloride* 102 mmol/L (96-114); Potassium* 3.8 mmol/L (3.6-5.1); Sodium* 134 mmol/L (135-149)
[2024-10-10 07:25] LABS: Anion Gap 4 mEq/L (7-15); Blood Urea Nitrogen* 13 mg/dL (7-30); Carbon Dioxide* 28 mmol/L (20-32); Creatinine* 0.8 mg/dL (0.5-1.5); Est. Creatinine Clearance* 77.63; Estimated Glomerular Filt Rate 94 ml/min; Glucose* 101 mg/dL (60-115)
[2024-10-10 07:26] LABS: Calcium* 8.3 mg/dL (8.4-10.6)
[2024-10-10] MEDS: IBUPROFEN 400 MG TABLET PO ×2 (07:55→13:01)
[2024-10-10] MEDS: ACETAMINOPHEN 325 MG TABLET 975 MG PO (07:55)
[2024-10-10] MEDS: DOCUSATE SODIUM 100 MG CAPSULE PO (07:55)
[2024-10-10] MEDS: SODIUM CHLORIDE 0.9 % (FLUSH) 10 ML SYRINGE 5 ML IVF (09:07)
[2024-10-10] MEDS: guaiFENesin 600 MG TAB.ER.12H PO (09:07)
--- NOTE | 2024-10-10 14:30 | P.DS_ITS ---
DS: Providers Provider Date Seen: 10/10/24 Date of admission: 10/07/24 09:45 Primary care physician: Torres Mooney MD Admitting Clinician: Verónica Sharma MD Consults: 10/06/24 23:18 Consult to Respiratory Therapy [CONS] Routine Comment: Reason(s) for RT Consult:: Consult Attending Physician on discharge: Av Booth MD Date of Discharge: 10/10/24 DS: Diagnosis Discharge Diagnosis (1) Acute hypoxemic respiratory failure: Status: Acute Problem details: -likely related to viral process, recent influenza A (negative PCR as of 10/06) -reassuring TTE CT chest shows bilateral patchy ground-glass opacities, likely influenza pneumonia Lexus -RT following, utilizing nebs, IS, Aerobika, high-flow for humidification/muco pulmonary -slowly improving, plan to discharge home when on room air (2) Influenza A: Status: Acute Problem details: -resolved by PCR 10/06/24 DS: Summary Hospital Course Hospital Course: Admission H&P: Jose Padron is a 74 year old male with h/o cardiac ablation for afib, cardiomyopathy, AVRIL who was diagnosed with influenza on September 21 at which time he had fevers, cough, headache, and fatigue. While the fevers have resolved, he continues to feel unwell. Was seen near the end of September and started on prednisone. That was not helpful for him and he went to urgent care on 10/03/2024 and was sent over to the emergency department to get a CTA of his chest. That was unremarkable and it was noted that his O2 sats were slightly low at 89% on room air. He was discharged home on azithromycin. He took that but again noticed no improvement. He continues to have fatigue, cough, dyspnea on exertion, and complains of a weight loss of about 15-20 lb over the past 2 weeks. He is eating and able to keep down fluid. He notes that he is urinating although it is a bit dark. He denies any rashes, nausea, vomiting or diarrhea. Patient had continuous improvement in the hospital. He was treated with high- flow nasal cannula oxygen primarily for extra humidity. With this he had marked improvement in his respiratory distress. He is better able to clear his secretions. Today he was able to wean off oxygen altogether. His appetite has returned and he has been able to eat. Status at Discharge Functional status at discharge: independent ambulation Overall status at discharge: patient is progressing back to baseline Time Spent with Patient Time attestation: Total time spent providing and/or coordinating discharge services: 35 mins. Time spent: Greater than 30 minutes Exam Narrative: Exam Narrative: He is alert and appears in no distress. Breathing is unlabored now on room air. He is observed to walk in the hallway. He gets mildly dyspneic with ambulation down the wilkinson. Respirations are clear to auscultation except for a few basilar crackles. Cardiovascular: S1, S2, regular rate and rhythm. Abdomen is soft without tenderness. Extremities without edema. Const: Vital Signs, click to edit/add: Vital Signs - 24 hr 10/09/24 15:16 10/09/24 15:16 10/09/24 15:16 Temperature 98.4 F Pulse Rate [Pulse Oximeter] 72 72 Respiratory Rate 20 20 20 Blood Pressure [Le ft Arm] 116/65 Blood Pressure [Ri ght Arm] Pulse Oximetry 95 95 Oxygen Delivery Me thod High Flow Nasal Ca nnula High Flow Nasal Ca nnula Oxygen Flow Rate 35 Fraction of Inspir ed Oxygen 40 10/09/24 15:50 10/09/24 18:24 10/09/24 20:00 Temperature Pulse Rate [Pulse Oximeter] Respiratory Rate Blood Pressure [Le ft Arm] Blood Pressure [Ri ght Arm] Pulse Oximetry Oxygen Delivery Me thod Oxygen Flow Rate 35 Fraction of Inspir ed Oxygen 0.40 0.40 40 10/09/24 20:21 10/09/24 22:00 10/09/24 22:35 Temperature 98.0 F Pulse Rate [Pulse Oximeter] 93 Respiratory Rate 20 20 Blood Pressure [Le ft Arm] 116/77 Blood Pressure [Ri ght Arm] Pulse Oximetry 95 Oxygen Delivery Me thod High Flow Nasal Ca nnula Oxygen Flow Rate 35 Fraction of Inspir ed Oxygen 40 40 10/09/24 22:35 10/09/24 22:35 10/10/24 00:00 Temperature 98.6 F Pulse Rate [Pulse Oximeter] 89 Respiratory Rate 20 20 Blood Pressure [Le ft Arm] Blood Pressure [Ri ght Arm] 100/79 Pulse Oximetry 93 93 Oxygen Delivery Me thod High Flow Nasal Ca nnula High Flow Nasal Ca nnula Oxygen Flow Rate 35 35 Fraction of Inspir ed Oxygen 40 40 40 10/10/24 02:00 10/10/24 04:00 10/10/24 04:50 Temperature 97.8 F Pulse Rate [Pulse Oximeter] 88 Respiratory Rate 20 Blood Pressure [Le ft Arm] 111/79 Blood Pressure [Ri ght Arm] Pulse Oximetry 94 Oxygen Delivery Me thod High Flow Nasal Ca nnula Oxygen Flow Rate 35 Fraction of Inspir ed Oxygen 40 40 40 10/10/24 06:00 10/10/24 07:47 10/10/24 07:52 Temperature 97.9 F Pulse Rate [Pulse Oximeter] 93 87 Respiratory Rate 16 Blood Pressure [Le ft Arm] 96/73 114/73 Blood Pressure [Ri ght Arm] Pulse Oximetry 94 Oxygen Delivery Me thod [place] Nasal Ca nnula Oxygen Flow Rate Fraction of Inspir ed Oxygen 40 10/10/24 07:52 10/10/24 07:52 10/10/24 08:24 Temperature Pulse Rate [Pulse Oximeter] 87 Respiratory Rate 16 16 Blood Pressure [Le ft Arm] Blood Pressure [Ri ght Arm] Pulse Oximetry 94 Oxygen Delivery Me thod [place] Nasal Ca nnula Oxygen Flow Rate 35 Fraction of Inspir ed Oxygen 40 40 10/10/24 10:40 10/10/24 11:06 10/10/24 12:12 Temperature 98 F Pulse Rate [Pulse Oximeter] 83 Respiratory Rate 18 Blood Pressure [Le ft Arm] 109/76 Blood Pressure [Ri ght Arm] Pulse Oximetry 91 Oxygen Delivery Me thod High Flow Nasal Ca nnula Oxygen Flow Rate 35 35 Fraction of Inspir ed Oxygen 30 30 30 Documenting provider has reviewed patient's vital signs: yes DS: Data Data Completed and Pending Labs on day of discharge: Labs from last 24 hours 10/10/24 06:11 WBC 7.46 RBC 4.36 Hgb 14.1 Hct 42.5 MCV 98 MCH 32 MCHC 33 Plt Count 211 Sodium 134 L Potassium 3.8 Chloride 102 Carbon Dioxide 28 Anion Gap 4 L BUN 13 Creatinine 0.8 Estimated Creat Clear 77.63 Estimated GFR 94 Glucose 101 Calcium 8.[address] scan - chest: Radiologist's impression: INDICATION: Elevated D-dimer shortness of breath TECHNIQUE: CT chest with 95 mL Isovue 370 contrast. COMPARISON: None. FINDINGS: Lungs and pleura: Bilateral patchy ground-glass opacities there is basilar bronchial wall thickening and bronchiectasis. No effusion is seen. Heart and vasculature: Heart size is normal. Thoracic aorta and pulmonary artery are normal in caliber. No pulmonary emboli. Lymph nodes/mediastinum: No mediastinal, hilar, or axillary adenopathy. Chest wall: No masses. Upper abdomen: Nonobstructing left renal calculus Bones: Unremarkable for age. IMPRESSION: 1. No pulmonary emboli. Bilateral patchy ground-glass opacities likely infectious/inflammatory bronchial wall thickening in the lower lobes and bronchiectasis. Discharge Plan Discharge Disposition: Home, Self-Care Date of Admission: 10/07/24 09:45 Attending Provider on Discharge: Michael Booth Primary Care Provider: Torres Mooney Condition: Stable Anticipated Discharge Date/Time: 10/10/24 14:37 Discharge Medications: Discontinued azithromycin 250 mg tablet 500 mg PO DIRECTED Qty: 6 0RF Taper: Z-EDITA 500 mg Q24H for 1 Day and 0 Hour 250 mg Q24H for 4 Days and 0 Hour Rx Instructions: For 250 mg dose pack: take 500 mg today (day 1), then 250 mg for 4 days (days 2-5) Discharge Orders: Discharge Order (Routine); Ordered 10/10/24 Ordered By: Michael Booth Activity Level: Activity as Tolerated Follow Up Appointments: Torres Mooney MD [Primary Care Provider] - Forms: [employer] Info Instructions
--- NOTE | 2024-10-10 15:31 | PC.NURSE ---
Discharge: Patient pleasant and cooperative. Patient vitally stable, lungs course, BS WNL, IV removed, catheter intact. Patient reports rib pain 5/10, prn tylenol given once and ibuprofen given twice. Patient independent in room and walking the halls. Patient tolerating regular diet, urinating well, no BM. Patient signed belongings sheet and discharge form with no further questions. Patient left the floor ambulating independently to home at 1529.
== END 2024-10-10 15:29 | disposition home or self-care (01) | DRG 189 ==
LOC: ED 17:49 → MEDSURG 20:12 → ED 20:13 → MEDSURG 20:55
PROVIDERS: Family Medicine; Physician Assistant; Admitting Provider Family Medicine; Emergency Provider Family Medicine; PCP Family Medicine; Visit Provider Student in an Organized Health Care Education/Training Program
DX: J96.01 Acute respiratory failure with hypoxia (principal); J10.1 Influenza due to other identified influenza virus with other respiratory manifestations; G47.33 Obstructive sleep apnea (adult) (pediatric); K21.9 Gastro-esophageal reflux disease without esophagitis; H90.3 Sensorineural hearing loss, bilateral; Z86.79 Personal history of other diseases of the circulatory system
CPT/HCPCS: 36415; 71046; 80048; 80061; 82550; 82803; 83735; 83880; 84443; 84484; 85025; 85027; 86140; 87631; 93005; 93306; 94640; 94664; 94761; 99284; 99285; A9270; G0378

== ENCOUNTER 2025-02-06 22:07 | Outpatient (CLI) | payer OTHER, SELFPAY | END 2025-02-06 22:08 | disposition home or self-care (01) | LOC: AMB 02-08 14:38 | PROVIDERS: PCP Family Medicine; Visit Provider Family Medicine | DX: S29.9XXA Unspecified injury of thorax, initial encounter (principal); V43.62XA Car passenger injured in collision with other type car in traffic accident, initial encounter; Y92.410 Unspecified street and highway as the place of occurrence of the external cause | CPT/HCPCS: A0425; A0429 ==

== ENCOUNTER 2025-02-06 22:51 | Emergency (ER) | payer OTHER, MEDICARE, SELFPAY ==
[2025-02-06] VITALS (10 sets, daily range): BP systolic 102–144; BP diastolic 70–93; PULSE 114–141; RESP 8–30; O2SAT 90–98
--- OUTSIDE RECORDS SUMMARY | 2025-02-06 22:53 | XMS_ITS | Encounter Summary ---
Author Organization [place] Address [address] [place] [address] Care Team Providers Care Surveying Technician Name Role Phone Michael Negrete MD Unavailable [phone] Nirav Cuba MD Unavailable Torres Mooney MD Primary Care Provider + [phone] Ayla Flores APRN DRIER UNLOADER Unavailable + [phone] Sophy Wong MD Unavailable [phone] Encounter Details Date Type Department Care Team (Late st Contact Info) Description 11/26/2023 [facility] Medical Advice [facility] Heart [address] [place] [phone] Carol Ramos, JEM Social History Tobacco Use [...] on file 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 Gender Identity Not on file Sexual Orientation Not on file documented as of this encounter Plan of Treatment Not on file documented as of this encounter Visit Diagnoses Not on filedocumented in this encounter Care Teams Surveying Technician Relationship Specialty Start Date End Date Torres Mooney MD [address] [place] [address] PCP - General Family Medicine 11/13/23 Michael Negrete MD Cardiovascular Disease 11/08/21 Nirav Cuba MD [address] [facility] [address] [place], [place] [id number] Assigned Heart and Vascular Provider 03/09/23 02/22/24 Ayla Flores APRN [facility] [address] [facility] [address] [place], [place] [id number] Assigned Heart and Vascular Provider 02/23/24 08/23/24 Sophy Wong MD [address] [facility] [address] [place], [place] [id number] Assigned Heart and Vascular Provider 08/24/24 documented as of this encounter
--- OUTSIDE RECORDS SUMMARY | 2025-02-06 22:53 | XMS_ITS | Encounter Summary ---
Author Organization [place] Address [address] [place] [address] Care Team Providers Care Automotive Parts Interpreter Name Role Phone Clif Villagomez Primary Care Provider Unavailabl e Kailyn Wang CONTENT ENGINEER LOCAL OWNER OPERATOR TRUCK DRIVER Unavailable Cristine vailable Michael Negrete MD Unavailable [phone] Michael Ba APRN LOCAL OWNER OPERATOR TRUCK DRIVER Unavailable [phone] Michael Negrete MD Unavailable [phone] Kailyn Wang APRN LOCAL OWNER OPERATOR TRUCK DRIVER Unavailable Cristine vailable Torres Mooney MD Primary Care Provider + [phone] iNrav Cuba MD Unavailable Torres Mooney MD Primary Care Provider + [phone] Ayla Flores CONTENT ENGINEER LOCAL OWNER OPERATOR TRUCK DRIVER Unavailable + [phone] Sophy Wong MD Unavailable [phone] Encounter Details Date Type Department Care Team (Late st Contact Info) Description 11/24/[address] 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 Unable to assess 11/08/2021 7:53 AM GOLD LEAF LABORER documented as of this encounter Plan of Treatment Not on file documented as of this encounter Visit Diagnoses Not on filedocumented in this encounter Care Teams Automotive Parts Interpreter Relationship Specialty Start Date End Date Clif Villagomez PCP - General Family Medicine 09/20/20 03/13/23 Torres Mooney MD [address] [place] [address] PCP - General Family Medicine 03/14/23 11/12/23 Torres Mooney MD [address] [place] [address] PCP - General Family Medicine 11/13/23 Kailyn Wang APRN LOCAL OWNER OPERATOR TRUCK DRIVER Assigned Heart and Vascular Provider 03/17/21 12/30/21 Michael Negrete MD Cardiovascular Disease 11/08/21 Michael Ba APRN LOCAL OWNER OPERATOR TRUCK DRIVER [address] [place] [address] Assigned Sleep Provider 12/10/21 08/30/23 Michael Negrete MD [address] [facility] [address] [place], [place] [id number] Assigned Heart and Vascular Provider 12/31/21 04/20/22 Kailyn Wang APRN LOCAL OWNER OPERATOR TRUCK DRIVER [address] [facility] [address] [place] [address] Assigned Heart and Vascular Provider 04/21/22 03/08/23 Nirav Cuba MD [address] [facility] [address] [place] [address] Assigned Heart and Vascular Provider 03/09/23 02/22/24 Ayla Flores APRN [facility] [address] [facility] [address] [place], [place] [id number] Assigned Heart and Vascular Provider 02/23/24 08/23/24 Sophy Wong MD [address] [facility] [address] [place], [place] [id number] Assigned Heart and Vascular Provider 08/24/24 documented as of this encounter
--- OUTSIDE RECORDS SUMMARY | 2025-02-06 22:53 | XMS_ITS | Encounter Summary ---
Author Organization [place] Address [address] [place] [address] Care Team Providers Care Guest Advisor Name Role Phone Michael Negrete MD Unavailable [phone] Torres Mooney MD Primary Care Provider + [phone] Nirav Cuba MD Unavailable Torres Mooney MD Primary Care Provider + [phone] Ayla Flores APRN MANAGER CUSTOMER Unavailable + [phone] Sophy Wong MD Unavailable [phone] Encounter Details Date Type Department Care Team (Late st Contact Info) Description 11/06/2023 [facility] Medical Advice [facility] [address] [facility] [address] [place] [address] Ayla Flores APRN MANAGER CUSTOMER [address] [facility] [address] [place], [place] [id number] Social History Tobacco Use Types Packs/Day Years [...] on file 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 Gender Identity Not on file Sexual Orientation Not on file documented as of this encounter Plan of Treatment Not on file documented as of this encounter Visit Diagnoses Not on filedocumented in this encounter Care Teams Guest Advisor Relationship Specialty Start Date End Date Torres Mooney MD [address] [place] [address] PCP - General Family Medicine 03/14/23 11/12/23 Torres Mooney MD [address] [place] [address] PCP - General Family Medicine 11/13/23 Michael Negrete MD Cardiovascular Disease 11/08/21 Nirav Cuba MD [address] [facility] [address] [place] [address] Assigned Heart and Vascular Provider 03/09/23 02/22/24 Ayla Flores APRN MANAGER CUSTOMER [address] [facility] [address] [place], [place] [phone] Assigned Heart and Vascular Provider 02/23/24 08/23/24 Sophy Wong MD [address] [facility] [address] [place], [place] [id number] Assigned Heart and Vascular Provider 08/24/24 documented as of this encounter
--- OUTSIDE RECORDS SUMMARY | 2025-02-06 22:53 | XMS_ITS | Encounter Summary ---
Author Organization [place] Address [address] [place] [address] Care Team Providers Care Media Aid Name Role Phone DahliaClif Primary Care Provider Unavailabl Michael Cid MD Unavailable [phone] Michael Ba APRN ADVANCED SOLUTIONS ARCHITECT Unavailable [phone] Kailyn Wang APRN ADVANCED SOLUTIONS ARCHITECT Unavailable Cristine Torres Finn MD Primary Care Provider + [phone] Nirav Cuba MD Unavailable Torres Mooney MD Primary Care Provider + [phone] Ayla Flores APRN ADVANCED SOLUTIONS ARCHITECT Unavailable + [phone] Sophy Wong MD Unavailable [phone] Reason for Visit * Reason Comments Medication Refill Encounter Details Date Type Department Care Team (Late st Contact Info) Description 07/07/2022 Refill [facility] [address] [facility] [address] [place] [phone] Kailyn Wang APRN CNP Medication Refill Social History Tobacco Use Types Packs/Day Years Used Date Smoking Tobacco: Never Smokeless Tobacco: Never Alcohol Use Standard Drinks/Week Comments Yes 0 (1 standard drink = 0.6 oz pur e alcohol) 2 drinks per month Sex and Gender Information Value Date Recorded Sex Assigned at Not on file 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 Gender Identity Not on file Sexual [...] (H) documented in this encounter Care Teams Media Aid Relationship Specialty Start Date End Date Clif Villagomez PCP - General Family Medicine 09/20/20 03/13/23 Torres Mooney MD [address] [place] [address] PCP - General [facility] 03/14/23 11/12/23 Torres Mooney MD [address] [place] [address] PCP - General [facility] 11/13/23 Michael Negrete MD Cardiovascular Disease 11/08/21 Michael Ba APRN ADVANCED SOLUTIONS ARCHITECT [address] [place], [place] [address] Assigned Sleep Provider 12/10/21 08/30/23 Kailyn Wang APRN ADVANCED SOLUTIONS ARCHITECT [address] [place] [address] Assigned Heart and Vascular Provider 04/21/22 03/08/23 Nirav Cuba MD [address] [facility] [address] [place] [address] Assigned Heart and Vascular Provider 03/09/23 02/22/24 Ayla Flores APRN ADVANCED SOLUTIONS ARCHITECT [address] [facility] [address] [place] [address] Assigned Heart and Vascular Provider 02/23/24 08/23/24 Sophy Wong MD [address] [facility] [address] [place] [address] Assigned Heart and Vascular Provider 08/24/24 documented as of this encounter
--- OUTSIDE RECORDS SUMMARY | 2025-02-06 22:53 | XMS_ITS | Encounter Summary ---
Author Organization [place] Address [address] [place] [address] Care Team Providers Care Dosimetrist Name Role Phone DahliaClif Primary Care Provider Unavailabl Michael Cid MD Unavailable [phone] Michael Ba APRN GLOBAL SAFETY OFFICER Unavailable [phone] Kailyn Wang APRN GLOBAL SAFETY OFFICER Unavailable Cristine Torres Finn MD Primary Care Provider + [phone] Nirav Cuba MD Unavailable Torres Mooney MD Primary Care Provider + [phone] Ayla Flores APRN GLOBAL SAFETY OFFICER Unavailable + [phone] Sophy Wong MD Unavailable [phone] Encounter Details Date Type Department Care Team (Late st Contact Info) Description 01/31/2023 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 Gender Identity Not on file Sexual Orientation Not on file documented as of this encounter Plan of Treatment Not on file documented as of this encounter Visit Diagnoses Not on filedocumented in this encounter Care Teams Dosimetrist Relationship Specialty Start Date End Date Clif Villagomez PCP - General Family Medicine 09/20/20 03/13/23 Torres Mooney MD [address] [place] [address] PCP - General Family Medicine 03/14/23 11/12/23 Torres Mooney MD [address] [place] [address] PCP - General Family Medicine 11/13/23 Michael Negrete MD Cardiovascular Disease 11/08/21 Michael Ba APRN GLOBAL SAFETY OFFICER [address] [place], [place] [address] Assigned Sleep Provider 12/10/21 08/30/23 Kailyn Wang APRN GLOBAL SAFETY OFFICER [address] [place] [address] Assigned Heart and Vascular Provider 04/21/22 03/08/23 Nirav Cuba MD [address] [facility] [address] [place], [place] [id number] Assigned Heart and Vascular Provider 03/09/23 02/22/24 Ayla Flores APRN GLOBAL SAFETY OFFICER [address] [facility] [address] [place], [place] [id number] Assigned Heart and Vascular Provider 02/23/24 08/23/24 Sophy Wong MD [address] [facility] [address] [place], [place] [phone] Assigned Heart and Vascular Provider 08/24/24 documented as of this encounter
--- OUTSIDE RECORDS SUMMARY | 2025-02-06 22:53 | XMS_ITS | Clinical Summary ---
Author Organization [facility] Address [address] [place] [address] Care Team Providers Care Local Sales Manager Name Role Phone Michael Negrete MD Unavailable [phone] Torres Mooney MD Primary Care Provider [phone] Sophy Wong MD Unavailable [phone] Allergies No known active allergies Medications apixaban ANTICOAGULANT (ELIQUIS ANTICOAGULANT) 5 MG tabletIndications: Persistent atrial fibrillation (H) Take 1 tablet (5 mg) by mouth every 12 hours. 180 tablet 3 Active acetaminophen (TYLENOL) 325 MG tablet Take 325-650 mg by mouth every 6 hours as needed for mild pain. Active Active Problems Problem Noted Date Diagnosed [...] Longstanding persistent atrial fibrillation 09/02 Overview (07/11/2023): [id number] score = 3 (age, CAD, CM) 2018 [...] Encounters Date Type Department Care Team Description 12/09/2024 2:50 PM CDT Office Visit [facility] [address] [place] [address] Mable Loredo NP Longstanding persistent atrial fibrillation (H) (Primary Dx); Atypical atrial flutter (H); Atrial tachycardia; AVRIL (obstructive sleep apnea) 12/09/2024 Travel 12/05/2024 Travel 11/11/2024 Telephone [facility] [address] [place] [phone] Charlene Silva LPN TEACH FOR MADISYN/CV 11/17/2024 AT 7 30 11/06/2024 Telephone [facility] [address] [place] [address] Carol Ramos RN from Last 3 Months Immunizations Immunization Administration Dates Next Due COVID-19 MONOVALENT 12+ [...] pur e alcohol) 2 drinks per month PHQ-2 Answer Date Recorded PHQ-2 Score 0 12/09/2024 Adolescent Education Answer Date Record ed Getting [...] on file 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 Gender Identity Not on file Sexual Orientation Not on file Last Filed Vital Signs Vital Sign Reading Time Taken Comments Blood Pressure 108/72 12/09/2024 2:32 PM CDT Pulse 80 12/09/2024 2:32 PM CDT Temperature 36.7 C (98 F) 04/24/2024 7:15 PM CDT Respiratory Rate 12 12/09/2024 2:32 PM CDT Oxygen Saturation 99% 09/01/2024 3:11 PM CORE COMPOSER FEEDER Inhaled Oxygen Concentration - - Weight 97.6 kg (215 lb 3.2 oz) 12/09/2024 2:32 P M CDT Height 188 cm (6' 2) 12/09/2024 2:32 PM CDT Body Mass Index 27.63 12/09/2024 2:32 PM CDT Plan of Treatment Health Maintenance Due Date Last Done Comments ADVANCE CARE PLANNING 1950 ANNUAL REVIEW OF HM ORDERS 1952 CT COLONOGRAPHY 1952 FIT 1952 FLEX SIG 1952 COLONOSCOPY 1962 PNEUMOCOCCAL VACCINE 50+ YEARS (1 of 2 - PCV) 1971 ZOSTER VACCINE (1 of 2) 2002 RSV VACCINE (1 - Risk 60-74 years 1-dose series) 2012 FALL RISK ASSESSMENT 2017 LIPID 12/27/2022 12/27/2017 COVID-19 VACCINE ( season) 2024 06/01/2024, 10/10/2023, 04/15/2023, Additional history exists MEDICARE ANNUAL WELLNESS VISIT 04/22/2025 04/22/2024, 03/15/2023 INFLUENZA VACCINE (Season Ended) 2025 COLORECTAL CANCER SCREENING 03/25/2027 sDNA (Cologuard) 03/25/2027 03/25/2024, 03/25/2024 DIABETES SCREENING 04/24/2027 04/24/2024, 0 04/16/2024, 05/21/2023, Additional history exists DTAP/TDAP/TD VACCINE (3 - Td or Tdap) 04/15/2033 04/15/2023, 02/20/2010 HEPATITIS C SCREENING Completed 04/20/2024 PHQ-2 (once per calendar year) Completed 12/09/2024 HPV VACCINE Aged Out No longer eligi ble based on patient's age to complete this topic MENINGITIS VACCINE Aged Out No longer eligible based on patient's age to complete this topic Procedures Procedure Name Priority Date/Time Associated Diagnosis Comments BASIC METABOLIC PANEL STAT 04/24/2024 10:32 AM CDT LIPID PROFILE STAT 12/27/2017 12:42 PM CDT from Last 3 Months or Most Recently Relevant to Health Maintenance Results * (ABNORMAL) Basic metabolic panel (04/24/2024 10:32 AM CDT) Sodium 141 135 - 145 mmol/L 04/24/2024 10:58 AM CDT [facility] Potassium 4.2 3.4 - 5.3 mmol/L 04/24/2024 10:58 AM CDT [facility] Chloride 107 98 - 107 mmol/L 04/24/2024 10:58 AM T [facility] Carbon Dioxide (CO2) 23 22 - 29 mmol/L 04/24/2024 10:58 AM T [facility] Anion Gap 11 7 - 15 mmol/L 04/24/2024 10:58 AM T [facility] Urea Nitrogen 16.6 8.0 - 23.0 mg/dL 04/24/2024 10:58 AM T [facility] Creatinine 1.23(H) 0.67 - 1.17 mg/dL 04/24/2024 10:58 AM [facility] GFR Estimate 63 >60 mL/min/1.7 3m2 04/24/2024 10:58 AM [facility] Comment:eGFR calculated usin g 2020 CKD-EPI equation. Calcium 8.7(L) 8.8 - 10.4 mg/dL 04/24/2024 10:58 AM [facility] Comment:Reference intervals for this test were updated on 03/17/2024 to reflect our healthy population more accurately. There may be differences in the flagging of prior results with similar values performed with this method. Those prior results can be interpreted in the context of the updated reference intervals. Glucose 105(H) 70 - 99 mg/dL 04/24/2024 10:58 AM [facility] Blood BLOOD SPECIMEN / Unknown Venipuncture / Unknown 04/24/2024 10:32 AM CDT 04/24/2024 10:39 AM CDT us Sophy Wong MD LAB - BLOOD ORDERABLES Final Result [facility] [address] [place] [address], [facility] * (ABNORMAL) Lipid Profile (12/27/2017 12:42 PM CDT) Triglycerides 160(H) <=149 mg/dL 12/27/2017 1:13 PM CDT [facility] Cholesterol 212(H) <=199 mg/dL 12/27/2017 1:13 PM CDT [facility] LDL Cholesterol Calculated 146(H) <=129 mg/dL 12/27/2017 1:13 PM CDT [facility] Direct Measure HDL 34(L) >=40 mg/dL 12/27/2017 1:13 PM CDT [facility] Patient Fasting > 8hrs? Yes 12/27/2017 1:13 PM CDT [facility] Blood specimen (specimen) STRUCTURE OF RIGHT UPPER LIMB / Unknown VAD(CVC, PICC) / Unknown 12/27/2017 12:42 PM CDT 12/27/2017 12:46 PM CDT Michael Negrete MD LAB - BLOOD ORDERABLES Final Result Performing Organization Address City/State/[facility] Co de Phone Number [facility] [address] [place] [address], [facility] [address] [place] [address] from Last 3 Months or Most Recently Relevant to Health Maintenance Insurance [facility] MEDICARE ADVANTAGE [facility] MEDICARE ADVANTAGE Advance Directives For more information, please contact: [phone] * Full Code (Latest Code Status on [...] status determined by: Other (please docjvn t) Care Teams Local Sales Manager Relationship Specialty Start Date End Date Torres Mooney MD [facility] [place] [address] PCP - General Family Medicine 11/13/23 Michael Negrete MD Cardiovascular Disease 11/08/21 Sophy Wong MD [address] [place] [address] Assigned Heart and Vascular Provider 08/24/24
--- OUTSIDE RECORDS SUMMARY | 2025-02-06 22:53 | XMS_ITS | Encounter Summary ---
Author Organization [facility] Address [address] [place] [address] Care Team Providers Care Rigging Loft Repairer Name Role Phone Clif Villagomez Primary Care Provider Unavailabl e Kailyn Wang RN MATERNAL CHILD VOLUNTEER COORDINATOR Unavailable Cristine vailable Michael Negrete MD Unavailable [phone] Michael Ba RN MATERNAL CHILD VOLUNTEER COORDINATOR Unavailable [phone] Michael Negrete MD Unavailable [phone] Kailyn Wang RN MATERNAL CHILD VOLUNTEER COORDINATOR Unavailable Cristine vailable Torres Mooney MD Primary Care Provider + [phone] Nirav Cuba MD Unavailable Torres Mooney MD Primary Care Provider + [phone] Ayla Flores RN MATERNAL CHILD VOLUNTEER COORDINATOR Unavailable [phone] Sophy Wong MD Unavailable [phone] Encounter Details Date Type Department Care Team (Late st Contact Info) Description 03/10/2018 Records - [facility] CONVERSION Scan, Non-Provider Social History Tobacco Use Types Packs/Day Years Used Date Smoking Tobacco: Never Assessed Sex and Gender Information Value Date Recorded Sex Assigned at Not on file 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 Gender Identity Not on file Sexual Orientation Not on file documented as of this encounter Plan of Treatment Not on file documented as of this encounter Visit Diagnoses Not on filedocumented in this encounter Care Teams Rigging Loft Repairer Relationship Specialty Start Date End Date Clif Villagomez PCP - General Family Medicine 09/20/20 03/13/23 Torres Mooney MD [address] [place] [address] PCP - General Family Medicine 03/14/23 11/12/23 Torres Mooney MD [address] [place] [address] PCP - General Family Medicine 11/13/23 Kailyn Wang APRN VOLUNTEER COORDINATOR Assigned Heart and Vascular Provider 03/17/21 12/30/21 Michael Negrete MD Cardiovascular Disease 11/08/21 Michael Ba APRN VOLUNTEER COORDINATOR [address] [place], [place] [address] [address] [place] [address] Assigned Sleep Provider 12/10/21 08/30/23 Michael Negrete MD [address] [facility] [address] [place] [address] Assigned Heart and Vascular Provider 12/31/21 04/20/22 Kailyn Wang APRN VOLUNTEER COORDINATOR [address] [facility] [address] [place] [address] Assigned Heart and Vascular Provider 04/21/22 03/08/23 Nirav Cuba MD [address] [facility] [address] [place] [address] Assigned Heart and Vascular Provider 03/09/23 02/22/24 Ayla Flores APRN VOLUNTEER COORDINATOR [address] [facility] [address] [place], [place] [id number] Assigned Heart and Vascular Provider 02/23/24 08/23/24 Sophy Wong MD [address] [facility] [address] [place] [address] Assigned Heart and Vascular Provider 08/24/24 documented as of this encounter
--- OUTSIDE RECORDS SUMMARY | 2025-02-06 22:53 | XMS_ITS | Encounter Summary ---
Author Organization [facility] Address [address] [place] [address] Care Team Providers Care Cuff Stitcher Name Role Phone Michael Negrete MD Unavailable [phone] Torres Mooney MD Primary Care Provider + [phone] Nirav Cuba MD Unavailable Torres Mooney MD Primary Care Provider + [phone] Ayla Flores APRN [employer] Unavailable + [phone] Sophy Wong MD Unavailable [phone] Reason for Visit * Reason Comments Medication Refill Encounter Details Date Type Department Care Team (Late st Contact Info) Description 09/05/2023 Refill [place] [id number] [facility] [address] [place] [id number] Nirav Cuba MD [address] [facility] [address] [place], [place] [id number] Medication Refill Social History Tobacco Use Types [...] on file 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 Gender Identity Not on file Sexual Orientation Not on file documented as of this encounter Plan of Treatment Not on file documented as of this encounter Visit Diagnoses Diagnosis Longstanding persistent atrial fibrillation (H) documented in this encounter Care Teams Cuff Stitcher Relationship Specialty Start Date End Date Torres Mooney MD [address] [place] [address] PCP - General Family Medicine 03/14/23 11/12/23 Torres Mooney MD [address] [place] [address] PCP - General Family Medicine 11/13/23 Michael Negrete MD Cardiovascular Disease 11/08/21 Nirav Cuba MD [address] [facility] [address] [place] [address] Assigned Heart and Vascular Provider 03/09/23 02/22/24 Ayla Flores APRN CNP [address] [facility] [address] [place] [address] Assigned Heart and Vascular Provider 02/23/24 08/23/24 Sophy Wong MD [address] [facility] [address] [place] [address] Assigned Heart and Vascular Provider 08/24/24 documented as of this encounter
--- OUTSIDE RECORDS SUMMARY | 2025-02-06 22:53 | XMS_ITS | Clinical Summary ---
Author Organization [facility] Address [address] [place] [address] Care Team Providers Care Convertible Sofa Bedspring Tester Name Role Phone Torres Mooney MD Primary Care Provider [phone] Allergies No known active allergies Medications Eliquis 5 mg tablet take 1 tablet (5 mg) by mouth every 12 hours. Active cephalexin 500 mg capsuleIndicati ons:Cellulitis of skin,Paronychia of finger, left Take 1 Capsule (500 mg) by mouth four times daily for 5 days. 20 Capsule 01/14/2025 01/20/20 25 Active Problems Problem Noted Date Diagnosed Date Skin cancer 04/23/2023 Overview (01/08/2025): 12/16/2024: right shoulder, nBCC, excised by Kadie Desir MD on 12/31/2024 04/19/23: left chest, BCC nodular and infiltrative: excised 09/23/2023 by Kadie Desir MD 04/19/23: right forehead, nBCC: Mohs done 07/23/2023 [...] 11/01 Overview (11/19/2022): Dx 2018 (uncertain onset) [id number] score = 3 (age/ CAD/ CM) Rx apixaban Rx sotalol CV symptoms improved: Early reversion to AF PVI March 10, 2018 [id number] score = 1 (age) 2018 PVI with [...] Encounters Date Type Department Care Team Description 01/14/2025 2:45 PM CDT Ancillary Procedure [facility] [place] [address] [facility] [place] [address] 01/14/2025 1:50 PM CDT Office Visit [facility] [place] [address] [facility] [place] [address] Dc Macedo MD Concerns (Finger swelling left hand middle finger. Very red some bleeding. Possible metal chip in bedded.) 01/13/2025 Travel 01/05/2025 [facility] [address] [place] [address] Kadie Desir MD Results 12/31/2024 10:30 AM CDT Procedure Only [facility] [address] [place] [address] Kadie Desir MD Procedure 12/31/2024 Travel 12/26/2024 Travel 12/22/2024 Telephone [facility] [address] [place] [address] Kadie Desir MD Abnormal Lab Results 12/16/2024 2:20 PM CDT Office Visit [facility] [address] [place] [address] Kadie Desir MD Derm Problem 12/16/2024 Travel 12/14/2024 Travel 11/06/2024 Telephone [facility] [place] [address] [place] [address] Torres Mooney MD Appointment from Last 3 Months Immunizations Immunization Administration Dates Next Due Tdap 04/15/2023,02/20/2010 Family [...] on file Legal Sex Male 5:25 AM 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 Gender Identity Not on file Sexual Orientation Not on file 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 Not on file Not on file Obstetrics History Last Filed Vital Signs Vital Sign Reading Time Taken Comments Blood Pressure 120/80 01/14/2025 1:54 PM CDT Pulse 85 01/14/2025 1:54 PM CDT Temperature 36.4 C (97.5 F) 10/21/2024 10:59 AM HEAD SILVERMAN Respiratory Rate 16 06/29/2020 7:37 AM CDT Oxygen Saturation 95% 01/14/2025 1:54 PM CDT Inhaled Oxygen Concentration - - Weight 101.6 kg (224 lb) 01/14/2025 1:54 PM CDT Height 188 cm (6' 2) 09/03/2024 3:14 PM HEAD SILVERMAN Body Mass Index 28.76 09/03/2024 3:14 PM HEAD SILVERMAN Plan of Treatment Upcoming Encounters Date Type Department Care Team (Late st Contact Info) Description 06/29/2025 10:00 AM CDT Office Visit [facility] [address], [place] [address] Kadie Desir MD [address] [facility] [address] [place], [place] [address] Health Maintenance Due Date Last Done Comments Pneumococcal series for age 50+ (1 of 2 - PCV) 1971 Zoster (shingles) series for age 50+ (1 of 2) 2002 RSV vaccine for adults or (1 - Risk 60-74 years 1-dose series) 2012 COVID-19 vaccine series ( season) 2024 06/01/2024, 10/10/2023, 04/15/2023, Additional history exists Depression screening for age 12+ 04/22/2025 04/22/2024, 03/15/2023, 06/23/2020, Additional history exists Medicare Wellness for age 65+ 04/23/2025 04/22/2024, 03/15/2023 Influenza Vaccine (Season Ended) 2025 BMI (ht and wt on same day) for age 18+ 09/03/2025 09/03/2024, 06/17/2024, 04/22/2024, Additional history exists Fecal testing sDNA-FIT (Cologuard) for age 45-75 03/25/2027 03/25/2024 Lipids for age 45-75 04/20/2029 04/20/2024, 02/12/2024, 07/12/2023, Additional history exists Tetanus booster 04/15/2033 04/15/2023, 02/20/2010 Tdap Completed 04/15/2023, 02/20/2010 AAA screening age 65-74 Completed 03/17/2024 Hepatitis C screening for age 18-79 Completed 04/20/2024 Hepatitis B series for 19+ Aged Out N o longer eligible based on patient's age to complete this topic Medical Devices Implanted Type Area Threshing Department Supervisor Device Identifier Shelf Expiration Date Model / Serial / Lot Patella Sz35 Grecia Ii Rnd Penon Pors - [id number] Implanted:Qty: 1 on 06/28/2020 by Torres Hernandez MD at [facility] Total Joint Left: Knee [employer] 03/30/2030 [id number] / / [id number] Baseplate Tib Lt Sz7 Grecia Ii Titnm Non Pors - [id number] Implanted:Qty: 1 on 06/28/2020 by Torres Hernandez MD at [facility] Total Joint Left: Knee [employer] 02/04/2028 [id number] / / [id number] Cmnt Bone 40gm Rally Hv - [id number] Implanted:Qty: 2 on 06/28/2020 by Torres Hernandez MD at [facility] Left: Knee [employer] 11/30/2024 [id number] / / [id number] Fem Lt Sz8 Legion [employer]c Ret Oxin - [id number] Implanted:Qty: 1 on 06/28/2020 by Torres Hernandez MD at [facility] Left: Knee [employer] 04/07/2027 [id number]# / / [id number] Insert Knee Sz7-9 13mm Legioncruc Ret High Flex Xlpe - [id number] Implanted:Qty: 1 on 06/28/2020 by Torres Hernandez MD at [facility] Left: Knee [employer] 03/23/2029 [id number]# / / [id number] Explanted Type Area Threshing Department Supervisor Device Identifier Shelf Expiration Date Model / Serial / Lot Vis Adpt Guide Lgnp Kit Lt Sz F8/[id number] Explanted:Qty: 1 on 06/28/2020 [facility] at [facility] Left: Knee [employer] 10/17/2020 [id number] / / [id number] Procedures Procedure Name Priority Date/Time Associated Diagnosis Comments XR FINGER 3 VIEWS LEFT STAT 01/14/2025 2:18 PM CDT Cellulitis of skin Paronychia of finger, left PATH TISSUE EXAM Routine 12/31/2024 10:3 0 AM CDT BCC (basal cell carcinoma), shoulder, right PATH TISSUE EXAM Routine 12/16/2024 2:50 PM CDT Neoplasm of uncertain behavior of skin ANTI HCV Routine 04/20/2024 9:02 AM CDT Need for hepatitis C screening test LIPID PANEL W REFLEX MEASURED LDL Routine 04/20/2024 9:02 AM CDT Lipid screening SDNA-FIT EXTERNAL (COLOGUARD) Routine 03/25/2024 12:15 PM CDT Screening for colon cancer US ABD AORTA SCREENING Routine 03/17/2024 7:35 AM CDT Screening for AAA (aortic abdominal aneurysm) from Last 3 Months or Most Recently Relevant to Health Maintenance Results * XR FINGER 3 VIEWS LEFT (01/14/2025 2:18 PM CDT) Anatomical Region Laterality Modality Finger Computed Radiogr aphy 01/14/2025 2:24 PM CDT Narrative 01/14/2025 2:24 PM CDT For Patients: As a result of the Cures Act, medical imaging exams and procedure reports are released immediately into your electronic medical record. You may view this report before your referring provider. If you have questions, please contact your health care provider. INDICATION: Cellulitis of skin, Paronychia of finger, left TECHNIQUE: Finger radiograph 3 views left 3rd COMPARISON: None FINDINGS: Bone: No acute fractures or aggressive bone lesions are identified. No evidence of osteomyelitis is seen. There is a corticated ossicle seen along the dorsal distal interphalangeal joint. Joint: Mild osteoarthritis of the distal interphalangeal joints of digits 2-4 noted. Severe osteoarthritis of the 1st carpometacarpal joint seen. Soft tissue: Unremarkable. No radiopaque foreign bodies are seen. IMPRESSIONS: 1. No acute osseous injuries or abnormalities are noted. 2. No evidence of osteomyelitis is seen. If there is a high clinical index of suspicion, further evaluation with contrast-enhanced MRI or dual-isotope bone scan is recommended, given their higher sensitivities. Dictated by Yair Hardwick MD @ 01/14/2025 2:23:44 PM Dictated by: Yair Hardwick MD @ 01/14/2025 14:24:09 (Electronically Signed) Procedure Note Yair Hardwick MD - 01/14/2025 For Patients: As a result of the Cures Act, medical imagingexams and procedure reports are released immediately into your electronicmedical record. You may view this report before your referring provider.If you have questions, please contact your health care provider. INDICATION: Cellulitis of skin, Paronychia of finger, left TECHNIQUE: Finger radiograph 3 views left 3rd COMPARISON: None FINDINGS: Bone: No acute fractures or aggressive bone lesions are identified. Noevidence of osteomyelitis is seen. There is a corticated ossicle seenalong the dorsal distal interphalangeal joint. Joint: Mild osteoarthritis of the distal interphalangeal joints of digits2-4 noted. Severe osteoarthritis of the 1st carpometacarpal joint seen. Soft tissue: Unremarkable. No radiopaque foreign bodies are seen. IMPRESSIONS: 1. No acute osseous injuries or abnormalities are noted. 2. No evidence of osteomyelitis is seen. If there is a high clinical indexof suspicion, further evaluation with contrast-enhanced MRI ordual-isotope bone scan is recommended, given their higher sensitivities. Dictated by Yair Hardwick MD @ 01/14/2025 2:23:44 PM Dictated by: Yair Hardwick MD @ 01/14/2025 14:24:09 (Electronically Signed) Dc Macedo MD GENERAL IMAGING Final Result * PATH TISSUE EXAM (12/31/2024 10:30 AM CDT) Only the most recent of2 resultswithin the time period is included. Case Report Pathology Report Case: [id number] Authorizing Provider: Kadie Desir, Collected: 12/31/2024 1030 MD Ordering Location: [facility] Received: 12/31/2024 1453 Clinic Pathologist: Rosendo Newell Jr., MD Specimen: Skin, Right shoulder 01/05/2025 1:21 PM CDT [facility] Final Diagnosis SKIN, RIGHT SHOULDER, RE-EXCISION: 1. Changes of prior biopsy 2. Incidental benign intradermal nevus 3. No residual carcinoma identified 01/05/2025 1:21 PM CDT [facility] at 1321 CDT Clinical Information Re-excision of BCC ([id number]) 01/05/2025 1:21 PM CDT [facility] Gross Description A) Received in formalin, labeled with the patient's name and right shoulder, is a 3.5 x 1.5 x 0.8 cm oriented skin ellipse with a suture arbitrarily designating 12:00. The skin surface arguelles with a central 0.9 cm depressed arguelles-pink lesion, 0.6 cm from the nearest peripheral skin edge. The specimen is inked as follows: 12-3 o'clock: Blue 3-6 o'clock: Green 6-9 o'clock: Red 9-12 o'clock: Yellow The specimen is entirely submitted: 1. 12:00 and 6:00 tips 2-6. Central portion, sequentially submitted STN 01/01/2025 01/05/2025 1:21 PM CDT [facility] Microscopic Description The final diagnosis is based on microscopic examination of appropriate sections of all specimens. 01/05/2025 1:21 PM CDT [facility] Additional Information Interpreted at [facility] - [address], [place] [address] 01/05/2025 1:21 PM CDT [facility] Other SPECIMEN FROM SKIN / Unknown Non-Blood / Unknown 12/31/2024 10:30 AM CDT 12/31/2024 4:43 PM CDT Comment:Suture at 12 o'clock us Kadie Desir MD PATHOLOGY/CYTOLOGY Fi nal Result [facility] [address] [place] [address], [place] * (ABNORMAL) LIPID PANEL W REFLEX MEASURED LDL (04/20/2024 9:02 AM CDT) CHOLESTEROL,TOTAL 228(H) 100 - 199 mg/dL 04/20/2024 4:20 PM CDT [facility] Comment: Cholesterol, Total Reference Ranges Desirable <200 mg/dL Borderline 200-239 mg/dL High >=240 mg/dL TRIGLYCERIDES 164(H) <150 mg/dL 04/20/2024 4:20 PM CDT [facility] HDL CHOLESTEROL 42 >40 mg/dL 4:20 PM CDT [facility] NON-HDL CHOLESTEROL 186(H) <145 mg/dl 04/20/2024 4:20 PM CDT [facility] CHOL/HDL RATIO 5.43(H) <4.50 04/20/2024 4:20 PM CDT [facility] LDL CHOLESTEROL 153(H) <=130 mg/dL 04/20/2024 4:20 PM CDT [facility] VLDL CHOLESTEROL 33(H) <=30 mg/dL 04/20/2024 4:20 PM CDT [facility] PROVIDER ORDERED STATUS RANDOM 04/20/2024 4:20 PM CDT [facility] Blood BLOOD SPECIMEN / Unknown Venipuncture / Unknown 04/20/2024 9:02 AM CDT 04/20/2024 9:02 AM CDT us Torres Mooney MD CHEMISTRY Final Resu lt [facility] [address] [place] [place] [address], [place] * ANTI HCV (04/20/2024 9:02 AM CDT) HEPATITIS C ANTIBODY Non-Reacti ve Non-React liset 04/20/2024 4:58 PM CDT [facility] Comment:Please note, per www [...] Mooney MD SEND OUTS Final Resu lt [facility] [address] [place] [address], * SDNA-FIT EXTERNAL (COLOGUARD) (03/25/2024 12:15 PM CDT) NONINV COLON CA DNA+OCC BLD SCRN STL-IMP Negative Negative 04/01/2024 7:42 PM CDT [employer] (CLIA #:[id number]) Comment: NEGATIVE TEST RESULT. A negative Cologuard [...] (Bailee Josue al, N Engl J Med 2014;370(14):3257-1670) The normal value (reference range) for this assay is negative. COLOGUARD RE-SCREENING RECOMMENDATION: Periodic colorectal cancer screening is an important part of preventive healthcare for asymptomatic individuals at average risk for colorectal cancer. Following a negative Cologuard result, the [place] Cancer Society and U.S. Multi-Society Task Force screening guidelines recommend a Cologuard re-screening interval of 3 years. References: [place] Cancer Society Guideline for Colorectal Cancer Screening: https://www.cancer.org/cancer/hcyjz-sdqvta-iaeeji/uvrqypurk-vrrrwhlrs-oyuspkv/ac -rec ommendations.html.; Adrián DK, Kaushal CR, Corrie AbreuK, Colorectal Cancer Screening: Recommendations for Physicians and Patients from the U.S. Multi-Society Task Force on Colorectal Cancer Screening , Am J Gastroenterology 2017; 112:3784-2604. TEST DESCRIPTION: Composite algorithmic analysis of stool [...] Adair et al, N Engl J Med 2014;370(14):8028-7744.) Cologuard may produce a false negative or false positive result (no colorectal cancer or precancerous polyp present at colonoscopy follow up). A negative Cologuard test result does not guarantee the absence of CRC or advanced adenoma (pre-cancer). The current Cologuard screening interval is every 3 years. ([place] Cancer Society and U.S. Multi-Society Task Force). Cologuard performance data in a 10,000 patient pivotal study using colonoscopy as the reference method can be accessed at the following location: www.YUPIQ.OptTown/results. Additional description of the Cologuard test process, warnings and precautions can be found at www.cologuard.com. Stool specimen (specimen) (Rectum) 03/25/2024 12:15 PM CDT 03/27/2024 10:00 AM CDT Torres Mooney MD URINE Final Resu lt [employer] (CLIA #:[id number]) [place] [address], * US ABD AORTA SCREENING [[id number]] (03/17/2024 7:35 AM CDT) Anatomical Region Laterality [...] Most Recently Relevant to Health Maintenance Insurance BLUE CROSS MEDICARE ADVANTAGE MR Advance Directives Documents on File Type Date Recorded Patient Food Safety Specialist Expl anation Healthcare Directive 06/28/2020 6:39 AM * Full Code (Latest Code Status on File) Date Activated Date Inactivated Comments 06/28/2020 6:43 AM 06/29/2020 12:27 PM Question Answer Comments Code Status Discussion: Discussed Care Teams Convertible Sofa Bedspring Tester Relationship Specialty Start Date End Date Torres Mooney MD [address] [place] [address] PCP - General Family Practice 02/15/23
--- OUTSIDE RECORDS SUMMARY | 2025-02-06 22:53 | XMS_ITS | Encounter Summary ---
Author Organization [facility] Address [address] [place] [address] Care Team Providers Care Manager Customer Service Name Role Phone Michael Negrete MD Unavailable [phone] Torres Mooney MD Primary Care Provider + [phone] Nirav Cuba MD Unavailable Trores Mooney MD Primary Care Provider + [phone] Ayla Flores APRN PINION AND WHEEL TRUER Unavailable + [phone] Sophy Wong MD Unavailable [phone] Encounter Details Date Type Department Care Team (Late st Contact Info) Description 10/14/2023 MyC Medical Advice [facility] [address] [facility] [address] [place] [address] Ayla Flores APRN PINION AND WHEEL TRUER [address] [facility] [address] [place], [place] [id number] Social History Tobacco Use Types Packs/Day Years [...] on file 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 Can we please coordinate outpatient DCCV if complaint with OAC? 2 days prior start sotalol 60mg BID, discontinue metoprolol. Please reschedule follow-up withMable Cuba. Thank you BUILDING SUPERVISOR * Telephone Encounter - Tess Sosa RN - 10/21/2023 11:46 AM CST Attempted to contact pt to discuss, LM for return call. Tess BUILDING SUPERVISOR documented in this encounter Plan of Treatment Not on file documented as of this encounter Visit Diagnoses Not on filedocumented in this encounter Care Teams Manager Customer Service Relationship Specialty Start Date End Date Torres Mooney MD [address] [place] [address] PCP - General Family Medicine 03/14/23 11/12/23 Torres Mooney MD [address] [place] [address] PCP - General Family Medicine 11/13/23 Michael Negrete MD Cardiovascular Disease 11/08/21 Nirav Cuba MD [address] [facility] [address] [place] [address] Assigned Heart and Vascular Provider 03/09/23 02/22/24 Ayla Flores APRN PINION AND WHEEL TRUER [address] [facility] [address] [place] [address] Assigned Heart and Vascular Provider 02/23/24 08/23/24 Sophy Wong MD [address] [facility] [address] [place] [address] Assigned Heart and Vascular Provider 08/24/24 documented as of this encounter
--- OUTSIDE RECORDS SUMMARY | 2025-02-06 22:53 | XMS_ITS | Encounter Summary ---
Author Organization [facility] Address [address] [place] [address] Care Team Providers Care Fruit Preserver Name Role Phone DahliaClif Primary Care Provider Unavailabl Michael Cid MD Unavailable [phone] Michael Ba FARM INSTRUCTOR SURGERY ASSISTANT Unavailable [phone] Kailyn Wang FARM INSTRUCTOR SURGERY ASSISTANT Unavailable Cristine Torres Finn MD Primary Care Provider + [phone] Nirav Cuba MD Unavailable Torres Mooney MD Primary Care Provider + [phone] Ayla Flores FARM INSTRUCTOR SURGERY ASSISTANT Unavailable + [phone] Sophy Wong MD Unavailable [phone] Encounter Details Date Type Department Care Team (Late st Contact Info) Description 05/08/2022 [facility] [address] [address] aJke Zhang Social History Tobacco Use Types Packs/Day Years Used Date Smoking Tobacco: Never Smokeless Tobacco: Never Alcohol Use Standard Drinks/Week Comments Yes 0 (1 standard drink = 0.6 oz pur e alcohol) 2 drinks per month Sex and Gender Information Value Date Recorded Sex Assigned at Not on file 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 Gender Identity Not on file [...] on filedocumented in this encounter Care Teams Fruit Preserver Relationship Specialty Start Date End Date Clif Villagomez PCP - General Family Medicine 09/20/20 03/13/23 Torres Mooney MD [address] [place] [address] PCP - General Family Medicine 03/14/23 11/12/23 Torres Mooney MD [address] [place] [address] PCP - General Family Medicine 11/13/23 Michael Negrete MD Cardiovascular Disease 11/08/21 Micheal Ba APRN SURGERY ASSISTANT [address] [place], [place] [address] Assigned Sleep Provider 12/10/21 08/30/23 Kailyn Wang APRN SURGERY ASSISTANT [address] [place] [address] Assigned Heart and Vascular Provider 04/21/22 03/08/23 Nirav Cuba MD [address] [facility] [address] [place] [address] Assigned Heart and Vascular Provider 03/09/23 02/22/24 Ayla Flores APRN SURGERY ASSISTANT [address] [facility] [address] [place] [address] Assigned Heart and Vascular Provider 02/23/24 08/23/24 Sophy Wong MD [address] [facility] [address] [place] [address] Assigned Heart and Vascular Provider 08/24/24 documented as of this encounter
--- OUTSIDE RECORDS SUMMARY | 2025-02-06 22:53 | XMS_ITS | Clinical Summary ---
Author Organization [facility] Address [address] [facility] , [address] [place] [address] Phone Care Team Providers Care Warp Dyeing Vat Tender Name Role Phone [facility] Unavailable Unava ilable Conditions or Problems Problem Name Problem Code Onset Date Status Entry Date Provider Comment Standard Description Annotate Neck pain 15801655 (SNOMED CT) Active Adalid Chino MD Neck pain Left median neuropathy 183275977 (SNOMED CT) Active Adalid Chino MD Median neuropathy Left median neuropathy 311442133 (SNOMED CT) Inactive Amrita Joe Median neuropathy Median neuropathy, bilateral 253446141 (SNOMED CT) Active Amrita Diaz Lesion of median nerve Left ulnar neuropathy 203086891 (SNOMED CT) Active Adalid Chino MD Ulnar neuropathy Median neuropathy, right 648878022 (SNOMED CT) Inactive Adalid Chino MD Median neuropathy Left median neuropathy 372250976 (SNOMED CT) Removed Adalid Chino MD Median [...] Procedures Code Procedure Name Date Entry Date CPT-26503 Nerve Conduction 11-12 studies CPT-97393 EMG with NCS (5+ muscles) - 1 limb 10/21 CPT-27032 Nerve Conduction 13 or more studies 04/14 CPT-96352 EMG with NCS (5+ muscles) - 2 limbs 04/14 Vital Signs No information available. Immunizations No information available. Advance Directives No information available.
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
[2025-02-06 23:18] LABS: Albumin* 4.3 g/dL (3.3-5.0); Chloride* 106 mmol/L (96-114); Sodium* 139 mmol/L (135-149)
[2025-02-06 23:19] LABS: Potassium* 3.7 mmol/L (3.6-5.1)
[2025-02-06 23:21] LABS: Anion Gap 11 mEq/L (7-15); Blood Urea Nitrogen* 15 mg/dL (7-30); Carbon Dioxide* 22 mmol/L (20-32); Creatinine* 0.9 mg/dL (0.5-1.5); Estimated Glomerular Filt Rate 91 ml/min; Total Protein* 7.8 g/dL (6.0-8.3)
[2025-02-06 23:22] LABS: Alanine Aminotransferase* 29 U/L (4-50); Alkaline Phosphatase* 91 U/L (40-150); Aspartate Amino Transferase* 52 U/L (12-35); Bilirubin Direct* 0.3 mg/dL (0.0-0.5); Bilirubin Total* 0.6 mg/dL (0.1-1.5); Calcium* 9.2 mg/dL (8.4-10.6); Ethanol* 0.07 % (0.01-0.03); Glucose* 120 mg/dL (60-115)
[2025-02-06 23:35] LABS: Basophils Absolute Auto 0.02 K/uL (0.00-0.30); Basophils Percent Auto 0.3 % (0.0-3.0); Eosinophils Percent Auto 1.5 % (0.0-7.0); Hematocrit 44.2 % (37.0-53.0); Hemoglobin* 14.8 gm/dL (13.5-17.5); Immature Granulocytes Abs Auto 0.17 K/uL (0.00-0.30); Immature Granulocytes Pct Auto 2.6 %; Lymphocytes Absolute Auto 2.83 K/uL (0.90-2.90); Lymphocytes Percent Auto 42.8 % (20-44); Mean Corpuscular HGB Conc 34 gm/dL (32-36); Mean Corpuscular Hemoglobin 33 pg (26-34); Mean Corpuscular Volume 98 fL (80-100); Monocytes Percent Auto 8.8 % (0.0-11.0); Neutrophils Absolute Auto 2.91 K/uL (1.7-7.0); Platelet Count* 157 K/uL (140-440); Red Blood Count 4.52 m/uL (4.30-5.90); White Blood Count* 6.61 K/uL (4.50-11.00)
[2025-02-06 23:40] LABS: Slide Review Reflex No
--- OUTSIDE RECORDS SUMMARY | 2025-02-06 23:54 | XMS_ITS | Clinical Summary ---
Author Organization [facility] Address [address] , [address] [place] [address] Phone Care Team Providers Care Manager Stylist Name Role Phone [facility] Unavailable Unava ilable Conditions or Problems Problem Name Problem Code Onset Date Status Entry Date Provider Comment Standard Description Annotate Neck pain 44868472 (SNOMED CT) Active Adalid Chino MD Neck pain Left median neuropathy 855164725 (SNOMED CT) Active Adalid Chino MD Median neuropathy Left median neuropathy 803778951 (SNOMED CT) Inactive Amrita Joe Median neuropathy Median neuropathy, bilateral 264306064 (SNOMED CT) Active Amrita Diaz Lesion of median nerve Left ulnar neuropathy 346188439 (SNOMED CT) Active Adalid Chino MD Ulnar neuropathy Median neuropathy, right 472030327 (SNOMED CT) Inactive Adalid Chino MD Median neuropathy Left median neuropathy 232352572 (SNOMED CT) Removed Adalid Chino MD Median [...] Procedures Code Procedure Name Date Entry Date CPT-15923 Nerve Conduction 11-12 studies CPT-34329 EMG with NCS (5+ muscles) - 1 limb 10/21 CPT-29808 Nerve Conduction 13 or more studies 04/14 CPT-66793 EMG with NCS (5+ muscles) - 2 limbs 04/14 Vital Signs No information available. Immunizations No information available. Advance Directives No information available.
[2025-02-06] MEDS: fentaNYL 100 MCG/2 ML inj 50 MCG IVP (23:55)
[2025-02-07] VITALS: PULSE 113; RESP 9; O2SAT 98
[2025-02-07 00:02] VITALS: BP 123/91; RESP 11; RESP 12
[2025-02-07] MEDS: fentaNYL 100 MCG/2 ML inj 50 MCG IVP (00:10)
[2025-02-07 00:11] VITALS: BP 137/90; PULSE 101; RESP 16; O2SAT 95
[2025-02-07] MEDS: 0.9 % SODIUM CHLORIDE 500 ML 500 ML IV (00:12)
[2025-02-07 00:15] VITALS: PULSE 102; RESP 19; O2SAT 94
[2025-02-07 00:21] VITALS: BP 132/93; PULSE 138; RESP 16; O2SAT 97
[2025-02-07 00:40] LABS: Appearance Urine Clear (Clear); Bilirubin Urine Negative (Negative); Blood Urine Trace-lysed (Negative); Color Urine Yellow (Yellow); Glucose Urine Negative (Negative); Ketones Urine Negative (Negative); Leukocyte Esterase Urine Negative (Negative); Nitrite Urine Negative (Negative); Protein Urine Negative (Negative); Urobilinogen Urine 0.2 (0.2-1.0); pH Urine 5.5 (5.0-8.5)
[2025-02-07] MEDS: HYDROCODONE/ACETAMIN 7.5-325 TABLET 1 TAB PO (00:46)
[2025-02-07 00:47] LABS: Amphetamine Screen Urine Negative (Negative); Barbiturate Screen Urine Negative (Negative); Benzodiazepines Screen Urine Negative (Negative); Cannabinoid Screen Urine Negative (Negative); Cocaine Screen Urine Negative (Negative); Methadone Screen Urine Negative (Negative); Methamphetamines Screen Urine Negative (Negative); Opiate Screen Urine Negative (Negative); Oxycodone Screen Urine Negative (Negative); Phencyclidine Screen Urine Negative (Negative); Tricyclic Antidepressant Urine Negative (Negative)
[2025-02-07 00:49] LABS: RBC Urine 0-2 (0-2); WBC Urine 0-2 (0-5)
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
== END 2025-02-07 01:45 | disposition home or self-care (01) ==
PROVIDERS: Emergency Provider Family Medicine; PCP Family Medicine
DX: S32.010A Wedge compression fracture of first lumbar vertebra, initial encounter for closed fracture (principal); V43.62XA Car passenger injured in collision with other type car in traffic accident, initial encounter; I48.91 Unspecified atrial fibrillation
CPT/HCPCS: 36415; 70450; 71045; 71260; 72100; 72125; 72131; 74177; 80048; 80076; 80306; 81001; 82077; 85025; 93005; 94761; 96374; 96376; 99285; 99291; A9270; G0390; J3010; J7030; Q9967